=== PATIENT | male | born 1950 | race Caucasian/White ===

== ENCOUNTER 2016-07-17 09:07 | Emergency (ER) | payer BC ==
[~2016-07-17] VITALS: Ht 174 cm; Wt 98.0 kg
[2016-07-17 09:09] VITALS: TEMP 36.7
[2016-07-17 09:10] VITALS: O2SAT 95
[2016-07-17] MEDS ORDERED: SODIUM CHLORIDE 0.9% 1000ML 1,000 ML IV SCH (09:10)
--- NOTE | 2016-07-17 09:15 | EMERGENCY ROOM VISIT NOTE ---
History Report prepared by Gonzaloibedvin: Lin Varela Under the Supervision of: Dr. Frank Lau M.D. First contact with patient: 09:08 Stated Complaint: STOKE ALERT History of Present Illness The patient is a 65 year old male who presents to the Emergency Room with complaints of persistent possible stroke symptoms. He was brought to the ED via EMS. EMS reports he was found on a carpeted floor by his family this morning around 0815. His last known well was at 2230 last night. He vomited once prior to arrival. His reports he is normally a healthy fito and he takes no daily medications. The patient is aphasic on exam so additional information is unobtainable secondary to his current condition. No fever or known trauma or recent illness. Source of History: family, spouse/significant other (), EMS History Limited By: aphasia Onset: 0815 Position: other (global) Timing: other (persistent) Associated Symptoms: + vomiting Review of Systems See HPI for pertinent positives & negatives. A total of 10 systems reviewed and were otherwise negative. Past Medical & Surgical Medical Problems: (1) No significant past medical history Old medical records were reviewed. Nurse's notes were reviewed and I agree with. No history of cardiac disease or A. fib known prior No anticoagulation No history of diabetes or CVA Family History Mother did of a stroke Social History Smokeless Tobacco Use: No Alcohol Use: occasionally Drug Use: none Marital Status: Housing Status: lives with family Occupation Status: retired Current/Historical Medications Scheduled Ggaxmrxqrro-Wvckxvnhcgh-Scz C- (Glucosamine Chondroitin), 1 TAB PO DAILY Miscellaneous Medications Naproxen (Aleve), 220 MG PO Pseudoephedrine (Sudafed), 30 MG PO Allergies Coded Allergies: No Known Allergies (Verified , 07/17/16) Physical Exam Vital Signs Date Time Temp Pulse Resp B/P Pulse Ox O2 Delivery O2 Flow Rate FiO2 07/17/16 10:48 74 20 158/89 94 07/17/16 10:02 74 16 155/99 94 Room Air 07/17/16 09:38 78 16 163/115 94 Room Air 07/17/16 09:26 80 07/17/16 09:10 95 Room Air 07/17/16 09:09 36.7 70 20 143/108 Room Air Physical Exam General: Well developed, well nourished, middle aged male, in no acute distress , breathing comfortably on room air. Aphasic on exam but appears to follow some commands. HEENT: Normal cephalic atraumatic. Pupils are equal round and reactive to light. Extraocular movements are intact. Oropharynx is pink with moist mucous membranes. No swelling of the mouth lips or tongue. Neck: Supple with a midline trachea. No meningeal signs or stiffness, no JVD or bruits. No Stridor. Chest: Clear to auscultation bilaterally. No wheezes or rhonchi. No increased work of breathing. Heart: Non-tachycardic irregular rate and rhythm. Consistent with A. fib Abdomen: Soft nontender, nondistended without rebound guarding or rigidity. Extremities: No cyanosis clubbing or edema. No calf tenderness or assymetry Spine/Back. Non tender to palpation. No CVA tenderness Skin: Good turgor without rashes. Neurologic exam: Normal motor sensation of left arm and leg, dense hemiparesis on the right, gaze preference to the left with some facial droop. Medical Decision & Procedures ER Provider Diagnostic Interpretation: This CT scan was reviewed and interpreted by the radiologist and reviewed by myself. HEAD CT NONCONTRAST Impression: Developing left middle cerebral arterial territory infarct. No evidence for acute intracranial hemorrhage. Electronically signed by: Tito Cherry M.D. 07/17/2016 9:21 AM Laboratory Results 07/17/16 09:27 Red Blood Count 5.37, Mean Corpuscular Volume 92.7, Mean Corpuscular Hemoglobin 34.6, Mean Corpuscular Hemoglobin Concent 37.3, Mean Platelet Volume 10.2, Neutrophils (%) (Auto) 86.1, Lymphocytes (%) (Auto) 7.6, Monocytes (%) (Auto) 6.1, Eosinophils (%) (Auto) 0.0, Basophils (%) (Auto) 0.1, Neutrophils # (Auto) 7.02, Lymphocytes # (Auto) 0.62, Monocytes # (Auto) 0.50, Eosinophils # (Auto) 0.00, Basophils # (Auto) 0.01 07/17/16 09:27 Test 07/17/16 09:19 07/17/16 09:27 07/17/16 09:28 07/17/16 10:06 Bedside Prothrombin Time INR 1.2 (0.9-1.1) White Blood Count 8.16 K/uL (4.8-10.8) Red Blood Count 5.37 M/uL (4.7-6.1) Hemoglobin 18.6 g/dL (14.0-18.0) Hematocrit 49.8 % (42-52) Mean Corpuscular Volume 92.7 fL (80-100) Mean Corpuscular Hemoglobin 34.6 pg (25-34) Mean Corpuscular Hemoglobin Concent 37.3 g/dl (32-36) Platelet Count 169 K/uL (130-400) Mean Platelet Volume 10.2 fL (7.4-10.4) Neutrophils (%) (Auto) 86.1 % Lymphocytes (%) (Auto) 7.6 % Monocytes (%) (Auto) 6.1 % Eosinophils (%) (Auto) 0.0 % Basophils (%) (Auto) 0.1 % Neutrophils # (Auto) 7.02 K/uL (1.4-6.5) Lymphocytes # (Auto) 0.62 K/uL (1.2-3.4) Monocytes # (Auto) 0.50 K/uL (0.11-0.59) Eosinophils # (Auto) 0.00 K/uL (0-0.5) Basophils # (Auto) 0.01 K/uL (0-0.2) RDW Standard Deviation 41.2 fL (36.4-46.3) RDW Coefficient of Variation 12.4 % (11.5-14.5) Immature Granulocyte % (Auto) 0.1 % Immature Granulocyte # (Auto) 0.01 K/uL (0.00-0.02) Prothrombin Time 11.5 SECONDS (9.0-12.0) Prothromb Time International Ratio 1.1 (0.9-1.1) Activated Partial Thromboplast Time 25.0 SECONDS (21.0-31.0) Partial Thromboplastin Ratio 1.0 Anion Gap 10.0 mmol/L (3-11) Est Creatinine Clear Calc Drug Dose 83.2 ml/min Estimated GFR () 90.5 Estimated GFR (Non- 78.1 BUN/Creatinine Ratio 14.6 (10-20) Calcium Level 8.7 mg/dl (8.5-10.1) Total Creatine Kinase 353 U/L (39-308) Creatine Kinase MB 8.7 ng/ml (0.5-3.6) Creatine Kinase MB Ratio 2.5 (0-3.0) Troponin I < 0.015 ng/ml (0-0.045) Bedside Glucose 171 mg/dl (70-99) Urine Opiates Screen NEG (NEG) Urine Methadone, Qualitative NEG (NEG) Urine Barbiturates NEG (NEG) Urine Phencyclidine (PCP) Level NEG (NEG) Ur Amphetamine/Methamphetamine NEG (NEG) MDMA (Ecstasy) Screen NEG (NEG) Urine Benzodiazepines Screen NEG (NEG) Urine Cocaine Metabolite NEG (NEG) Urine Marijuana (THC) NEG (NEG) Laboratory studies as stated above per my review. Medications Administered Medications (Trade) Dose Ordered Sig/Blaine Route Start Time Stop Time Status Last Admin Dose Admin Sodium Chloride (Nss 1000ml) 1,000 ml @ 50 mls/hr Q20H IV 07/17/16 09:10 07/17/16 11:16 DC 07/17/16 09:56 50 MLS/HR Magnesium Sulfate (Magnesium Sulfate) 2 gm STK-MED ONCE .ROUTE 07/17/16 09:38 07/17/16 09:39 DC 07/17/16 09:55 2 GM Aspirin (Aspirin Chew) 324 mg NOW STAT GT 07/17/16 09:42 07/17/16 09:45 DC 07/17/16 09:57 324 MG Simvastatin (Zocor Tab) 40 mg STK-MED ONCE .ROUTE 07/17/16 09:46 07/17/16 09:48 DC 07/17/16 09:57 40 MG Labetalol HCl (Normodyne IV) 5 mg STK-MED ONCE .ROUTE 07/17/16 09:52 07/17/16 09:54 DC 07/17/16 09:59 5 MG ECG Indication: weakness (stroke like symptoms) Rate (beats per minute): 76 Rhythm: atrial fibrillation Findings: nonspecific-ST abn Comparison ECG Date: Compared to EKG from May 31, 2005, atrial fibrillation has replaced sinus bradycardia ED Course 0908: Past medical records reviewed. The patient was evaluated in room B1, and a complete history and physical examination were performed. 0910: NSS 1000 ml @ 50 mls/hr IV. 0935: I discussed the patients case with Dr. Gould, [facility]. They recommend fluids and have accepted the patient as a transfer to their facility via air transport. 0938: Magnesium Sulfate 2 gm IV. 0942: Simvastatin 40 mg NG, Aspirin 324 mg GT. 0946: Simvastatin 40 mg IV. 52: Labetalol 5 mg IV. 55: I reevaluated the patient. His blood pressure is elevated and [facility] recommends we administer Labetalol. I will put in orders. Medical Decision Differential Diagnoses: CVA, intracranial hemorrhage, arrhythmia, electrolyte or metabolic abnormalities, infection, trauma This patient comes in as described above. He was placed in room B1. I did talk to the paramedics prior to arrival and called a stroke alert. I was concerned that he has a large stroke on exam and is an otherwise healthy very functional fito and wanted to maximize his care. When he arrived I saw him and and we took him straight over to the CAT scan. CAT scan does show some findings consistent with a left MCA stroke. He already has ischemic changes. I did have IVs established and blood work obtained. He has no significant electrolyte or metabolic abnormality was found to have A. fib which is rate controlled and apparently new. This may have certainly contributed to his stroke. He is not on any blood thinners and this diagnosis was unknown to the patient and . I did have the stroke neurologist evaluate the patient. He does not feel that he is a TPA candidate because his last well known time was at 11:30 last night which is 9 or 10 hours prior to arrival. Additionally, he also has changes on his CAT scan and at this point would have more risk than benefit. We are going to transfer him to [facility] for further stroke care. He does not feel he will likely benefit from an intervention at this point has a large area however he will need other treatment unavailable here with possible surgery for decompressive craniotomy if he has swelling. As per the stroke neurologist, we did give him 500 mL IV normal saline bolus and then hourly rate of IV normal saline. He also be given 2 g of IV mag. Aspirin 324 mg and started him on Zocor 40 mg by mouth. He also received 1 dose of IV labetalol as his blood pressure was getting over 200 and this came down his high 190s. [facility] arrived and promptly transported the patient to [facility] for further inpatient treatment and evaluation. Consults Time Called: [phone] Consulting Physician: Dr. Gould, [facility] Returned Call: [phone] I discussed the patients case with Dr. Gould, [facility]. They recommend fluids and have accepted the patient as a transfer to their facility via air transport. Impression Primary Impression: CVA (cerebral vascular accident) Critical Care I have personally spent greater than 45 minutes of critical care time in the direct management of this patient. This includes bedside care, interpretation of diagnostic studies, and testing, discussion with consultants, patient, and family members, and other required patient management activities. This 45 minutes is in excess of all separately billable procedures. Scribe Attestation The scribe's documentation has been prepared under my direction and personally reviewed by me in its entirety. I confirm that the note above accurately reflects all work, treatment, procedures, and medical decision making performed by me. Departure Information Dispostion Transfer Acute Care Facility (The patient has been accepted as a transfer to [facility] for further evaluation and management) Referrals Juana Grimm M.D. (PCP)
--- NOTE | 2016-07-17 09:22 | DIAGNOSTIC IMAGING REPORT ---
HEAD CT NONCONTRAST CT DOSE: 537.48 mGy.cm HISTORY: Stroke eval; for CVA TECHNIQUE: Multiaxial CT images of the head were performed without the use of intravenous contrast. Comparison: None. Findings: The paranasal sinuses and mastoid air cells are clear. Probable effacement of left cerebral sulci as compared to the right. A developing left cerebral infarct possibly middle cerebral distribution is considered. The system is midline. There is no acute intracranial hemorrhage. Impression: Developing left middle cerebral arterial territory infarct. No evidence for acute intracranial hemorrhage. Electronically signed by: Tito Cherry M.D. 07/17/2016 9:21 AM Dictated Date/Time: 07/17/2016 9:20 AM
[2016-07-17 09:34] VITALS: Ht 174 cm; Wt 98.0 kg
[2016-07-17] MEDS ORDERED: MAGNESIUM SULFATE 1GM / D5W 1 GM BAG ONE (09:38)
[2016-07-17 09:40] LABS: BASO % 0.1 %; BASO ABS # 0.01 K/uL (0-0.2); COMPLETE YES; HEMATOCRIT 49.8 % (42-52); IG% 0.1 %; LYMPH % 7.6 %; LYMPH ABS # 0.62 K/uL (1.2-3.4); MEAN CELL VOLUME 92.7 fL (80-100); MEAN CORPUSCULAR HEMOGLOBIN 34.6 pg (25-34); MEAN CORPUSCULAR HGB CONC 37.3 g/dl (32-36); MEAN PLATELET VOLUME 10.2 fL (7.4-10.4); MONO % 6.1 %; NEUT % 86.1 %; PLATELET COUNT 169 K/uL (130-400); RED BLOOD COUNT 5.37 M/uL (4.7-6.1); WHITE BLOOD COUNT 8.16 K/uL (4.8-10.8)
[2016-07-17] MEDS ORDERED: SIMVASTATIN 40 MG TAB NG STA (09:42)
[2016-07-17] MEDS ORDERED: ASPIRIN 81 MG CHEW GT STA (09:42)
[2016-07-17] MEDS ORDERED: SIMVASTATIN 10 MG TAB ONE (09:46)
[2016-07-17 09:51] LABS: INR 1.1 (0.9-1.1); PROTHROMBIN TIME (PATIENT) 11.5 SECONDS (9.0-12.0)
[2016-07-17] MEDS ORDERED: LABETALOL HCL IV 5 MG/ML 20ML ONE (09:52)
[2016-07-17] MEDS ORDERED: GLUCTAB7 PO (10:00)
[2016-07-17] MEDS ORDERED: PSEU30TA20 PO (10:00)
[2016-07-17] MEDS ORDERED: NAPR1TAB9 PO (10:00)
[2016-07-17 10:05] LABS: BLOOD UREA NITROGEN 15 mg/dl (7-18); BUN/CREATININE RATIO 14.6 (10-20); CALCIUM 8.7 mg/dl (8.5-10.1); CARBON DIOXIDE 29 mmol/L (21-32); CHLORIDE 102 mmol/L (98-107); GLUCOSE 150 mg/dl (70-99); SODIUM 141 mmol/L (136-145)
[2016-07-17 10:10] LABS: CKMB/CK RATIO 2.5 (0-3.0)
[2016-07-17 10:48] VITALS: BP 158/89; PULSE 74; O2SAT 94
[2016-07-17 12:59] LABS: BENZODIAZEPINE, URINE NEG (NEG); COCAINE,URINE NEG (NEG); PHENCYCLIDINE, URINE NEG (NEG)
== END 2016-07-17 10:53 | disposition short-term general hospital (02) ==
LOC: EDBD 09:07 → C.EDB 09:08
DX: I63.9 Cerebral infarction, unspecified (principal); R11.10 Vomiting, unspecified; Z82.3 Family history of stroke

== ENCOUNTER → 2016-08-25 | Outpatient (CLI) | payer BC ==
[~2016-08-25] MED LIST: GLUCTAB7 PO; NAPR1TAB9 PO; PSEU30TA20 PO
--- NOTE | 2016-08-25 14:33 | DIAGNOSTIC IMAGING REPORT ---
HEAD CT NONCONTRAST CT DOSE: 638.56 mGycm HISTORY: Left MCA territory infarct. Follow-up. TECHNIQUE: Multiaxial CT images of the head were performed without the use of intravenous contrast. Automated exposure control was utilized for this study. Comparison: Head CT 07/17/2016. Findings: The paranasal sinuses and mastoid air cells are clear. Old nasal bone fractures, unchanged. Large area of developing encephalomalacia within the majority of the left temporal lobe, posterior lateral left frontal lobe, and anterior left parietal lobe. This is consistent with expected involution of a left MCA territory infarct. No evidence for hemorrhagic transformation. There is no mass or midline shift. The ventricles are normal in size. Impression: Expected evolution of a large left MCA territory infarct. No evidence for hemorrhagic transformation. Electronically signed by: Rubén Mitchell M.D. 08/25/2016 2:31 PM Dictated Date/Time: 08/25/2016 2:26 PM
--- NOTE | 2016-08-26 10:19 | CODING QUERY NO DIAGNOSIS ---
TREATMENT RENDERED WITHOUT A DIAGNOSIS To promote full compliance with coding requirements relating to patient care, physician participation is requested in all cases of cook helper vegetable uncertainty. Please assist us with providing a diagnosis/symptom for the test(s) below: A diagnosis/symptom was not documented on your Order. A valid diagnosis/symptom is required to bill all insurances. Please remember that we are unable to code a diagnosis of rule out, probable, possible, questionable, or suspected. Tests that require a diagnosis: DOS 08/25 * Head CT DIAGNOSIS: Provider Signature: Date: Thank you Shell [facility] Health Information Management Once completed, please kindly fax back to [phone] For questions please call [phone]
== END | disposition home or self-care (01) ==
LOC: C.CTS 14:12
PROVIDERS: ATTEND Internal Medicine Critical Care Medicine
DX: D64.9 Anemia, unspecified (principal); F17.210 Nicotine dependence, cigarettes, uncomplicated

== ENCOUNTER 2021-05-29 10:38 | Inpatient (IN) ==
[2021-05-29 11:39] LABS: Basophils # (auto) 0.02 K/uL (0-0.2); Basophils % (auto) 0.3 %; Eosinophils # (auto) 0.03 K/uL (0-0.5); Eosinophils % (auto) 0.5 %; Hematocrit (blood only) 45.6 % (42-52); Hemoglobin 15.2 g/dL (14.0-18.0); Immature Granulocytes # (auto) 0.01 K/uL (0.00-0.02); Immature Granulocytes % (auto) 0.2 %; Lymphocytes # (auto) 0.85 K/uL (1.2-3.4); Lymphocytes % (auto) 13.8 %; Mean Corpuscular Hemoglobin 31.9 pg (25-34); Mean Corpuscular Hgb Conc 33.3 g/dL (32-36); Mean Corpuscular Volume 95.8 fL (80-100); Mean Platelet Volume 10.9 fL (7.4-10.4); Monocytes # (auto) 0.55 K/uL (0.11-0.59); Monocytes % (auto) 8.9 %; Neutrophils # (auto) 4.72 K/uL (1.4-6.5); Neutrophils % (auto) 76.3 %; Platelet Count 181 K/uL (130-400); RDW Coefficient of Variation 14.9 % (11.5-14.5); RDW Standard Deviation 52.2 fL (36.4-46.3); Red Blood Count 4.76 M/uL (4.7-6.1); White Blood Count 6.18 K/uL (4.8-10.8)
--- NOTE | 2021-05-29 11:54 | History & Physical Report ---
Date of Service May 29, 2021 Assessment & Plan (1) Dilated cardiomyopathy: Plan: - Admit to tele - Consult cardiology - Dr. Pablo - was sent over from cards office by Dr. Bradley - Echo reviewed showing 25-29% L atrium severely enlarged, R atrium severely enlarged, moderately dilated R ventricular vacity, Moderate aortic sclerosis, Mild AI, severe MR, severe TR, elevated pulm artery pressure 65-70 mmHG - EKG reviewed as above showing afib rate controlled - Lasix 40 mg BID IV for now, was recently placed on lasix 20 mg po daily. - Daily weights- typically weights 230, was up 7 lbs within the past week. - strict I/Os - PT/OT consulted, encourage ambulation and elevation of legs (2) Atrial fibrillation, chronic: Plan: -Chronically anticoagulated with Xarelto -Rate controlled with metoprolol, consider initiation of Entresto prior to discharge per Dr. Bradley, otherwise is not on an NICOLETTE/ARB (3) Hyperlipidemia: Plan: - Cont statin therapy (4) Pleural effusion, bilateral: Plan: - CXR reviewed - Diuresis as above (5) History of CVA (cerebrovascular accident): Plan: - Occurred in 2017, follows with speech therapy as an outpatient routinely - PT/OT - No dysphagia, allow diet DVT ppx: - teds, scds CODE: Full Code Dispo: From home, likely to remain in the hospital x 2 days History of Present Illness Chief Complaint: Shortness of breath Primary Care Provider: Samir Arroyo MD This is a 70 yo M with PMHx of Atrial fibrillation on xarelto, Hx of Ischemic left MCA stroke in 2017, residual aphasia, prostate cancer, who presents to the hospital from cardiology office. He was seen by Dr. Bradley earlier today and sent him over due to severe dilated cardiomyopathy with an EF found to be 25% on recent echocardiogram. He had pulmonary hypertension most likely due to volume overload. He was recently seen in the ER for epigastric pain where he was started on protonix, then developed worsening lower extremity edema. He was told this was possibly an allergic reaction to this medication was switched to famotidine. No longer complains of any epigastric discomfort. he is doing well on famotidine. He was noted to be significantly volume overloaded today in the cardiology clinic and was sent here for further diuresis. PCP started on Lasix 20 mg PO daily approximately 1 week ago due to increased lower extremity edema, however has helped minimally. He typically weights around 230 lbs, and has continued to gain weight despite no changes in diet/fluid intake or medication. Currently is up 7 lbs. He has significant edema pitting and some weeping over both lower legs. Recently he has been sleeping with a minimum of 2 pillows every night, and is gasping for air when he lays down. He feels short of breath currently and here is found to be hypoxic with O2 sats 87% on room air. He has never required oxygen prior to this before. Allergies Allergy/AdvReac Type Severity Reaction Status Date / Time oseltamivir [From Tamiflu] AdvReac Intermediate Rash Unverified 05/19/21 11:31 Home Medications Medication Instructions Recorded Confirmed Type atorvastatin 40 mg tablet 40 mg PO DAILY 08/01/19 05/19/21 History gabapentin 300 mg capsule 300 mg PO BID 08/01/19 05/19/21 History metoprolol succinate 25 mg 25 mg PO DAILY 08/01/19 05/19/21 History tablet,extended release 24 hr multivitamin 1 tab PO QAM 08/01/19 05/19/21 History vit A 1,000 unit-C 200 mg-E 60 1 tab PO QAM 08/01/19 05/19/21 History unit-lutein 2 mg and minerals tablet (Ocuvite with Lutein) famotidine 20 mg tablet (Pepcid) 20 mg PO BID 42 Days #84 tab 05/19/21 Rx furosemide 20 mg tablet 20 mg PO DAILY 05/29/21 05/29/21 History magnesium 250 mg PO DAILY 05/29/21 05/29/21 History potassium chloride 20 mEq 20 meq PO 05/29/21 History tablet,extended release(part/cryst) rivaroxaban 20 mg tablet (Xarelto) 20 mg PO DAILY 05/29/21 05/29/21 History Past Med/Surg History Medical History (Updated 05/29/21 @ 12:48 by Matt Love DO) Atrial fibrillation Stroke Family History (Updated 08/01/19 @ 14:28 by Ilya Maldonado) Other No significant family history Social History (Updated 08/01/19 @ 14:49 by Ilya Maldonado) Smoking Status: Never smoker Hx Alcohol Use: Yes Preferred Language: [place] Islander Current Living Situation: Family Feels Safe at Home: Yes Review of Systems Review of Systems: Constitutional: No fever, sweats or chills Eyes: No diplopia, no worsening or blurred vision ENT: normal hearing, no trouble swallowing Respiratory: No cough, sputum, + dyspnea at rest and on exertion Cardiovascular: No chest pain, tightness or palpitations Abdomen: No pain, nausea, vomiting, diarrhea or constipation, + feels bloated in abdomen Musculoskeletal: No joint pain, calf pain, + BLE swelling Neurologic: No weakness, numbness/tingling, + chronic aphasia s/p stroke in 2017, no speech issues, no swallowing dysfunction, no balance problems Psychiatric: No anxiety or depression Skin: No rash or itch Physical Exam Physical Exam: General: awake, alert, no apparent distress, + aphasia Head: Normocephalic, atraumatic ENT: PERRL, EOMI, no pharyngeal exudate, mucous membranes moist Chest: Diminished at bases and faint crackles on exam bilaterally, on room air with sats 88%, improved on 2 L O2 to 95% Cardiac: irregularly irregular, rate controlled, no murmur, no JVD, normal peripheral pulses, good capillary refill Abdominal: NABS x 4 quadrants, soft, + distended, nontender to palpation, no rebound or guarding Extremities: 3+ pitting peripheral edema BLE, no erythema, calfs nontender to palpation Psych: Normal mood and affect Neuro: AAO x 3, strength intact bilaterally and rated 5/5, no motor deficits, speech is clear, no peripheral sensory deficits Results & Data Results & Data ([facility]) Vital Signs (Past 12 Hours) Vital Signs Temp Pulse Pulse Resp BP BP Pulse Ox 05/29/21 11:31 70 18 141/103 H 05/29/21 10:43 36.5 C 106 H 24 129/92 95 Laboratory Results 05/29/21 05/29/21 11:27 11:27 WBC 6.18 RBC 4.76 Hgb 15.2 Hct 45.6 MCV 95.8 MCH 31.9 MCHC 33.3 RDW Std Deviation 52.2 H RDW Coeff of Matthias 14.9 H Plt Count 181 MPV 10.9 H Immature Gran % (Auto) 0.2 Neut % (Auto) 76.3 Lymph % (Auto) 13.8 [place] % (Auto) 8.9 Eos % (Auto) 0.5 Baso % (Auto) 0.3 Neut # (Auto) 4.72 Lymph # (Auto) 0.85 L [place] # (Auto) 0.55 Eos # (Auto) 0.03 Baso # (Auto) 0.02 Immature Gran # (Auto) 0.01 Sodium 140 Potassium 4.3 Chloride 108 H Carbon Dioxide 24 Anion Gap 7.0 BUN 18 Creatinine 1.17 Est Cr Clr Drug Dosing 66.3 Est GFR ( Amer) 72.3 Est GFR (Non-Af Amer) 62.4 BUN/Creatinine Ratio 15.2 Glucose 139 H Calcium 8.9 Total Bilirubin 2.7 H AST 33 ALT 49 Alkaline Phosphatase 89 Troponin I 0.024 NT-Pro-B Natriuret Pep 5832 H Total Protein 6.0 L Albumin 3.2 L Globulin 2.8 Albumin/Globulin Ratio 1.2 Lipase 222 Diagnostic Findings Chest X-Ray 05/29/21 10:52 XR chest 1V portable CLINICAL HISTORY: Atypical chest pain TECHNIQUE: Single frontal radiograph of the chest was obtained. Comparison: Comparison is made to chest one view 05/19/2021 FINDINGS: No lines and tubes are seen. Cardiomegaly is noted. Bilateral lower lung predominant airspace opacities are seen. No evidence of pleural effusion or pneumothorax. IMPRESSION: Bilateral lower lung predominant airspace opacities which may represent atelectasis, pneumonia, and/or aspiration. ACT 112: Negative or not required by law. Electronically signed by: Albin Ibarra M.D. 05/29/2021 11:57 AM ECG Additional Comments: 29-MAY-2021 11:08:02 [facility]-EDSTAT ROUTINE RETRIEVAL Atrial fibrillation with premature ventricular or aberrantly conducted complexes Nonspecific T wave abnormality Prolonged QT Abnormal ECG When compared with ECG of 19-MAY-2021 09:48, No significant change was found 25mm/s 10mm/mV 150Hz 9.0.9 12SL 241 LUCINDA: 15 Unconfirmed Vent. rate 97 BPM NJ interval * ms QRS duration 94 ms QT/QTc 372/472 ms Code Status & VTE Plan Code Status Full code-discussed with patient at bedside VTE Prophylaxis Plan VTE Prophylaxis will be ordered: Yes Supervising Physician Co-Signing Physician Notes I saw this patient with the physician college sports assistant, I participated in the history, physical, review of systems, and physical exam. I reviewed the medications with the patient and the physician college sports assistant and helped reconcile the medications. I helped take a detailed family and social history as well. I formulated the assessment and plan personally with the physician college sports assistant and went over it with the patient. Physical Exam Gen-AAO x 3, NAD, Afebrile, Obese Head-NCAT, EOMI, PERRLA, Anicteric Sclera, No Posterior Pharyngeal Erythema Neck-Supple, No JVD, No Thyromegaly, No Masses, No LAD, No Bruits Lungs-Clear to Auscultation Bilaterally, No Rales, No Rhonchi, No Wheezing, No Crepitus Chest-No S4, +S1, +S2, No S3, No Murmurs, No Rubs, No Gallops, No Ectopy Abdomen-Soft, Bowel Sounds Present, Non Tender, Non Distended, No Hepatomegaly, No Splenomegaly, No Palpable Masses, No Rebound, No Rigidity, No Guarding Musculoskeletal-Full Range of Motion Bilaterally, No CVAT Extremities-No Cyanosis, No Clubbing, LLE c edema, tender firm Calf to groin posteriorly Nuero-Cranial Nerves II-XII grossly intact, Motor WNL, DTRs WNL, Strength WNL, Non Focal Psych-Normal Mood
[2021-05-29 11:56] LABS: Albumin Level 3.2 gm/dl (3.4-5.0); BUN Creatinine Ratio 15.2 (10-20); Calcium 8.9 mg/dl (8.5-10.1); Creatinine Clr Calc Pharmacy 66.3 ml/min; Est GFR (African American) 72.3 ml/min; Est GFR (Non-African American) 62.4 ml/min; Potassium 4.3 mmol/L (3.5-5.1)
--- NOTE | 2021-05-29 11:58 | XRay Report ---
XR chest 1V portable CLINICAL HISTORY: Atypical chest pain TECHNIQUE: Single frontal radiograph of the chest was obtained. Comparison: Comparison is made to chest one view 05/19/2021 FINDINGS: No lines and tubes are seen. Cardiomegaly is noted. Bilateral lower lung predominant airspace opaciti es are seen. No evidence of pleural effusion or pneumothorax. IMPRESSION: Bilateral lower lung predominant airspace opacities which may represent atelectasis, pneumonia, and/o r aspiration. ACT 112: Negative or not required by law. Electronically signed by: Albin Ibarra M.D. 05/29/2021 11:57 AM
[2021-05-29 12:01] LABS: Albumin Globulin Ratio 1.2 (0.9-2); Bilirubin,Total 2.7 mg/dl (0.2-1); Globulin 2.8 gm/dl (2.5-4.0); Troponin I 0.024 ng/ml (0-0.045)
--- NOTE | 2021-05-29 12:35 | Emergency Department Note ---
Impression & Plan CHF (congestive heart failure), Elevated bilirubin, Atrial fibrillation, chronic, Breath shortness, Hyperchloremia ED Provider Note NAME: MACI LUCAS AGE: 70 SEX: M : 1950 ARRIVES VIA: Walk-In INFORMANT: Patient ED PROVIDER(S): Matt Love DO CHIEF COMPLAINT: Shortness of breath HPI: Patient is a 70-year-old male who presents the ER for shortness of breath which has been getting worse for the past 3 weeks. He notes he is been having increased swelling of his legs. He was seen evaluated here and discharged following dose of Lasix. He followed up with cardiology and the symptoms have been worsening. He is much more short of breath with lying flat and/or any kind of exertion. He denies any chest pain or belly pain. No dysuria urgency or frequency. No other exacerbating or remitting factors. ROS: See above HPI for pertinent positives & negatives. A total of 10 systems reviewed and were otherwise negative. PAST MEDICAL HISTORY:See Below PAST SURGICAL HISTORY:See Below FAMILY HISTORY:See Below SOCIAL HISTORY:See Below HOME MEDICATIONS:See Below ALLERGIES:See Below VITALS:See Below PHYSICAL EXAMINATION: GENERAL: Sitting up in bed, alert, well appearing, well nourished, no distress, non-toxic EYE EXAM: normal conjunctiva. PERRL and EOM's grossly intact. OROPHARYNX: no exudate, no erythema, lips, buccal mucosa, and tongue normal and mucous membranes are moist NECK: supple, no nuchal rigidity, no adenopathy, non-tender LUNGS: Diminished bilateral bases. Normal chest wall mechanics HEART: no murmurs, S1 normal and S2 normal ABDOMEN: abdomen soft, non-tender, normo-active bowel sounds, no masses, no rebound or guarding. UPPER EXTREMITIES: upper extremities are grossly normal. LOWER EXTREMITIES: Pitting edema in the bilateral lower extremities tracking up to the thighs NEURO EXAM: Normal sensorium, cranial nerves II-XII grossly intact, normal speech, no gross weakness of arms, no gross weakness of legs. MEDICAL DECISION MAKING: Patient is a 70-year-old male who presents the ER for shortness of breath referred in by cardiology for CHF for admission. IV was established blood work was obtained. Labs show no significant leukocytosis or anemia. BMP with a slightly elevated chloride. LFTs were unremarkable. T bili slightly up at 2.7. This consistent with previous. BNP elevated at 6000. Lipase was normal. Chest x-ray with bilateral lower lobe opacities likely consistent with CHF. Patient was updated bedside. Given Lasix. Discussed the hospitalist admitted for further work-up. Triage Nursing notes reviewed. Limited review of prior medical records performed Vital Signs: reviewed and remarkable for no significant abnormalities Differential diagnosis: Differential diagnoses includes but is not limited to pneumonia, bronchitis, COPD/Asthma exacerbation, pneumothorax, pulmonary embolism, congestive heart failure, acute coronary syndrome ER treatment provided: See below Diagnostics interpreted by me: ECG: A. fib rate of 97 Normal axis PVCs present QTC 472 Cardiac Monitoring: An order was placed for continuous cardiac monitoring. The monitor shows a rate of 95 with afib rhythm. Laboratory studies: As stated above and show below. Imaging studies: Portable AP upright 1 view of the chest shows vascular congestion lower lobes Consultation(s): Discussed with Dr. Banuelos for further evaluation Procedures: none Critical Care: None Past Med/Surg History Medical History (Updated 05/29/21 @ 12:48 by Matt Love DO) Atrial fibrillation Stroke Family History (Updated 08/01/19 @ 14:28 by Ilya Maldonado) Other No significant family history Social History (Updated 08/01/19 @ 14:49 by Ilya Maldonado) Smoking Status: Never smoker Hx Alcohol Use: Yes Preferred Language: [place]ican Current Living Situation: Family Feels Safe at Home: Yes Allergies Allergies Allergy/AdvReac Type Severity Reaction Status Date / Time oseltamivir [From Tamiflu] AdvReac Intermediate Rash Unverified 05/19/21 11:31 Home Meds Home Medications Medication Instructions Recorded Confirmed atorvastatin 40 mg tablet 40 mg PO DAILY 08/01/19 05/19/21 gabapentin 300 mg capsule 300 mg PO BID 08/01/19 05/19/21 metoprolol succinate 25 mg 25 mg PO DAILY 08/01/19 05/19/21 tablet,extended release 24 hr multivitamin 1 tab PO QAM 08/01/19 05/19/21 vit A 1,000 unit-C 200 mg-E 60 1 tab PO QAM 08/01/19 05/19/21 unit-lutein 2 mg and minerals tablet (Ocuvite with Lutein) furosemide 20 mg tablet 20 mg PO DAILY 05/29/21 05/29/21 magnesium 250 mg PO DAILY 05/29/21 05/29/21 potassium chloride 20 mEq 20 meq PO 05/29/21 tablet,extended release(part/cryst) rivaroxaban 20 mg tablet (Xarelto) 20 mg PO DAILY 05/29/21 05/29/21 Previous Rx's Medication Instructions Recorded famotidine 20 mg tablet (Pepcid) 20 mg PO BID 42 Days #84 tab 05/19/21 Results & Data (ED) Vital Signs Vital Signs - 24 hr 05/29/21 10:43 05/29/21 11:31 05/29/21 12:25 Temperature 36.5 C Temperature Source Temporal Artery Scan Pulse Rate 106 H Pulse Rate [Apical] 70 Pulse Rhythm Regular Pulse Strength Normal Respiratory Rate 24 18 Respiratory Effort / Characteristics Non-Labored Spontaneous Accessory Muscle Use Respiratory Depth Normal Respiratory Pattern Regular Blood Pressure 129/92 Blood Pressure [Left Radial Artery] 141/103 H Blood Pressure Mean 104 Blood Pressure Mean [Left Radial Artery] 115 Blood Pressure Position Sitting Pulse Oximetry 95 Oxygen Delivery Method Room Air Nasal Cannula Nasal Cannula Oxygen Flow Rate 2 2 Sepsis Recent Fever Within 48 Hours No Sepsis New/Unexplained Change in Mental Status No Sepsis Action Taken by Nursing No Action Required Laboratory Data Result diagrams: 05/29/21 11:27 05/29/21 11:27 Lab Results 05/29/21 05/29/21 05/29/21 Range/Units 11:25 11:27 11:27 WBC 6.18 (4.8-10.8) K/uL RBC 4.76 (4.7-6.1) M/uL Hgb 15.2 (14.0-18.0) g/dL Hct 45.6 (42-52) % MCV 95.8 (80-100) fL MCH 31.9 (25-34) pg MCHC 33.3 (32-36) g/dL RDW Std Deviation 52.2 H (36.4-46.3) fL RDW Coeff of Matthias 14.9 H (11.5-14.5) % Plt Count 181 (130-400) K/uL MPV 10.9 H (7.4-10.4) fL Immature Gran % (Auto) 0.2 % Neut % (Auto) 76.3 % Lymph % (Auto) 13.8 % [place] % (Auto) 8.9 % Eos % (Auto) 0.5 % Baso % (Auto) 0.3 % Neut # (Auto) 4.72 (1.4-6.5) K/uL Lymph # (Auto) 0.85 L (1.2-3.4) K/uL [place] # (Auto) 0.55 (0.11-0.59) K/uL Eos # (Auto) 0.03 (0-0.5) K/uL Baso # (Auto) 0.02 (0-0.2) K/uL Immature Gran # (Auto) 0.01 (0.00-0.02) K/uL Sodium 140 (136-145) mmol/L Potassium 4.3 (3.5-5.1) mmol/L Chloride 108 H (98-107) mmol/L Carbon Dioxide 24 (21-32) mmol/L Anion Gap 7.0 (3-11) BUN 18 (7-18) mg/dl Creatinine 1.17 (0.6-1.4) mg/dl Est Cr Clr Drug Dosing 66.3 ml/min Est GFR ( Amer) 72.3 ml/min Est GFR (Non-Af Amer) 62.4 ml/min BUN/Creatinine Ratio 15.2 (10-20) Glucose 139 H (70-99) mg/dl Calcium 8.9 (8.5-10.1) mg/dl Total Bilirubin 2.7 H (0.2-1) mg/dl AST 33 (15-37) U/L ALT 49 (12-78) Alkaline Phosphatase 89 (45-117) U/L Troponin I 0.024 (0-0.045) ng/ml NT-Pro-B Natriuret Pep 5832 H (0-900) pg/ml Total Protein 6.0 L (6.4-8.2) gm/dl Albumin 3.2 L (3.4-5.0) gm/dl Globulin 2.8 (2.5-4.0) gm/dl Albumin/Globulin Ratio 1.2 (0.9-2) Lipase 222 (73-393) U/L SARS-CoV-2, RNA, NAAT NEGATIVE (NEGATIVE) Imaging Data Radiologist's Impression: Chest X-Ray 05/29/21 10:52 XR chest 1V portable CLINICAL HISTORY: Atypical chest pain TECHNIQUE: Single frontal radiograph of the chest was obtained. Comparison: Comparison is made to chest one view 05/19/2021 FINDINGS: No lines and tubes are seen. Cardiomegaly is noted. Bilateral lower lung predominant airspace opacities are seen. No evidence of pleural effusion or pneumothorax. IMPRESSION: Bilateral lower lung predominant airspace opacities which may represent atelectasis, pneumonia, and/or aspiration. ACT 112: Negative or not required by law. Electronically signed by: Albin Ibarra M.D. 05/29/2021 11:57 AM Discharge Plan Visit Data Chief Complaint: Swelling/Edema to Extremity Stated Complaint: FLUID RETENTION, SHORT OF BREATH, CARDIOYOPATHY. H ED Provider: Matt Love Discharge Problem: CHF (congestive heart failure), Elevated bilirubin, Atrial fibrillation, chronic, Breath shortness, Hyperchloremia Forms Stand Alone Forms: My [facility] [employer] Prescriptions Prescriptions: No Action atorvastatin 40 mg tablet 40 mg PO DAILY RF: 0 gabapentin 300 mg capsule 300 mg PO BID RF: 0 metoprolol succinate 25 mg tablet extended release 24 hr 25 mg PO DAILY RF: 0 multivitamin Tablet 1 tab PO QAM RF: 0 Ocuvite with Lutein 1,000 unit-200 mg-60 unit-2 mg Tablet 1 tab PO QAM RF: 0 famotidine [Pepcid] 20 mg tablet 20 mg PO BID 42 Days Qty: 84 RF: 0 potassium chloride 20 mEq tablet,ER particles/crystals 20 meq PO RF: 0 furosemide 20 mg tablet 20 mg PO DAILY RF: 0 Xarelto 20 mg tablet 20 mg PO DAILY RF: 0 magnesium 250 mg 250 mg PO DAILY RF: 0 Referrals Referrals: Samir Arroyo MD [Primary Care Provider] - Discharge Problem: CHF (congestive heart failure) Qualifiers: Heart failure type: unspecified Heart failure chronicity: unspecified Qualified Code(s): I50.9 - Heart failure, unspecified
[2021-05-29] MEDS ORDERED: FUROSEMIDE 40 MG/4 ML VIAL IV STA (12:43)
--- NOTE | 2021-05-29 13:25 | Cardiology Consultation ---
Date of Consultation May 29, 2021 Assessment & Plan (1) Acute heart failure with reduced ejection fraction and diastolic dysfunction: (2) Severe mitral regurgitation: (3) Tricuspid regurgitation: (4) Dilated cardiomyopathy: (5) Pleural effusion, bilateral: (6) Acute respiratory failure with hypoxia: (7) Atrial fibrillation, chronic: 70-year-old patient admitted with acute decompensated heart failure with reduced ejection fraction. Echocardiogram demonstrating severe mitral and tricuspid regurgitation with indirect evidence of severe pulmonary hypertension. Elevated pulmonary pressures at least in part related to significant volume overload on exam. Recommend IV Lasix, 40 mg every 12 hours. First dose now. Monitor daily weight, fluid balance, GFR, and electrolytes. Add low-dose topical nitrates for afterload reduction. Initiate evidence-based heart failure therapy with low-dose Entresto this evening. Fair heart rate control noted on telemetry. Continue metoprolol succinate 25 mg daily. Continue rivaroxaban for anticoagulation. Further ischemic evaluation is warranted after patient is optimized from a heart failure perspective. Thank you for allow me to participate in the care of your patient. Cardiology will continue to follow patient during hospitalization. History of Present Illness Reason for Consultation: CHF Requesting Physician: Dr. Banuelos Attending Physician: Dr. Banuelos History of Present Illness 70-year-old patient referred from the cardiology clinic due to acute decompensated heart failure with reduced ejection fraction. 2D transthoracic echocardiogram performed yesterday with results listed below. Describes approximately 4 weeks of shortness of breath, weight gain, and edema. Approximately 2 weeks ago he was evaluated regarding possible acid reflux. Proton pump inhibitor added. Notes orthopnea and paroxysmal nocturnal dyspnea. Dyspneic at rest as well as minimal activity/exertion. Denies chest discomfort or heaviness. No prior echocardiogram on record for comparison however current study demonstrates severely reduced LV systolic function with severe mitral and tricuspid regurgitation, severe pulmonary hypertension. Patient seen and examined in the emergency department. He is tachypneic seated in a semirecumbent position. Expressive aphasia noted. aids with history. Denies palpitations, lightheadedness, dizziness, syncope, or near syncope. Chronic A. 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 Chronically anticoagulated with Xarelto. Denies history of coronary artery disease, stenting, or prior cardiac surgery. Allergies Allergy/AdvReac Type Severity Reaction Status Date / Time oseltamivir [From Tamiflu] AdvReac Intermediate Rash Unverified 05/19/21 11:31 Home Medications Medication Instructions Recorded Confirmed Type atorvastatin 40 mg tablet 40 mg PO DAILY 08/01/19 05/19/21 History gabapentin 300 mg capsule 300 mg PO BID 08/01/19 05/19/21 History metoprolol succinate 25 mg 25 mg PO DAILY 08/01/19 05/19/21 History tablet,extended release 24 hr multivitamin 1 tab PO QAM 08/01/19 05/19/21 History vit A 1,000 unit-C 200 mg-E 60 1 tab PO QAM 08/01/19 05/19/21 History unit-lutein 2 mg and minerals tablet (Ocuvite with Lutein) famotidine 20 mg tablet (Pepcid) 20 mg PO BID 42 Days #84 tab 05/19/21 Rx furosemide 20 mg tablet 20 mg PO DAILY 05/29/21 05/29/21 History magnesium 250 mg PO DAILY 05/29/21 05/29/21 History potassium chloride 20 mEq 20 meq PO 05/29/21 History tablet,extended release(part/cryst) rivaroxaban 20 mg tablet (Xarelto) 20 mg PO DAILY 05/29/21 05/29/21 History Patient History Medical History Atrial fibrillation Stroke Family History Other No significant family history Social History Smoking Status: Never smoker Hx Alcohol Use: Yes Preferred Language: Irish Current Living Situation: Family Feels Safe at Home: Yes Review of Systems Review of Systems: All systems reviewed & are unremarkable except as noted in Subjective Physical Exam Constitutional: well developed, well nourished and + ill appearing; no acute distress Respiratory: + labored breathing; no respiratory distress, no retractions and does not use accessory muscles Auscultation: + diminished lung sounds (Bases bilateral) and + rales (Bilateral bases); no crackles, no rhonchi and no wheezes Cardiovascular: Rate/Rhythm: + irregularly irregular Heart Sounds: normal S1 and normal S2; no murmur Vessels: + JVD; no carotid bruit Extremities: + edema (2+ bilateral pitting pretibial edema) Gastrointestinal (Abdomen): Inspection/Auscultation: abdomen normal to inspection, + abdomen distended (Mild distention) and normal bowel sounds Percussion/Palpation: abdomen soft; abdomen nontender, no guarding and abdomen not rigid Neurologic: CN's II-XI intact bilaterally and moves all extremities; no focal motor deficits Motor/Sensory: no tremor Results & Data ([facility]) Vital Signs (Past 12 Hours) Vital Signs Temp Pulse Pulse Resp BP BP Pulse Ox 05/29/21 11:31 70 18 141/103 H 05/29/21 10:43 36.5 C 106 H 24 129/92 95 Diagnostic Findings 2D echocardiogram report summary 05/28/2021: Study was performed with the patient in atrial fibrillation. The left ventricular cavity is moderately dilated (LVED volume 90-100 ml/m^2). There is severe diffuse left ventricular hypokinesis with superimposed more severe hypokinesis to akinesis of the anterior/lateral wall. The qualitative LV ejection fraction is 25-29% (severely reduced). The left atrium is severely enlarged (>48 ml/m^2,). The right atrium is severely enlarged. The right ventricular cavity is moderately dilated. The right ventricular systolic function is reduced as assessed by tricuspid annular plane systolic excursion (TAPSE< 1.7 cm). Moderate aortic valve sclerosis is present. Mild aortic valve regurgitation is present. Severe mitral regurgitation is present. Severe tricuspid regurgitation is present. The estimated pulmonary artery systolic pressure is 65-70mm Hg.
[2021-05-29] MEDS ORDERED: NITROGLYCERIN 2% OINTMENT 30GM TUBE ONE (13:40)
[2021-05-29] MEDS: NITROGLYCERIN 2% OINTMENT 30GM TUBE EXT SCH ×2 (13:58→21:16)
[2021-05-29] MEDS ORDERED: ACETAMINOPHEN 325 MG TAB PO PRN (15:59)
[2021-05-29] MEDS ORDERED: ONDANSETRON INJ 2 MG/ML 2 ML VIAL IV PRN (15:59)
[2021-05-29] MEDS: ATORVASTATIN 40 MG TAB PO SCH (17:19)
[2021-05-29] MEDS ORDERED: FUROSEMIDE 40 MG/4 ML VIAL IV SCH ×2 (21:00)
[2021-05-29] MEDS ORDERED: FAMOTIDINE 20 MG TAB PO SCH (21:00)
[2021-05-29] MEDS: FAMOTIDINE 20 MG TAB PO SCH ×2 (21:16→22:06)
[2021-05-29] MEDS: VALSARTAN/SACUBITRIL 26/24MG TAB PO SCH (22:06)
[2021-05-29] MEDS: GABAPENTIN 300 MG CAP PO SCH (22:06)
[2021-05-29] MEDS: METOPROLOL SUCC 25MG EXT REL TAB PO SCH (22:06)
--- NOTE | 2021-05-29 22:50 | Electrocardiogram Report ---
Test Reason : Blood Pressure : / mmHG Vent. Rate : 097 BPM Atrial Rate : 416 BPM P-R Int : 000 ms QRS Dur : 094 ms QT Int : 372 ms P-R-T Axes : 000 080 118 degrees QTc Int : 472 ms Atrial fibrillation with premature ventricular or aberrantly conducted complexes Nonspecific T wave abnormality Abnormal ECG When compared with ECG of 19-MAY-2021 09:48, No significant change was found Confirmed by Marcos Suarez ([id number]) on 05/29/2021 10:50:26 PM Referred By: Confirmed By:Marcos Suarez
[2021-05-30] MEDS: NITROGLYCERIN 2% OINTMENT 30GM TUBE EXT SCH ×4 (01:37→21:03)
[2021-05-30 03:58] LABS: Hematocrit (blood only) 43.8 % (42-52); Hemoglobin 14.8 g/dL (14.0-18.0); Mean Corpuscular Hemoglobin 32.3 pg (25-34); Mean Corpuscular Hgb Conc 33.8 g/dL (32-36); Mean Corpuscular Volume 95.6 fL (80-100); Mean Platelet Volume 10.5 fL (7.4-10.4); Platelet Count 157 K/uL (130-400); RDW Coefficient of Variation 14.8 % (11.5-14.5); RDW Standard Deviation 51.8 fL (36.4-46.3); Red Blood Count 4.58 M/uL (4.7-6.1); White Blood Count 5.08 K/uL (4.8-10.8)
[2021-05-30 04:17] LABS: Albumin Level 2.8 gm/dl (3.4-5.0); BUN Creatinine Ratio 14.2 (10-20); Calcium 8.2 mg/dl (8.5-10.1); Est GFR (African American) 91.8 ml/min; Est GFR (Non-African American) 79.2 ml/min; Potassium 3.7 mmol/L (3.5-5.1)
[2021-05-30 04:22] LABS: Albumin Globulin Ratio 1.2 (0.9-2); Bilirubin,Total 2.6 mg/dl (0.2-1); Globulin 2.4 gm/dl (2.5-4.0); Total Protein 5.2 gm/dl (6.4-8.2); Troponin I 0.019 ng/ml (0-0.045)
[2021-05-30 07:31] LABS: Estimated Average Glucose 137 mg/dl; Hemoglobin A1C 6.4 % (4.5-5.6)
[2021-05-30] MEDS: POTASSIUM CHLORIDE CRTAB 20 MEQ TABCR PO SCH (07:57)
[2021-05-30] MEDS: VALSARTAN/SACUBITRIL 26/24MG TAB PO SCH ×2 (07:57→21:06)
[2021-05-30] MEDS: MAGNESIUM OXIDE 400 MG TAB PO SCH (07:57)
[2021-05-30] MEDS: GABAPENTIN 300 MG CAP PO SCH ×2 (07:57→21:06)
[2021-05-30] MEDS: RIVAROXABAN 20 MG TAB PO SCH (07:57)
--- NOTE | 2021-05-30 12:25 | Cardiology Progress Note ---
Date of Service May 30, 2021 Assessment & Plan (1) Acute heart failure with reduced ejection fraction and diastolic dy sfunction: (2) Severe mitral regurgitation: (3) Tricuspid regurgitation: (4) Dilated cardiomyopathy: (5) Pleural effusion, bilateral: (6) Acute respiratory failure with hypoxia: (7) Atrial fibrillation, chronic: Plan: 70-year-old patient admitted with acute decompensated heart failure with reduced ejection fraction. Echocardiogram demonstrating severe mitral and tricuspid regurgitation with indirect evidence of severe pulmonary hypertension. Elevated pulmonary pressures at least in part related to significant volume overload on exam. Monitor daily weight, fluid balance, GFR, and electrolytes. Evidence- based heart failure therapy with low-dose Entresto started Fair heart rate control noted on telemetry. Continue metoprolol succinate 25 mg daily. Continue rivaroxaban for anticoagulation. Brisk diuresis after 2 doses of IV furosemide with still mild persistent volume overload. We will give an additional dose today Continue therapies as above Cardiology will continue to follow patient during hospitalization. Admission and Anticipated Discharge Date Admission Date: May 29, 2021 Subjective Patient was seen and examined, chart, medications, telemetry reviewed. Patient feels improved this morning less abdominal distention and lower extremity edema. Brisk diuresis over the past 24 hours of greater than 3 L. No chest pains tachypalpitations dizziness or lightheadedness. Review of Systems Review of Systems: All systems reviewed & are unremarkable except as noted in Subjective Physical Exam Constitutional: well developed, well nourished and + ill appearing; no acute distress Eyes: PERRL, conjunctivae normal, anicteric sclerae Neck: trachea midline, no thyromegaly Respiratory: no respiratory distress, no retractions and does not use ac cessory muscles Auscultation: + diminished lung sounds (Bases bilateral) and + rales (Bilateral bases); no crackles, no rhonchi and no wheezes Cardiovascular: Rate/Rhythm: + irregularly irregular Heart Sounds: normal S1 and normal S2; no murmur Vessels: + JVD; no carotid bruit Extremities: + edema (2+ bilateral pitting pretibial edema) Gastrointestinal (Abdomen): Inspection/Auscultation: abdomen normal to inspection, + abdomen distended (Mild distention) and normal bowel sounds Percussion/Palpation: abdomen soft; abdomen nontender, no guarding and abdomen not rigid Neurologic: CN's II-XI intact bilaterally and moves all extremities (Mild right-sided weakness, chronic) Speech / Cognition: + expressive aphasia (Mild) Motor/Sensory: no tremor Results & Data ([facility]) Vital Signs (Past 12 Hours) Vital Signs Temp Pulse Resp BP Pulse Ox 05/30/21 11:51 36.4 C L 77 18 103/67 93 05/30/21 07:46 36.6 C 82 19 112/59 L 90 05/30/21 05:18 36.6 C 82 16 122/70 05/30/21 00:28 36.4 C L 104 H 16 115/71 94 Laboratory Results Laboratory Results - last 24 hr 05/29/21 05/29/21 05/30/21 11:25 19:15 03:46 WBC 5.08 RBC 4.58 L Hgb 14.8 Hct 43.8 MCV 95.6 MCH 32.3 MCHC 33.8 RDW Std Deviation 51.8 H RDW Coeff of Matthias 14.8 H Plt Count 157 MPV 10.5 H Sodium Potassium Chloride Carbon Dioxide Anion Gap BUN Creatinine Est Cr Clr Drug Dosing Est GFR ( Amer) Est GFR (Non-Af Amer) BUN/Creatinine Ratio Glucose Estimat Average Glucose Hemoglobin A1c Calcium Total Bilirubin AST ALT Alkaline Phosphatase Troponin I < 0.015 Total Protein Albumin Globulin Albumin/Globulin Ratio Hepatitis C Ab Screen SARS-CoV-2, RNA, NAAT NEGATIVE 05/30/21 05/30/21 05/30/21 03:46 03:46 03:46 WBC RBC Hgb Hct MCV MCH MCHC RDW Std Deviation RDW Coeff of Matthias Plt Count MPV Sodium 139 Potassium 3.7 Chloride 105 Carbon Dioxide 30 Anion Gap 4.0 BUN 14 Creatinine 0.96 Est Cr Clr Drug Dosing 80.0 Est GFR ( Amer) 91.8 Est GFR (Non-Af Amer) 79.2 BUN/Creatinine Ratio 14.2 Glucose 105 H Estimat Average Glucose 137 Hemoglobin A1c 6.4 H Calcium 8.2 L Total Bilirubin 2.6 H AST 28 ALT 45 Alkaline Phosphatase 81 Troponin I 0.019 Total Protein 5.2 L Albumin 2.8 L Globulin 2.4 L Albumin/Globulin Ratio 1.2 Hepatitis C Ab Screen Neg SARS-CoV-2, RNA, NAAT Medications Administered Current Medications Acetaminophen (Acetaminophen 325 Mg Tab) 650 mg PO Q4H PRN PRN Reason: Moderate Pain Stop: 01/16/22 15:58 Atorvastatin Calcium (Atorvastatin 40 Mg Tab) 40 mg PO QDD [facility] Stop: 06/28/21 16:29 Last Admin: 05/29/21 17:19 Dose: 40 mg Documented by: Famotidine (Famotidine 20 Mg Tab) 20 mg PO BID NINA Stop: 06/28/21 20:59 Last Admin: 05/29/21 22:06 Dose: 20 mg Documented by: Gabapentin (Gabapentin 300 Mg Cap) 300 mg PO BID NINA Stop: 06/28/21 20:59 Last Admin: 05/30/21 07:57 Dose: 300 mg Documented by: Magnesium Oxide (Magnesium Oxide 400 Mg Tab) 400 mg PO DAILY NINA Stop: 06/29/21 08:59 Last Admin: 05/30/21 07:57 Dose: 400 mg Documented by: Metoprolol Succinate (Metoprolol Succ 25mg Ext Rel Tab) 25 mg PO QPM NINA Stop: 06/28/21 20:59 Last Admin: 05/29/21 22:06 Dose: 25 mg Documented by: Nitroglycerin (Nitroglycerin 2% Ointment 30gm Tube) 0.5 inch EXT Q6H [facility] Stop: 06/28/21 13:14 Last Admin: 05/30/21 07:56 Dose: 0.5 inch Documented by: Ondansetron HCl (Ondansetron Inj 2 Mg/Ml 2 Ml Vial) 4 mg IV Q4H PRN PRN Reason: Nausea And Vomiting Stop: 06/28/21 15:58 Potassium Chloride (Potassium Chloride Crtab 20 Meq Tabcr) 20 meq PO DAILY NINA Stop: 06/29/21 08:59 Last Admin: 05/30/21 07:57 Dose: 20 meq Documented by: Rivaroxaban (Rivaroxaban 20 Mg Tab) 20 mg PO DAILY [facility] Stop: 06/29/21 08:59 Last Admin: 05/30/21 07:57 Dose: 20 mg Documented by: Sacubitril/Valsartan (Valsartan/Sacubitril 26/24mg Tab) 1 tab PO BID [facility] Stop: 06/28/21 20:59 Last Admin: 05/30/21 07:57 Dose: 1 tab Documented by:
[2021-05-30] MEDS ORDERED: FUROSEMIDE INJ 20 MG/2 ML VIAL IV ONE (12:34)
--- NOTE | 2021-05-30 16:39 | Hospitalist Progress Note ---
Date of Service May 30, 2021 Assessment & Plan (1) Acute respiratory failure with hypoxia: (2) Acute heart failure with reduced ejection fraction and diastolic dysfunction: Plan: 70 yo M with PMHx of Atrial fibrillation on xarelto, Ischemic left MCA stroke in 2017 w/ residual aphasia, prostate cancer presented 05/29 to the hospital from cardiology office. He was seen by Dr. Bradley earlier on the day of arrival and sent him over due to severe dilated cardiomyopathy with an EF found to be 25% on recent echocardiogram and found to be significantly volume overloaded. He had pulmonary hypertension most likely due to volume overload. 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 In the ER, he was short of breath and hypoxic with SaO2 87% on room air. No home oxygen. He is being managed for the following: (1) Dilated cardiomyopathy (1) acute hypoxic respiratory failure -- 2/2 acute HF. (1) acute HFrEF - Patient sent by cardiology office due to volume overloaded status secondary to severe dilated cardiomyopathy and acute HFrEF. - Patient had BLE swelling with 7 pounds of weight gain despite outpatient Lasix started by his PCP. - Admitted to tele - Recent outpatient Echo --> 25-29% L atrium severely enlarged, R atrium severely enlarged, moderately dilated R ventricular vacity, Moderate aortic sclerosis, Mild AI, severe MR, severe TR, elevated pulm artery pressure 65-70 mmHG - Admitting EKG reviewed --> afib rate controlled - Cardiology consulted: Continue metoprolol succinate/Zaroxolyn. Patient started on Entresto. - Lasix per cardiology - Daily weights- typically weights 230 - strict I/Os - PT/OT consulted, encourage ambulation and elevation of legs - Monitor BMP daily (2) Atrial fibrillation, chronic: -Chronically anticoagulated with Xarelto -Rate controlled with metoprolol (3) Hyperlipidemia: - Cont statin therapy (4) History of CVA (cerebrovascular accident): - Occurred in 2017, follows with speech therapy as an outpatient routinely - PT/OT - No dysphagia, allow diet DVT ppx: - teds, scds CODE: Full Code Dispo: From home, likely to remain in the hospital ~ 2 days Admission and Anticipated Discharge Date Admission Date: May 29, 2021 Subjective Patient was lying in bed, on 1 L nasal cannula oxygen, NAD, no new acute events overnight, patient reports eating and moving bowels okay. Patient reports improving shortness of breath and lower extremity edema. Patient denies any fever/chills/chest pain/palpitations/dizziness/lightheadedness/other review of symptoms. Physical Exam Physical Exam: GENERAL: Alert and oriented x3. NAD, on 1L NC. HEENT: No pallor, no icterus. Pupils equal, round and reactive to light. Oral mucosa moist. NECK: No JVD, no neck masses. HEART: S1 and S2 heard. irregular rate and rhythm. No murmur, no gallop. RESPIRATORY SYSTEM: Normal AP diameter. No accessory muscle use. No wheezing, mid to lower lob b/l crackles. ABDOMEN: Soft, bowel sounds present, nontender, no distention. CENTRAL NERVOUS SYSTEM: No facial droop. Speech is clear. Obeys simple commands. Moves extremities. EXTREMITIES: 1-2+ BLE edema, no erythema seen. Results & Data Results & Data ([facility]) Vital Signs (Past 12 Hours) Vital Signs Temp Pulse Resp BP Pulse Ox 05/30/21 15:59 36.4 C L 57 L 20 120/77 95 05/30/21 11:51 36.4 C L 77 18 103/67 93 05/30/21 07:46 36.6 C 82 19 112/59 L 90 05/30/21 05:18 36.6 C 82 16 122/70
[2021-05-30] MEDS: ATORVASTATIN 40 MG TAB PO SCH (17:00)
[2021-05-30] MEDS: METOPROLOL SUCC 25MG EXT REL TAB PO SCH (21:06)
[2021-05-30] MEDS: FAMOTIDINE 20 MG TAB PO SCH (21:06)
[2021-05-31] MEDS: NITROGLYCERIN 2% OINTMENT 30GM TUBE EXT SCH ×3 (02:17→12:58)
[2021-05-31 07:29] LABS: Albumin Level 2.7 gm/dl (3.4-5.0); BUN Creatinine Ratio 11.8 (10-20); Calcium 8.7 mg/dl (8.5-10.1); Creatinine Clr Calc Pharmacy 81.4 ml/min; Est GFR (African American) 96.6 ml/min; Est GFR (Non-African American) 83.4 ml/min; Magnesium 2.2 mg/dl (1.8-2.4); Potassium 3.7 mmol/L (3.5-5.1)
[2021-05-31 07:32] LABS: Bilirubin,Total 2.8 mg/dl (0.2-1); Globulin 2.6 gm/dl (2.5-4.0); Phosphorus 3.6 mg/dl (2.5-4.9); Total Protein 5.3 gm/dl (6.4-8.2)
[2021-05-31] MEDS: VALSARTAN/SACUBITRIL 26/24MG TAB PO SCH ×2 (08:45→20:56)
[2021-05-31] MEDS: MAGNESIUM OXIDE 400 MG TAB PO SCH (08:45)
[2021-05-31] MEDS: FAMOTIDINE 20 MG TAB PO SCH ×2 (08:45→20:56)
[2021-05-31] MEDS: GABAPENTIN 300 MG CAP PO SCH ×2 (08:45→20:56)
[2021-05-31] MEDS: RIVAROXABAN 20 MG TAB PO SCH (08:46)
[2021-05-31] MEDS: POTASSIUM CHLORIDE CRTAB 20 MEQ TABCR PO SCH (08:47)
--- NOTE | 2021-05-31 13:28 | Cardiology Progress Note ---
Date of Service May 31, 2021 Assessment & Plan (1) Acute heart failure with reduced ejection fraction and diastolic dy sfunction: (2) Severe mitral regurgitation: (3) Tricuspid regurgitation: (4) Dilated cardiomyopathy: (5) Pleural effusion, bilateral: (6) Acute respiratory failure with hypoxia: (7) Atrial fibrillation, chronic: Plan: 70-year-old patient admitted with acute decompensated heart failure with reduced ejection fraction. Echocardiogram demonstrating severe mitral and tricuspid regurgitation with indirect evidence of severe pulmonary hypertension. Elevated pulmonary pressures at least in part related to significant volume overload on exam. Patient has responded to therapies promptly with brisk diuresis. Evidence-based heart failure therapy with low-dose Entresto started We will change diuretics to oral once again with furosemide 20 mg daily adding spironolactone 12.5 mg daily Patient previously on metoprolol succinate 25 mg daily and rivaroxaban for anticoagulation. BMP in a.m. Cardiology will continue to follow patient during hospitalization. Admission and Anticipated Discharge Date Admission Date: May 29, 2021 Subjective Patient seen and examined, chart reviewed, telemetry reviewed. Patient feels improved this morning. Dyspnea and abdominal distention and lower extremity edema nearly resolved. Weight down 5 kg or greater since admission. No dizziness or lightheadedness. No chest pain or discomfort Telemetry with chronic atrial fibrillation only Oxygen saturations good on room air Review of Systems Review of Systems: All systems reviewed & are unremarkable except as noted in Subjective Physical Exam Constitutional: well developed and well nourished; no acute distress Eyes: PERRL, conjunctivae normal, anicteric sclerae Neck: trachea midline, no thyromegaly Respiratory: no respiratory distress, no retractions and does not use accessory muscles Auscultation: + diminished lung sounds (Bases bilateral); no crackles, no rales, no rhonchi and no wheezes Cardiovascular: Rate/Rhythm: + irregularly irregular Heart Sounds: normal S1 and normal S2; no murmur Vessels: + JVD; no carotid bruit Extremities: no edema Gastrointestinal (Abdomen): Inspection/Auscultation: abdomen normal to inspection, + abdomen distended (Mild distention) and normal bowel sounds Percussion/Palpation: abdomen soft; abdomen nontender, no guarding and abdomen not rigid Neurologic: CN's II-XI intact bilaterally and moves all extremities (Mild right-sided weakness, chronic) Speech / Cognition: + expressive aphasia (Mild) Motor/Sensory: no tremor Results & Data ([facility]) Vital Signs (Past 12 Hours) Vital Signs Temp Pulse Resp BP Pulse Ox 05/31/21 12:01 37.0 C 69 19 109/73 94 05/31/21 08:22 36.7 C 84 18 134/70 94 05/31/21 04:26 36.3 C L 91 H 16 112/70 90 Laboratory Results Laboratory Results - last 24 hr 05/31/21 06:27 Sodium 141 Potassium 3.7 Chloride 107 Carbon Dioxide 27 Anion Gap 7.0 BUN 11 Creatinine 0.92 Est Cr Clr Drug Dosing 81.4 Est GFR ( Amer) 96.6 Est GFR (Non-Af Amer) 83.4 BUN/Creatinine Ratio 11.8 Glucose 96 Calcium 8.7 Phosphorus 3.6 Magnesium 2.2 Total Bilirubin 2.8 H AST 23 ALT 37 Alkaline Phosphatase 85 Total Protein 5.3 L Albumin 2.7 L Globulin 2.6 Albumin/Globulin Ratio 1.0
[2021-05-31] MEDS: SPIRONOLACTONE 12.5 MG TAB PO SCH (14:14)
[2021-05-31] MEDS: FUROSEMIDE 20 MG TAB PO SCH (14:14)
[2021-05-31] MEDS: ATORVASTATIN 40 MG TAB PO SCH (16:09)
--- NOTE | 2021-05-31 18:43 | Hospitalist Progress Note ---
Date of Service May 31, 2021 Assessment & Plan (1) Acute respiratory failure with hypoxia: (2) Acute heart failure with reduced ejection fraction and diastolic dysfunction: Plan: 70 yo M with PMHx of Atrial fibrillation on xarelto, Ischemic left MCA stroke in 2017 w/ residual aphasia, prostate cancer presented 05/29 to the hospital from cardiology office. He was seen by Dr. Bradley earlier on the day of arrival and sent him over due to severe dilated cardiomyopathy with an EF found to be 25% on recent echocardiogram and found to be significantly volume overloaded. He had pulmonary hypertension most likely due to volume overload. 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 In the ER, he was short of breath and hypoxic with SaO2 87% on room air. No home oxygen. He is being managed for the following: (1) Dilated cardiomyopathy (1) acute hypoxic respiratory failure -- 2/2 acute HF. (1) acute HFrEF - Patient sent by cardiology office due to volume overloaded status secondary to severe dilated cardiomyopathy and acute HFrEF. - Patient had BLE swelling with 7 pounds of weight gain despite outpatient Lasix started by his PCP. - Admitted to tele - Recent outpatient Echo --> 25-29% L atrium severely enlarged, R atrium severely enlarged, moderately dilated R ventricular vacity, Moderate aortic sclerosis, Mild AI, severe MR, severe TR, elevated pulm artery pressure 65-70 mmHG - Admitting EKG reviewed --> afib rate controlled - Cardiology consulted: Continue metoprolol succinate. Lasix 20 daily. Patient started on Entresto and spironolactone 12.5 daily. - Lasix per cardiology - Daily weights- typically weights 230, decreasing weights. - strict I/Os - PT/OT consulted, encourage ambulation and elevation of legs - Monitor BMP daily (2) Atrial fibrillation, chronic: -Chronically anticoagulated with Xarelto -Rate controlled with metoprolol (3) Hyperlipidemia: - Cont statin therapy (4) History of CVA (cerebrovascular accident): - Occurred in 2017, follows with speech therapy as an outpatient routinely - PT/OT - No dysphagia, allow diet DVT ppx: - teds, scds CODE: Full Code Dispo: From home, likely to remain in the hospital ~ 1-2 days Admission and Anticipated Discharge Date Admission Date: May 29, 2021 Subjective Patient was standing in the room, on room air, NAD, no new acute events overnight. Patient reports improving leg swelling and improving shortness of b reath. Patient denies any chest pain/palpitation/fever/chills/other review of symptoms. Physical Exam Physical Exam: GENERAL: Alert and oriented x3. NAD, on RA HEENT: No pallor, no icterus. Pupils equal, round and reactive to light. Oral mucosa moist. NECK: No JVD, no neck masses. HEART: S1 and S2 heard. irregular rate and rhythm. No murmur, no gallop. RESPIRATORY SYSTEM: Normal AP diameter. No accessory muscle use. No wheezing, b/b crackles. ABDOMEN: Soft, bowel sounds present, nontender, no distention. CENTRAL NERVOUS SYSTEM: No facial droop. Speech is clear. Obeys simple commands. Moves extremities. EXTREMITIES: 1-2+ BLE edema, no erythema seen. Results & Data Results & Data ([facility]) Vital Signs (Past 12 Hours) Vital Signs Temp Pulse Resp BP Pulse Ox 05/31/21 15:14 36.4 C L 80 19 123/83 93 05/31/21 12:01 37.0 C 69 19 109/73 94 05/31/21 08:22 36.7 C 84 18 134/70 94
[2021-05-31] MEDS: METOPROLOL SUCC 25MG EXT REL TAB PO SCH (20:56)
[2021-06-01] MEDS: MAGNESIUM OXIDE 400 MG TAB PO SCH (07:56)
[2021-06-01] MEDS: FAMOTIDINE 20 MG TAB PO SCH (07:56)
[2021-06-01] MEDS: VALSARTAN/SACUBITRIL 26/24MG TAB PO SCH (07:56)
[2021-06-01] MEDS: SPIRONOLACTONE 12.5 MG TAB PO SCH (07:56)
[2021-06-01] MEDS: RIVAROXABAN 20 MG TAB PO SCH (07:56)
[2021-06-01] MEDS: GABAPENTIN 300 MG CAP PO SCH (07:56)
[2021-06-01] MEDS: FUROSEMIDE 20 MG TAB PO SCH (07:57)
[2021-06-01 09:14] LABS: Albumin Level 2.8 gm/dl (3.4-5.0); BUN Creatinine Ratio 9.4 (10-20); Bilirubin,Total 2.5 mg/dl (0.2-1); Calcium 8.4 mg/dl (8.5-10.1); Creatinine Clr Calc Pharmacy 76.8 ml/min; Est GFR (African American) 90.7 ml/min; Est GFR (Non-African American) 78.2 ml/min; Globulin 2.8 gm/dl (2.5-4.0); Total Protein 5.6 gm/dl (6.4-8.2)
--- NOTE | 2021-06-01 11:11 | Cardiology Progress Note ---
Date of Service June 01, 2021 Assessment & Plan (1) Acute heart failure with reduced ejection fraction and diastolic dy sfunction: (2) Severe mitral regurgitation: (3) Tricuspid regurgitation: (4) Dilated cardiomyopathy: (5) Pleural effusion, bilateral: (6) Acute respiratory failure with hypoxia: (7) Atrial fibrillation, chronic: Plan: 70-year-old patient admitted with acute decompensated heart failure with reduced ejection fraction. Echocardiogram demonstrating severe mitral and tricuspid regurgitation with indirect evidence of severe pulmonary hypertension. Elevated pulmonary pressures at least in part related to significant volume overload on exam. Patient has responded to guideline directed medical therapies for congestive heart failure. Stable for discharge today on current medical regimen CHF instructions Follow-up with cardiology 2 to 3 weeks time Admission and Anticipated Discharge Date Admission Date: May 29, 2021 Subjective Patient was seen and examined, chart, medications, telemetry reviewed. Feels well this morning no arrhythmias on telemetry no chest pain shortness of breath lower extremity edema and abdominal distention improved. Tolerating medications well. Physical Exam Constitutional: well developed and well nourished; no acute distress Eyes: PERRL, conjunctivae normal, anicteric sclerae Neck: trachea midline, no thyromegaly Respiratory: no respiratory distress, no retractions and does not use accessory muscles Auscultation: + diminished lung sounds (Bases bilateral); no crackles, no rales, no rhonchi and no wheezes Cardiovascular: Rate/Rhythm: + irregularly irregular Heart Sounds: normal S1 and normal S2; no murmur Vessels: + JVD; no carotid bruit Extremities: no edema Gastrointestinal (Abdomen): Inspection/Auscultation: abdomen normal to inspection, + abdomen distended (Mild distention) and normal bowel sounds Percussion/Palpation: abdomen soft; abdomen nontender, no guarding and abdomen not rigid Neurologic: CN's II-XI intact bilaterally and moves all extremities (Mild right-sided weakness, chronic) Speech / Cognition: + expressive aphasia (Mild) Motor/Sensory: no tremor Results & Data ([facility]) Vital Signs (Past 12 Hours) Vital Signs Temp Pulse Resp BP Pulse Ox 06/01/21 08:04 36.4 C L 83 18 122/76 93 06/01/21 03:20 36.7 C 75 17 141/89 H 95 05/31/21 23:17 36.6 C 93 H 20 135/89 93 Laboratory Results Laboratory Results - last 24 hr 06/01/21 08:04 Sodium 140 Potassium 4.0 Chloride 107 Carbon Dioxide 26 Anion Gap 7.0 BUN 9 Creatinine 0.97 Est Cr Clr Drug Dosing 76.8 Est GFR ( Amer) 90.7 Est GFR (Non-Af Amer) 78.2 BUN/Creatinine Ratio 9.4 L Glucose 134 H Calcium 8.4 L Total Bilirubin 2.5 H AST 25 ALT 36 Alkaline Phosphatase 91 Total Protein 5.6 L Albumin 2.8 L Globulin 2.8 Albumin/Globulin Ratio 1.0 Specimen Hemolysis
--- NOTE | 2021-06-01 12:20 | Discharge Summary ---
Date of Service June 01, 2021 Admission HPI Per Admitting Provider This is a 70 yo M with PMHx of Atrial fibrillation on xarelto, Hx of Ischemic left MCA stroke in 2017, residual aphasia, prostate cancer, who presents to the hospital from cardiology office. He was seen by Dr. Bradley earlier today and sent him over due to severe dilated cardiomyopathy with an EF found to be 25% on recent echocardiogram. He had pulmonary hypertension most likely due to volume overload. He was recently seen in the ER for epigastric pain where he was started on protonix, then developed worsening lower extremity edema. He was told this was possibly an allergic reaction to this medication was switched to famotidine. No longer complains of any epigastric discomfort. he is doing well on famotidine. He was noted to be significantly volume overloaded today in the cardiology clinic and was sent here for further diuresis. PCP started on Lasix 20 mg PO daily approximately 1 week ago due to increased lower extremity edema, however has helped minimally. He typically weights around 230 lbs, and has continued to gain weight despite no changes in diet/fluid intake or medication. Currently is up 7 lbs. He has significant edema pitting and some weeping over both lower legs. Recently he has been sleeping with a minimum of 2 pillows every night, and is gasping for air when he lays down. He feels short of breath currently and here is found to be hypoxic with O2 sats 87% on room air. He has never required oxygen prior to this before. Admission Exam Per Admitting Provider Gen-AAO x 3, NAD, Afebrile, Aphasic, Conversational dyspnea Head-NCAT, EOMI, PERRLA, Anicteric Sclera, No Posterior Pharyngeal Erythema Neck-Supple, No JVD, No Thyromegaly, No Masses, No LAD, No Bruits Lungs-Diminished Bilaterally, No Rales, No Rhonchi, No Wheezing, No Crepitus Chest-No S4, +S1, +S2, No S3, No Murmurs, No Rubs, No Gallops, No Ectopy Abdomen-Soft, Bowel Sounds Present, Non Tender, Non Distended, No Hepatomegaly, No Splenomegaly, No Palpable Masses, No Rebound, No Rigidity, No Guarding Musculoskeletal-Full Range of Motion Bilaterally, No CVAT Extremities-No Cyanosis, No Clubbing, + Pitting Edema 2+ Nuero-Cranial Nerves II-XII grossly intact, Motor WNL, DTRs WNL, Strength WNL, Non Focal Psych-Normal Mood Principal Diagnosis Acute heart failure with reduced ejection fraction and diastolic dysfunction. Discharge Exam GENERAL: Alert and oriented x3. NAD, on RA HEENT: No pallor, no icterus. Pupils equal, round and reactive to light. Oral mucosa moist. NECK: No JVD, no neck masses. HEART: S1 and S2 heard. irregular rate and rhythm. No murmur, no gallop. RESPIRATORY SYSTEM: Normal AP diameter. No accessory muscle use. No wheezing, b/b crackles - improved. ABDOMEN: Soft, bowel sounds present, nontender, no distention. CENTRAL NERVOUS SYSTEM: No facial droop. Speech is clear. Obeys simple commands. Moves extremities. EXTREMITIES: 1+ BLE edema, no erythema seen. Discharge Data Allergies Allergy/AdvReac Type Severity Reaction Status Date / Time oseltamivir [From Tamiflu] AdvReac Intermediate Rash Unverified 05/29/21 13:31 Consultations 05/29/21 10:55 ED Decision to Admit Stat 05/29/21 15:59 Consult Cardiology Routine Hospital Course (1) Acute respiratory failure with hypoxia: (2) Acute heart failure with reduced ejection fraction and diastolic dysfunction: 70 yo M with PMHx of Atrial fibrillation on xarelto, Ischemic left MCA stroke in 2017 w/ residual aphasia, prostate cancer presented 05/29 to the hospital from cardiology office. He was seen by Dr. Bradley earlier on the day of arrival and sent him over due to severe dilated cardiomyopathy with an EF found to be 25% on recent echocardiogram and found to be significantly volume overloaded. He had pulmonary hypertension most likely due to volume overload. 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 In the ER, he was short of breath and hypoxic with SaO2 87% on room air. No home oxygen. He was managed for the following: (1) Dilated cardiomyopathy (1) acute hypoxic respiratory failure -- 2/2 acute HF. (1) acute HFrEF - Patient sent by cardiology office due to volume overloaded status secondary to severe dilated cardiomyopathy and acute HFrEF. - Patient had BLE swelling with 7 pounds of weight gain despite outpatient Lasix started by his PCP. - Admitted and monitored in tele - Recent outpatient Echo --> 25-29% L atrium severely enlarged, R atrium severely enlarged, moderately dilated R ventricular vacity, Moderate aortic sclerosis, Mild AI, severe MR, severe TR, elevated pulm artery pressure 65-70 mmHG - Admitting EKG reviewed --> afib rate controlled - Cardiology consulted: Continue home metoprolol and Lasix. Patient started on Entresto and spironolactone 12.5 daily. - Get your blood work BMP done in a week time upon discharge. Follow-up with your PCP and cardiology. Maintain heart healthy diet and fluid restriction to 1500 mL/day. (2) Atrial fibrillation, chronic: -Chronically anticoagulated with Xarelto -Rate controlled with metoprolol (3) Hyperlipidemia: - Cont statin therapy (4) History of CVA (cerebrovascular accident): - Occurred in 2017, follows with speech therapy as an outpatient routinely - PT/OT - No dysphagia, allow diet DVT ppx: - teds, scds CODE: Full Code Patient is being discharged home with following instructions at the point of discharge: Follow-up with your primary care physician within a week time. Follow-up with your cardiology in 2 to 3 weeks time. Cardiology has evaluated and prescribed new medications relating to your current heart failure status, take medications as prescribed. Get blood work BMP done in a week time of discharge. Maintain heart healthy diet and fluid restriction of 1500 mL/day. CHF instruction diet. Total Time Total Time Spent Total Time Spent (In Minutes): 40 Discharge Plan Discharge Items Patient Disposition: Home - Self-Care Reason For Visit: DILATED CARDIOMYOPATHY Discharge Diagnosis: Acute heart failure with reduced ejection fraction Atrial fibrillation chronic Activity: Resume your previous activity Non-emergency contact: Primary Care Provider Call non-emergency contact if: you have any medication questions Follow-up/Referrals: Samir Arroyo MD [Primary Care Provider] - (Date & Time 06/04/2021 10:40 AM Provider Samir Arroyo MD Department Family [facility] ) Diet: Heart Healthy and Low Sodium (2gm) Fluids: 1500ml (6 cups) Addtl Attending Provider Instructions: Follow-up with your primary care physician within a week time. Follow-up with your cardiology in 2 to 3 weeks time. Cardiology has evaluated and prescribed new medications relating to your current heart failure status, take medications as prescribed. Get blood work BMP done in a week time of discharge. Maintain heart healthy diet and fluid restriction of 1500 mL/day. Call 911 and go to the Emergency Room if: * You have tightness or pain in your chest that does not go away with rest or Nitroglycerin * You are very short of breath even with rest Call your doctor if any of the following symptoms or problems start or get worse: * Shortness of breath or difficulty breathing * Wake up at night short of breath * Chest pain * Cough * Swelling of your hands, fee, or legs * More fatigued or tired with your normal activity * Palpitations - sudden fast heart beats WEIGHT * Weigh yourself every morning after using the bathroom. * Use the same scale. * Wear the same amount of clothing. * Write your weight down on your chart. * Call your doctor if you gain more than 2-3 pounds in 1-2 days. MEDICATIONS * Use this discharge instruction sheet for instructions. * Take your medications at the time your doctor ordered. * Do not skip a dose of your medicines. * If you miss a dose of medicine, take as soon as possible, but DO NOT DOUBLE A DOSE. * Read your medicine information when you get home. * Know all of the side effects of your medicine. * Call your doctor's office if you have any side effects. * Be sure all of your doctors know what medicine and herbs you take (including cold, flu, and herbal medicine). * Pain Medicine: If you do not get relief from your pain, please call your doctor for help. Take the following with you to your follow-up doctor appointments: * Weight Chart * Medication List * List of questions Do not drink excessive alcohol, beer or wine. Pending Studies at Discharge: No Stand-Alone Forms: My [employer], Smoking Cessation Medications and DC Order Prescriptions: New Entresto 24-26 mg Tablet 1 tab PO BID Qty: 60 RF: 0 spironolactone 25 mg Tablet 12.5 mg PO DAILY Qty: 15 RF: 0 Continued atorvastatin 40 mg tablet 40 mg PO QDD RF: 0 gabapentin 300 mg capsule 300 mg PO BID RF: 0 multivitamin Tablet 1 tab PO QAM RF: 0 Ocuvite with Lutein 1,000 unit-200 mg-60 unit-2 mg Tablet 1 tab PO QAM RF: 0 famotidine [Pepcid] 20 mg tablet 20 mg PO BID 42 Days Qty: 84 RF: 0 potassium chloride 20 mEq tablet,ER particles/crystals 20 meq PO DAILY RF: 0 magnesium 250 mg Tablet 250 mg PO QAM RF: 0 Xarelto 20 mg tablet 20 mg PO QDD RF: 0 lutein 6 mg Tablet 6 mg PO QAM RF: 0 Changed metoprolol succinate 25 mg tablet extended release 24 hr 25 mg PO QPM Qty: 0 RF: 0 furosemide 20 mg tablet 20 mg PO QAM Qty: 0 RF: 0 Discharge Orders: Discharge Order (Routine); Ordered 06/01/21 Ordered By: July Ivory/Other Patient Handouts: Prediabetes, 5 Steps for Eating Healthier Admission Data Admit Date/Time: 05/29/21 11:52 Attending Provider: July Schneider Admit Provider: Juanito Banuelos Primary Care Provider: Samir Arroyo Other Providers: Juanito Banuelos ; Godwin Keenan
== END 2021-06-01 14:57 | disposition home or self-care (01) | DRG 291 ==
LOC: ED 10:38 → SUATTDRO 11:52 → EDINP 11:52 → 2S 22:18

== ENCOUNTER 2023-05-12 10:48 | Inpatient (IN) ==
[2023-05-12] MEDS ORDERED: SODIUM CHLORIDE 0.9% 1,000 ML IV ONE ×2 (11:10→12:33)
--- NOTE | 2023-05-12 11:21 | Emergency Department Note ---
Impression & Plan Acute cholecystitis, Acute hypotension, Sepsis, CHERRY (acute kidney injury) ED Provider Note NAME: MACI LUCAS AGE: 72 SEX: M : 1950 ARRIVES VIA: Walk-In INFORMANT: Patient, the patient's friend ED PROVIDER(S): Darinel Shin DO CHIEF COMPLAINT: Weakness HPI: The patient is a 72-year-old male who presented to the emergency department through triage for an evaluation of generalized weakness. Apparently the patient was noted to have difficulty ambulating. He was felt to be off balance. He went to see his family doctor today and was sent to the emergency department immediately because his blood pressure was very low. No testing was ordered. The patient currently takes his own medications. His significant other is in the hospital because of a recent injury. The patient states he has been taking his medications as prescribed. His friend brought him to the emergency department because he states he feels that he has been off and not the same as usual. There is been no vomiting. The patient himself denies having any chest pain or difficulty breathing. He denies having any lower extremity swelling greater than usual. ROS: See above HPI for pertinent positives & negatives. A total of 10 systems reviewed and were otherwise negative. PAST MEDICAL HISTORY: See Below PAST SURGICAL HISTORY: See Below FAMILY HISTORY: See Below SOCIAL HISTORY: See Below HOME MEDICATIONS: See Below ALLERGIES: See Below VITALS: See Below PHYSICAL EXAMINATION: GENERAL: Patient is awake alert in no acute distress patient is resting comfortably and showing no signs of anxiety EYES: The conjunctivae are clear. The pupils are round and reactive. EARS, NOSE, MOUTH AND THROAT: The nose is without any evidence of any deformity. NECK: The neck is nontender and supple. RESPIRATORY: Normal respiratory effort is noted there is no evidence of wheezing rhonchi or rales CARDIOVASCULAR: Irregular heartbeat was noted to auscultation. There is no definite murmur GASTROINTESTINAL: The abdomen is soft. Abdomen is nontender. MUSCULOSKELETAL/EXTREMITIES: There is no evidence of gross deformity full range of motion is noted in the hips and shoulders. SKIN: There is no obvious evidence of any rash. Pedal edema was noted bilaterally. Skin was warm and dry NEUROLOGIC: Patient is awake alert and oriented to person place and situation. Strength was diminished in the right lower extremity. Speech was clear but there was some dysarthria appreciated. MEDICAL DECISION MAKING: The patient is a 72-year-old male who presented to the emergency department for near syncope. The patient initially presented from the primary care physician's office. He been having symptoms for what was described as quite some time. He denied having any abdominal pain and physical exam was not consistent with an acute surgical abdomen. The patient's low blood pressure was persistent despite multiple IV fluid boluses. He was treated with Rocephin empirically. I discussed the patient's laboratory and radiographic studies with him and his family member. Ultimately the patient had an elevation in his creatinine compared to baseline. He was also found to have signs of sepsis on laboratory studies as well as persistent hypotension. For this reason further radiographic studies in the way of CT of the chest abdomen pelvis were obtained. This appears to be consistent with cholecystitis. I discussed the patient's condition with the on-call [facility] hospitalist group as well as the on-call general surgeon. He was given a broader spectrum antibiotic by the admitting team. He was reevaluated by surgery. Triage Nursing notes reviewed. Prior medical records reviewed Vital Signs: reviewed and remarkable for hypotension. Differential diagnosis: Infection, dehydration, metabolic abnormality, hypo/hyperglycemia, electrolyte disturbance, anemia, hypoxia, cardiac sources, intracerebral event, toxicologic, neurologic, as well as other pathologies. ER treatment provided: See below Diagnostics interpreted by me: ECG: EKG was obtained in the emergency department. My interpretation is atrial fibrillation at 83 bpm. There is no PVCs. There is no acute ST segment abnormalities noted. This was compared to a tracing from May 29, 2021. No changes were noted Cardiac Monitoring: An order was placed for continuous cardiac monitoring. The monitor shows a rate of 96 bpm with sinus rhythm. Laboratory studies: As stated above and show below. Imaging studies: See below. Radiographic imaging was reviewed by myself Consultation(s): I discussed this case with Sherry who is on-call for the [facility] hospitalist group. I discussed this case with Dr. Robertson who is on for general surgery. ED COURSE: Procedures: none Critical Care: I have personally spent greater than 55 minutes of critical care time in the direct management of this patient. This includes bedside care, interpretation of diagnostic studies, and testing, discussion with consultants, patient, and family members, and other required patient management activities. This 55 minutes is in excess of all separately billable procedures. Past Med/Surg History Medical History (Updated 05/12/23 @ 16:18 by Darinel Shin DO) Acute cholecystitis Hypotension HFrEF (heart failure with reduced ejection fraction) Acute respiratory failure with hypoxia Tricuspid regurgitation Severe mitral regurgitation Acute heart failure with reduced ejection fraction and diastolic dysfunction CHF (congestive heart failure) History of CVA (cerebrovascular accident) Dilated cardiomyopathy Hyperlipidemia Atrial fibrillation, chronic Stroke Atrial fibrillation Family History Other No significant family history Social History Smoking Status: Never smoker Second Hand Exposure: No; Do You Dip or Chew Tobacco: No; Hx Alcohol Use: No Hx Substance Use: No Preferred Language: [place]an Communication Ability: Effective Communication Ability Comment: expressive aphasia Independent Driver Required: No Beliefs That Will Affect Care: None marital status: Current Living Situation: Spouse How many Children do You have: 3 Feels Safe at Home: Yes Assistive Devices: None Allergies Allergies Allergy/AdvReac Type Severity Reaction Status Date / Time oseltamivir [From Tamiflu] AdvReac Intermediate Rash Unverified 07/23/21 08:58 Home Meds Home Medications Medication Instructions Recorded Confirmed atorvastatin 40 mg tablet 80 mg PO QDD 08/01/19 05/12/23 gabapentin 300 mg capsule 300 mg PO BID 08/01/19 05/12/23 multivitamin 1 tab PO QAM 08/01/19 05/12/23 vit A 300 mcg-C 200 mg-E 27 1 tab PO QAM 08/01/19 05/12/23 mg-lutein 2 mg and minerals tablet (Ocuvite with Lutein) lutein 6 mg tablet 6 mg PO QAM 05/29/21 05/12/23 magnesium 250 mg tablet 250 mg PO QAM 05/29/21 05/12/23 rivaroxaban 20 mg tablet (Xarelto) 20 mg PO QDD 05/29/21 05/12/23 sacubitril 97 mg-valsartan 103 mg 1 tab PO BID 05/12/23 05/12/23 tablet (Entresto) Previous Rx's Medication Instructions Recorded furosemide 20 mg tablet 20 mg PO QAM #0 tabs 06/01/21 metoprolol succinate 25 mg 25 mg PO QPM #0 tabs 06/01/21 tablet,extended release 24 hr spironolactone 25 mg tablet 12.5 mg (1/2 x 25 mg) PO DAILY #15 06/01/21 tabs Results & Data (ED) Vital Signs Vital Signs - 24 hr 05/12/23 11:02 05/12/23 11:14 05/12/23 11:15 Temperature 36.6 C Temperature Source Skin Pulse Rate 100 H 91 H 89 Pulse Rate [Apical] Pulse Rate from SpO2 Sensor Respiratory Rate 18 27 H Blood Pressure 61/37 L Blood Pressure [Left Arm] Blood Pressure Mean 45 Blood Pressure Mean [Left Arm] Blood Pressure Position [Left Arm] Pulse Oximetry 92 Oxygen Delivery Method Sepsis Recent Fever Within 48 Hours No Sepsis New/Unexplained Change in Mental Status No Sepsis Action Taken by Nursing No Action Required 05/12/23 11:20 05/12/23 11:23 05/12/23 11:23 Temperature Temperature Source Pulse Rate 81 81 Pulse Rate [Apical] Pulse Rate from SpO2 Sensor Respiratory Rate 20 25 H Blood Pressure 81/54 L Blood Pressure [Left Arm] Blood Pressure Mean 63 Blood Pressure Mean [Left Arm] Blood Pressure Position [Left Arm] Pulse Oximetry 90 94 Oxygen Delivery Method Sepsis Recent Fever Within 48 Hours Sepsis New/Unexplained Change in Mental Status Sepsis Action Taken by Nursing 05/12/23 11:25 05/12/23 11:29 05/12/23 11:30 Temperature Temperature Source Pulse Rate Pulse Rate [Apical] Pulse Rate from SpO2 Sensor Respiratory Rate Blood Pressure 78/42 L Blood Pressure [Left Arm] Blood Pressure Mean 57 Blood Pressure Mean [Left Arm] Blood Pressure Position [Left Arm] Pulse Oximetry Oxygen Delivery Method Room Air Room Air Sepsis Recent Fever Within 48 Hours Sepsis New/Unexplained Change in Mental Status Sepsis Action Taken by Nursing 05/12/23 11:30 05/12/23 11:51 05/12/23 11:54 Temperature Temperature Source Pulse Rate 90 88 83 Pulse Rate [Apical] Pulse Rate from SpO2 Sensor 81 Respiratory Rate 22 14 24 Blood Pressure Blood Pressure [Left Arm] Blood Pressure Mean Blood Pressure Mean [Left Arm] Blood Pressure Position [Left Arm] Pulse Oximetry 92 92 89 L Oxygen Delivery Method Sepsis Recent Fever Within 48 Hours Sepsis New/Unexplained Change in Mental Status Sepsis Action Taken by Nursing 05/12/23 11:54 05/12/23 12:00 05/12/23 12:00 Temperature Temperature Source Pulse Rate 90 Pulse Rate [Apical] Pulse Rate from SpO2 Sensor 90 Respiratory Rate 20 Blood Pressure 85/53 L 76/57 L Blood Pressure [Left Arm] Blood Pressure Mean 64 63 Blood Pressure Mean [Left Arm] Blood Pressure Position [Left Arm] Pulse Oximetry 92 Oxygen Delivery Method Sepsis Recent Fever Within 48 Hours Sepsis New/Unexplained Change in Mental Status Sepsis Action Taken by Nursing 05/12/23 12:10 05/12/23 12:14 05/12/23 12:18 Temperature Temperature Source Pulse Rate 90 88 Pulse Rate [Apical] Pulse Rate from SpO2 Sensor 89 Respiratory Rate 22 26 H Blood Pressure 75/53 L Blood Pressure [Left Arm] Blood Pressure Mean 58 Blood Pressure Mean [Left Arm] Blood Pressure Position [Left Arm] Pulse Oximetry 92 Oxygen Delivery Method Sepsis Recent Fever Within 48 Hours Sepsis New/Unexplained Change in Mental Status Sepsis Action Taken by Nursing 05/12/23 12:18 05/12/23 12:20 05/12/23 12:20 Temperature Temperature Source Pulse Rate 84 82 Pulse Rate [Apical] Pulse Rate from SpO2 Sensor 85 86 Respiratory Rate 20 Blood Pressure 80/48 L Blood Pressure [Left Arm] Blood Pressure Mean 50 Blood Pressure Mean [Left Arm] Blood Pressure Position [Left Arm] Pulse Oximetry 91 91 Oxygen Delivery Method Sepsis Recent Fever Within 48 Hours Sepsis New/Unexplained Change in Mental Status Sepsis Action Taken by Nursing 05/12/23 12:30 05/12/23 12:30 05/12/23 12:40 Temperature Temperature Source Pulse Rate 81 Pulse Rate [Apical] Pulse Rate from SpO2 Sensor Respiratory Rate Blood Pressure 69/47 L 71/47 L Blood Pressure [Left Arm] Blood Pressure Mean 55 53 Blood Pressure Mean [Left Arm] Blood Pressure Position [Left Arm] Pulse Oximetry 92 Oxygen Delivery Method Sepsis Recent Fever Within 48 Hours Sepsis New/Unexplained Change in Mental Status Sepsis Action Taken by Nursing 05/12/23 12:40 05/12/23 12:50 05/12/23 12:50 Temperature Temperature Source Pulse Rate 80 92 H Pulse Rate [Apical] Pulse Rate from SpO2 Sensor 83 89 Respiratory Rate 16 24 Blood Pressure 80/47 L Blood Pressure [Left Arm] Blood Pressure Mean 56 Blood Pressure Mean [Left Arm] Blood Pressure Position [Left Arm] Pulse Oximetry 91 93 Oxygen Delivery Method Sepsis Recent Fever Within 48 Hours Sepsis New/Unexplained Change in Mental Status Sepsis Action Taken by Nursing 05/12/23 13:00 05/12/23 13:00 05/12/23 13:20 Temperature Temperature Source Pulse Rate 90 90 Pulse Rate [Apical] Pulse Rate from SpO2 Sensor 97 H Respiratory Rate 19 19 Blood Pressure 88/64 L Blood Pressure [Left Arm] Blood Pressure Mean 73 Blood Pressure Mean [Left Arm] Blood Pressure Position [Left Arm] Pulse Oximetry 91 Oxygen Delivery Method Sepsis Recent Fever Within 48 Hours Sepsis New/Unexplained Change in Mental Status Sepsis Action Taken by Nursing 05/12/23 13:24 05/12/23 13:24 05/12/23 13:30 Temperature Temperature Source Pulse Rate 82 79 Pulse Rate [Apical] Pulse Rate from SpO2 Sensor 97 H 86 Respiratory Rate 28 H 16 Blood Pressure 89/53 L Blood Pressure [Left Arm] Blood Pressure Mean 69 Blood Pressure Mean [Left Arm] Blood Pressure Position [Left Arm] Pulse Oximetry 92 94 94 Oxygen Delivery Method Sepsis Recent Fever Within 48 Hours Sepsis New/Unexplained Change in Mental Status Sepsis Action Taken by Nursing 05/12/23 13:30 05/12/23 13:40 05/12/23 13:41 Temperature Temperature Source Pulse Rate 88 Pulse Rate [Apical] Pulse Rate from SpO2 Sensor 118 H Respiratory Rate 20 Blood Pressure 78/54 L 72/53 L Blood Pressure [Left Arm] Blood Pressure Mean 58 55 Blood Pressure Mean [Left Arm] Blood Pressure Position [Left Arm] Pulse Oximetry 94 95 Oxygen Delivery Method Sepsis Recent Fever Within 48 Hours Sepsis New/Unexplained Change in Mental Status Sepsis Action Taken by Nursing 05/12/23 13:41 05/12/23 13:50 05/12/23 13:51 Temperature Temperature Source Pulse Rate 97 H 86 Pulse Rate [Apical] Pulse Rate from SpO2 Sensor 191 H Respiratory Rate 24 21 Blood Pressure 85/54 L Blood Pressure [Left Arm] Blood Pressure Mean 61 Blood Pressure Mean [Left Arm] Blood Pressure Position [Left Arm] Pulse Oximetry 94 Oxygen Delivery Method Sepsis Recent Fever Within 48 Hours Sepsis New/Unexplained Change in Mental Status Sepsis Action Taken by Nursing 05/12/23 13:51 05/12/23 14:00 05/12/23 14:01 Temperature Temperature Source Pulse Rate 89 79 Pulse Rate [Apical] Pulse Rate from SpO2 Sensor 159 H Respiratory Rate 22 20 Blood Pressure Blood Pressure [Left Arm] Blood Pressure Mean Blood Pressure Mean [Left Arm] Blood Pressure Position [Left Arm] Pulse Oximetry 93 93 92 Oxygen Delivery Method Room Air Sepsis Recent Fever Within 48 Hours Sepsis New/Unexplained Change in Mental Status Sepsis Action Taken by Nursing 05/12/23 14:01 05/12/23 14:01 05/12/23 14:10 Temperature Temperature Source Pulse Rate 96 H 86 Pulse Rate [Apical] Pulse Rate from SpO2 Sensor 88 Respiratory Rate 21 Blood Pressure 82/52 L Blood Pressure [Left Arm] Blood Pressure Mean 65 Blood Pressure Mean [Left Arm] Blood Pressure Position [Left Arm] Pulse Oximetry 91 88 L Oxygen Delivery Method Sepsis Recent Fever Within 48 Hours Sepsis New/Unexplained Change in Mental Status Sepsis Action Taken by Nursing 05/12/23 14:15 05/12/23 14:15 05/12/23 14:20 Temperature Temperature Source Pulse Rate 89 87 Pulse Rate [Apical] Pulse Rate from SpO2 Sensor Respiratory Rate 17 23 Blood Pressure 88/49 L Blood Pressure [Left Arm] Blood Pressure Mean 55 Blood Pressure Mean [Left Arm] Blood Pressure Position [Left Arm] Pulse Oximetry 90 88 L Oxygen Delivery Method Sepsis Recent Fever Within 48 Hours Sepsis New/Unexplained Change in Mental Status Sepsis Action Taken by Nursing 05/12/23 14:20 05/12/23 14:30 05/12/23 14:31 Temperature Temperature Source Pulse Rate 88 89 Pulse Rate [Apical] Pulse Rate from SpO2 Sensor Respiratory Rate 23 22 Blood Pressure 92/56 L Blood Pressure [Left Arm] Blood Pressure Mean 69 Blood Pressure Mean [Left Arm] Blood Pressure Position [Left Arm] Pulse Oximetry Oxygen Delivery Method Sepsis Recent Fever Within 48 Hours Sepsis New/Unexplained Change in Mental Status Sepsis Action Taken by Nursing 05/12/23 14:31 05/12/23 14:40 05/12/23 14:50 Temperature Temperature Source Pulse Rate 96 H 94 H Pulse Rate [Apical] Pulse Rate from SpO2 Sensor Respiratory Rate 19 22 Blood Pressure 92/61 L Blood Pressure [Left Arm] Blood Pressure Mean 69 Blood Pressure Mean [Left Arm] Blood Pressure Position [Left Arm] Pulse Oximetry 93 Oxygen Delivery Method Sepsis Recent Fever Within 48 Hours Sepsis New/Unexplained Change in Mental Status Sepsis Action Taken by Nursing 05/12/23 14:57 05/12/23 14:57 05/12/23 15:00 Temperature Temperature Source Pulse Rate 97 H 95 H Pulse Rate [Apical] Pulse Rate from SpO2 Sensor Respiratory Rate 24 Blood Pressure 87/61 L Blood Pressure [Left Arm] Blood Pressure Mean 76 Blood Pressure Mean [Left Arm] Blood Pressure Position [Left Arm] Pulse Oximetry 99 Oxygen Delivery Method Sepsis Recent Fever Within 48 Hours Sepsis New/Unexplained Change in Mental Status Sepsis Action Taken by Nursing 05/12/23 16:00 Temperature 36.6 C Temperature Source Oral Pulse Rate Pulse Rate [Apical] 96 H Pulse Rate from SpO2 Sensor Respiratory Rate 20 Blood Pressure Blood Pressure [Left Arm] 93/60 L Blood Pressure Mean Blood Pressure Mean [Left Arm] 71 Blood Pressure Position [Left Arm] Lying Pulse Oximetry Oxygen Delivery Method Sepsis Recent Fever Within 48 Hours Sepsis New/Unexplained Change in Mental Status Sepsis Action Taken by Detention Medications Current Medication List: was personally reviewed by me Laboratory Data Attestation: I reviewed the patient's lab results. 05/12/23 11:21 05/12/23 11:21 Lab Results 05/12/23 05/12/23 05/12/23 Range/Units 11:21 11: 13:03 WBC 11.42 H (4.8-10.8) K/ul RBC 4.63 L (4.70-6.10) M/uL Hgb 15.4 (14.0-18.0) g/dl Hct 45.0 (42.0-52.0) % MCV 97.2 (80.0-100.0) fL MCH 33.3 (25.0-34.0) pg MCHC 34.2 (32.0-36.0) g/dL RDW Std Deviation 45.9 (36.4-46.3) fL RDW Coeff of Matthias 12.8 (11.5-14.5) % Plt Count 164 (130-400) K/uL MPV 10.4 (9.4-12.4) fL Immature Gran % (Auto) 0.5 % Neut % (Auto) 86.5 % Lymph % (Auto) 5.9 % Rogers % (Auto) 6.7 % Eos % (Auto) 0.1 % Baso % (Auto) 0.3 % Neut # (Auto) 9.88 H (1.40-6.50) K/uL Lymph # (Auto) 0.67 L (1.20-3.40) K/uL Rogers # (Auto) 0.77 H (0.11-0.59) K/uL Eos # (Auto) 0.01 (0.00-0.50) K/uL Baso # (Auto) 0.03 (0.00-0.20) K/uL Immature Gran # (Auto) 0.06 (0.01-0.20) K/uL PT 13.9 H (9.0-12.0) Seconds INR 1.3 H (0.9-1.1) APTT 29.3 (21.0-31.0) Seconds PTT Ratio 1.0 Sodium 131 L (136-145) mmol/L Potassium 3.9 (3.5-5.1) mmol/L Chloride 96 L (98-107) mmol/L Carbon Dioxide 24 (21-32) mmol/L Anion Gap 11 (3-11) BUN 48 H (6-23) mg/dl Creatinine 2.52 H (0.6-1.4) mg/dl Est Cr Clr Drug Dosing 30.1 ml/min Est GFR ( Amer) 28.2 ml/min Est GFR (Non-Af Amer) 24.3 ml/min BUN/Creatinine Ratio 19.0 (10-20) Glucose 157 H (70-99(Fasting)) mg/dl Lactate 2.3 H* (0.4-2.0) mmol/L Calcium 8.8 (8.6-10.3) mg/dl Phosphorus (2.5-4.9) mg/dl Magnesium 2.5 H (1.7-2.4) mg/dl Total Bilirubin 3.3 H (0.2-1.0) mg/dl Direct Bilirubin 0.9 H (0-0.2) mg/dl AST 52 H (13-39) U/L ALT 28 (7-52) U/L Alkaline Phosphatase 90 (34-104) U/L Troponin I High Sens 29.5 H (0-20) pg/ml C-Reactive Protein 22.77 H (0-0.5) mg/dl Total Protein 6.5 (6.0-8.3) gm/dl Albumin 3.5 (3.4-5.0) gm/dl Procalcitonin 84.94 H (0-0.5) ng/ml Random Cortisol 35.33 mcg/dl Urine Color Dark Yellow Urine Appearance Cloudy A (Clear) Urine pH 5.0 (4.5-7.5) Ur Specific Lucas 1.021 (1.000-1.030) Urine Protein 1+ H (Negative) Urine Glucose (UA) 3+ H (Negative) Urine Ketones Trace H (Negative) Urine Blood 1+ H (Negative) Urine Nitrite Negative (Negative) Urine Bilirubin 1+ H (Negative) Urine Urobilinogen Negative (Negative) Ur Leukocyte Esterase Negative (Negative) Urine WBC (Auto) 1-5 (0-5) /hpf Urine RBC (Auto) 5-10 H (0-4) /hpf U Hyaline Cast (Auto) >30 H (0-5) /lpf U Epithel Cells (Auto) >30 H (0-5) /lpf Urine Bacteria (Auto) Negative (Negative) SARS-CoV-2 (PCR) NEGATIVE (Negative) Influenza Type A (PCR) Negative (Neg) Influenza Type B (PCR) Negative (Neg) RSV (RT-PCR) Negative (Neg) 05/12/23 Range/Units 14:20 WBC (4.8-10.8) K/ul RBC (4.70-6.10) M/uL Hgb (14.0-18.0) g/dl Hct (42.0-52.0) % MCV (80.0-100.0) fL MCH (25.0-34.0) pg MCHC (32.0-36.0) g/dL RDW Std Deviation (36.4-46.3) fL RDW Coeff of Matthias (11.5-14.5) % Plt Count (130-400) K/uL MPV (9.4-12.4) fL Immature Gran % (Auto) % Neut % (Auto) % Lymph % (Auto) % Rogers % (Auto) % Eos % (Auto) % Baso % (Auto) % Neut # (Auto) (1.40-6.50) K/uL Lymph # (Auto) (1.20-3.40) K/uL Rogers # (Auto) (0.11-0.59) K/uL Eos # (Auto) (0.00-0.50) K/uL Baso # (Auto) (0.00-0.20) K/uL Immature Gran # (Auto) (0.01-0.20) K/uL PT (9.0-12.0) Seconds INR (0.9-1.1) APTT (21.0-31.0) Seconds PTT Ratio Sodium (136-145) mmol/L Potassium (3.5-5.1) mmol/L Chloride (98-107) mmol/L Carbon Dioxide (21-32) mmol/L Anion Gap (3-11) BUN (6-23) mg/dl Creatinine (0.6-1.4) mg/dl Est Cr Clr Drug Dosing ml/min Est GFR ( Amer) ml/min Est GFR (Non-Af Amer) ml/min BUN/Creatinine Ratio (10-20) Glucose (70-99(Fasting)) mg/dl Lactate 1.5 (0.4-2.0) mmol/L Calcium (8.6-10.3) mg/dl Phosphorus 2.6 (2.5-4.9) mg/dl Magnesium (1.7-2.4) mg/dl Total Bilirubin (0.2-1.0) mg/dl Direct Bilirubin (0-0.2) mg/dl AST (13-39) U/L ALT (7-52) U/L Alkaline Phosphatase (34-104) U/L Troponin I High Sens 20.3 H (0-20) pg/ml C-Reactive Protein (0-0.5) mg/dl Total Protein (6.0-8.3) gm/dl Albumin (3.4-5.0) gm/dl Procalcitonin (0-0.5) ng/ml Random Cortisol mcg/dl Urine Color Urine Appearance (Clear) Urine pH (4.5-7.5) Ur Specific Lucas (1.000-1.030) Urine Protein (Negative) Urine Glucose (UA) (Negative) Urine Ketones (Negative) Urine Blood (Negative) Urine Nitrite (Negative) Urine Bilirubin (Negative) Urine Urobilinogen (Negative) Ur Leukocyte Esterase (Negative) Urine WBC (Auto) (0-5) /hpf Urine RBC (Auto) (0-4) /hpf U Hyaline Cast (Auto) (0-5) /lpf U Epithel Cells (Auto) (0-5) /lpf Urine Bacteria (Auto) (Negative) SARS-CoV-2 (PCR) (Negative) Influenza Type A (PCR) (Neg) Influenza Type B (PCR) (Neg) RSV (RT-PCR) (Neg) Administered Medications Discontinued Medications Sodium Chloride (Nss) 1,000 mls @ 999 mls/hr IV .Q1H1M ONE Stop: 05/12/23 12:10 Last Infusion: 05/12/23 12:25 Dose: Infused Documented By: Admin: 05/12/23 11:24 Dose: 999 mls/hr Documented By: ML Sodium Chloride (Nss) 1,000 mls @ 999 mls/hr IV .Q1H1M ONE Stop: 05/12/23 13:33 Last Infusion: 05/12/23 13:41 Dose: Infused Documented By: Admin: 05/12/23 12:40 Dose: 999 mls/hr Documented By: ML Ceftriaxone Sodium (Rocephin) 2,000 mg in 50 mls @ 100 mls/hr IV NOW STA Stop: 05/12/23 13:02 Last Infusion: 05/12/23 13:41 Dose: Infused Documented By: Admin: 05/12/23 12:41 Dose: 100 mls/hr Documented By: ML Piperacillin Sod/Tazobactam (Sod 4.5 gm/ Dextrose) 100 mls @ 200 mls/hr IV NOW ONE; Protocol Stop: 05/12/23 14:59 Last Admin: 05/12/23 14:58 Dose: 200 mls/hr Documented By: CAMMIE Imaging Data Attestation: I personally reviewed and interpreted this imaging study as follows: My Impression: 1 view chest x-ray was obtained in the emergency department. My interpretation is no free air, final report below. CT of the abdomen and pelvis was obtained in the emergency department. My interpretation is gallstones with stranding about the gallbladder, final report below. CT of the brain was obtained in the emergency department. My interpretation is no intracranial hemorrhage or mass effect, final report below Radiologist's Impression: Chest X-Ray 05/12/23 11:10 SINGLE VIEW CHEST CLINICAL HISTORY: Sepsis. FINDINGS: An AP, portable, upright chest radiograph is compared to study dated 05/29/2021. Correlation is made to chest CT dated 05/19/2021. The heart is enlarged. There is pulmonary vascular congestion. Small pleural effusions are suspected. Dependent atelectasis is noted. No pneumothorax is seen. The skeletal structures are osteopenic. The bony thorax is grossly intact. IMPRESSION: Cardiomegaly with evidence of congestive failure. ACT 112: Negative or not required by law. Electronically signed by: Charly Myers M.D. 05/12/2023 12:[address] 05/12/23 11:10 CT SCAN OF THE BRAIN WITHOUT IV CONTRAST CLINICAL HISTORY: Loss of balance. COMPARISON STUDY: CT of the brain dated 05/19/2021. TECHNIQUE: Unenhanced axial CT scan of the brain is performed from the vertex to the skull base. A dose lowering technique was utilized adhering to the principles of ALARA. CT DOSE: 602.38 mGy.cm FINDINGS: Brain parenchyma: Left MCA territory encephalomalacia is similar to previous and consistent with a remote infarct. There is age-related involutional change noting mild subcortical and periventricular microangiopathic disease. There is no hemorrhage, mass effect, or evidence of acute territorial ischemia by CT criteria. Keene-white matter differentiation is preserved. No extra-axial fluid collection is seen. Ventricles, sulci, cisterns: Prominent secondary to involutional change. Intracranial vasculature: There is atherosclerotic calcification of the cavernous carotid arteries. Calvarium: Unremarkable. Sinuses and mastoids: The visualized paranasal sinuses are clear. The mastoid air cells are well pneumatized. Orbits: The bony orbits are grossly intact. IMPRESSION: Remote left MCA territory infarct with no hemorrhage, mass effect, or evidence of acute territorial ischemia by CT criteria. ACT 112: Negative or not required by law. Electronically signed by: Charly Myers M.D. 05/12/2023 11:59 AM Abdomen/Pelvis CT 05/12/23 12:57 CT SCAN OF THE ABDOMEN AND PELVIS WITHOUT IV CONTRAST CLINICAL HISTORY: Sepsis. COMPARISON STUDY: Abdominal CT dated 05/19/2021 TECHNIQUE: CT scan of the abdomen and pelvis is performed from the lung bases to the proximal femora. Images are reviewed in the axial, sagittal, and coronal planes. IV contrast was not administered for this examination. Note that the examination was performed and significantly suboptimal fashion without oral and IV contrast. The Examination is also degraded by motion artifact, as well as by streak artifact from the arms which could not be elevated above the abdomen. A dose lowering technique was utilized adhering to the principles of ALARA. FINDINGS: Lung bases: The heart is enlarged and without pericardial effusion. The coronary arteries are densely calcified. A 9 mm pulmonary nodule at the left lung base is seen on image #95. This is unchanged from 202 and of low suspicion. The lung bases are otherwise clear noting bibasilar scarring/atelectasis. Gynecomastia is noted. Liver: The unenhanced liver is normal in size, contour, and attenuation. There is no intrahepatic biliary ductal dilatation. Gallbladder: There are numerous small calcified gallstones. The gallbladder is distended and thick walled, with pericholecystic infiltration and fluid. Findings are consistent with acute cholecystitis. Spleen: Normal in size and attenuation. Pancreas: Unremarkable. Adrenal glands: Unremarkable. Kidneys: The unenhanced kidneys demonstrate cortical atrophy and are without hydronephrosis. No renal calculi are identified and there is no ureteral stone. There is no evidence of contour deforming renal mass lesion. Abdominal vasculature: There is moderate atherosclerotic calcification and ectasia of the abdominal aorta. There is aneurysmal dilatation of the left common iliac artery which measures up to 3.1 cm. There are bilateral internal iliac artery aneurysms, measuring up to 3.4 cm on the left and 3.0 cm on the right. Bowel: There is moderate to advanced colonic diverticulosis without CT evidence of acute diverticulitis. No bowel obstruction is seen. There is a small duodenal diverticulum. The appendix is not visualized. Peritoneum: There is no intraperitoneal free air or abdominal ascites. Lymphadenopathy: None. Pelvic viscera: The prostate gland is diminutive and heterogeneous noting brachytherapy implants in place. The bladder is decompressed around a Abdi catheter. There is a small fat-containing left inguinal hernia. Skeletal structures: The skeletal structures are osteopenic. There are mild chronic compression deformities of T9, T11, and T12. Moderate lumbosacral spondylosis is observed. No lytic or blastic lesions are seen. IMPRESSION: 1. Cholelithiasis with acute cholecystitis. Surgical consultation is advised. 2. Cardiomegaly. 3. Colonic diverticulosis without CT evidence of acute diverticulitis. 4. 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 5. Brachytherapy implants are noted in the prostate. 6. Additional findings as above. ACT 112: Negative or not required by law. Electronically signed by: Charly Myers M.D. 05/12/2023 1:[address] 05/12/23 12:57 CT chest diagnostic wo con CLINICAL HISTORY: sepsis TECHNIQUE: Multidetector row helical CT of the chest was performed. Coronal and sagittal reformations were obtained. Automated dose lowering techniques and/or adjustment according to patient size were utilized for this exam. CT DOSE: 2166.7 mGy.cm Comparison: Comparison is made to CT chest 05/19/2021 FINDINGS: Lungs and pleura: 9 mm nodule in the left lung base (series 4 image 197) is again seen. Heart and pericardium: Heart size is normal. No pericardial effusion. Vessels: The pulmonary trunk is enlarged measuring 32 mm. Mediastinum and danica: Subcentimeter lymph nodes are seen. Chest wall and lower neck: Gynecomastia is noted bilaterally. Abdomen: For findings below the diaphragm, please refer to CT of the abdomen dated the same. Bones: Minimal degenerative changes are seen. IMPRESSION: No evidence of pneumonia. Stable pulmonary nodule as above for which no further follow-up is required by Fleischner criteria. ACT 112: Negative or not required by law. Electronically signed by: Albin Ibarra M.D. 05/12/2023 1:50 PM Renal Ultrasound 05/12/23 14:17 US renal/blad retro comp CLINICAL HISTORY: CHERRY TECHNIQUE: Multiple sonographic real-time images of the kidneys and bladder were obtained. COMPARISON: Comparison is made to CT abdomen pelvis 05/12/2023 FINDINGS: The right kidney measures 13.0 cm in length, and the left kidney measures 12.8 cm in length. The right kidney is normal in size, contour, cortical thickness, and echogenicity. No hydronephrosis is identified. Mid pole cyst measures 1.3 cm. The left kidney is normal in size, contour, cortical thickness and echogenicity. No hydronephrosis is identified. No renal lesion is identified. A Abdi catheter is seen in the collapsed bladder. No large intraluminal mass is seen. IMPRESSION: Unremarkable renal ultrasound. ACT 112: Negative or not required by law. Electronically signed by: Albin Ibarra M.D. 05/12/2023 3:53 PM Discharge Plan Visit Data Chief Complaint: Hypotension Stated Complaint: VISON CHANGES, NUMBNESS, ED Provider: Darinel Shin Discharge Problem: Acute cholecystitis, Acute hypotension, Sepsis, CHERRY (acute kidney injury) Patient Disposition: Being Evaluated by Hospitalist Forms Stand Alone Forms: My [facility] Prescriptions Prescriptions: No Action atorvastatin 40 mg tablet 80 mg PO QDD gabapentin 300 mg capsule 300 mg PO BID multivitamin Tablet 1 tab PO QAM Ocuvite with Lutein 1,000 unit-200 mg-60 unit-2 mg Tablet 1 tab PO QAM magnesium 250 mg Tablet 250 mg PO QAM Xarelto 20 mg tablet 20 mg PO QDD lutein 6 mg Tablet 6 mg PO QAM spironolactone 25 mg Tablet 12.5 mg PO DAILY Qty: 15 0RF furosemide 20 mg tablet 20 mg PO QAM Qty: 0 0RF metoprolol succinate 25 mg tablet extended release 24 hr 25 mg PO QPM Qty: 0 0RF Entresto 97-103 mg tablet 1 tab PO BID Referrals Referrals: Samir Arroyo MD [Primary Care Provider] - Discharge Problem: Sepsis Qualifiers: Sepsis type: sepsis due to unspecified organism Sepsis acute organ dysfunction status: unspecified Qualified Code(s): A41.9 - Sepsis, unspecified organism
[2023-05-12 12:00] LABS: Basophils # (auto) 0.03 K/uL (0.00-0.20); Basophils % (auto) 0.3 %; Eosinophils # (auto) 0.01 K/uL (0.00-0.50); Eosinophils % (auto) 0.1 %; Hemoglobin 15.4 g/dl (14.0-18.0); Immature Granulocytes # (auto) 0.06 K/uL (0.01-0.20); Immature Granulocytes % (auto) 0.5 %; Lymphocytes # (auto) 0.67 K/uL (1.20-3.40); Lymphocytes % (auto) 5.9 %; Mean Corpuscular Hemoglobin 33.3 pg (25.0-34.0); Mean Corpuscular Hgb Conc 34.2 g/dL (32.0-36.0); Mean Corpuscular Volume 97.2 fL (80.0-100.0); Mean Platelet Volume 10.4 fL (9.4-12.4); Monocytes # (auto) 0.77 K/uL (0.11-0.59); Monocytes % (auto) 6.7 %; Neutrophils # (auto) 9.88 K/uL (1.40-6.50); Neutrophils % (auto) 86.5 %; Platelet Count 164 K/uL (130-400); RDW Coefficient of Variation 12.8 % (11.5-14.5); RDW Standard Deviation 45.9 fL (36.4-46.3); Red Blood Count 4.63 M/uL (4.70-6.10); White Blood Count 11.42 K/ul (4.8-10.8)
--- NOTE | 2023-05-12 12:00 | CT Scan Report ---
CT SCAN OF THE BRAIN WITHOUT IV CONTRAST CLINICAL HISTORY: Loss of balance. COMPARISON STUDY: CT of the brain dated 05/19/2021. TECHNIQUE: Unenhanced axial CT scan of the brain is performed from the vertex to the skull base. A do se lowering technique was utilized adhering to the principles of ALARA. CT DOSE: 602.38 mGy.cm FINDINGS: Brain parenchyma: Left MCA territory encephalomalacia is similar to previous and consistent with a re mote infarct. There is age-related involutional change noting mild subcortical and periventricular mi croangiopathic disease. There is no hemorrhage, mass effect, or evidence of acute territorial ischemi a by CT criteria. Keene-white matter differentiation is preserved. No extra-axial fluid collection is seen. Ventricles, sulci, cisterns: Prominent secondary to involutional change. Intracranial vasculature: There is atherosclerotic calcification of the cavernous carotid arteries. Calvarium: Unremarkable. Sinuses and mastoids: The visualized paranasal sinuses are clear. The mastoid air cells are well pneu matized. Orbits: The bony orbits are grossly intact. IMPRESSION: Remote left MCA territory infarct with no hemorrhage, mass effect, or evidence of acute t erritorial ischemia by CT criteria. ACT 112: Negative or not required by law. Electronically signed by: Charly Myers M.D. 05/12/2023 11:59 AM
[2023-05-12 12:16] LABS: Albumin Level 3.5 gm/dl (3.4-5.0); Bilirubin Direct 0.9 mg/dl (0-0.2); Bilirubin,Total 3.3 mg/dl (0.2-1.0); C Reactive Protein 22.77 mg/dl (0-0.5); Calcium 8.8 mg/dl (8.6-10.3); Creatinine Clr Calc Pharmacy 30.1 ml/min; Est GFR (African American) 28.2 ml/min; Est GFR (Non-African American) 24.3 ml/min; Magnesium 2.5 mg/dl (1.7-2.4); Potassium 3.9 mmol/L (3.5-5.1); Total Protein 6.5 gm/dl (6.0-8.3)
[2023-05-12 12:21] LABS: Troponin I High Sensitivity 29.5 pg/ml (0-20)
[2023-05-12 12:30] LABS: INR 1.3 (0.9-1.1); Partial Thromboplastin Time 29.3 Seconds (21.0-31.0); Prothrombin Time 13.9 Seconds (9.0-12.0)
[2023-05-12] MEDS ORDERED: cefTRIAXone SODIUM 2,000 MG/50 ML BAG IV STA (12:33)
--- NOTE | 2023-05-12 12:41 | XRay Report ---
SINGLE VIEW CHEST CLINICAL HISTORY: Sepsis. FINDINGS: An AP, portable, upright chest radiograph is compared to study dated 05/29/2021. Correlatio n is made to chest CT dated 05/19/2021. The heart is enlarged. There is pulmonary vascular congestion. Small pleural effusions are suspected. Dependent atelectasis is noted. No pneumothorax is seen. The skeletal structures are osteopenic. The bony thorax is grossly intact. IMPRESSION: Cardiomegaly with evidence of congestive failure. ACT 112: Negative or not required by law. Electronically signed by: Charly Myers M.D. 05/12/2023 12:40 PM
[2023-05-12 12:48] LABS: Influenza A virus by PCR Negative (Neg); Influenza B virus by PCR Negative (Neg); RSV by PCR Negative (Neg); SARS CoV2 RNA(COVID-19) Ceph NEGATIVE (Negative)
[2023-05-12 13:31] LABS: Appearance Urine Cloudy (Clear); Bacteria Urine Automated Negative (Negative); Blood Urine 1+ (Negative); Color Urine Dark Yellow; Epithelial Cell Urine Auto >30 /lpf (0-5); Glucose Urine UA 3+ (Negative); Ketones Urine Trace (Negative); Leukocyte Esterase Urine Negative (Negative); Nitrite Urine Negative (Negative); Protein Urine 1+ (Negative); Specific Gravity Urine 1.021 (1.000-1.030); Urobilinogen Urine Negative (Negative)
[2023-05-12 13:35] LABS: Bilirubin Urine 1+ (Negative)
[2023-05-12 13:43] LABS: Cast Urine Automated >30 /lpf (0-5)
[2023-05-12] MEDS ORDERED: ACETAMINOPHEN 325 MG TAB PO PRN (13:45)
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
--- NOTE | 2023-05-12 13:52 | CT Scan Report ---
CT chest diagnostic wo con CLINICAL HISTORY: sepsis TECHNIQUE: Multidetector row helical CT of the chest was performed. Coronal and sagittal reformations were obtained. Automated dose lowering techniques and/or adjustment according to patient size were u tilized for this exam. CT DOSE: 2166.7 mGy.cm Comparison: Comparison is made to CT chest 05/19/2021 FINDINGS: Lungs and pleura: 9 mm nodule in the left lung base (series 4 image 197) is again seen. Heart and pericardium: Heart size is normal. No pericardial effusion. Vessels: The pulmonary trunk is enlarged measuring 32 mm. Mediastinum and danica: Subcentimeter lymph nodes are seen. Chest wall and lower neck: Gynecomastia is noted bilaterally. Abdomen: For findings below the diaphragm, please refer to CT of the abdomen dated the same. Bones: Minimal degenerative changes are seen. IMPRESSION: No evidence of pneumonia. Stable pulmonary nodule as above for which no further follow-up is required by Fleischner criteria. ACT 112: Negative or not required by law. Electronically signed by: Albin Ibarra M.D. 05/12/2023 1:50 PM
--- NOTE | 2023-05-12 13:53 | CT Scan Report ---
CT SCAN OF THE ABDOMEN AND PELVIS WITHOUT IV CONTRAST CLINICAL HISTORY: Sepsis. COMPARISON STUDY: Abdominal CT dated 05/19/2021 TECHNIQUE: CT scan of the abdomen and pelvis is performed from the lung bases to the proximal femora. Images are reviewed in the axial, sagittal, and coronal planes. IV contrast was not administered for this examination. Note that the examination was performed and significantly suboptimal fashion witho ut oral and IV contrast. The Examination is also degraded by motion artifact, as well as by streak ar tifact from the arms which could not be elevated above the abdomen. A dose lowering technique was uti lized adhering to the principles of ALARA. FINDINGS: Lung bases: The heart is enlarged and without pericardial effusion. The coronary arteries are densely calcified. A 9 mm pulmonary nodule at the left lung base is seen on image #95. This is unchanged fro 2020 and of low suspicion. The lung bases are otherwise clear noting bibasilar scarring/atelectasis . Gynecomastia is noted. Liver: The unenhanced liver is normal in size, contour, and attenuation. There is no intrahepatic marcia iary ductal dilatation. Gallbladder: There are numerous small calcified gallstones. The gallbladder is distended and thick wa lled, with pericholecystic infiltration and fluid. Findings are consistent with acute cholecystitis. Spleen: Normal in size and attenuation. Pancreas: Unremarkable. Adrenal glands: Unremarkable. Kidneys: The unenhanced kidneys demonstrate cortical atrophy and are without hydronephrosis. No renal calculi are identified and there is no ureteral stone. There is no evidence of contour deforming hillary al mass lesion. Abdominal vasculature: There is moderate atherosclerotic calcification and ectasia of the abdominal a suzi. There is aneurysmal dilatation of the left common iliac artery which measures up to 3.1 cm. The re are bilateral internal iliac artery aneurysms, measuring up to 3.4 cm on the left and 3.0 cm on th e right. Bowel: There is moderate to advanced colonic diverticulosis without CT evidence of acute diverticulit is. No bowel obstruction is seen. There is a small duodenal diverticulum. The appendix is not visual ized. Peritoneum: There is no intraperitoneal free air or abdominal ascites. Lymphadenopathy: None. Pelvic viscera: The prostate gland is diminutive and heterogeneous noting brachytherapy implants in p lace. The bladder is decompressed around a Abdi catheter. There is a small fat-containing left ingui nal hernia. Skeletal structures: The skeletal structures are osteopenic. There are mild chronic compression defor mities of T9, T11, and T12. Moderate lumbosacral spondylosis is observed. No lytic or blastic lesions are seen. IMPRESSION: 1. Cholelithiasis with acute cholecystitis. Surgical consultation is advised. 2. Cardiomegaly. 3. Colonic diverticulosis without CT evidence of acute diverticulitis. 4. 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 5. Brachytherapy implants are noted in the prostate. 6. Additional findings as above. ACT 112: Negative or not required by law. Electronically signed by: Charly Myers M.D. 05/12/2023 1:52 PM
[2023-05-12] MEDS ORDERED: PIPER/TAZO 4.5g in D5W MINI-B 100 ML IV ONE (14:30)
[2023-05-12 15:01] LABS: Phosphorus 2.6 mg/dl (2.5-4.9)
[2023-05-12 15:07] LABS: Troponin I High Sensitivity 20.3 pg/ml (0-20)
--- OUTSIDE RECORDS SUMMARY | 2023-05-12 15:26 | External Medical Summary | Summary of Care ---
Author Name Unknown Organization [facility] Address [address] [address] Phone [phone] Care Team Providers Care Felt Finishing Supervisor Name Role Phone Samir Arroyo MD Primary Care Provider + Reason for Visit * Reason Onset Date Comments Medication Refill 05/06/2023 Encounter Details Date Type Department Care Team (Late st Contact Info) Description 05/06/2023 Refill Cardiology, [facility] [address] [place] [address] Tito Burris [place] [address] [place], [place] [phone] HFrEF (heart failure with reduced ejection fraction) ([facility]); DCM (dilated cardiomyopathy) ([facility]); Permanent atrial fibrillation (HCC); HTN, goal below 140/90; Dyslipidemia, goal LDL below 100; Severe pulmonary hypertension ([facility]); Severe mitral regurgitation; Severe tricuspid regurgitation; HERNÁNDEZ (dyspnea on exertion); Chest pressure Allergies Active Allergy Reactions Criticality Noted Date Comments Oseltamivir Itching,Rash 10/05/2019 documented as of this encounter (statuses as of 05/09/2023) Medications Medication Sig Dispensed Refills Start Date End Date Status Multiple Vitamins-Minerals (EYE VITAMINS) TABS Take by mouth. 0 Active Magnesium 250 MG Tablet Take 1 Tablet by mouth in the morning. 0 Active Lutein 6 MG TABS Take by mouth. 0 Active Multiple Vitamin (MULTI VITAMIN MENS) Tablet Take 1 Tab by mouth daily. 0 Active Aspirin EC 81 MG Oral Tablet Delayed ReleaseIndications:H FrEF (heart failure with reduced ejection fraction) (HCC),Ischemic cardiomyopathy Take by mouth 1 Tablet in the morning. 90 Tablet 0 07/16/2021 Active Nitroglycerin 0.4 MG Sublingual Tablet Sublingual (Nitrostat)Indicatio ns:HFrEF (heart failure with reduced ejection fraction) (HCC),Ischemic cardiomyopathy Place 1 Tablet (0.4 mg) under the tongue every 5 minutes as needed for Pain, Chest. up to 3 doses in 15 minutes 25 Tablet 11 05/26/2022 Active Gabapentin 300 MG Oral Capsule (Neurontin)Indicatio ns:Neuropathy Take 1 Capsule by mouth in the morning and 1 Capsule before bedtime. 180 Capsule 3 06/23/2022 Active Metoprolol Succinate ER 25 MG Oral Tablet Extended Release 24 Hour (toPROL XL)Indications:Persi stent atrial fibrillation (HCC) TAKE 1/2 TABLET EVERY MORNING DECREASE DOSE 12/09/2021 45 Tablet 3 12/09/2022 Active Atorvastatin Calcium 80 MG Oral Tablet (Lipitor)Indications :Dyslipidemia TAKE 1 TABLET EVERY MORNING 90 Tablet 2 03/15/2023 Active Benzonatate 100 MG Oral CapsuleIndications:V iral URI with cough Take 1 Capsule by mouth 3 times a day as needed for Cough. 50 Capsule 1 03/23/2023 Active Empagliflozin 10 MG Oral Tablet (Jardiance) Take 1 Tablet by mouth in the morning. 90 Tablet 1 04/06/2023 Active Rivaroxaban 20 MG Oral Tablet (Xarelto)Indications :Persistent atrial fibrillation (HCC) take 1 tablet by mouth once daily WITH DINNER 90 Tablet 1 04/06/2023 Active Sacubitril-Valsartan 97-103 MG Oral Tablet (Entresto) Take 1 Tablet by mouth in the morning and 1 Tablet before bedtime. 180 Tablet 1 04/06/2023 Active Furosemide 20 MG Oral Tablet (Lasix)Indications:H FrEF (heart failure with reduced ejection fraction) (HCC),DCM (dilated cardiomyopathy) (HCC),Permanent atrial fibrillation (HCC),HTN, goal below 140/90,Dyslipidemia, goal LDL below 100,Severe pulmonary hypertension (HCC),Severe mitral regurgitation,Severe tricuspid regurgitation,HERNÁNDEZ (dyspnea on exertion),Chest pressure Take 1 Tablet by mouth in the morning. 90 Tablet 3 05/09/2023 Active Furosemide 20 MG Oral Tablet (Lasix)Indications:H FrEF (heart failure with reduced ejection fraction) (HCC),DCM (dilated cardiomyopathy) (HCC),Permanent atrial fibrillation (HCC),HTN, goal below 140/90,Dyslipidemia, goal LDL below 100,Severe pulmonary hypertension (HCC),Severe mitral regurgitation,Severe tricuspid regurgitation,HERNÁNDEZ (dyspnea on exertion),Chest pressure Take 1 Tablet by mouth in the morning. 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 PSA yearly, in remission. STAIR for AAA/iliac artery aneurysm. 05/01 Carotid <50%, aorta/iliac ectasia, josee 2-3y 08/29 colon ok josee 5y. 01/28 flex sig 1 3mm polyp unable to retrieve josee Colonoscopy 6-12mo 11/28 hgb 17, normal ferritin/iron. Josee yearly 2012 colon WNL 2007 colon WNL + radiation proctitis H/O ischemic left MCA stroke 08/27/2016 Overview: 07/30 acute CVA hosp [facility] Aphasia, 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 Overview: 07/30 Acute CVA w/afib, lifeflight to [facility]. Left MCA infarct. 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 aneurysm 08/25/2016 Atrial fibrillation 08/25/2016 Overview: Start 06/13/17 pradaxa not covered, switched to Xarelto History of prostate cancer 03/14/2002 documented as of this encounter (statuses as of 05/09/2023) Resolved Problems Problem Noted Date Diagnosed Date Resolved Date Carotid stenosis, right 05/02/201904/14 Carotid occlusion, left 05/02/201904/14 Elevated hemoglobin 10/28/2017 06/08/20 21 S/P IVC filter 08/25/2016 01/04/2017 ICAO (internal carotid artery occlusion) 08/25/2016 05/03/2019 History of CVA (cerebrovascular accident) 08/25/2016 06/08/2021 Neoplasm of uncertain behavior of skin 01/08/2013 02/27/2019 Disorder of male genital organs 08/29/2009 05/27/2017 Calculus of kidney 04/20/2007 9 ADVANCE DIRECTIVE INFORMATION 11/16/2006 06/08/2021 Overview: Pt has living will. Advised to bring copy. Thoracic and lumbosacral neuritis 11/15/2002 02/27/2019 Displacement of lumbar inter vertebral disc without myelopathy 04/11/2002 02/27/2019 LUMBAGO 02/27/2019 documented as of this encounter (statuses as of 05/09/2023) Immunizations Name Administration Dates Next Due COVID-19 mRNA, LNP-s, No Pre serve, 2-Dose Series (Moderna) 03/02/2021,08/07/2020,07/10/2020 COVID-19, mRNA, LNP-s, PF, B ooster, 100mcg/0.5mg (Moderna) 09/21/2021 Covid-19, Mrna, Lnp-s, Pf, B ivalent, 30 Mcg, IM, 12 yrs and above (Pfizer) 03/03/2022 PPD 06/18/2013,06/03/2010 Pneumococcal Conjugate Vacc, 13 Valent (Prevnar) 05/27/2017 Pneumococcal Polysaccharide PPV23 (Pneumovax) 01/22/2018,06/03/2010 SARS-COV-2 (COVID-19) Vaccin e Unspecified 12/06/2022,03/03/2022 SEASONAL INFLUENZA, PF, 6 M & Above, IM , (FLULAVAL or FLUZONE) 03/11/2020,01/22/2018,04/09/2017 Seasonal Influenza, Quadriva lent Hd (Fluzone Hd) 02/16/2023,02/24/2022,02/23/2021 Seasonal Influenza, Split, I IV3, With Preserve, Inj 03/13/2016,04/05/2015,03/11/2014,03/30,06/23/2011,06/03/2010,02/21/2009 ,04/15/2008,04/17/2007,04/19/2006 Seasonal Influenza, Trivalen t, Adjuvanted, 65+ yrs 02/27/2019 TDAP (age 11 and older)(Adacel) 03/07/2019,02/21 Varicella Zoster Vaccine (Adult) 03/13/2012 Zoster Vaccine Recombinant (Shingrix) 09/29/2018 ,07/12/2018,03/31/2018 documented as of this encounter Social History Tobacco Use Types Packs/Day Years Used Date Smoking Tobacco: Never Smokeless Tobacco: Never Alcohol Use Standard Drinks/Week Comments Yes 0 (1 standard drink = 0.6 oz pur e alcohol) occasional PHQ-2 Answer Date Recorded PHQ Adult Total Score 0 11/30/2022 Hunger Vital Sign Answer Date Recorded Within the past 12 months, y ou worried that your food would run out before you got the money to buy more. Never true 03/23/20 23 Within the past 12 months, t he food you bought just didn't last and you didn't have money to get more. Never true 03/23/2023 Sex and Gender Information Value Date Recorded Sex Assigned at Male 08/16/2019 3:51 PM EST Gender Identity Male 08/16/2019 3:51 PM EST Sexual Orientation Straight 08/16/2019 3: 51 PM EST Job Start Date Occupation Industry Not on file Not on file Not on file documented as of this encounter Miscellaneous Notes * Telephone Encounter - Matteo Bradley DO - 05/09/2023 8:54 AM ESTSigned Prescriptions: Disp Refills Furosemide 20 MG Oral Tablet (Lasix) 90 Tab*3 Sig: Take 1 Tablet by mouth in the morning. Authorizing Provider: MATTEO BRADLEY * Telephone Encounter - Jud Quinones COT - 05/06/2023 2:33 PM ESTPending Prescriptions: Disp Refills Furosemide 20 MG Oral Tablet (Lasix) 90 Tab*3 Sig: Take 1 Tablet by mouth in the morning. * Telephone Encounter - Yue Easton CPhT - 05/06/2023 1:46 PM EST Did you pend patient's preferred pharmacy and medication before forwarding?yes [id number] Pending Prescriptions: Disp Refills Furosemide 20 MG Oral Tablet (Lasix) 30 Tab*11 Sig: Take 1 Tablet by mouth in the morning. Last Visit: 10/11/2022 (in office), 08/14/2021 (telemedicine) Next Visit: Visit date not found If no future appointments scheduled, and last appointment is greater than a year ago, please schedule patient for a follow-up appointment Last date the medication was ordered: 06/02/22 Is this request for a controlled substance?No Urine Drug Screen:No results found. However, due to the size of the patient record, not all encounters were searched. Please check Results Review for a complete set of results. Patient Phone Numbers Labs: Lab Results Component Value Date/Time CREAT 1.2 11/25/2022 09:02 AM CREAT 1.11 05/19/2021 12:00 AM CREAT 1.1 10/31/2019 09:19 AM POTASSIUM 4.4 11/25/2022 09:02 AM POTASSIUM 4.1 05/19/2021 12:00 AM POTASSIUM 4.6 10/31/2019 09:19 AM TSH 1.680 05/19/2021 12:00 AM LDLCALC 52 11/25/2022 09:02 AM LDLCALC 78 09/24/2017 08:35 AM LDLDIRECT NOT APPLICABLE 09/24/2017 08:35 AM ALT 24 06/22/2021 03:45 PM ALT 13 01/29/2020 12:06 PM HGBA1C 6.0 (H) 11/25/2022 09:02 AM HGBA1C 6.0 (H) 10/31/2019 09:19 AM documented in this encounter Plan of Treatment Upcoming Encounters Date Type Department Care Team (Late st Contact Info) Description 06/16/2023 10:15 AM EST Office Visit Ophthalmology, [facility] [address] [place] [address] David Garrett DO [address] [place] [address] 07/05/2023 3:20 PM EST Office Visit Family Practice [facility] [address] [place] [address] Samir Arroyo MD [address] [place] [address] 07/20/2023 10:20 AM EST Office Visit Podiatry [facility] [address] [place] [address] Barbara Scales DPM [address] [place] [address] [place] [address] Scheduled Procedures Name Priority Associated Diagnoses Date/Ti me COLONOSCOPY FLEXIBLE PROXIMAL DIAGNOSTIC Recall History of colon polyps Health Maintenance Due Date Last Done Comments Hepatitis B (1 of 3 - Risk 3-dose series) 2009 COVID-19 Vaccine ( season) 2023 12/06/2022, 03/03/2022, 03/03/2022, Additional history exists COLONOSCOPY-EVERY 5 YRS AGES 18-100 08/23/2023 08/22/2018, 08/22/2018, 01/13/2018, Additional history exists HbA1c 11/26/2023 11/25/2022, 07/0 12/2021, 07/20/2021, Additional history exists Depression Screening 12/01/2023 11/30/2022 DTaP,Tdap,and Td Vaccines (3 - Td or Tdap) 03/07/2029 03/07/2019, 02/21/2009 Pneumococcal Vaccine: 65+ Years Completed 01/22/2018, 05/27/2017, 06/03/2010 Zoster Vaccines Completed 09/29/2018, 06/15, 03/31/2018, Additional history exists Influenza Vaccine (FLU shot) Completed 11/2022, 02/24/2022, 02/23/2021, Additional history exists GARDASIL-HPV IMMUNIZATION SERIES Aged Out No longer eligible based on patient's age to complete this topic MENINGOCOCCAL (MENACTRA/MENVEO) Aged Out No longer eligible based on patient's age to complete this topic documented as of this encounter Medical Devices Not on filedocumented as of this encounter Visit Diagnoses Diagnosis HFrEF (heart failure with reduced ejection fraction) (HCC) DCM (dilated cardiomyopathy) (HCC) Other primary cardiomyopathies Permanent atrial fibrillation (HCC) Atrial fibrillation HTN, goal below 140/90 Unspecified essential hypertension Dyslipidemia, goal LDL below 100 Other and unspecified hyperlipidemia Severe pulmonary hypertension (HCC) Severe mitral regurgitation Mitral valve disorders Severe tricuspid regurgitation Diseases of tricuspid valve HERNÁNDEZ (dyspnea on exertion) Other dyspnea and respiratory abnormality Chest pressure Other chest pain documented in this encounter Advance Directives Healthcare Agents on File Name Relationship Healthcare Agent Relationshi p Communication Kj Sullivan Adult Child Health Care Repr esentative (appointed verbally by patient or by statute hierarchy) Layla [place] Adult Child Health Care Repr esentative (appointed verbally by patient or by statute hierarchy) Care Teams Felt Finishing Supervisor Relationship Specialty Start Date End Date Samir Arroyo MD [address] [place] [address] PCP - General Family Medicine 08/25/16 documented as of this encounter
--- OUTSIDE RECORDS SUMMARY | 2023-05-12 15:26 | External Medical Summary | Summary of Care ---
Author Name Unknown Organization [facility] Address [address] [place] [address] Phone [phone] Care Team Providers Care Audit Specialist Name Role Phone Samir Barksdale MD Primary Care Provider + Reason for Visit * Reason Onset Date Comments Medication Refill 05/06/2023 Encounter Details Date Type Department Care Team (Late st Contact Info) Description 05/06/[address] [facility] [address] [facility] [place] [address] Samir Barksdale MD [address] [facility] [place] [place] [address] Persistent atrial fibrillation (HCC); Acute systolic heart failure (HCC); HFrEF (heart failure with reduced ejection fraction) (HCC); DCM (dilated cardiomyopathy) (HCC) Allergies Active Allergy Reactions Criticality Noted Date Comments Oseltamivir Itching,Rash 10/05/2019 documented as of this encounter (statuses as of 05/07/2023) Medications Medication Sig Dispensed Refills Start Date [...] FrEF (heart failure with reduced ejection fraction) ([facility]),Ischemic cardiomyopathy Take by mouth 1 Tablet in the morning. 90 Tablet 0 07/16/2021 Active Nitroglycerin 0.4 MG Sublingual Tablet Sublingual (Nitrostat)Indicatio ns:HFrEF (heart failure with reduced ejection fraction) ([facility]),Ischemic cardiomyopathy Place 1 Tablet (0.4 mg) under the tongue every 5 minutes as needed for Pain, Chest. up to 3 doses in 15 minutes 25 Tablet 11 05/26/2022 Active Furosemide 20 MG Oral Tablet (Lasix)Indications:H FrEF (heart failure with reduced ejection fraction) ([facility]),DCM (dilated cardiomyopathy) ([facility]),Permanent atrial fibrillation ([facility]),HTN, goal below 140/90,Dyslipidemia, goal LDL below 100,Severe pulmonary hypertension ([facility]),Severe mitral regurgitation,Severe tricuspid regurgitation,HERNÁNDEZ (dyspnea on exertion),Chest pressure Take 1 Tablet by mouth in the morning. 30 Tablet 11 06/02/2022 Active Gabapentin 300 MG Oral Capsule (Neurontin)Indicatio [...] before bedtime. 180 Tablet 1 04/06/2023 Active Spironolactone 25 MG Oral Tablet (Aldactone)Indicatio ns:Persistent atrial fibrillation (HCC),Acute systolic heart failure (HCC),HFrEF (heart failure with reduced ejection fraction) (HCC),DCM (dilated cardiomyopathy) (HCC) Take 1 Tablet by mouth in the morning. 90 Tablet 3 05/07/2023 Active Spironolactone 25 MG Oral Tablet (Aldactone)Indicatio ns:Persistent atrial fibrillation (HCC),Acute systolic heart failure (HCC),HFrEF (heart failure with reduced ejection fraction) (HCC),DCM (dilated cardiomyopathy) (HCC) Take 1 Tablet by mouth in the morning. 90 Tablet 3 07/14/2022 3 Discontinue d(Refill) documented as of this encounter (statuses as of 05/07/2023) Active Problems Problem Noted Date Diagnosed Date [...] stroke 08/27/2016 Overview: 07/30 acute CVA hosp [facility] Aphasia, 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 Overview: 07/30 Acute CVA w/afib, lifeflight to [facility]. Left MCA infarct. [phone] Tona Yin--Neuro [facility] Femoral artery aneurysm, bilateral 08/25/2016 Popliteal artery aneurysm 08/25/2016 Atrial fibrillation 08/25/2016 Overview: Start 06/13/17 pradaxa not covered, switched to Xarelto History of prostate cancer 03/14/2002 documented as of this encounter (statuses as of 05/07/2023) Resolved Problems Problem Noted Date Diagnosed Date [...] as of this encounter (statuses as of 05/07/2023) Immunizations Name Administration Dates Next Due COVID-19 [...] encounter Miscellaneous Notes * Telephone Encounter - Kathryn Mustafa, [facility] - 05/07/2023 10:52 AM ESTSigned Prescriptions: Disp Refills Spironolactone 25 MG Oral Tablet (Aldacton*90 Tab*3 Sig: Take 1 Tablet by mouth in the morning. Authorizing Provider: SAMIR BARKSDALE Ordering User: KATHRYN MUSTAFA * Telephone Encounter - Chrissy [facility] - 05/06/2023 1:43 PM EST Did you pend patient's preferred pharmacy and medication before forwarding?yes [id number] Pending Prescriptions: Disp Refills Spironolactone 25 MG Oral Tablet (Aldacto*90 Tab*3 Sig: Take 1 Tablet by mouth in the morning. Last Visit: 03/23/2023 (in office), Visit date not found (telemedicine) Next Visit: 07/05/2023 If no future appointments scheduled, and last appointment is greater than a year ago, please schedule patient for a follow-up appointment Last date the medication was ordered: [id number] Is this request for a controlled substance?No [...] 06/16/2023 10:15 AM EST Office Visit Ophthalmology, [facility] [address] [facility] [place] [address] David Garrett DO [address] [place] [address] 07/05/2023 3:20 PM EST Office Visit Family Practice [facility] [address] [facility] [place] [address] Samir Barksdale MD [address] [facility] [place] [address] 07/20/2023 10:20 AM EST Office Visit Podiatry [facility] [address] [facility] [place] [address] Barbara Scales, DPYajaira [address] [facility] [place] [address] Scheduled Procedures Name Priority Associated Diagnoses Date/Ti me COLONOSCOPY FLEXIBLE PROXIMAL DIAGNOSTIC Recall History of colon polyps Health Maintenance Due Date Last Done Comments Hepatitis B (1 of 3 - Risk 3-dose series) 2009 COVID-19 Vaccine ( season) 2023 12/06/2022, 03/03/2022, 03/03/2022, Additional history exists COLONOSCOPY-EVERY 5 YRS AGES 18-100 08/23/2023 08/22/2018, 08/22/2018, 01/13/2018, Additional history exists HbA1c 11/26/2023 11/25/2022, 0712/2021, 07/20/2021, Additional history exists Depression Screening 12/01/2023 [...] as of this encounter Visit Diagnoses Diagnosis Persistent atrial fibrillation (HCC) Atrial fibrillation Acute systolic heart failure (HCC) Acute systolic heart failure HFrEF (heart failure with reduced ejection fraction) (HCC) DCM (dilated cardiomyopathy) (HCC) Other primary cardiomyopathies documented in this encounter Advance Directives Healthcare Agents on File Name Relationship Healthcare Agent Relationshi p Communication Kj Sullivan Adult Child Health Care Repr esentative (appointed verbally by patient or by statute hierarchy) Layla [place] Adult Child Health Care Repr esentative (appointed verbally by patient or by statute hierarchy) Care Teams Audit Specialist Relationship Specialty Start Date End Date Samir Barksdale MD [address] [place] [address] PCP - General Family Medicine 08/25/16 documented as of this encounter
--- OUTSIDE RECORDS SUMMARY | 2023-05-12 15:26 | External Medical Summary | Summary of Care ---
Author Name Unknown Organization [facility] Address [address] [place] [address] Phone [phone] Care Team Providers Care Basketball Coach Name Role Phone Samir Arroyo MD Primary Care Provider + Reason for Visit * Reason Comments Follow Up Nail care * Evaluate & Treat - Unlimited Visits (Within 30 days (routine)) - Authorized Specialty Diagnoses / Procedures Referred By Xochitl silva Referred To Contact Podiatry Diagnoses Injury of nail bed of toe Samir Arroyo MD [address] [place] [address] Referral ID Status Reason Start Date Expiration Date Visits Requested Visits Authorized [id number] Authorized Specialty Services Required 02/10/2023 [id number] Encounter Details Date Type Department Care Team (Late st Contact Info) Description 04/20/2023 10:20 AM EST Office Visit [facility]iat[facility] [place] [address] Barbara Scales DPM [address] [facility] [place] [phone] Onychomycosis*; Pain in toes of both feet; Gait difficulty; Neuropathy Allergies Active Allergy Reactions Criticality Noted Date Comments Oseltamivir Itching,Rash 10/05/2019 documented as of this encounter (statuses as of 04/20/2023) Medications Medication Sig Dispensed Refills Start Date End Date Status Multiple Vitamins-Minerals (EYE VITAMINS) TABS Take by mouth. 0 A ctive Magnesium 250 MG Tablet Take 1 Tablet by mouth in the morning. 0 Active Lutein 6 MG TABS Take by mouth. 0 Acti ve Multiple Vitamin (MULTI VITAMIN MENS) Tablet Take 1 Tab by mouth daily. 0 Active Aspirin EC 81 MG Oral Tablet Delayed ReleaseIndications:HF rEF (heart failure with reduced ejection fraction) ([facility]),Ischemic cardiomyopathy Take by mouth 1 Tablet in the morning. 90 Tablet 0 07/16/2021 Active Nitroglycerin 0.4 MG Sublingual Tablet Sublingual (Nitrostat)Indication s:HFrEF (heart failure with reduced ejection fraction) ([facility]),Ischemic cardiomyopathy Place 1 Tablet (0.4 mg) under the tongue every 5 minutes as needed for Pain, Chest. up to 3 doses in 15 minutes 25 Tablet 11 05/26/2022 Active Furosemide 20 MG Oral Tablet (Lasix)Indications:HF rEF (heart failure with reduced ejection fraction) ([facility]),DCM (dilated cardiomyopathy) ([facility]),Permanent atrial fibrillation ([facility]),HTN, goal below 140/90,Dyslipidemia, goal LDL below 100,Severe pulmonary hypertension (HCC),Severe mitral regurgitation,Severe tricuspid regurgitation,HERNÁNDEZ (dyspnea on exertion),Chest pressure Take 1 Tablet by mouth in the morning. 30 Tablet 11 06/02/2022 Active Gabapentin 300 MG Oral Capsule (Neurontin)Indication s:Neuropathy Take 1 Capsule by mouth in the morning and 1 Capsule before bedtime. 180 Capsule 3 06/23/2022 Active Spironolactone 25 MG Oral Tablet (Aldactone)Indication s:Persistent atrial fibrillation (HCC),Acute systolic heart failure (HCC),HFrEF (heart failure with reduced ejection fraction) (HCC),DCM (dilated cardiomyopathy) (HCC) Take 1 Tablet by mouth in the morning. 90 Tablet 3 07/14/2022 Active Metoprolol Succinate ER 25 MG Oral Tablet Extended Release 24 Hour (toPROL XL)Indications:Persis tent atrial fibrillation (HCC) TAKE 1/2 TABLET EVERY MORNING DECREASE DOSE 12/09/2021 45 Tablet 3 12/09/2022 Active Atorvastatin Calcium 80 MG Oral Tablet (Lipitor)Indications: Dyslipidemia TAKE 1 TABLET EVERY MORNING 90 Tablet 2 03/15/2023 Active Benzonatate 100 MG Oral CapsuleIndications:Vi ral URI with cough Take 1 Capsule by mouth 3 times a day as needed for Cough. 50 Capsule 1 03/23/2023 Active Empagliflozin 10 MG Oral Tablet (Jardiance) Take 1 Tablet by mouth in the morning. 90 Tablet 1 04/06/2023 Active Rivaroxaban 20 MG Oral Tablet (Xarelto)Indications: Persistent atrial fibrillation (HCC) take 1 tablet by mouth once daily WITH DINNER 90 Tablet 1 04/06/2023 Active Sacubitril-Valsartan 97-103 MG Oral Tablet (Entresto) Take 1 Tablet by mouth in the morning and 1 Tablet before bedtime. 180 Tablet 1 04/06/2023 Active documented as of this encounter (statuses as of 04/20/2023) Active Problems Problem Noted Date Diagnosed Date [...] stroke 08/27/2016 Overview: 07/[address] [facility] Aphasia, 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 Overview: 07/30 Acute CVA w/afib, lifeflight to [facility]. Left MCA infarct. [phone] Tona Yin--Neuro 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 Never true 12/01/19 23 Within the past 12 months, t he food you bought just didn't last and you didn't have money to get more. Never true 11/30/2022 Sex and Gender Information Value Date Recorded Sex Assigned at Male 08/16/2019 3:51 PM EST Gender Identity Male 08/16/2019 3:51 PM EST Sexual Orientation Straight 08/16/2019 3: 51 PM EST Job Start Date Occupation Industry Not on file Not on file Not on file documented as of this encounter Progress Notes * Barbara Scales DPM - 04/20/2023 10:15 AM EST Podiatry Established Note [facility] Name: Crow Sullivan : 1950 Date: 04/20/2023 REASON FOR VISIT: foot care SUBJECTIVE: This patient is a 72 year old male who presents today accompanied by a caregiver. He presents with complaints of elongated, thickened, discolored toenails. The patient states that the nails are difficult to reach and to trim. He reports pain with pressure to the nails including when wearing shoegear. Last appointment with Dr. Arroyo was on 11/30/2022. He does have neuropathy. Past Medical History: Diagnosis Date Acute systolic heart failure ([facility]) 06/04/2021 Aphasia, 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 Atrial fibrillation ([facility]) 08/25/2016 Backache Carotid occlusion, left 05/02/2019 Carotid stenosis, right 05/02/2019 Cerebrovascular event, ill-defined, within last 8 weeks 08/25/2016 Dyslipidemia 05/21/2020 Elevated hemoglobin ([facility]) 10/28/2017 Femoral artery aneurysm, bilateral ([facility]) 08/25/2016 H/O ischemic left MCA stroke 08/27/201607/30 [address] CVA hosp [facility] ICAO (internal carotid artery occlusion) 08/25/2016 Iliac artery aneurysm ([facility]) 12/20/2022 Malignant neoplasm of prostate ([facility]) Popliteal artery aneurysm ([facility]) 08/25/2016 ALLERGIES: Review of patient's allergies indicates: Allergen Reactions Tamiflu [Oseltamivir] Itching and Rash REVIEW OF SYSTEMS: CONSTITUTIONAL: No fevers, sweats, or chills FOCUSED PODIATRIC EXAM: Vitals: There were no vitals filed for this visit. Vascular: Pedal pulses palpable including dorsalis pedis and posterior tibial artery at 2/4 bilaterally. Capillary refill time is within normal limits to all toes. +Non pitting edema bilateral leg not including foot. No warmth. Pedal hair growth absent. Mild discoloration of the lower leg skin. Neurologic: Sensation (light touch) intact to the bilateral lower extremities. No hypersensitivity. No weakness. No tremor. Dermatological: Skin temperature, texture, and turgor are within normal limits. No open lesions. Toenails 1-5 left and 2-5 right are thickened, elongated, and discolored. The right first toenail is absent. Class Findings for Routine Foot Care Class A Findings: None Class B Findings: Advanced trophic changes (at least three of the following): hair growth (decreaseor absence), nail changes (thickening) and pigmentary changes (discoloration) Class C Findings: Edema and Paresthesia (abnormal spontaneous sensations in feet) Modifier: Q9 - 1 Class B Finding and 2 Class C Findings DIAGNOSTIC STUDIES: No new ASSESSMENT: 1. Onychomycosis TA T1 T2 T3 T4 T5 T6 T7 T8 T9 2. Pain in toes of both feet 3. Gait difficulty 4. Neuropathy PLAN: Procedure: After mild cleansing and drying of feet, toenails 1-5 bilaterally were manually and mechanically debrided without incident. A nail splitter was used to remove all incurvating edges. A nail puller wasused to trim nail to appropriate length. An electrical bur was used in a side to side motion to reduce nail thickness, hypertrophic growth, and to smooth all edges. Patient tolerated well. They noted improvement following procedure. Follow up: 3 months documented in this encounter Nursing Notes * Trcay Galarza LPN - 04/20/2023 10:07 AM EST Pt presents for routine nail care, states foot pain is 'about the same'. documented in this encounter Plan of Treatment Upcoming Encounters Date Type Department Care Team (Late st Contact Info) Description 06/16/2023 10:15 AM EST Office Visit Ophthalmology, [facility] [address] [place] [address] David Garrett DO [address] [place] [address] 07/05/2023 3:20 PM EST Office Visit Family Practice [facility] [address] [address] Samir Arroyo MD [address] [place] [address] 07/20/2023 10:20 AM EST Office Visit Podiatry [facility] [address] [place] [address] Barbara Scales, DPM [address] [facility] [place] [address] Scheduled Procedures Name Priority Associated Diagnoses Date/Ti me COLONOSCOPY FLEXIBLE PROXIMAL DIAGNOSTIC Recall History of colon polyps Scheduled Referrals Name Type Priority Associated Diagnoses Orde r Schedule PODIATRY REFERRAL OP Referral Within 30 days (routine) Injury of nail bed of toe Ordered: 02/10/2023 Health Maintenance Due Date Last Done Comments [...] as of this encounter Visit Diagnoses Diagnosis Onychomycosis- Primary Dermatophytosis of nail Pain in toes of both feet Gait difficulty Abnormality of gait Neuropathy Mononeuritis of unspecified site documented in this encounter Advance Directives Healthcare Agents on File Name Relationship Healthcare Agent Relationshi p Communication Kj Sullivan Adult Child Health Care Repr esentative (appointed verbally by patient or by statute hierarchy) Layla Escobarer Adult Child Health Care Repr esentative (appointed verbally by patient or by statute hierarchy) Care Teams Basketball Coach Relationship Specialty Start Date End Date Samir Arroyo MD [address] [place] [address] PCP - General Family Medicine 08/25/16 documented as of this encounter
--- OUTSIDE RECORDS SUMMARY | 2023-05-12 15:26 | External Medical Summary | Summary of Care ---
Author Name Unknown Organization [facility] Address [address] [place] [place] [address] Phone [phone] Care Team Providers Care Shallot Cleaner Name Role Phone Samir Arroyo MD Primary Care Provider + Encounter Details Date Type Department Care Team (Late st Contact Info) Description 03/23/2023 Population Health External Data Unspecified Department Allergies Active Allergy Reactions Criticality Noted Date Comments Oseltamivir Itching,Rash 10/05/2019 documented as of this encounter (statuses as of 04/25/2023) Medications Medication Sig Dispensed Refills Start Date [...] rEF (heart failure with reduced ejection fraction) (HCC),Ischemic cardiomyopathy Take by mouth 1 Tablet in the morning. 90 Tablet 0 07/16/2021 Active Nitroglycerin 0.4 MG Sublingual Tablet Sublingual (Nitrostat)Indication s:HFrEF (heart failure with reduced ejection fraction) (HCC),Ischemic cardiomyopathy Place 1 Tablet (0.4 mg) under the tongue every 5 minutes as needed for Pain, Chest. up to 3 doses in 15 minutes 25 Tablet 11 05/26/2022 Active Furosemide 20 MG Oral Tablet (Lasix)Indications:HF rEF (heart failure with reduced ejection fraction) (HCC),DCM [...] for Cough. 50 Capsule 1 03/23/2023 Active documented as of this encounter (statuses as of 04/25/2023) Active Problems Problem Noted Date Diagnosed Date [...] stroke 08/27/2016 Overview: 07/30 acute CVA hosp [facility] Aphasia, 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 Overview: 07/30 Acute CVA w/afib, lifeflight to [facility]. Left MCA infarct. [phone] Tona Yin--Neuro [facility] Femoral artery aneurysm, bilateral 08/25/2016 Popliteal artery aneurysm 08/25/2016 Atrial fibrillation 08/25/2016 Overview: Start 06/13/17 pradaxa not covered, switched to Xarelto History of prostate cancer 03/14/2002 documented as of this encounter (statuses as of 04/25/2023) Resolved Problems Problem Noted Date Diagnosed Date [...] as of this encounter (statuses as of 04/25/2023) Immunizations Name Administration Dates Next Due COVID-19 [...] on file documented as of this encounter Plan of Treatment Upcoming Encounters Date Type Department Care Team (Late st Contact Info) Description 06/16/2023 10:15 AM EST Office Visit Ophthalmology, [facility] [address] [place] [address] David Garrett DO [address] [place] [address] 07/05/2023 3:20 PM EST Office Visit Family Practice [facility] [address] [facility] [place] [address] Samir Arroyo MD [address] [facility] [place] [address] 07/20/2023 10:20 AM EST Office Visit Podiatry [facility] [address] [facility] [place] [address] Barbara Scales, ALBERTO [address] [facility] [place] [address] Scheduled Procedures Name Priority Associated Diagnoses Date/Ti [...] Not on filedocumented as of this encounter Advance Directives Healthcare Agents on File Name Relationship Healthcare Agent Relationshi p Communication Kj Sullivan Adult Child Health Care Repr esentative (appointed verbally by patient or by statute hierarchy) Layla Sullivan Adult Child Health Care Repr esentative (appointed verbally by patient or by statute hierarchy) Care Teams Shallot Cleaner Relationship Specialty Start Date End Date Samir Arroyo MD [address] [place] [address] PCP - General Family Medicine 08/25/16 documented as of this encounter
--- OUTSIDE RECORDS SUMMARY | 2023-05-12 15:27 | External Medical Summary | Summary of Care ---
Author Name Unknown Organization [facility] Address [address] [place] [facility] [place] [address] Phone [phone] Care Team Providers Care Hazardous Material Specialist Name Role Phone Samir Arroyo MD Primary Care Provider + Reason for Visit * Reason Onset Date Comments Home Health 03/25/2023 Encounter Details Date Type Department Care Team Description 03/25/2023 Telephone Family Practice [facility] [address] [facility] [place] [address] Samir Arroyo MD [address] [facility] [place] [address] Home Health Allergies Active Allergy Reactions Severity Noted Date Comments Oseltamivir Itching,Rash 10/05/2019 documented as of this encounter (statuses as of 03/25/2023) Medications Medication Sig Dispensed Refills Start Date [...] the morning. 90 Tablet 3 07/14/2022 Active Empagliflozin 10 MG Oral Tablet (Jardiance) Take 1 Tablet by mouth in the morning. 90 Tablet 3 08/19/2022 Active Sacubitril-Valsartan 97-103 MG Oral Tablet (Entresto) Take 1 Tablet by mouth in the morning and 1 Tablet before bedtime. 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 Left MCA infarct. [phone] Tona Yin--Neuro [facility] Femoral artery aneurysm, bilateral 08/25 Popliteal artery aneurysm 08/25/2016 Atrial fibrillation 08/25/2016 Overview: Start 06/13/17 pradaxa not covered, switched to Xarelto History of prostate cancer 03/14/2002 documented as of this encounter (statuses as of 03/25/2023) Resolved Problems Problem Noted Date Resolved Date Carotid stenosis, right 05/02/2019 05/03/20 19 Carotid occlusion, left 05/02/2019 05/03/20 19 Elevated hemoglobin 10/28/2017 06/08/2021 S/P IVC filter 08/25/2016 01/04/2017 ICAO (internal carotid artery occlusion) 017 05/03/2019 History of CVA (cerebrovascular accident) 201606/08/2021 Neoplasm of uncertain behavior of skin 3 02/27/2019 Disorder of male genital organs 08/29/2009 05/27/2017 Calculus of kidney 04/20/2007 02/27/2019 ADVANCE DIRECTIVE INFORMATION 11/16/2006 Overview: Pt has living will. Advised to bring copy. Thoracic and lumbosacral neuritis 11/15/2002 02/27/2019 Displacement of lumbar inter vertebral disc without myelopathy 04/11/2002 02/27/2019 LUMBAGO 02/27/2019 documented as of this encounter (statuses as of 03/25/2023) Immunizations Name Administration Dates Next Due COVID-19 mRNA, LNP-s, No Pre serve, 2-Dose Series ([employer]a) 03/02/2021,08/07/2020,07/10/2020 COVID-19, mRNA, LNP-s, PF, B ooster, 100mcg/0.5mg (Moderna) 09/21/2021 Covid-19, Mrna, Lnp-s, Pf, B ivalent, 30 Mcg, IM, 12 yrs and above ([employer]) 03/03/2022 PPD 06/18/2013,06/03/2010 Pneumococcal Conjugate Vacc, 13 [...] = 0.6 oz pur e alcohol) occasional Food Insecurity Answer Date Recorded Within the past 12 months, y ou worried that your food would run out before you got money to buy more. Never true 11/30/2022 Within the past 12 months, t he food you bought just didn't last and you didn't have money to get more. Never true 11/30/2022 Sex Assigned at Date Recorded Male 08/16/2019 3:[address] Job Start Date Occupation Industry Not on file Not on file Not on file documented as of this encounter Miscellaneous Notes * Telephone Encounter - Naa Valdes RN - 03/25/2023 11:25 AM EDT See encounter from Kesha FELIX. Family is looking into private care. * Telephone Encounter - MARIANNA Trammell - 03/25/2023 11:02 AM EDT Please follow up with patient/family below message. Private personal care? * Telephone Encounter - Yana Diop LPN - 03/25/2023 10:09 AM EDT Tracy calling from [facility]. She stated that they received a referral from Guilherme Daniel for medication management. Tracy stated that when she went to do the admission today the family want more of a housekeeping aid that would be able to sit with him since his is in the hospital. He currently does outpatient speech therapy and takes a boxing class and he does not want to stop going to these. He is not homebound and does not meet requirements for [facility] to admit him. documented in this encounter Plan of Treatment Upcoming Encounters Date Type Specialty Care Team Description 04/20/2023 Office Visit Podiatry Barbara Scales DPM [address] [place] [address] 05/24/2023 Office Visit Cardiology Yrn Bradley, DO [address] [place] [address] 06/16/2023 Office Visit Ophthalmology David Garrett, DO [address] [place] [address] 07/05/2023 Office Visit Family Medicine Samir Arroyo MD [address] [place] [address] Scheduled Procedures Name Priority Associated Diagnoses Date/Ti me COLONOSCOPY FLEXIBLE PROXIMAL DIAGNOSTIC Recall History of colon polyps Health Maintenance Due Date Last Done Comments COVID-19 Vaccine (2022- season) 2023 12/06/2022, 03/03/2022, 03/03/2022, Additional history [...] on patient's age to complete this topic Hepatitis B Aged Out No longer eligi ble based on patient's age to complete this [...] patient or by statute hierarchy) Care Teams Hazardous Material Specialist Relationship Specialty Start Date End Date Samir Arroyo MD [address] [place] [address] PCP - General Family Medicine 08/25/16 documented as of this encounter
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
--- OUTSIDE RECORDS SUMMARY | 2023-05-12 15:27 | External Medical Summary | Summary of Care ---
Author Name Unknown Organization [facility] [address] [address] Phone [phone] Care Team Providers Care Mechanical Maintenance Supervisor Name Role Phone Samir Arroyo MD Primary Care Provider + Encounter Details Date Type Department Care Team (Late st Contact Info) Description 04/05/2023 Refill Cardiology, [facility] [address] [place] [address] Matteo Bradley, [address] [place] [address] Persistent atrial fibrillation (HCC) Allergies Active Allergy Reactions Criticality Noted Date Comments Oseltamivir Itching,Rash 10/05/2019 documented as of this encounter (statuses as of 04/06/2023) Medications Medication Sig Dispensed Refills Start Date [...] 06/23/2022 Active Spironolactone 25 MG Oral Tablet (Aldactone)Indicatio [...] before bedtime. 180 Tablet 1 04/06/2023 Active Empagliflozin 10 MG Oral Tablet (Jardiance) Take 1 Tablet by mouth in the morning. 90 Tablet 3 08/19/2022 3 Discontinue d(Refill) Sacubitril-Valsartan 97-103 MG Oral Tablet (Entresto) Take 1 Tablet by mouth in the morning and 1 Tablet before bedtime. 180 Tablet 3 08/19/2022 3 Discontinue d(Refill) Rivaroxaban 20 MG Oral Tablet (Xarelto)Indications :Persistent atrial fibrillation (HCC) take 1 tablet by mouth once daily WITH DINNER 90 Tablet 3 09/21/2022 3 Discontinue d(Refill) documented as of this encounter (statuses as of 04/06/2023) Active Problems Problem Noted Date Diagnosed Date [...] stroke 08/27/2016 Overview: 07/30 acute CVA hosp [facility] Aphasia, 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 Overview: 2/17 Acute CVA w/afib, lifeflight to [facility]. Left MCA infarct. [phone] Tona Yin--Neuro [facility] Femoral artery aneurysm, bilateral 08/25/2016 Popliteal artery aneurysm 08/25/2016 Atrial fibrillation 08/25/2016 Overview: Start 06/13/17 pradaxa not covered, switched to Xarelto History of prostate cancer 03/14/2002 documented as of this encounter (statuses as of 04/06/2023) Resolved Problems Problem Noted Date Diagnosed Date [...] as of this encounter (statuses as of 04/06/2023) Immunizations Name Administration Dates Next Due COVID-19 mRNA, LNP-s, No Pre serve, 2-Dose Series (Moderna) 03/02/2021,08/07/2020,07/10/2020 COVID-19, mRNA, LNP-s, PF, B ooster, 100mcg/0.5mg (Moderna) 09/21/2021 Covid-19, Mrna, Lnp-s, Pf, B ivalent, 30 Mcg, IM, 12 yrs and above ([employer]) 03/03/2022 PPD 06/18/2013,06/03/2010 Pneumococcal Conjugate Vacc, 13 [...] encounter Miscellaneous Notes * Telephone Encounter - JACINTO Alonso - 04/06/2023 12:04 PM EDTSigned Prescriptions: Disp Refills Empagliflozin 10 MG Oral Tablet (Jardiance)90 Tab*1 Sig: Take 1 Tablet by mouth in the morning.Authorizing Provider: MATTEO BRADLEY Rivaroxaban 20 MG Oral Tablet (Xarelto) 90 Tab*1 Sig: take 1 tablet by mouth once daily WITH DINNERAuthorizing Provider: IRINEO MILLER User: PATRICIA MINER Sacubitril-Valsartan 97-103 MG Oral Tablet*180 Ta*1 Sig: Take 1 Tablet by mouth in the morning and 1 Tablet before bedtime.Authorizing Provider: MATTEO BRADLEY * Telephone Encounter - Patricia Miner [facility] - 04/06/2023 5:43 AM EDTPending Prescriptions: Disp Refills Empagliflozin 10 MG Oral Tablet (Jardiance)90 Tab*1 Sig: Take 1 Tablet by mouth in the morning. Sacubitril-Valsartan 97-103 MG Oral Tablet*180 Ta*1 Sig: Take 1 Tablet by mouth in the morning and 1 Tablet before bedtime. Signed Prescriptions: Disp Refills Rivaroxaban 20 MG Oral Tablet (Xarelto) 90 Ta b*1 Sig: take 1 tablet by mouth once daily WITH DINNER Authorizing Provider: IRINEO MILLER User: PATRICIA MINER * Telephone Encounter - Chrissy Peters CPhT - 04/05/2023 9:36 AM EDT Please reroute Rx to [id number] [address] [facility]. Pending Prescriptions: Disp Refills Empagliflozin 10 MG Oral Tablet (Jardianc*90 Tab*0 Sig: Take 1 Tablet by mouth in the morning. Rivaroxaban 20 MG Oral Tablet (Xarelto) 90 Tab*0 Sig: take 1 tablet by mouth once daily WITH DINNER Sacubitril-Valsartan 97-103 MG Oral Table*180 Ta*0 Sig: Take 1 Tablet by mouth in the morning and 1 Tablet before bedtime. Last Visit: 03/23/2023 (in office), Visit date not found (telemedicine) 07/05/2023 If no future appointments scheduled, and last appointment is greater than a year ago, please schedule patient for a follow-up appointment Last date the medication was ordered: [id number] Patient Phone Numbers Labs: Lab Results Component [...] 04/20/2023 10:20 AM EST Office Visit Podiatry [facility] [address] [facility] [place] [address] Barbara Scales, DPM [address] [facility] [place] [address] 05/24/2023 3:30 PM EST Office Visit Cardiology, [facility] [address] [facility] [place] [address] Matteo Bradley, DO [address] [place] [address] 06/16/2023 10:15 AM EST Office Visit Ophthalmology, [facility] [address] [facility] [place] [address] David Garrett, DO [address] [place] [address] 07/05/2023 3:20 PM EST Office Visit Family Practice [facility] [address] [facility] [place] [address] Samir Arroyo MD [address] [facility] [place] [address] Scheduled Procedures Name Priority Associated Diagnoses Date/Ti [...] Diagnosis Persistent atrial fibrillation (HCC) Atrial fibrillation documented in this encounter Advance Directives Healthcare Agents on File Name Relationship Healthcare Agent Relationshi p Communication Kj Sullivan Adult Child Health Care Repr esentative (appointed verbally by patient or by statute hierarchy) Layla Sullivan Adult Child Health Care Repr esentative (appointed verbally by patient or by statute hierarchy) Care Teams Mechanical Maintenance Supervisor Relationship Specialty Start Date End Date Samir Arroyo MD [address] [place] [address] PCP - General Family Medicine 08/25/16 documented as of this encounter
--- OUTSIDE RECORDS SUMMARY | 2023-05-12 15:27 | External Medical Summary | Summary of Care ---
Author Name Unknown Organization [facility] Address [address] [facility] [address] Phone [phone] Care Team Providers Care Clerk Of Court Name Role Phone Samir Arroyo MD Primary Care Provider + Encounter Details Date Type Department Care Team (Late st Contact Info) Description 04/05/2023 Refill Cardiology, [facility] [address] [place] [address] Yrn Bradley, [address] [place] [address] Persistent atrial fibrillation (HCC) Allergies Active Allergy [...] stroke 08/27/2016 Overview: 07/30 acute CVA hosp [facility] Aphasia, 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 Overview: 2/17 Acute CVA w/afib, lifeflight to [facility]. Left MCA infarct. [phone] Tona Yin--Neuro [facility] Femoral artery aneurysm, [...] 30 Mcg, IM, 12 yrs and above ([employer]) 03/03/2022 PPD 06/18/2013,06/03/2010 Pneumococcal Conjugate Vacc, 13 [...] encounter Miscellaneous Notes * Telephone Encounter - Patricia Miner [facility] - 04/06/2023 5:43 AM EDTPending Prescriptions: Disp [...] daily WITH DINNER Authorizing Provider: IRINEO MILLER Ordering User: PATRICIA MINER * Telephone Encounter - Chrissy Peters [facility] - 04/05/2023 9:36 AM EDT Please reroute Rx to E [id number] Pending Prescriptions: Disp Refills Empagliflozin 10 MG [...] appointment Last date the medication was ordered: [id number] Patient Phone Numbers Labs: Lab Results Component [...] 04/20/2023 10:20 AM EST Office Visit Podiatry [facility] [address] [facility] [place] [address] Barbara Scales, [address] [place] [address] 05/24/2023 3:30 PM EST Office Visit Cardiology, [facility] [address] [facility] [place] [address] Yrn Bradley, DO [address] [place] [address] 06/16/2023 10:15 AM EST Office Visit Ophthalmology, [facility] [address] [facility] [place] [address] David Garrett, DO [address] [place] [address] 07/05/2023 3:20 PM EST Office Visit Family Practice [facility] [address] [place] [address] Samir Arroyo MD [address] [place] [address] Scheduled Procedures Name Priority Associated Diagnoses Date/Ti [...] by patient or by statute hierarchy) Layla Snook Adult Child Health Care Repr esentative (appointed verbally by patient or by statute hierarchy) Care Teams Clerk Of Court Relationship Specialty Start Date End Date Samir Arroyo MD [address] [place] [address] PCP - General Family Medicine 08/25/16 documented as of this encounter
--- OUTSIDE RECORDS SUMMARY | 2023-05-12 15:27 | External Medical Summary | Summary of Care ---
Author Name Unknown Organization [facility] Address [address] [place] [address] Phone [phone] Care Team Providers Care Senior Corporate Accountant Name Role Phone Samir Arroyo MD Primary Care Provider + Reason for Visit * Reason Comments case management Encounter Details Date Type Department Care Team Description 03/30/2023 [employer] Penc[employer] DipperMarketing Copywriter [facility] [address] [place] [address] Naa Valdes, RN [address] [place] [address] Medical home patient encounter* Allergies Active Allergy Reactions Severity Noted Date Comments Oseltamivir Itching,Rash 10/05/2019 documented as of this encounter (statuses as of 03/30/2023) Medications Medication Sig Dispensed Refills Start Date [...] as of this encounter (statuses as of 03/30/2023) Active Problems Problem Noted Date Iliac artery [...] stroke 08/27/2016 Overview: 07/30 acute CV[place] hosp [facility] Aphasia, 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 Overview: 07/30 Acute CVA w/afib, lifeflight to [facility]. Left MCA infarct. [phone] Tona Yin--Neuro [facility] Femoral artery aneurysm, bilateral 08/25 Popliteal artery aneurysm 08/25/2016 Atrial fibrillation 08/25/2016 Overview: Start 06/13/17 pradaxa not covered, switched to Xarelto History of prostate cancer 03/14/2002 documented as of this encounter (statuses as of 03/30/2023) Resolved Problems Problem Noted Date Resolved Date [...] as of this encounter (statuses as of 03/30/2023) Immunizations Name Administration Dates Next Due COVID-19 [...] as of this encounter Progress Notes * Naa Valdes RN - 03/30/2023 4:20 PM EDT CM Progress note S: spoke with patient and his daughter Layla. She reports they have spoken with home instead and are awaiting getting a schedule set up for caregiver services/hours. She reports the patient is doing well at this time and has no other needs for the time being. O: phone call follow up A: spoke with daughter with patient present. P: reinforce care plan and reaching out if any concerns or additional needs arise. documented in this encounter Plan of Treatment Upcoming Encounters Date Type Specialty Care Team Description 04/20/2023 Office Visit Podiatry Barbara Scales DPM [address] [place] [address] 05/24/2023 Office Visit Cardiology Yrn Bradley, DO [address] [place] [address] 06/16/2023 Office Visit Ophthalmology David Garrett Tess, DO [address] [place] [address] 07/05/2023 Office Visit Family Medicine Samir Arroyo MD [address] [place] [address] Scheduled Procedures Name Priority Associated Diagnoses Date/Ti me COLONOSCOPY FLEXIBLE PROXIMAL DIAGNOSTIC Recall History of colon polyps Health Maintenance Due Date Last Done Comments COVID-19 Vaccine ( season) 2023 12/06/2022, 03/03/2022, 03/03/2022, Additional history exists COLONOSCOPY-EVERY 5 YRS AGES 18-100 08/23/2023 08/22/2018, 08/22/2018, 01/13/2018, Additional history exists HbA1c 11/26/2023 11/25/2022, 07/12/2021, 07/20/2021, Additional history exists Depression Screening 12/01/2023 [...] as of this encounter Visit Diagnoses Diagnosis Medical home patient encounter- Primary Other specified examination documented in this encounter Advance Directives Healthcare Agents on File Name Relationship Healthcare Agent Relationshi p Communication Kj Sullivan Adult Child Health Care Repr esentative (appointed verbally by patient or by statute hierarchy) Layla Sullivan Adult Child Health Care Repr esentative (appointed verbally by patient or by statute hierarchy) Care Teams Senior Corporate Accountant Relationship Specialty Start Date End Date Samir Arroyo MD [address] [place] [address] PCP - General Family Medicine 08/25/16 documented as of this encounter
--- OUTSIDE RECORDS SUMMARY | 2023-05-12 15:27 | External Medical Summary | Summary of Care ---
Author Name Unknown Organization [facility] Address [address] [place] [address] Phone [phone] Care Team Providers Care Digester Operator Helper Name Role Phone Samir Arroyo MD Primary Care Provider + Encounter Details Date Type Department Care Team Description 03/25/2023 Telephone Care Coordination [address] [place] [address] Kesha Tolentino Allergies Active Allergy Reactions Severity Noted Date Comments Oseltamivir Itching,Rash 10/05/2019 documented as of this encounter (statuses as of 03/25/2023) Medications Medication Sig Dispensed Refills Start Date End Date Status Multiple Vitamins-Minerals (EYE VITAMINS) TABS Take by mouth. 0 A ctive Magnesium 250 MG Tablet Take 1 Tablet by mouth in the morning. 0 Active Lutein 6 MG TABS Take by mouth. 0 Act chinedu Multiple Vitamin (MULTI VITAMIN MENS) Tablet Take 1 Tab by mouth daily. 0 Active Aspirin EC 81 MG Oral Tablet Delayed ReleaseIndications:HF rEF (heart failure with reduced ejection fraction) ([employer]),Ischemic cardiomyopathy Take by mouth 1 Tablet in [...] aneurysm 12/20/2022 AAA (abdominal aortic aneurysm) 02/10/20 22 Overview: 3.0 cm AAA noted on aortic [...] stroke 08/27/2016 Overview: 07/30 acute CVA hosp [facility] Aphasia, 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 Overview: 07/30 Acute CVA w/afib, lifeflight to [facility]. Left MCA infarct. [phone] Tona Yin--Neuro [facility] Femoral artery aneurysm, bilateral 08/25 Popliteal artery [...] 30 Mcg, IM, 12 yrs and above ([employer]) 03/03/2022 PPD 06/18/2013,06/03/2010 Pneumococcal Conjugate Vacc, 13 [...] encounter Miscellaneous Notes * Telephone Encounter - Kesha Tolentino - 03/25/2023 10:44 AM EDT ELVIRA placed TC to patient to obtain physical address so ELVIRA could come out to do home visit. Spoke with daughter Layla- address is [address] [place] [address] Dr. Rosa faustin. ELVIRA put address in yellow sticky note as well. Kesha Tolentino- ELVIRA documented in this encounter Plan of Treatment Upcoming Encounters Date Type Specialty Care Team Description 03/25/2023 Home Visit Family Medicine Kesha Tolentino, [facility] Fruit Grading Supervisor [address] [facility] [address] 04/20/2023 Office Visit Podiatry [facility]es [facility]PM [address] [facility] [address] 05/24/2023 Office Visit Cardiology Yrn Bradley, DO [address] [place] [address] 06/16/2023 Office Visit Ophthalmology David Garrett DO [address] [place] [address] 07/05/2023 Office Visit Family Medicine Samir Arroyo MD [address] [place] [address] Scheduled Procedures Name Priority Associated Diagnoses Date/Ti [...] by patient or by statute hierarchy) Layla [place] Adult Child Health Care Repr esentative (appointed verbally by patient or by statute hierarchy) Care Teams Digester Operator Helper Relationship Specialty Start Date End Date Samir Arroyo MD [address] [place] [address] PCP - General Family Medicine 08/25/16 documented as of this encounter
--- OUTSIDE RECORDS SUMMARY | 2023-05-12 15:27 | External Medical Summary | Summary of Care ---
Author Name Unknown Organization [facility] Address [address] [place] [address] Phone [phone] Care Team Providers Care Stove Cleaner Name Role Phone Samir Arroyo MD Primary Care Provider + Reason for Visit * Reason Onset Date Comments STAIR AAA 01/13/2023 Encounter Details Date Type Department Care Team Description 01/13/2023 Telephone STAIR [facility] [address] [place], [place] [id number] Program, Stair [address] [place] [address] STAIR [facility] Allergies Active Allergy Reactions Severity Noted Date Comments Oseltamivir Itching,Rash 10/05/2019 documented as of this encounter (statuses as of 03/24/2023) Medications Medication Sig Dispensed Refills Start Date [...] Aspirin EC 81 MG Oral Tablet Delayed ReleaseIndications: HFrEF (heart failure with reduced ejection fraction) (HCC),Ischemic cardiomyopathy Take by mouth 1 Tablet in the morning. 90 Tablet 0 07/16/2021 Active Nitroglycerin 0.4 MG Sublingual Tablet Sublingual (Nitrostat)Indicati ons:HFrEF (heart failure with reduced ejection fraction) (HCC),Ischemic cardiomyopathy Place 1 Tablet (0.4 mg) under the tongue every 5 minutes as needed for Pain, Chest. up to 3 doses in 15 minutes 25 Tablet 11 05/26/2022 Active Furosemide 20 MG Oral Tablet (Lasix)Indications: HFrEF (heart failure with reduced ejection fraction) (HCC),DCM (dilated cardiomyopathy) (HCC),Permanent atrial fibrillation (HCC),HTN, goal below 140/90,Dyslipidemia , goal LDL below 100,Severe pulmonary hypertension (HCC),Severe mitral regurgitation,Sever e tricuspid regurgitation,HERNNÁDEZ (dyspnea on exertion),Chest pressure Take 1 Tablet by mouth in the morning. 30 Tablet 11 06/02/2022 Active Gabapentin 300 MG Oral Capsule (Neurontin)Indicati ons:Neuropathy Take 1 Capsule by mouth in the morning and 1 Capsule before bedtime. 180 Capsule 3 06/23/2022 Active Spironolactone 25 MG Oral Tablet (Aldactone)Indicati ons:Persistent atrial fibrillation (HCC),Acute systolic heart failure (HCC),HFrEF (heart failure with reduced ejection fraction) (HCC),DCM (dilated cardiomyopathy) (HCC) Take 1 Tablet by mouth in the morning. 90 Tablet 3 07/14/2022 Active Empagliflozin 10 MG Oral Tablet (Jardiance) Take 1 Tablet by mouth in the morning. 90 Tablet 3 08/19/2022 Active Sacubitril-Valsarta n 97-103 MG Oral Tablet (Entresto) Take 1 Tablet by mouth in the morning and 1 Tablet before bedtime. 180 Tablet 3 08/19/2022 Active Rivaroxaban 20 MG Oral Tablet (Xarelto)Indication s:Persistent atrial fibrillation (HCC) take 1 tablet by mouth once daily WITH DINNER 90 Tablet 3 09/21/2022 Active Metoprolol Succinate ER 25 MG Oral Tablet Extended Release 24 Hour (toPROL XL)Indications:Pers istent atrial fibrillation (HCC) TAKE 1/2 TABLET EVERY MORNING DECREASE DOSE 12/09/2021 45 Tablet 3 12/09/2022 Active Atorvastatin Calcium 80 MG Oral Tablet (Lipitor)Indication s:Dyslipidemia Take 1 Tablet by mouth in the morning. 90 Tablet 2 06/29/2022 03/15/20 23 Discontinued documented as of this encounter (statuses as of 03/24/2023) Active Problems Problem Noted Date Iliac artery [...] stroke 08/27/2016 Overview: 07/30 acute CVA hosp [facility] [place] Aphasia, 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 Overview: 07/30 Acute CVA w/afib, lifeflight to [facility]. Left MCA infarct. [phone] Tona Yin--Neuro [facility] Femoral artery aneurysm, bilateral 08/25 Popliteal artery aneurysm 08/25/2016 Atrial fibrillation 08/25/2016 Overview: Start 06/13/17 pradaxa not covered, switched to Xarelto History of prostate cancer 03/14/2002 documented as of this encounter (statuses as of 03/24/2023) Resolved Problems Problem Noted Date Resolved Date [...] as of this encounter (statuses as of 03/24/2023) Immunizations Name Administration Dates Next Due COVID-19 mRNA, LNP-s, No Pre serve, 2-Dose Series ([employer]) 03/02/2021,08/07/2020,07/10/2020 COVID-19, mRNA, LNP-s, PF, B ooster, 100mcg/0.5mg ([employer]) 09/21/2021 Covid-19, Mrna, Lnp-s, Pf, B ivalent, 30 Mcg, IM, 12 yrs and above ([employer]) 03/03/2022 PPD 06/18/2013,06/03/2010 Pneumococcal Conjugate Vacc, 13 [...] encounter Miscellaneous Notes * Telephone Encounter - Kanika Conti LPN - 03/24/2023 3:30 PM EDT Patient managed in STAIR Program for Abdominal Aortic Aneurysm - banner added * Telephone Encounter - Kanika Conti LPN - 01/13/2023 8:53 AM EDT AAA - Clinical Summary Name: Crow Sullivan Age: [age] year old AAA Review: Follow-up Patient Identified by: Problem List Report Imaging Interpretation: Duplex Type of Result: AAA 3.0 to 3.9 cm AAA Care Plan Recommendation: Aortic Duplex - details below Details: in 1 year Next steps: No action needed at this time. Patient was seen by vascular yesterday. Next clinic visit with testing prior is due in one year. Will continue to track. Kanika Conti LPN Coordinator STAIR (System to Track Abnormalities of Importance Reliably) [facility] AORTIC DUPLEX EVAL-COMPLETE 12/30/2022 Narrative VASCULAR LAB RESULTS DATE OF EXAM: 12/30/22 PRESENTING CONDITIONS: AAA and bilateral iliac aneurysms This is an interpretation of an exam performed at [facility]. PHYSICIAN REPORT: Abdominal Aorta Duplex Examination. Immediately before proceeding with the vascular lab procedure reported below, the identity of the patient, the correct exam and the correct procedural site were verified. Keene scale, color flow and spectral doppler were performed for this examination. Spectral Doppler demonstrates evidence of normal waveforms of the abdominal aorta. Peak systolic velocity measurements of the aorta are 72.4 centimeters per second. The maximum diameter of the proximal abdominal aorta measures 2.5 centimeters by 2.5 centimeters. The maximum diameter of the mid abdominal aorta measures 2.7 centimeters by 2.7 centimeters. The maximum diameter of the distal abdominal aorta measures 3.0 centimeters by 3.1 centimeters. The maximum diameter of the proximal right common iliac artery measures 2.1 centimeters by 2.1 centimeters. The maximum diameter of the proximal left common iliac artery measures 2.9 centimeters by 2.9 centimeters. Impression : There is evidence of a 3.1 cm abdominal aortic aneurysm. Color Doppler imaging demonstrates flow consistent with a patent lumen at and distal to the aortic aneurysm. There is evidence of a 2.1 cm right common iliac artery aneurysm. There is evidence of a 2.9 cm left common iliac artery aneurysm. documented in this encounter Plan of Treatment Upcoming Encounters Date Type Specialty Care Team Description 03/25/2023 Home Visit Family Medicine Kesha Tolentino, Community [facility] Hydrotreater Operator [address] [place] [address] 04/20/2023 Office Visit Podiatry Barbara Scales DPM [address] [place] [address] 05/24/2023 Office Visit Cardiology Yrn Bradley, DO [address] [place] [address] 06/16/2023 Office Visit Ophthalmology David Garrett, DO [address] [place] [address] 07/05/2023 Office Visit Family Medicine Samir Arroyo MD [address] [place] [address] Scheduled Procedures Name Priority Associated Diagnoses Date/Ti me COLONOSCOPY FLEXIBLE PROXIMAL DIAGNOSTIC Recall History of colon polyps Health Maintenance Due Date Last Done Comments COVID-19 Vaccine ( season) 2023 12/06/2022, 03/03/2022, 03/03/2022, Additional history exists COLONOSCOPY-EVERY 5 YRS AGES 18-100 08/23/2023 08/22/2018, 08/22/2018, 01/13/2018, Additional history exists HbA1c 11/26/2023 11/25/2022, 07/0 12/2021, 07/20/2021, Additional history exists Depression Screening 12/01/2023 11/30/2022 AAA Monitoring 12/31/2023 12/30/2022, 12/11, 12/10/2020, Additional history exists DTaP,Tdap,and Td Vaccines (3 - Td or [...] patient or by statute hierarchy) Care Teams Stove Cleaner Relationship Specialty Start Date End Date Samir Arroyo MD [address] [place] [address] PCP - General Family Medicine 08/25/16 documented as of this encounter
--- OUTSIDE RECORDS SUMMARY | 2023-05-12 15:27 | External Medical Summary | Summary of Care ---
Author Name Unknown Organization [facility] Address [address] [place] [place] [place] [address] Phone [phone] Care Team Providers Care Sealing And Canceling Machine Operator Name Role Phone Samir Arroyo MD Primary Care Provider + Reason for Visit * Reason Comments eRx-Medication Refill Encounter Details Date Type Department Care Team (Late st Contact Info) Description 04/10/2023 Refill Family Practice [facility] [address] [facility] [place] [address] Carol Navarro CRNP [address] [facility] [place] [address] Persistent atrial fibrillation (HCC); Acute systolic heart failure (HCC); HFrEF (heart failure with reduced ejection fraction) (HCC); DCM (dilated cardiomyopathy) (HCC) Allergies Active Allergy Reactions Criticality Noted Date Comments Oseltamivir Itching,Rash 10/05/2019 documented as of this encounter (statuses as of 04/11/2023) Medications Medication Sig Dispensed Refills Start Date [...] as of this encounter (statuses as of 04/11/2023) Active Problems Problem Noted Date Diagnosed Date [...] stroke 08/27/2016 Overview: 07/30 acute CV[place] [facility], 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 Overview: 07/30 Acute CVA w/afib, lifeflight to [facility] Left MCA infarct. 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 08/25/2016 Atrial fibrillation 08/25/2016 Overview: Start 06/13/17 pradaxa not covered, switched to Xarelto History of prostate cancer 03/14/2002 documented as of this encounter (statuses as of 04/11/2023) Resolved Problems Problem Noted Date Diagnosed Date [...] as of this encounter (statuses as of 04/11/2023) Immunizations Name Administration Dates Next Due COVID-19 [...] encounter Miscellaneous Notes * Telephone Encounter - Barbara Garcia [facility] - 04/11/2023 1:37 PM EDTRefused Prescriptions: Disp Refills Spironolactone 25 MG Oral Tablet (Aldacton*90 Tab*3 Sig: TAKE 1TABLET EVERY MORNINGRefused By: BARBARA GARCIA for Refusal: Too soon documented in this encounter Plan of Treatment Upcoming Encounters Date Type Department Care Team (Late st Contact Info) Description 04/20/2023 10:20 AM EST Office Visit Podiatry [facility] [address] [place] [address] Barbara Scales, DPYajaira [address] [place] [address] 06/16/2023 10:15 AM EST Office Visit Ophthalmology, [facility] [address] [place] [address] David Garrett DO [address] [place] [address] 07/05/2023 3:20 PM EST Office Visit Family Practice [facility] [address] [place] [address] Samir Arroyo MD [address] [place] [address] Scheduled Procedures Name Priority Associated Diagnoses Date/Ti [...] patient or by statute hierarchy) Care Teams Sealing And Canceling Machine Operator Relationship Specialty Start Date End Date Samir Arroyo MD [address] [place] [address] PCP - General Family Medicine 08/25/16 documented as of this encounter
--- OUTSIDE RECORDS SUMMARY | 2023-05-12 15:27 | External Medical Summary | Summary of Care ---
Author Name Unknown Organization [facility] Address [address] [place] [address] Phone [phone] Care Team Providers Care Legal Operations Manager Name Role Phone Samir Arroyo MD Primary Care Provider + Encounter Details Date Type Department Care Team Description 03/25/2023 Telephone Care Coordination [address] [place] [address] Kesha Tolentino Allergies Active Allergy [...] rEF (heart failure with reduced ejection fraction) ([facility]),Ischemic cardiomyopathy Take by mouth 1 Tablet [...] 08/27/2016 Overview: 07/30 [place] [facility] [place], 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 Overview: 07/30 Acute CVA w/afib, [place]ef[place] [facility]. Left MCA infarct. [phone] Tona Yin--Neuro [facility] Femoral artery aneurysm, bilateral 08/25 Popliteal artery [...] 30 Mcg, IM, 12 yrs and above (Evri) 03/03/2022 PPD 06/18/2013,06/03/2010 Pneumococcal Conjugate Vacc, 13 [...] Telephone Encounter - Kesha Tolentino - 03/25/2023 10:46 AM EDT ELVIRA received a TC from daughter Layla stating that there was no need for ELVIRA to come out to do a home visit today due to [facility] home health just being at the home and patient does not qualify for anyservices in the home. Daughter stated that they are going to look into private care options. ELVIRA suggested contacting the area on aging and dowling alert for safety concerns. Daughter stated that she currently completes his med minder for two weeks at a time and they are also going to set up a ring camera in the home as they can keep a watch on him when they are not able to be there with him. ELVIRA told daughter if they felt they needed ELVIRA to come out in the future or needed anything to be sure tocall us. Kesha Tolentino- ELVIRA documented in this encounter Plan of Treatment Upcoming Encounters Date Type Specialty Care Team Description 03/25/2023 Home Visit Family Medicine Kesha Tolentino, [facility] Centrifugal Screen Tender [address] [place] [address] 04/20/2023 Office Visit Podiatry Barbara Scales DPM [address] [facility] [place] [address] 05/24/2023 Office Visit Cardiology Yrn Bradley, DO [address] [place] [address] 06/16/2023 Office Visit Ophthalmology David Garrett, DO [address] [place] [address] 07/05/2023 Office Visit Family Medicine Samir Arroyo MD [address] [place] [address] Scheduled Procedures Name Priority Associated Diagnoses Date/Ti [...] Relationship Healthcare Agent Relationshi p Communication Kj Laurie Adult Child Health Care Repr esentative (appointed verbally by patient or by statute hierarchy) Layla Sullivan Adult Child Health Care Repr esentative (appointed verbally by patient or by statute hierarchy) Care Teams Legal Operations Manager Relationship Specialty Start Date End Date Samir Arroyo MD [address] [place] [address] PCP - General Family Medicine 08/25/16 documented as of this encounter
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
--- OUTSIDE RECORDS SUMMARY | 2023-05-12 15:28 | External Medical Summary | Summary of Care ---
Author Name Unknown Organization [facility] Address [address] [place] [place] [address] Phone [phone] Care Team Providers Care Room Clerk Name Role Phone Samir Barksdale MD Primary Care Provider + Reason for Visit * Reason Comments eRx-Medication Refill Encounter Details Date Type Department Care Team Description 03/14/2023 Refill Family Practice [facility] [address] [facility] [place] [address] [facility] [place] [address] Dyslipidemia Allergies Active Allergy Reactions Severity Noted Date Comments Oseltamivir Itching,Rash 10/05/2019 documented as of this encounter (statuses as of 03/15/2023) Medications Medication Sig Dispensed Refills Start Date [...] pulmonary hypertension (HCC),Severe mitral regurgitation,Sever e tricuspid regurgitation,HERNÁNDEZ (dyspnea on exertion),Chest pressure Take [...] Calcium 80 MG Oral Tablet (Lipitor)Indication s:Dyslipidemia TAKE 1 TABLET EVERY MORNING 90 Tablet 2 03/15/2023 Active Atorvastatin Calcium 80 MG Oral Tablet (Lipitor)Indication s:Dyslipidemia Take 1 Tablet by mouth in the morning. 90 Tablet 2 06/29/2022 03/15/20 23 Discontinued documented as of this encounter (statuses as of 03/15/2023) Active Problems Problem Noted Date Iliac artery [...] aorta/iliac ectasia, josee 2-3y 08/29 colon ok ojsee 5y. 01/28 flex sig 1 3mm polyp unable to retrieve josee Colonoscopy 6-12mo 11/28 hgb 17, normal ferritin/iron. Josee yearly 2012 colon WNL 2008 colon WNL + radiation proctitis H/O ischemic left MCA stroke 08/27/2016 Overview: 07/30 [place] [facility] [place], 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 Overview: 07/30 Acute CVA w/afib, [place]ef[place] [facility]. Left MCA infarct. [phone] Tona Yin--Neuro [facility] Femoral artery aneurysm, bilateral 08/25 Popliteal artery aneurysm 08/25/2016 Atrial fibrillation 08/25/2016 Overview: Start 06/13/17 pradaxa not covered, switched to Xarelto History of prostate cancer 03/14/2002 documented as of this encounter (statuses as of 03/15/2023) Resolved Problems Problem Noted Date Resolved Date [...] as of this encounter (statuses as of 03/15/2023) Immunizations Name Administration Dates Next Due COVID-19 mRNA, LNP-s, No Pre serve, 2-Dose Series (Moderna) 03/02/2021,08/07/2020,07/10/2020 COVID-19, mRNA, LNP-s, PF, B ooster, 100mcg/0.5mg (Moderna) 09/21/2021 Covid-19, Mrna, Lnp-s, Pf, B ivalent, 30 Mcg, IM, 12 yrs and above (Distractify) 03/03/2022 PPD 06/18/2013,06/03/2010 Pneumococcal Conjugate Vacc, 13 [...] encounter Miscellaneous Notes * Telephone Encounter - Samir Ramos RPh - 03/15/2023 5:21 PM EDT Signed Prescriptions: Disp Refills Atorvastatin Calcium 80 MG Oral Tablet (Li*90 Tab*2 Sig: TAKE 1 TABLET EVERY MORNINGAuthorizing Provider: SAMIR BARKSDALE User: SAMIR RAMOS- documented in this encounter Plan of Treatment Upcoming Encounters Date Type Specialty Care Team Description 03/17/2023 Immunization Jaskaran, Covid19 Vaccine [facility] [address] [place] [address] 04/20/2023 Office Visit Podiatry Barbara Scales DPM [address] [place] [address] 05/24/2023 Office Visit Cardiology Yrn Bradley, DO [address] [place] [address] 06/16/2023 Office Visit Ophthalmology David Garrett, DO [address] [place] [address] 07/05/2023 Office Visit Family Medicine Samir Barksdale MD [address] [place] [address] Scheduled Procedures Name Priority Associated Diagnoses Date/Ti [...] as of this encounter Visit Diagnoses Diagnosis Dyslipidemia Other and unspecified hyperlipidemia documented in this encounter Care Teams Room Clerk Relationship Specialty Start Date End Date Samir Barksdale MD [address] [place] [address] PCP - General Family Medicine 08/25/16 documented as of this encounter
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
--- OUTSIDE RECORDS SUMMARY | 2023-05-12 15:28 | External Medical Summary | Summary of Care ---
Author Name Unknown Organization [facility] Address [address] [facility] [address] Phone [phone] Care Team Providers Care Netbackup Engineer Name Role Phone Samir Arroyo MD Primary Care Provider + Reason for Visit * Reason Comments Cough Ongoing for about 7 days - non-productive - states he did home test on 03/15/2023 and it was negative; patient accompanied by son Kj; denies chills/fever, denies shortness of breath Encounter Details Date Type Department Care Team Description 03/23/2023 Office Visit Family Practice [facility] [address] [facility] [place] [address] [facility]me [facility] [place] [phone] Viral URI with cough*; Persistent atrial fibrillation (HCC); Aphasia, post-stroke Allergies Active Allergy Reactions Severity Noted Date [...] stroke 08/27/2016 Overview: 07/30 acute [place] [facility] [place], 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 Overview: 07/30 Acute CVA w/afib, lifeflight to [facility]. Left MCA infarct. [phone] Tona Yin--Neuro [facility] Femoral artery aneurysm, bilateral 08/25 Popliteal artery [...] Date Smoking Tobacco: Never Smokeless Tobacco: Never Tobacco Cessation:Counseling Given: Not Answered Alcohol Use Standard Drinks/Week Comments Yes 0 [...] on file documented as of this encounter Last Filed Vital Signs Vital Sign Reading Time Taken Comments Blood Pressure 140/45 03/23/2023 8:36 AM EDT dyn amap Pulse 87 03/23/2023 8:36 AM EDT dynam ap Temperature 36.4 C (97.5 F) 03/23/2023 8:36 AM ED T Respiratory Rate 20 03/23/2023 8:36 AM EDT Oxygen Saturation 94% 03/23/2023 8:36 AM EDT room air Inhaled Oxygen Concentration - - Weight 97.7 kg (215 lb 4.8 oz) 03/23/2023 8:36 A M EDT Height - - Body Mass Index 32.74 11/30/2022 3:13 PM EDT documented in this encounter Progress Notes * MARIANNA Trammell - 03/23/2023 8:54 AM EDT Images from the original note were not included. URI Family Medicine Visit History of Present Illness CC: Chief Complaint Patient presents with Cough Ongoing for about 7 days - non-productive - states he did home test on 03/15/2023 and it was negative; patient accompanied by son Kj; denies chills/fever, denies shortness of breath Crow Sullivan is a very pleasant 72 year old male with above complaints x 7 days. Symptoms are little better over the periods. Hx of stroke, post-stroke aphasia. was his main caregiver but she is currently in the hospital due to accident. His children live 2-3 hours away. Previous lung disease: None Has tried OTC nyquil and mucinex one time. -fever, t max - -chills -sweats -decreased appetite -tolerating fluids -NIÑO -congestion -loss of taste or smell -runny nose -PND -ear pain -sore throat -cough -productive of mucous -sob -wheezing -nausea -diarrhea -constipation -vomiting -body aches -Rash -Sleep disruption 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 Atrial fibrillation (HCC) 08/25/2016 Backache Carotid occlusion, left 05/02/2019 Carotid stenosis, right 05/02/2019 Cerebrovascular event, ill-defined, within last 8 weeks 08/25/2016 Dyslipidemia 05/21/2020 Elevated hemoglobin (HCC) 10/28/2017 Femoral artery aneurysm, 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/2016 H/O ischemic left MCA stroke 08/27/201607/30 acute CV[place] [facility] ICAO (internal carotid artery occlusion) 08/25/2016 Iliac artery aneurysm (HCC) 12/20/2022 Malignant neoplasm of prostate (HCC) 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 Tobacco Use Smoking status: Never Smokeless tobacco: Never Vaping Use Vaping Use: Never used Substance and Sexual Activity Alcohol use: Yes Alcohol/week: 0.0 standard drinks Comment: occasional Drug use: No Sexual activity: Yes Partners: Female Other Topics Concern Not on file Social History Narrative Not on file Social Determinants of Health Financial Resource Strain: Not on file Food Insecurity: No Food Insecurity Worried About Running Out of Food in the Last Year: Never true Ran Out of Food in the Last Year: Never true Transportation Needs: Not on file Physical Activity: Not on file Stress: Not on file Social Connections: Not on file Intimate Partner Violence: Not on file Housing Stability: Not on file PMH: 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 Atrial fibrillation (HCC) 08/25/2016 Backache Carotid occlusion, left 05/02/2019 Carotid stenosis, right 05/02/2019 Cerebrovascular event, ill-defined, within last 8 weeks 08/25/2016 Dyslipidemia 05/21/2020 Elevated hemoglobin (HCC) 10/28/2017 Femoral artery aneurysm, 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/2016 H/O ischemic left MCA stroke 08/27/201607/30 acute CV[place] [facility] [place]O (internal carotid artery occlusion) 08/25/2016 Iliac artery aneurysm (HCC) 12/20/2022 Malignant neoplasm of prostate (HCC) 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 Past Surgical History: Procedure Laterality Date CARDIAC CATH-CARDIOLOGY ONLY 07/23/2021 [facility] COLONOSCOPY 03/2004 Diverticulosis- repeat in 10 years COLONOSCOPY, DIAGNOSTIC (RECTUM) 08/02/2007 Radiation proctitis; repeat in 5 years COLONOSCOPY, DIAGNOSTIC (RECTUM) 02/01/2013 COLONOSCOPY FLEXIBLE PROXIMAL DIAGNOSTIC performed by Yrn Greenberg MD at ENDOSCOPY [facility] COLONOSCOPY, DIAGNOSTIC (RECTUM) 08/22/2018 hyperplastic polyps, diverticulosis, fair prep, repeat 5 yrs/COLONOSCOPY FLEXIBLE PROXIMAL DIAGNOSTIC performed by Columba Davey MD at ENDOSCOPY [facility] CYSTOSCOPY 2001 negative CYSTOSCOPY 12/11/2012 EMG, 2 EXTREMITIES 07/26/2001 Upper extremities- normal HALLUX RIGIDUS CORRECTED WITH CHIELECTOMY Right 06/09/2017 CORRECTION HALLUX RIGIDUS, CHIELECTOMY WITHOUT IMPLANT performed by Barbara Scales DPM at OR [facility] INFORMATION 07/2002 [facility] seed treatment for prostate cancer IR FILTER REMOVAL VENA CAVA 12/28/2016 at [facility]. normal IVC cavagram post removal. IR PLACEMENT IVC FILTER 07/23/2016 [facility] GILBERT FLEX SIGMOID DIAGNOSITIC 01/13/2018 fair prep, colon polyp, repeat 6-12 mo/SIGMOIDOSCOPY FLEXIBLE DIAGNOSTIC performed by Columba Davey MD at ENDOSCOPY [facility] MISCELLANEOUS ORDER right elbow--bursa sac removed MISCELLANEOUS ORDER ([facility] ONLY) 2000 brachytherapy for prostate Cancer. NONE 09/14/[address] Paredes OTHER (INFORMATION) ACT 112 SIGNED 02/03/23 DR. GARRETT REMOVAL OF APPENDIX REPAIR OF HYDROCELE Right-- US TRANSRECTAL AND BIOPSY 2001 Outpatient Medications Marked as Taking for the 03/23/23 encounter (Office Visit) with MARIANNA Trammell Medication Sig Atorvastatin Calcium 80 MG Oral Tablet (Lipitor) TAKE 1 TABLET EVERY MORNING Metoprolol Succinate ER 25 MG Oral Tablet Extended Release 24 Hour (toPROL XL) TAKE 1/2 TABLET EVERY MORNING DECREASE DOSE 12/09/2021 Rivaroxaban 20 MG Oral Tablet (Xarelto) take 1 tablet by mouth once daily WITH DINNER Empagliflozin 10 MG Oral Tablet (Jardiance) Take 1 Tablet by mouth in the morning. Sacubitril-Valsartan 97-103 MG Oral Tablet (Entresto) Take 1 Tablet by mouth in the morning and 1 Tablet before bedtime. Spironolactone 25 MG Oral Tablet (Aldactone) Take 1 Tablet by mouth in the morning. Gabapentin 300 MG Oral Capsule (Neurontin) Take 1 Capsule by mouth in the morning and 1 Capsule before bedtime. Furosemide 20 MG Oral Tablet (Lasix) Take 1 Tablet by mouth in the morning. Nitroglycerin 0.4 MG Sublingual Tablet Sublingual (Nitrostat) Place 1 Tablet (0.4 mg) under the tongue every 5 minutes as needed for Pain, Chest. up to 3 doses in 15 minutes Aspirin EC 81 MG Oral Tablet Delayed Release Take by mouth 1 Tablet in the morning. Multiple Vitamin (MULTI VITAMIN MENS) Tablet Take 1 Tab by mouth daily. Lutein 6 MG TABS Take by mouth. Magnesium 250 MG Tablet Take 1 Tablet by mouth in the morning. Multiple Vitamins-Minerals (EYE VITAMINS) TABS Take by mouth. Review of patient's allergies indicates: Allergen Reactions Tamiflu [Oseltamivir] Itching and Rash Most Recent Immunizations Administered Date(s) Administered COVID-19 mRNA, LNP-s, No Preserve, 2-Dose Series (Moderna) 03/02/2021 COVID-19, mRNA, LNP-s, PF, Booster, 100mcg/0.5mg (Moderna) 09/21/2021 Covid-19, Mrna, Lnp-s, Pf, Bivalent, 30 Mcg, IM, 12 yrs and above (Pfizer) 03/03/2022 PPD 06/18/2013 Pneumococcal Conjugate Vacc, 13 Valent (Prevnar) 05/27/2017 Pneumococcal Polysaccharide PPV23 (Pneumovax) 01/22/2018 SARS-COV-2 (COVID-19) Vaccine Unspecified 12/06/2022 SEASONAL INFLUENZA, PF, 6 M & Above, IM , (FLULAVAL or FLUZONE) 03/11/2020 Seasonal Influenza, Quadrivalent Hd (Fluzone Hd) 02/16/2023 Seasonal Influenza, Split, IIV3, With Preserve, Inj 03/13/2016 Seasonal Influenza, Trivalent, Adjuvanted, 65+ yrs 02/27/2019 TDAP (age 11 and older)(Adacel) 03/07/2019 Varicella Zoster Vaccine (Adult) 03/13/2012 Zoster Vaccine Recombinant (Shingrix) 09/29/2018 Review of Systems: Physical Exam BP 140/45 (BP Site: Left Arm, BP Position: Sitting, BP Cuff Size: Regular) Comment: dynamap | Pulse87 Comment: dynamap | Temp 36.4 C (97.5 F) (Tympanic) | Resp 20 | Wt 97.7 kg (215 lb 4.8 oz) | SpO2 94% Comment: room air | BMI 32.74 kg/m | BSA 2.17 m Physical Exam Constitutional: Appearance: Normal appearance. HENT: Head: Normocephalic. Right Ear: There is impacted cerumen. Left Ear: Tympanic membrane and ear canal normal. Nose: Rhinorrhea present. Rhinorrhea is clear. Right Sinus: No maxillary sinus tenderness or frontal sinus tenderness. Left Sinus: No maxillary sinus tenderness or frontal sinus tenderness. Mouth/Throat: Pharynx: No posterior oropharyngeal erythema. Cardiovascular: Rate and Rhythm: Normal rate. Pulmonary: Effort: Pulmonary effort is normal. Breath sounds: Normal breath sounds. Musculoskeletal: Cervical back: Neck supple. Skin: General: Skin is warm. Neurological: Mental Status: He is alert and oriented to person, place, and time. Psychiatric: Mood and Affect: Mood normal. Assessment and Plan 1. Viral URI with cough Afebrile, improving Continue to use mucinex as needed - Benzonatate 100 MG Oral Capsule; Take 1 Capsule by mouth 3 times a day as needed for Cough. Dispense: 50 Capsule; Refill: 1 2. Persistent atrial fibrillation (HCC) On xarelto 3. Aphasia, post-stroke Son asking case management for medication management/home health due to lack of caregiver Wrap-Up Recommend supportive care including: Humidifier Rest Push fluids Reviewed pathophysiology of viral URI Quarantine until covid results are back Recommend handwashing and covering cough Reviewed signs and symptoms in which to seek medical care I have advised the patient to call our office incase of any worsening or new symptoms. A total of 25 minutes were spent with the patient, more than half in troa-ch-lkaf explanation and discussion of the condition and treatment and answering questions. Guilherme Daniel, MSN, MARIANNA [facility] documented in this encounter Nursing Notes * Bro Pepe RN - 03/23/2023 8:33 AM EDT Chief Complaint Patient presents with Cough Ongoing for about 7 days - non-productive - states he did home test on 03/15/2023 and it was negative; patient accompanied by son Kj; denies chills/fever, denies shortness of breath documented in this encounter Plan of Treatment Upcoming Encounters Date Type Specialty Care Team Description 04/20/2023 Office Visit Podiatry Barbara Scales DPM [address] [place] [phone] 05/24/2023 Office Visit Cardiology Yrn Bradley, [address] [place] [phone] 06/16/2023 Office Visit Ophthalmology David Garrett DO [address] [place] [phone] 07/05/2023 Office Visit Family Medicine Samir Arroyo MD [address] [place] [phone] Scheduled Procedures Name Priority Associated Diagnoses Date/Ti me COLONOSCOPY FLEXIBLE PROXIMAL DIAGNOSTIC Recall History of colon polyps Health Maintenance Due Date Last Done Comments COVID-19 Vaccine ( season) 2023 12/06/2022, 03/03/2022, 03/03/2022, Additional history exists COLONOSCOPY-EVERY 5 YRS AGES 18-100 08/23/2023 08/22/2018, 08/22/2018, 01/13/2018, Additional history exists HbA1c 11/26/2023 11/25/2022, 070 12/2021, 07/20/2021, Additional history exists Depression Screening [...] as of this encounter Visit Diagnoses Diagnosis Viral URI with cough- Primary Acute upper respiratory infections of unspecified site Persistent atrial fibrillation (HCC) Atrial fibrillation Aphasia, post-stroke Unspecified cerebral artery occlusion with cerebral infarction documented in this encounter Advance Directives Healthcare Agents on File Name Relationship Healthcare Agent Relationshi p Communication Kj Laurie Adult Child Health Care Repr esentative (appointed verbally by patient or by statute hierarchy) Layla Sullivan Adult Child Health Care Repr esentative (appointed verbally by patient or by statute hierarchy) Care Teams Netbackup Engineer Relationship Specialty Start Date End Date Samir Arroyo MD [address] [place] [phone] PCP - General Family Medicine 08/25/16 documented as of this encounter"
--- OUTSIDE RECORDS SUMMARY | 2023-05-12 15:29 | External Medical Summary | Summary of Care ---
Author Name Unknown Organization [facility] Address [address] [place] [facility] [place] [address] Phone [phone] Care Team Providers Care Supervisor Grips Name Role Phone Samir Arroyo MD Primary Care Provider + Encounter Details Date Type Department Care Team Description 01/25/2023 Patient Reported Data Patient Survey Ortho [facility] Allergies Active Allergy Reactions Severity Noted Date Comments Oseltamivir Itching,Rash 10/05/2019 documented as of this encounter (statuses as of 01/25/2023) Medications Medication Sig Dispensed Refills Start Date [...] s:HFrEF (heart failure with reduced ejection fraction) ([facility]),Ischemic cardiomyopathy Place 1 Tablet (0.4 mg) under the tongue every 5 minutes as needed for Pain, Chest. up to 3 doses in 15 minutes 25 Tablet 11 05/26/2022 Active Furosemide 20 MG Oral Tablet (Lasix)Indications:HF rEF (heart failure with reduced ejection fraction) ([facility]),DCM (dilated cardiomyopathy) (HCC),Permanent atrial fibrillation (HCC),HTN, goal below 140/90,Dyslipidemia, goal LDL below 100,Severe pulmonary hypertension (HCC),Severe mitral regurgitation,Severe tricuspid regurgitation,HERNÁNDEZ (dyspnea on exertion),Chest pressure Take 1 Tablet by mouth in the morning. 30 Tablet 11 06/02/2022 Active Gabapentin 300 MG Oral Capsule (Neurontin)Indication s:Neuropathy Take 1 Capsule by mouth in the morning and 1 Capsule before bedtime. 180 Capsule 3 06/23/2022 Active Atorvastatin Calcium 80 MG Oral Tablet (Lipitor)Indications: Dyslipidemia Take 1 Tablet by mouth in the morning. 90 Tablet 2 06/29/2022 Active Spironolactone 25 MG Oral Tablet (Aldactone)Indication [...] DOSE 12/09/2021 45 Tablet 3 12/09/2022 Active documented as of this encounter (statuses as of 01/25/2023) Active Problems Problem Noted Date Iliac artery [...] stroke 08/27/2016 Overview: 07/30 acute CV[place] [facility] [place] Aphasia, 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 Overview: 07/30 Acute CVA w/afib, lifeflight to [facility] [place]. Left MCA infarct. 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 Atrial fibrillation 08/25/2016 Overview: Start 06/13/17 pradaxa not covered, switched to Xarelto History of prostate cancer 03/14/2002 documented as of this encounter (statuses as of 01/25/2023) Resolved Problems Problem Noted Date Resolved Date [...] as of this encounter (statuses as of 01/25/2023) Immunizations Name Administration Dates Next Due COVID-19 mRNA, LNP-s, No Pre serve, 2-Dose Series (Moderna) 03/02/2021,08/07/2020,07/10/2020 Covid-19 Mrna, Lnp-s, No Pre serve, Booster (Moderna) 09/21/2021 Covid-19, Mrna, Lnp-s, Pf, B ivalent, 30 Mcg, IM, 12 yrs and above (Pfizer) 03/03/2022 PPD 06/18/2013,06/03/2010 Pneumococcal Conjugate Vacc, 13 Valent (Prevnar) 05/27/2017 Pneumococcal Polysaccharide PPV23 (Pneumovax) 01/22/2018,06/03/2010 Seasonal Influenza, Quadriva lent Hd (Fluzone Hd) 02/24/2022,02/23/2021 Seasonal Influenza, Quadriva lent, No Preserve, 6 Mons & Above, IM 03/11/2020,01/22/2018,04/09/2017 Seasonal Influenza, Split, I IV3, With Preserve, [...] Encounters Date Type Specialty Care Team Description 01/27/2023 Office Visit Podiatry Barbara Scales DPM [address] [place] [phone] 04/20/2023 Office Visit Podiatry Barbara Scales DPM [address] [place] [phone] 05/24/2023 Office Visit Cardiology Yrn Bradley DO [address] [place] [phone] 07/05/2023 Office Visit Family Medicine Samir Arroyo MD [address] [place] [phone] Scheduled Procedures Name Priority Associated Diagnoses Date/Ti me COLONOSCOPY FLEXIBLE PROXIMAL DIAGNOSTIC Recall History of colon polyps Health Maintenance Due Date Last Done Comments Influenza Vaccine (FLU shot) (#1) 2023 02/24/2022, 02/23/2021, 03/11/2020, Additional history exists COLONOSCOPY-EVERY 5 YRS AGES 18-100 08/23/2023 08/22/2018, 08/22/2018, 01/13/2018, Additional history exists HbA1c 11/26/2023 11/25/2022, 07/0 12/2021, 07/20/2021, Additional history exists Depression Screening, Annual for Pts 12 and Over 12/01/2023 11/30/2022 AAA Monitoring 12/31/2023 12/30/2022, 12/11, 12/10/2020, Additional history exists DTaP,Tdap,and Td Vaccines (3 - Td or Tdap) 03/07/2029 03/07/2019, 02/21/2009 Pneumococcal Vaccine: 65+ Years Completed 01/22/2018, 05/27/2017, 06/03/2010 Zoster Vaccines Completed 09/29/2018, 06/15, 03/31/2018, Additional history exists COVID-19 Vaccine Completed 03/03/2022, 04/2022, 03/02/2021, Additional history exists GARDASIL-HPV IMMUNIZATION SERIES Aged [...] Not on filedocumented as of this encounter Care Teams Supervisor Grips Relationship Specialty Start Date End Date Samir Arroyo MD [address] [place] [phone] PCP - General Family Medicine 08/25/16 documented as of this encounter
--- OUTSIDE RECORDS SUMMARY | 2023-05-12 15:29 | External Medical Summary | Summary of Care ---
Author Name Unknown Organization [facility] Address [address] [place] [place] [address] Phone [phone] Care Team Providers Care Sales And Marketing Analyst Name Role Phone Samir Arroyo MD Primary Care Provider + Reason for Visit * Reason Onset Date Comments Medication Administration 02/16/2023 Flu an d/or Pneumo Inj Encounter Details Date Type Department Care Team Description 02/16/2023 Immunization Ancillary [facility] [address] [place] [address] [facility] [address] [place] [address] Need for prophylactic vaccination and inoculation against influenza* Allergies Active Allergy Reactions Severity Noted Date Comments Oseltamivir Itching,Rash 10/05/2019 documented as of this encounter (statuses as of 02/16/2023) Medications Medication Sig Dispensed Refills Start Date [...] as of this encounter (statuses as of 02/16/2023) Active Problems Problem Noted Date Iliac artery [...] stroke 08/27/2016 Overview: 07/30 acute CV[place] [facility] [place]ph[place], 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 Overview: 07/30 Acute CVA w/afib, lifeflight [place] [facility] [place]. Left MCA infarct. 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 08/25/2016 Atrial fibrillation 08/25/2016 Overview: Start 06/13/17 pradaxa not covered, switched to Xarelto History of prostate cancer 03/14/2002 documented as of this encounter (statuses as of 02/16/2023) Resolved Problems Problem Noted Date Resolved Date [...] as of this encounter (statuses as of 02/16/2023) Immunizations Name Administration Dates Next Due COVID-19 mRNA, LNP-s, No Pre serve, 2-Dose Series (Moderna) 03/02/2021,08/07/2020,07/10/2020 Covid-19 Mrna, Lnp-s, No Pre serve, Booster (Moderna) 09/21/2021 Covid-19, Mrna, Lnp-s, Pf, B ivalent, 30 Mcg, IM, 12 yrs and above (Pfizer) 03/03/2022 PPD 06/18/2013,06/03/2010 Pneumococcal Conjugate Vacc, 13 Valent (Prevnar) 05/27/2017 Pneumococcal Polysaccharide PPV23 (Pneumovax) 01/22/2018,06/03/2010 SARS-COV-2 (COVID-19) Vaccin e Unspecified 12/06/2022,03/03/2022 Seasonal Influenza, PF, 6 mo ns & Above, IM , (Flulaval) 03/11/2020,01/22/2018,04/09/2017 Seasonal Influenza, Quadriva lent Hd (Fluzone [...] on file documented as of this encounter Patient Instructions * Patient Instructions* Bro Pepe RN - 02/16/2023 11:12 AM EDT ~~PATIENT INSTRUCTIONS FOR FLU SHOT~~ Possible side effects of influenza vaccine, (flu shot), are usually mild and include: 1. Soreness or redness at injection site 2. Low grade fever 3. Body aches You may use Tylenol/Acetaminophen as needed for these symptoms. LET YOUR DOCTOR KNOW IMMEDIATELY IF YOU HAVE DIFFICULTY BREATHING OR SWALLOWING, EXPERIENCE ITCHINGOF FEET OR HANDS, HAVE SWELLING OF EYES, FACE OR INSIDE OF NOSE. documented in this encounter Progress Notes * Bro Pepe RN - 02/16/2023 11:12 AM EDT PRE - ADMINISTRATION DOCUMENTATION Are you experiencing any cold symptoms or fever? No Have you had Guillain-Fairview Syndrome (an illness that causes paralysis) within the last 6 weeks? No Have you had the flu shot in the past? YES Have you ever had a reaction to the flu shot? No Bro Pepe RN, 02/16/2023 11:12 AM Immunization Administration Documentation Time Out Procedure Performed: Yes Patient Identified (Ask Name/Date of ): Yes Does the patient have a fever greater than 101 degrees today? No Patient allergic to latex? No VFC Stock: No Immunization(s) verified: Yes, Immunization Name: Flu, VIS Sheet(s) given: Yes Verified Side and Site: Yes Verified Shot(s) with Parent(s)/Patient: Yes documented in this encounter Plan of Treatment Upcoming Encounters Date Type Specialty Care Team Description 04/20/2023 [facility] [address] [facility] [phone] 05/24/2023 Office Visit Cardiology Yrn Bradley, [address] [place] [address] 06/16/2023 Office Visit Ophthalmology David Garrett, [address] [place] [address] 07/05/2023 Office Visit Family Medicine Samir Arroyo MD [address] [place] [address] Scheduled Procedures Name Priority Associated Diagnoses Date/Ti me COLONOSCOPY FLEXIBLE PROXIMAL DIAGNOSTIC Recall History of colon polyps Health Maintenance Due Date Last Done Comments COLONOSCOPY-EVERY 5 YRS AGES 18-100 08/23/2023 08/22/2018, [...] 03/31/2018, Additional history exists COVID-19 Vaccine Completed 12/06/2022, , 03/03/2022, Additional history exists Influenza Vaccine (FLU shot) [...] as of this encounter Visit Diagnoses Diagnosis Need for prophylactic vaccination and inoculation against influenza- Primary documented in this encounter Care Teams Sales And Marketing Analyst Relationship Specialty Start Date End Date Samir Arroyo MD [address] [place] [address] PCP - General Family Medicine 08/25/16 documented as of this encounter
--- OUTSIDE RECORDS SUMMARY | 2023-05-12 15:29 | External Medical Summary | Summary of Care ---
Author Name Unknown Organization [facility] Address [address] [facility] [place] [address] Phone [phone] Care Team Providers Care Barometers Calibrator Name Role Phone Samir Arroyo MD Primary [...] failure with reduced ejection fraction) ([facility]),Ischemic cardiomyopathy Take by mouth 1 Tablet in the morning. 90 Tablet 0 07/16/2021 Active Nitroglycerin 0.4 MG Sublingual Tablet Sublingual (Nitrostat)Indication s:HFrEF (heart failure with reduced ejection fraction) ([facility]),Ischemic cardiomyopathy Place 1 Tablet (0.4 mg) under the tongue every 5 minutes as needed for Pain, Chest. up to 3 doses in 15 minutes 25 Tablet 11 05/26/2022 Active Furosemide 20 MG Oral Tablet (Lasix)Indications:HF rEF (heart failure with reduced ejection fraction) ([facility]),DCM (dilated cardiomyopathy) (HCC),Permanent atrial fibrillation (HCC),HTN, goal [...] [facility] [place]. Left MCA infarct. [phone] Tona Yin--Neuro [facility] [...] Office Visit Podiatry Barbara Scales DPM [address] [place] [address] 04/20/2023 Office Visit Podiatry Barbara Scales DPM [address] [address] 05/24/2023 Office Visit Cardiology Yrn Bradley DO [address] [place] [phone] 07/05/2023 Office Visit Family Medicine Samir Arroyo MD [address] [place] [address] Scheduled Procedures Name Priority Associated Diagnoses Date/Ti [...] filedocumented as of this encounter Care Teams Barometers Calibrator Relationship Specialty Start Date End Date Samir Arroyo MD [address] [place] [address] PCP - General Family Medicine 08/25/16 documented as of this encounter
--- OUTSIDE RECORDS SUMMARY | 2023-05-12 15:29 | External Medical Summary | Summary of Care ---
Author Name Unknown Organization [facility] Address [address] [place] [address] Phone [phone] Care Team Providers Care Order Dispatcher Chief Name Role Phone Samir Arroyo MD Primary Care Provider + Reason for Visit * Reason Onset Date Comments STAIR AAA 01/13/2023 Encounter Details Date Type Department Care Team Description 01/13/2023 Telephone STAIR AAA [address] [place] [address] Program, Stair [address] [place] [address] STAIR AAA Allergies Active Allergy Reactions Severity Noted Date Comments Oseltamivir Itching,Rash 10/05/2019 documented as of this encounter (statuses as of 01/13/2023) Medications Medication Sig Dispensed Refills Start Date [...] failure with reduced ejection fraction) ([facility]),Ischemic cardiomyopathy Take by mouth 1 Tablet [...] as of this encounter (statuses as of 01/13/2023) Active Problems Problem Noted Date Iliac artery [...] Overview: [place] [facility] [place], 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 Overview: 07/30 Acute CV[place] w/afib, [place] [facility] MCA infarct. [phone] Tona Yin--[place] [facility]oral artery aneurysm, bilateral 08/25 Popliteal artery aneurysm 08/25/2016 Atrial fibrillation 08/25/2016 Overview: Start 06/13/17 pradaxa not covered, switched to Xarelto History of prostate cancer 03/14/2002 documented as of this encounter (statuses as of 01/13/2023) Resolved Problems Problem Noted Date Resolved Date [...] as of this encounter (statuses as of 01/13/2023) Immunizations Name Administration Dates Next Due COVID-19 [...] (System to Track Abnormalities of Importance Reliably) [facility] AORTIC DUPLEX EVAL-COMPLETE 12/30/2022 Narrative VASCULAR LAB RESULTS DATE OF EXAM: 12/30/22 PRESENTING CONDITIONS: AAA and bilateral iliac aneurysms This is an interpretation of an exam performed at [facility]. PHYSICIAN REPORT: Abdominal Aorta Duplex Examination. Immediately [...] Office Visit Podiatry Barbara Scales DPM [address] [facility] [place] [address] 05/24/2023 Office Visit Cardiology Yrn Bradley DO [address] [place] [phone] 07/05/2023 Office Visit Family Medicine Samir Arroyo MD [address] [place] [address] Scheduled Procedures Name Priority Associated Diagnoses Date/Ti [...] filedocumented as of this encounter Care Teams Order Dispatcher Chief Relationship Specialty Start Date End Date Samir Arroyo MD [address] [place] [address] PCP - General Family Medicine 08/25/16 documented as of this encounter
--- OUTSIDE RECORDS SUMMARY | 2023-05-12 15:29 | External Medical Summary | Summary of Care ---
Author Name Unknown Organization [facility] Address [address] [place] [address] Phone [phone] Care Team Providers Care House Detective Name Role Phone Samir Arroyo MD Primary Care Provider + Reason for Visit * Reason Onset Date Comments STAIR AAA 12/20/2022 Encounter Details Date Type Department Care Team Description 12/20/2022 Telephone STAIR AAA [address] [place] [address] Program, Stair [address] [place] [address] STAIR AAA Allergies Active Allergy Reactions Severity Noted Date Comments Oseltamivir Itching,Rash 10/05/2019 documented as of this encounter (statuses as of 12/20/2022) Medications Medication Sig Dispensed Refills Start Date [...] rEF (heart failure with reduced ejection fraction) ([facility]),Ischemic cardiomyopathy Take by mouth 1 Tablet in [...] as of this encounter (statuses as of 12/20/2022) Active Problems Problem Noted Date AAA (abdominal aortic aneurysm) 02/10/20 Overview: 3.0 cm AAA noted on aortic duplex 12/22/21 Prediabetes 12/21/2021 Overview: Per Prediabetes protocol 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 PSA yearly, in remission 05/01 Carotid <50%, aorta/iliac ectasia, josee 2-3y [...] [facility] Left MCA infarct. [phone] Tona Yin--Neuro [facility] Femoral artery aneurysm, bilateral 08/25 Popliteal artery aneurysm 08/25/2016 Atrial fibrillation 08/25/2016 Overview: Start 06/13/17 pradaxa not covered, switched to Xarelto History of prostate cancer 03/14/2002 documented as of this encounter (statuses as of 12/20/2022) Resolved Problems Problem Noted Date Resolved Date [...] as of this encounter (statuses as of 12/20/2022) Immunizations Name Administration Dates Next Due COVID-19 [...] Telephone Encounter - Kanika Conti LPN - 12/20/2022 8:14 AM EDT AAA - Clinical Summary Name: Crow Sullivan Age: [age] year old AAA Review: Initial Patient Identified by: Problem List Report Imaging Interpretation: Duplex Type of Result: AAA 3.0 to 3.9 cm AAA Care Plan Recommendation: Aortic Duplex - details below Details: in 1 year Next steps: Patient is already established with vascular surgery. Next clinic visit with testing prior is already scheduled for 01/12/[address] Pandya at [facility]. Kanika Conti LPN Coordinator STAIR (System to Track Abnormalities of Importance Reliably) [facility] AORTIC DUPLEX EVAL-COMPLETE 12/22/2021 Narrative VASCULAR LAB RESULTS DATE OF EXAM: 12/22/21 PRESENTING CONDITIONS: AAA, iliac aneurysms This is an interpretation of an exam performed at [facility]. Immediately before proceeding with the vascular lab procedure reported below, the identity of the patient, the correct exam and the correct procedural site were verified. Keene scale, color flow and spectral doppler were performed for this examination. PHYSICIAN REPORT: Abdominal Aorta Duplex Examination. Spectral Doppler demonstrates evidence of normal waveforms of the abdominal aorta. Peak systolic velocity measurements of the aorta are 71.0 centimeters per second. The maximum diameter of the proximal abdominal aorta measures 2.4 centimeters by 2.4 centimeters. The maximum diameter of the mid abdominal aorta measures 2.6 centimeters by 2.6 centimeters. The maximum diameter of the distal abdominal aorta measures 3.0 centimeters by 3.0 centimeters. The maximum diameter of the proximal right common iliac artery measures 2.0 centimeters by 2.0 centimeters. The maximum diameter of the proximal left common iliac artery measures 2.9 centimeters by 2.9 centimeters. Impression : There is evidence of a 3.0 cm x 3.0 cm abdominal aortic aneurysm. Color Doppler imaging demonstrates flow consistent with a patent lumen at and distal to the aortic aneurysm. Right common iliac artery ectasia. There is evidence of a 2.9 cm x 2.9 cm aneurysm of the left common iliac artery. documented in this encounter Plan of Treatment Upcoming Encounters Date Type Specialty Care Team Description 12/30/2022 Imaging Radiology 12/30/2022 Imaging Radiology 12/30/2022 Imaging Radiology 01/12/2023 Office Visit Podiatry Barbara Scales, DPYajaira [address] [place] [address] 01/12/2023 Office Visit Vascular Surgery Ben Pandya MD [address] [place] [address] 05/24/2023 Office Visit Cardiology Yrn Bradley DO [address] [place] [phone] 07/05/2023 Office Visit Family Medicine Samir Arroyo MD [address] [place] [address] Scheduled Procedures Name Priority Associated Diagnoses Date/Ti me COLONOSCOPY FLEXIBLE PROXIMAL DIAGNOSTIC Recall History of colon polyps Health Maintenance Due Date Last Done Comments AAA MONITORING; CT OR US YEARLY 12/22/2022 12/22/2021, 12/10/2020, 04/20/2019, Additional history exists AAA ULTRASOUND YEARLY 12/22/2022 12/22/2021 , 12/10/2020, 04/20/2019, Additional history exists Influenza Vaccine (FLU shot) (#1) 2023 02/24/2022, 02/23/2021, 03/11/2020, Additional history exists COLONOSCOPY-EVERY 5 YRS AGES 18-100 08/23/2023 08/22/2018, 08/22/2018, 01/13/2018, Additional history exists HbA1c 11/26/2023 11/25/2022, 07/0 12/2021, 07/20/2021, Additional history exists Depression Screening, Annual for Pts 12 and Over 12/01/2023 11/30/2022 DTaP,Tdap,and Td Vaccines (3 - [...] filedocumented as of this encounter Care Teams House Detective Relationship Specialty Start Date End Date Samir Arroyo MD [address] [place] [address] PCP - General Family Medicine 08/25/16 documented as of this encounter
--- OUTSIDE RECORDS SUMMARY | 2023-05-12 15:29 | External Medical Summary | Summary of Care ---
Author Name Unknown Organization [facility] Address [address] [place] [facility] [place] [address] Phone [phone] Care Team Providers Care Shorthand Reporter Name Role Phone Samir Arroyo MD Primary Care Provider + Reason for Visit * Reason Comments Return Visit 6 month return Encounter Details Date Type Department Care Team Description 11/30/2022 Office Visit Family Practice [facility] [address] [place] [address] Samir Arroyo MD [address] [place] [address] Dyslipidemia*; Abdominal aortic aneurysm (AAA) without rupture, unspecified part (HCC); Persistent atrial fibrillation (HCC); Aphasia, post-stroke Allergies Active Allergy Reactions Severity Noted Date Comments Oseltamivir Itching,Rash 10/05/2019 documented as of this encounter (statuses as of 11/30/2022) Medications Medication Sig Dispensed Refills Start Date [...] Aspirin EC 81 MG Oral Tablet Delayed ReleaseIndications:HFr EF (heart failure with reduced ejection fraction) (HCC),Ischemic cardiomyopathy Take by mouth 1 Tablet in the morning. 90 Tablet 0 07/16/2021 Active Metoprolol Succinate ER 25 MG Oral Tablet Extended Release 24 Hour (toPROL XL)Indications:Persist ent atrial fibrillation (HCC) Take by mouth 0.5 Tablets in the morning. 45 Tablet 3 12/09/2021 Active Nitroglycerin 0.4 MG Sublingual Tablet Sublingual (Nitrostat)Indications :HFrEF (heart failure with reduced ejection fraction) (HCC),Ischemic cardiomyopathy Place 1 Tablet (0.4 mg) under the tongue every 5 minutes as needed for Pain, Chest. up to 3 doses in 15 minutes 25 Tablet 11 05/26/2022 Active Furosemide 20 MG Oral Tablet (Lasix)Indications:HFr EF (heart failure with reduced ejection fraction) (HCC),DCM (dilated cardiomyopathy) (HCC),Permanent atrial fibrillation (HCC),HTN, goal below 140/90,Dyslipidemia, goal LDL below 100,Severe pulmonary hypertension (HCC),Severe mitral regurgitation,Severe tricuspid regurgitation,HERNÁNDEZ (dyspnea on exertion),Chest pressure Take 1 Tablet by mouth in the morning. 30 Tablet 11 06/02/2022 Active Gabapentin 300 MG Oral Capsule (Neurontin)Indications :Neuropathy Take 1 Capsule by mouth in the morning and 1 Capsule before bedtime. 180 Capsule 3 06/23/2022 Active Atorvastatin Calcium 80 MG Oral Tablet (Lipitor)Indications:D yslipidemia Take 1 Tablet by mouth in the morning. 90 Tablet 2 06/29/2022 Active Spironolactone 25 MG Oral Tablet (Aldactone)Indications :Persistent atrial fibrillation (HCC),Acute systolic heart failure (HCC),HFrEF [...] 08/19/2022 Active Rivaroxaban 20 MG Oral Tablet (Xarelto)Indications:P ersistent atrial fibrillation (HCC) take 1 tablet by mouth once daily WITH DINNER 90 Tablet 3 09/21/2022 Active documented as of this encounter (statuses as of 11/30/2022) Active Problems Problem Noted Date AAA (abdominal [...] 08/27/2016 Overview: 07/30 acute [place] [facility] [place] [place], 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 Overview: 07/30 Acute CVA w/afib, lifeflight to [facility]. Left MCA infarct. [phone] Tona Yin--Neuro [facility] Femoral artery aneurysm, bilateral 08/25 Popliteal artery aneurysm 08/25/2016 Atrial fibrillation 08/25/2016 Overview: Start 06/13/17 pradaxa not covered, switched to Xarelto History of prostate cancer 03/14/2002 documented as of this encounter (statuses as of 11/30/2022) Resolved Problems Problem Noted Date Resolved Date [...] as of this encounter (statuses as of 11/30/2022) Immunizations Name Administration Dates Next Due COVID-19 [...] Sign Reading Time Taken Comments Blood Pressure 108/72 11/30/2022 3:13 PM EDT Pulse 80 11/30/2022 3:13 PM EDT Temperature 36.1 C (96.9 F) 11/30/2022 3:13 PM ED T Respiratory Rate 16 11/30/2022 3:13 PM EDT Oxygen Saturation 96% 11/30/2022 3:13 PM EDT Inhaled Oxygen Concentration - - Weight 97.1 kg (214 lb) 11/30/2022 3:13 PM EDT Height 172.7 cm (5' 8") 11/30/2022 3:13 PM EDT Body Mass Index 32.54 11/30/2022 3:13 PM EDT documented in this encounter Progress Notes * Samir Arroyo MD - 11/30/2022 3:44 PM EDT SUBJECTIVE: Crow Sullivan is a 72 year old male here for Return Visit (6 month return) . Here for f/u with . Doing well [facility] taking a break over the summer. Chronic aphasia. Going to the gym 2x/ wk to train/box. No fever, chills, chest pain, shortness of breath, headache, nausea, vomit, diarrhea, constipation or vision changes Physical: BP 108/72 | Pulse 80 | Temp 36.1 C (96.9 F) (Tympanic) | Resp 16 | Ht 1.727 m (5' 8") | Wt 97.1kg (214 lb) | SpO2 96% | BMI 32.54 kg/m | BSA 2.16 m General-No apparent Distress Head, Eyes, Ears, Nose, Throat--Normocephalic, atraumatic Neck-Supple Lymph-no lymphadenopathy Lungs-Clear to Auscultation bilaterally Cardiovascular--irRegular rate & Rhythm, +s1, s2, no murmur Abdomen-soft, nontender, nondistended + bowel sounds Extremities--no edema Neuro-alert & oriented x3 +speech aphasia (E78.5) Dyslipidemia (primary encounter diagnosis) Plan: labs at goal cont mgmt (I71.40) Abdominal aortic aneurysm (AAA) without rupture, unspecified part (HCC) Plan: has f/u imaging to monitor this summer (I48.19) Persistent atrial fibrillation (HCC) Plan: cont mgmt cards (I69.320) Aphasia, post-stroke Plan: chronic cont speech therapy-has had some improvement over time (This note was completed using the dictation program Fluency Direct. As such, there may be misspellings, word substitutions, or other variations that should not change the essence of the clinical content of this encounter note.If there is need for further clarification, please direct questions to the provider listed above.) Samir Arroyo MD documented in this encounter Nursing Notes * Yissel Villalta LPN - 11/30/2022 3:13 PM EDT The patient has been properly identified by confirmation of name and date of . Chief Complaint Patient presents with Return Visit 6 month return documented in this encounter Plan of Treatment Upcoming Encounters Date Type Specialty Care Team Description 12/30/2022 Imaging Radiology 12/30/2022 Imaging Radiology 12/30/2022 Imaging Radiology 01/12/2023 Office Visit Podiatry Barbara Scales, [facility] [facility] [place] [address] 01/12/2023 Office Visit Vascular Surgery Ben Pandya MD [address] [facility] [place] [address] 05/24/2023 Office Visit Cardiology Yrn Bradley DO [address] [place] [address] 07/05/2023 Office Visit Family Medicine Samir Arroyo MD [address] [place] [address] Scheduled Procedures Name Priority Associated Diagnoses Date/Ti me COLONOSCOPY FLEXIBLE PROXIMAL DIAGNOSTIC Recall History of colon polyps Health Maintenance Due Date Last Done Comments AAA MONITORING; CT OR US YEARLY 12/22/2022 12/22/2021, 12/10/2020, 04/20/2019, Additional history exists AAA ULTRASOUND YEARLY 12/22/2022 12/22/2021 , 12/10/2020, 04/20/2019, Additional history exists COLONOSCOPY-EVERY 5 YRS AGES 18-100 08/23/2023 08/22/2018, 08/22/2018, 01/13/2018, Additional history exists HbA1c 11/26/2023 11/25/2022, 12/2021, 07/20/2021, Additional history exists Depression Screening, Annual for Pts 12 and Over 12/01/2023 11/30/2022 DTaP,Tdap,and Td Vaccines (3 - Td or Tdap) 03/07/2029 03/07/2019, 02/21/2009 Pneumococcal Vaccine: 65+ Years Completed 01/22/2018, 05/27/2017, 06/03/2010 Zoster Vaccines Completed 09/29/2018, 06/15, 03/31/2018, Additional history exists Influenza Vaccine (FLU shot) Completed , 02/23/2021, 03/11/2020, Additional history exists COVID-19 Vaccine Completed 03/03/2022, [...] as of this encounter Visit Diagnoses Diagnosis Dyslipidemia- Primary Other and unspecified hyperlipidemia Abdominal aortic aneurysm (AAA) without rupture, unspecified part (HCC) Persistent atrial fibrillation (HCC) Atrial fibrillation Aphasia, post-stroke Unspecified cerebral artery occlusion with cerebral infarction documented in this encounter Care Teams Shorthand Reporter Relationship Specialty Start Date End Date Samir Arroyo MD [address] [place] [address] PCP - General Family Medicine 08/25/16 documented as of this encounter
--- OUTSIDE RECORDS SUMMARY | 2023-05-12 15:29 | External Medical Summary | Summary of Care ---
Author Name Unknown Organization [facility] Address [address] [place] [address] Phone [phone] Care Team Providers Care Rides Attendant Name Role Phone Samir Arroyo MD Primary Care Provider + Reason for Visit * Reason Comments Follow Up First toenail Encounter Details Date Type Department Care Team Description 01/27/2023 Office Visit Podiatry [facility] [address] [facility] [place] [address] Barbara Scales, ALBERTO [address] [place] [address] Avulsion of toenail, initial encounter*; Hx of [employer] use of blood thinners Allergies Active Allergy Reactions Severity Noted Date Comments Oseltamivir Itching,Rash 10/05/2019 documented as of this encounter (statuses as of 01/27/2023) Medications Medication Sig Dispensed Refills Start Date [...] as of this encounter (statuses as of 01/27/2023) Active Problems Problem Noted Date Iliac artery [...] stroke 08/27/2016 Overview: 07[place]30 [place] [facility] [place], 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 Overview: 07/30 Acute CV[place] w/afib, [place] [facility] [place] MCA infarct. 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 Atrial fibrillation 08/25/2016 Overview: Start 06/13/17 pradaxa not covered, switched to Xarelto History of prostate cancer 03/14/2002 documented as of this encounter (statuses as of 01/27/2023) Resolved Problems Problem Noted Date Resolved Date [...] as of this encounter (statuses as of 01/27/2023) Immunizations Name Administration Dates Next Due COVID-19 [...] Progress Notes * Barbara Scales DPM - 01/27/2023 12:04 PM EDT Podiatry Established Note [facility] Name: Crow Sullivan : 1950 Date: 01/27/2023 REASON FOR VISIT: nail came off, had bleeding SUBJECTIVE: This patient is a 72 year old male who presents today accompanied by his . He reports that about one week ago, he felt the right great toenail was loose. His reports coming home one day and the nail was off. He had significant bleeding. She had sent me a myG and I recommended bolster dressing and a follow up. Since, the bleeding has stopped. He does not seem to have any pain past his baseline right foot pain. They have been using an antibiotic ointment and dry bandage daily. 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 Neurologic: Sensation (light touch) intact to the right foot. Musculoskeletal: No significant pain with palpation of the right first toe. Dermatological: The right first toenail is completely avulsed. Central area of nail bed appears as new epithelial skin. No active bleeding, open wounds, or erythema. DIAGNOSTIC STUDIES: None ASSESSMENT: 1. Avulsion of toenail, initial encounter 2. Hx of [employer] use of blood thinners PLAN: I applied silvadene and a dry bandage. I recommended he change this once daily using a OTC triple antibiotic and bandaid or similar. He is to leave open to air if not bleeding. I suspect this will beok by Tuesday. They are to contact me with any questions or concerns. Barbara Scales DPM documented in this encounter Nursing Notes * Tracy Galarza LPN - 01/27/2023 11:22 AM EDT Pt presents with his for follow up, lost R great toenail 1 week ago, is 'a little bit painful'; also has some pain from the stroke. Was bleeding a lot, seems better now. Does have hx of losing toenails after running marathons; pt's asking if this is a vascular concern. documented in this encounter Plan of Treatment Upcoming Encounters Date Type Specialty Care Team Description 02/03/2023 Office Visit Ophthalmology David Garrett, DO [address] [place] [phone] 04/20/2023 Office Visit Podiatry [facility] [address] [facility] [address] 05/24/2023 Office Visit Cardiology Yrn Bradley DO [address] [place] [address] 07/05/2023 Office Visit Family Medicine Samir Arroyo MD [address] [place] [id number] Scheduled Procedures Name Priority Associated Diagnoses Date/Ti [...] as of this encounter Visit Diagnoses Diagnosis Avulsion of toenail, initial encounter- Primary Hx of assisted use of blood thinners Long-term (current) use of anticoagulants documented in this encounter Care Teams Rides Attendant Relationship Specialty Start Date End Date Samir Arroyo MD [address] [place] [address] PCP - General Family Medicine 08/25/16 documented as of this encounter
--- OUTSIDE RECORDS SUMMARY | 2023-05-12 15:29 | External Medical Summary | Summary of Care ---
Author Name Unknown Organization [facility] Address [address] [facility] [place] [address] Phone [phone] Care Team Providers Care Single Pointed Operator Name Role Phone Samir Arroyo MD Primary Care Provider + Reason for Visit * Reason Comments NEW PATIENT Eval for Pigmented Z one;Has Aphasia and Ataxia r/t stroke 6 years ago so may not verbalize what eye issue per spouse, per pt. "Do not notice anything" Encounter Details Date Type Department Care Team Description 02/03/2023 Office Visit Ophthalmology, [facility] [address] [place] [address] David Garrett DO [address] [place] [address] Choroidal nevus, left*; Type 2 diabetes mellitus with hemoglobin A1c goal of less than 7.0% ([facility]) Allergies Active Allergy Reactions Severity Noted Date Comments Oseltamivir Itching,Rash 10/05/2019 documented as of this encounter (statuses as of 02/03/2023) Medications Medication Sig Dispensed Refills Start Date [...] rEF (heart failure with reduced ejection fraction) ([facility]),Ischemic cardiomyopathy Take by mouth 1 [...] as of this encounter (statuses as of 02/03/2023) Active Problems Problem Noted Date Iliac artery [place] [facility] [place]. Left MCA infarct. 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 Atrial fibrillation 08/25/2016 Overview: Start 06/13/17 pradaxa not covered, switched to Xarelto History of prostate cancer 03/14/2002 documented as of this encounter (statuses as of 02/03/2023) Resolved Problems Problem Noted Date Resolved Date [...] as of this encounter (statuses as of 02/03/2023) Immunizations Name Administration Dates Next Due COVID-19 mRNA, LNP-s, No Pre serve, 2-Dose Series (Moderna) 03/02/2021,08/07/2020,07/10/2020 Covid-19 Mrna, Lnp-s, No Pre serve, Booster (Moderna) 09/21/2021 Covid-19, Mrna, Lnp-s, Pf, B ivalent, 30 Mcg, IM, 12 yrs and above (Pfizer) 03/03/2022 PPD 06/18/2013,06/03/2010 Pneumococcal Conjugate Vacc, 13 Valent (Prevnar) 05/27/2017 Pneumococcal Polysaccharide PPV23 (Pneumovax) 01/22/2018,06/03/2010 Seasonal Influenza, PF, 6 mo ns & Above, IM , (Flulaval) 03/11/2020,01/22/2018,04/09/2017 Seasonal Influenza, Quadriva lent Hd (Fluzone Hd) 02/24/2022,02/23/2021 Seasonal Influenza, Split, I IV3, With Preserve, [...] Sign Reading Time Taken Comments Blood Pressure 107/58 02/03/2023 9:25 AM EDT Pulse - - Temperature - - Respiratory Rate - - Oxygen Saturation - - Inhaled Oxygen Concentration - - Weight - - Height - - Body Mass Index - - documented in this encounter Progress Notes * David Garrett DO - 02/03/2023 9:00 AM EDT [facility] [place] Nursing notes reviewed. Eye vitals reviewed. Mood and Affect: normal HPI: Crow Sullivan is a 72 year old male who presents for evaluation of retina CC: 'Dr. Elly Gilman, OD referred for possible retinal lesion' Vision: unchanged Location (of CC): OS Quality/Severity: asymptomatic Duration: unknown Timing: found at routine visit Context: nonspecific Associated Signs/Symptoms: none Modifying Factors: none No other eye complaints. Denies significant pain. Base Eye Exam Visual Acuity (Snellen - Linear) Right Left Dist cc 20/30 -1 20/40 +2 Dist ph cc 20/30 -2 Correction: Glasses Tonometry (Tonopen, 9:08 AM) Right Left Pressure 14 13 Pupils Dark Light Shape React APD Right 3 2.5 Round Brisk None Left 3 3 Round none None Visual Lassiter (Counting fingers) Right Left Full Full Extraocular Movement Right Left Full, Ortho Full, Ortho Neuro/Psych Oriented x3: Yes Mood/Affect: Normal Dilation Both eyes: 0.5% Proparacaine @ 9:08 AM Dilation #2 Both eyes: 1.0% Mydriacyl, 2.5% Phenylephrine @ 9:08 AM Dilation #3 Both eyes: 1.0% Mydriacyl, 2.5% Phenylephrine @ 9:10 AM Dilation Comments Patient cautioned that effects of dilation may last 2-7 hours dependant upon individual reaction. It was discussed that driving while dilated is not recommended. Strabismus Exam Correction: sc Observations: Ortho Distance Near Near +3DS N Bifocals cover/uncover, and alternate cover EXTERNAL: The ocular adnexae are unremarkable. SLE: Lids/Lashes: wnl OU Conjunctiva/Sclera: quiet OU Cornea: clear OU Anterior Chamber: deep and quiet OU Iris: normal OU; no NVI OU Lens: 2+mixed cataracts OU Dilated fundus exam OD: vitreous: clear optic nerve: 0.35, no edema/pallor/NVD macula: wnl vessels: wnl periphery: wnl, no RT/RD Dilated fundus exam OS: vitreous: clear optic nerve: 0.35, no edema/pallor/NVD macula: wnl vessels: wnl periphery: approx. 10x 10 DD mildly elevated mostly amelanotic nevus w/ drusen--no op/srf, no RT/RD OCT Interpretation: OD: no irf/srf, no pvd OS: no irf/srf, no pvd Ultrasound Interpretation: 02/03/2023 OD: n/a OS: 1.99 x 12.31; medium internal reflectivity, hollow Fundus Photo Interpretation: 02/03/2023 OD: n/a OS: mostly amelanontic lesion IT midperiphery w/ overly drusen A/P: 1. Choroidal nevus OS -reported 10 years ago at [facility]--will attempt to get old photos from [facility] -overlying drusen -risk factors: diameter >5mm; hollow on US -monitor 2. DM2 -no retinopathy -recommend HgbA1C <7, BP and lipid control. 3. Cataracts OU -not visually significant F/u 4 months, photos of nevus, OCT over nevus in addition to standard OCT David Garrett DO CC: Elly Gilman, OD CC: PCP: Samir Arroyo MD documented in this encounter Nursing Notes * Cyndy Lopes RN - 02/03/2023 8:52 AM EDT Crow Sullivan is a 72 year old year old male referred by Dr. Gilman to evaluate for possible Pigmented zone OS. Patient's name preference, 'Crow'. Patient currently states Has Aphasia and Ataxia r/t stroke 6 years ago so may not verbalize what eye issue per spouse, per pt. "Do not notice anything" Have you ever had any major surgery of serious injury of or around the eyes- no Are you diabetic? Yes. Do you check your blood sugars daily? YES-"Pre diabetic". Did not measure this morning. Last Hemoglobin A1C: Lab Results Component Value Date/Time HGBA1C 6.0 (H) 11/25/2022 09:02 AM HGBA1C 6.2 (H) 12/17/2021 08:16 AM HGBA1C 6.9 (H) 07/20/2021 10:04 AM HGBA1C 6.0 (H) 10/31/2019 09:19 AM HGBA1C 6.4 (H) 09/12/2017 04:50 AM HGBA1C 5.9 12/03/2015 08:08 AM HGBA1C 5.5 06/05/2010 09:38 AM FAMILY HISTORY: Family History Problem Relation Age of Onset Stroke Mother late 80's- effects of CVA Heart attack Father 79 Parkinsonism Brother 53 73 SOCIAL HISTORY: Social History Tobacco Use Smoking status: Never Smokeless tobacco: Never Vaping Use Vaping Use: Never used Substance Use Topics Alcohol use: Yes Alcohol/week: 0.0 standard drinks Comment: occasional Drug use: No PMH: 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 Atrial fibrillation ([facility]) 08/25/2016 Backache Carotid occlusion, left 05/02/2019 Carotid stenosis, right 05/02/2019 Cerebrovascular event, ill-defined, within last 8 weeks 08/25/2016 Dyslipidemia 05/21/2020 Elevated hemoglobin (HCC) 10/28/2017 Femoral artery aneurysm, 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/2016 H/O ischemic left MCA stroke 08/27/201607/30 acute CVA hosp [facility] [place] ICAO (internal carotid artery occlusion) 08/25/2016 Iliac artery aneurysm (HCC) 12/20/2022 Malignant neoplasm of prostate ([facility]) Popliteal artery aneurysm ([facility]) 08/25/2016 Patient Active Problem List Diagnosis Code History of prostate cancer Z85.46 Aphasia, post-stroke I69.320 Femoral artery aneurysm, bilateral (HCC) I72.4 Popliteal artery aneurysm (HCC) I72.4 Atrial fibrillation ([facility]) I48.91 H/O ischemic left MCA stroke Z86.73 Well adult exam Z00.00 Carotid stenosis, bilateral I65.23 Persistent atrial fibrillation (HCC) I48.19 Dyslipidemia E78.5 Acute systolic heart failure (HCC) I50.21 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 no OCT and Fundus image(s) of both eyes acquired and filed/scanned into chart. documented in this encounter Plan of Treatment Upcoming Encounters Date Type Specialty Care Team Description 04/20/2023 Office Visit Podiatry Barbara Scales DPM [address] [place] [address] 05/24/2023 Office Visit Cardiology Yrn Bradley, [address] [place] [address] 06/15/2023 Office Visit Ophthalmology David Garrett DO [address] [place] [address] 07/05/2023 Office Visit Family Medicine Samir Arroyo MD [address] [place] [address] Scheduled Procedures Name Priority Associated Diagnoses Date/Ti [...] as of this encounter Visit Diagnoses Diagnosis Choroidal nevus, left- Primary Type 2 diabetes mellitus with hemoglobin A1c goal of less than 7.0% (HCC) documented in this encounter Care Teams Single Pointed Operator Relationship Specialty Start Date End Date Samir Arroyo MD [address] [place] [address] PCP - General Family Medicine 08/25/16 documented as of this encounter
--- OUTSIDE RECORDS SUMMARY | 2023-05-12 15:29 | External Medical Summary | Summary of Care ---
Author Name Unknown Organization [facility] Address [address] [place] [address] Phone [phone] Care Team Providers Care Fishing Accessories Maker Name Role Phone Samir Arroyo MD Primary Care Provider + Reason for Visit * Reason Comments Follow Up Encounter Details Date Type Department Care Team Description 01/12/2023 Office Visit Vascular Surgery, [facility] [address] [facility] [place] [address] Ben Pandya MD [address] [place] [address] Abdominal aortic aneurysm (AAA) without rupture, unspecified part (HCC)*; Iliac artery aneurysm (HCC); Dyslipidemia; Femoral artery aneurysm, bilateral (HCC); Aphasia, post-stroke Allergies Active Allergy Reactions Severity Noted Date Comments Oseltamivir Itching,Rash 10/05/2019 documented as of this encounter (statuses as of 01/12/2023) Medications Medication Sig Dispensed Refills Start Date [...] as of this encounter (statuses as of 01/12/2023) Active Problems Problem Noted Date Iliac artery [...] 08/27/2016 Overview: 07/30 acute CVA hosp [facility] Aphasia, 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 Overview: 07/30 Acute CVA w/afib, lifeflight to [facility]. Left MCA infarct. [phone] Tona Yin--Neuro [facility] Femoral artery aneurysm, bilateral 08/25 Popliteal artery aneurysm 08/25/2016 Atrial fibrillation 08/25/2016 Overview: Start 06/13/17 pradaxa not covered, switched to Xarelto History of prostate cancer 03/14/2002 documented as of this encounter (statuses as of 01/12/2023) Resolved Problems Problem Noted Date Resolved Date [...] as of this encounter (statuses as of 01/12/2023) Immunizations Name Administration Dates Next Due COVID-19 [...] Never Smokeless Tobacco: Never Tobacco Cessation:Counseling Given: No Alcohol Use Standard Drinks/Week Comments Yes 0 [...] Sign Reading Time Taken Comments Blood Pressure 110/70 01/12/2023 10:59 AM EDT Pulse - - Temperature - - Respiratory Rate - - Oxygen Saturation - - Inhaled Oxygen Concentration - - Weight - - Height - - Body Mass Index - - documented in this encounter Progress Notes * Yrn Murguia PA-C - 01/12/2023 10:50 AM EDT Date of Service: 01/12/2023 11:02 AM Crow Sullivan is a 72 year old male. Referring Physician: Yrn Bradley DO (Cardiology) Samir Arroyo MD (PCP) Chief Complaint: Return for carotid and aneurysmal disease. Doing well since his last visit Remains asymptomatic from his vascular pathologies Still getting speech therapy for his expressive aphasia Presents with his ABDOMINAL AORTIC ANEURYSM: Patient denies any symptoms related to AAA. Patient denies new abdominal pain, flank pain and back pain. 12/22/2021 Size of infrarenal is 3 cm as detected by ultrasound. R DEANDRA 2 cm and L DEANDRA 2.9 cm. 12/10/2020 BLE art duplex demonstrating ectatic femoral and popliteal arteries. CAROTID DISEASE: Hx of L MCA CVA in approximately 2017, manifested by right sided weakness and expressive aphasia. Stroke thought to be caused by undiagnosed A fib resulting in embolization of LICA per CTA. H/O residual expressive aphasia. Subsequent CTA of 09/12/2027 and 05/07/2019 suggested recanalization of LICA. Patient denies recent TIA, recent stroke and recent amaurosis fugax. Carotid duplex exam at [facility] identified the right internal carotid with less than 50% stenosis and the left internal carotid with less than 50% stenosis. Abnormal waveform morphology/flow patternidentified throughout the bilateral carotid arteries of uncertain etiology. VENOUS DISEASE: During his 2017 admission for stroke, he had a DVT that was treated with an IVC filter; filter was removed at a later date. Current Outpatient Medications Medication Sig Dispense Refill Multiple Vitamins-Minerals (EYE VITAMINS) TABS Take by mouth. Magnesium 250 MG Tablet Take 1 Tablet by mouth in the morning. Lutein 6 MG TABS Take by mouth. Multiple Vitamin (MULTI VITAMIN MENS) Tablet Take 1 Tab by mouth daily. Aspirin EC 81 MG Oral Tablet Delayed Release Take by mouth 1 Tablet in the morning. 90 Tablet Nitroglycerin 0.4 MG Sublingual Tablet Sublingual (Nitrostat) Place 1 Tablet (0.4 mg) under thetongue every 5 minutes as needed for Pain, Chest. up to 3 doses in 15 minutes 25 Tablet 11 Furosemide 20 MG Oral Tablet (Lasix) Take 1 Tablet by mouth in the morning. 30 Tablet 11 Gabapentin 300 MG Oral Capsule (Neurontin) Take 1 Capsule by mouth in the morning and 1 Capsulebefore bedtime. 180 Capsule 3 Atorvastatin Calcium 80 MG Oral Tablet (Lipitor) Take 1 Tablet by mouth in the morning. 90 Tablet 2 Spironolactone 25 MG Oral Tablet (Aldactone) Take 1 Tablet by mouth in the morning. 90 Tablet 3 Empagliflozin 10 MG Oral Tablet (Jardiance) Take 1 Tablet by mouth in the morning. 90 Tablet 3 Sacubitril-Valsartan 97-103 MG Oral Tablet (Entresto) Take 1 Tablet by mouth in the morning and1 Tablet before bedtime. 180 Tablet 3 Rivaroxaban 20 MG Oral Tablet (Xarelto) take 1 tablet by mouth once daily WITH DINNER 90 Tablet3 Metoprolol Succinate ER 25 MG Oral Tablet Extended Release 24 Hour (toPROL XL) TAKE 1/2 TABLET EVERY MORNING DECREASE DOSE 12/09/2021 45 Tablet 3 No current facility-administered medications for this visit. 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 Prediabetes R73.03 AAA (abdominal aortic aneurysm) ([facility]) I71.40 Iliac artery aneurysm ([facility]) I72.3 Past Medical History: Diagnosis Date Acute systolic heart failure ([facility]) 06/04/2021 Aphasia, 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 Atrial fibrillation ([facility]) 08/25/2016 Backache Carotid occlusion, left 05/02/2019 Carotid stenosis, right 05/02/2019 Cerebrovascular event, ill-defined, within last 8 weeks 08/25/2016 Dyslipidemia 05/21/2020 Elevated hemoglobin (HCC) 10/28/2017 Femoral artery aneurysm, 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/2016 H/O ischemic left MCA stroke 08/27/201607/30 acute CVA hosp [facility] ICAO (internal carotid artery occlusion) 08/25/2016 Iliac artery aneurysm ([facility]) 12/20/2022 Malignant neoplasm of prostate ([facility]) Popliteal artery aneurysm ([facility]) 08/25/2016 Past Surgical History: Procedure Laterality Date CARDIAC CATH-CARDIOLOGY ONLY 07/23/2021 [facility] COLONOSCOPY 03/2004 Diverticulosis- repeat in 10 years COLONOSCOPY, DIAGNOSTIC (RECTUM) 08/02/2007 Radiation proctitis; repeat in 5 years COLONOSCOPY, DIAGNOSTIC (RECTUM) 02/01/2013 COLONOSCOPY FLEXIBLE PROXIMAL DIAGNOSTIC performed by Yrn Greenberg MD at ENDOSCOPY [facility] COLONOSCOPY, DIAGNOSTIC (RECTUM) 08/22/2018 hyperplastic polyps, diverticulosis, fair prep, repeat 5 yrs/COLONOSCOPY FLEXIBLE PROXIMAL DIAGNOSTIC performed by Columba Davey MD at ENDOSCOPY [facility] CYSTOSCOPY 2001 negative CYSTOSCOPY 12/11/2012 EMG, 2 EXTREMITIES 07/26/2001 Upper extremities- normal HALLUX RIGIDUS CORRECTED WITH CHIELECTOMY Right 06/09/2017 CORRECTION HALLUX RIGIDUS, CHIELECTOMY WITHOUT IMPLANT performed by Barbara Scales DPM at OR [facility] INFORMATION 07/2002 Nicol[place] seed treatment for prostate cancer IR FILTER REMOVAL VENA CAVA 12/28/2016 at [facility]. normal IVC cavagram post removal. IR PLACEMENT IVC FILTER 07/23/2016 [facility] GILBERT FLEX SIGMOID DIAGNOSITIC 01/13/2018 fair prep, colon polyp, repeat 6-12 mo/SIGMOIDOSCOPY FLEXIBLE DIAGNOSTIC performed by Columba Davey MD at ENDOSCOPY [facility] MISCELLANEOUS ORDER right elbow--bursa sac removed MISCELLANEOUS ORDER ([facility] ONLY) 2000 brachytherapy for prostate Cancer. NONE 09/14/[address] 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 Tobacco Use Smoking status: Never Smokeless tobacco: [...] on file Housing Stability: Not on file Vaping/E-Cigarette Use Vaping/E-Cigarette Use Never User Vaping/E-Cigarette Substances Vaping/E-Cigarette Devices REVIEW OF SYSTEMS: Cardiovascular: Denies chest pain, afib. Respiratory: Denies shortness of breath. Skin: Denies ulcers. Neurological: Denies recent CVA/TIA, reports prior CVA. Hematologic: Reports prior RLE DVT. GENERAL MULTI-SYSTEM PHYSICAL EXAM: GENERAL: Normal grooming habits, appears stated age, no acute distress. RESPIRATORY: respiratory effort normal and breath sounds normal. CARDIOVASCULAR: rhythm irregular, no murmurs, mild edema right lower leg, numerous varicose veins right lower leg, fewer on the left lower leg. GASTROINTESTINAL: no tenderness, protuberant, and abdominal aorta not palpable. SKIN: no ulcers, no rash, no induration, and no dependent rubor. PSYCHIATRIC: orientation to time, place and person normal and recent and remote memory normal. EYES: sclerae normal. NEUROLOGIC: Motor function intact. Expressive aphasia, word finding difficulty, but does pretty good PULSE SCALE: Carotid Right:----Bruit: No Left:----Bruit: No Radial Right: 2 Left: 2 Femoral Right: 3 Left: 3 Popliteal Right: 3 Left: 3 Dorsalis Pedis Right: 2 Left: 2 Posterior Tibial Right: 2 Left: 2 PULSE SCALE: 4=Aneurysmal; 3=Normal; 2=Diminished; 1=Barely Palpable; 0=Absent DIAGNOSTIC STUDIES: 12/30/22 Abd Aortic Duplex: 3.1 cm AAA, 2.1 cm RCIA, 2.9 cm LCIA 12/30/22 LE Art Duplex: RCFA 1.8 cm, R Pop 1.3 cm, LCFA 1.8 cm, L Pop 1.2 cm 12/30/22 Carotid Duplex: ABRIL 56/24, LICA 43/18, ante verts The above diagnostic images were directly visualized and independently interpreted by me on 01/12/2023 with results as above 12/22/2021 Carotid Duplex ABRIL 71/25 and LICA 53/18. Abnormal waveform morphology/flow pattern identified throughout the bilateral carotid arteries of uncertain etiology. 12/22/2021; Location of Study: [facility]; Modality: duplex; AAA measures 3.0cm in greatest transverse dimension. R DEANDRA 2 cm and L DEANDRA 2.9 cm. 12/10/20 aortic duplex: AAA 3 cm, RCI 2.1 cm, LCI 2.3 cm 12/10/20 LE art duplex: RCF 1.8 cm, RSFA 1.1 cm, R pop 1.3 cm, LCF 1.8 cm, LSFA 1.1 cm, L pop 1.2 cm 05/07/19 carotid duplex: ABRIL 62/30, LICA 47/21 (left ICA recanalized?) 04/20/19: aortic duplex: 2.6 cm ectatic aorta, R DEANDRA 2.1 cm, L DEANDRA 2.3 cm. 02/28/19: LUKAS: MC/MC triphasic waveforms. 01/31/17 art duplex R HYDRO EXCAVATION OPERATOR 1.8 cm, R pop 1.2 cm, L HYDRO EXCAVATION OPERATOR 1.8 cm and L pop 1.5 cm 07/19/16 carotid duplex: ABRIL 65/34, LICA 15/4 (functional occlusion) LABS: Creatinine Results: Lab Results Component Value Date/Time CREATININE - [facility] 1.2 11/25/2022 09:02 AM CREATININE - [facility] 1.3 (H) 11/18/2021 08:26 AM CREATININE - [facility] 1.2 09/08/2021 10:36 AM CREATININE - [facility] 1.1 10/31/2019 09:19 AM CREATININE - [facility] 0.9 08/20/2019 11:43 AM CREATININE - [facility] 0.9 08/16/2019 04:39 PM CREATININE, RANDOM URINE - [facility] 253 11/25/2022 09:09 AM CREATININE-OUTSIDE LAB 1.11 05/19/2021 12:00 AM CREATININE-OUTSIDE LAB 0.82 08/17/2019 12:00 AM Lab Results Component Value Date/Time LDL (CALCULATED)-OUTSIDE LAB 75 09/12/2017 04:40 AM LDL CHOLESTEROL (CALCULATED) - [facility] 52 11/25/2022 09:02 AM LDL CHOLESTEROL (CALCULATED) - [facility] 78 09/24/2017 08:35 AM LDL CHOLESTEROL (DIRECT MEASURE) - [facility] NOT APPLICABLE 09/24/2017 08:35 AM Hemoglobin Results: Lab Results Component Value Date/Time HGB - [facility] 17.6 (H) 07/20/2021 10:04 AM HGB - [facility] 16.5 06/22/2021 03:45 PM HGB - [facility] 15.3 05/22/2021 02:44 PM HGB - [facility] 16.9 (H) 10/31/2019 09:19 AM HGB - [facility] 15.6 08/16/2019 04:39 PM HGB - [facility] 17.0 (H) 11/12/2017 11:00 AM Hemoglobin AIC Results: Lab Results Component Value Date/Time HEMOGLOBIN A1C - [facility] 6.0 (H) 11/25/2022 09:02 AM HEMOGLOBIN A1C - [facility] 6.2 (H) 12/17/2021 08:16 AM HEMOGLOBIN A1C - [facility] 6.9 (H) 07/20/2021 10:04 AM HEMOGLOBIN A1C - [facility] 6.0 (H) 10/31/2019 09:19 AM HEMOGLOBIN A1C - [facility] 5.9 12/03/2015 08:08 AM HEMOGLOBIN A1C - [facility] 5.5 06/05/2010 09:38 AM The above clinical lab tests were reviewed by me on 01/12/23 IMPRESSIONS: Asymptomatic bilateral internal carotid artery < 50% stenosis H/O L MCA CVA with expressive aphasia ([facility]) 07/2016 thought to be related to be undiagnosed A fib with embolization of LICA per CTA at time of stoke. Subsequent CTA in 09/2017 demonstrated recannulization. Asymptomatic 3.1 cm AAA. R common iliac aneurysm 2.1 cm. L common iliac aneurysm 2.9 cm. No Fem or Pop aneurysms Varicose veins/edema right lower leg (fewer varicose veins left leg). H/O RLE DVT with IVC filter placement/retrieval. A fib on Xarelto. HFrEF. Cardiomyopathy. 07/23/2021 Card Cath demonstrating patent coronary anatomy with aneurysmal segment of prox LAD. Dyslipidemia. Prediabetes. H/O prostate ca. PLAN: The patient was counseled regarding the pathophysiology and natural history of carotid disease, as well as the symptoms of CVA/TIA/amaurosis fugax. Duplex of 12/22/2021 demonstrating < 50% stenosis in setting of prior embolization of LICA in 2016 with subsequent recannulization noted on 2018 CTA. Asymptomatic by report with no recent unilateral symptoms to suggest CTA/TIA/AF. Continue medical management and routine surveillance. The patient was counseled regarding the pathophysiology and natural history of abdominal aortic andiliac artery aneurysms, as well as the signs of rupture/occlusion and the need to initiate emergency medical attention in that situation. Asymptomatic AAA and right iliac aneurysm sizes remain stable L DEANDRA aneurysm stable @ 2.9 cm. Continue ASA 81 mg for platelet inhibition Continue Lipitor 80 mg for dyslipidemia/hyperlipidemia/pleiotropic benefits On Xarelto for A-fib. Continue compression socks to address any BLE edema. F/U in 1 year at [facility], or sooner prn. Will need just aortic duplex completed at [facility] 1 week prior to clinic visit. Do not need to re-study carotids The patient was seen and examined with Kamron Pandya MD. Yrn Murguia MPAS, PA-C Section of Vascular and Endovascular Surgery [address] [address] I have reviewed the advanced practitioner documentation and agree. I saw and evaluated the patient on date of service referenced in note and have performed the following medically appropriate historyand/or exam: 72 yo male With history of L MCA CVA with expressive aphasia ([facility]) 07/2016 2/2 to Afib related embolization to the L ICA. Asymptomatic 3.1 cm AAA. R common iliac aneurysm 2.1 cm. L common iliac aneurysm 2.9 cm. No Fem or Pop aneurysms Varicose veins/edema right lower leg (fewer varicose veins left leg). H/O RLE DVT with IVC filter placement/retrieval. Continue ASA 81 mg for platelet inhibition Continue Lipitor 80 mg for dyslipidemia/hyperlipidemia/pleiotropic benefits On Xarelto for A-fib. Continue compression socks to address any BLE edema. F/U one year with aorta iliac duplex. Ben Pandya MD Vascular Surgeon Department of Vascular Surgery [facility] documented in this encounter Plan of Treatment Upcoming Encounters Date Type Specialty Care Team Description 04/20/2023 Office Visit Podiatry Barbara Scales DPM [address] [place] [address] 05/24/2023 Office Visit Cardiology Yrn Bradley DO [address] [place] [phone] 07/05/2023 Office Visit Family Medicine Samir Arroyo MD [address] [place] [phone] Scheduled Orders Name Type Priority Associated Diagnoses Orde r Schedule VASC AORTIC DUPLEX EVAL-COMPLETE Medical Imaging Routine Iliac artery aneurysm (HCC) Dyslipidemia Femoral artery aneurysm, bilateral (HCC) Abdominal aortic aneurysm (AAA) without rupture, unspecified part (HCC) Ordered: 01/12/2023 Scheduled Procedures Name Priority Associated Diagnoses Date/Ti [...] as of this encounter Visit Diagnoses Diagnosis Abdominal aortic aneurysm (AAA) without rupture, unspecified part (HCC)- Primary Iliac artery aneurysm (HCC) Aneurysm of iliac artery Dyslipidemia Other and unspecified hyperlipidemia Femoral artery aneurysm, bilateral (HCC) Aneurysm of artery of lower extremity Aphasia, post-stroke Unspecified cerebral artery occlusion with cerebral infarction documented in this encounter Care Teams Fishing Accessories Maker Relationship Specialty Start Date End Date Samir Arroyo MD [address] [place] [id number] PCP - General Family Medicine 08/25/16 documented as of this encounter
--- OUTSIDE RECORDS SUMMARY | 2023-05-12 15:29 | External Medical Summary | Summary of Care ---
Author Name Unknown Organization [facility] Address [address] [place] [address] Phone [phone] Care Team Providers Care Heel Scourer Name Role Phone Samir Arroyo MD Primary Care Provider + Reason for Visit * Reason Comments Follow Up Nail care Encounter Details Date Type Department Care Team Description 01/12/2023 Office Visit Podiatry [facility] [address] [facility] [place] [address] Barbara Scales, DPYajaira [address] [place] [address] Onychomycosis*; Pain in toes of both feet; Gait difficulty; Neuropathy Allergies Active Allergy Reactions Severity Noted Date [...] stroke 08/27/2016 Overview: 07/30 acute CVA hosp [facility] Aphasia, 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 Overview: 07/30 Acute CVA w/afib, lifeflight to [facility]. Left MCA infarct. [phone] Tona Yin--Neuro [facility] Femoral artery aneurysm, bilateral 08/25 Popliteal artery [...] Progress Notes * Barbara Scales DPM - 01/12/2023 10:19 AM EDT Podiatry Established Note [facility] Name: Crow Sullivan : 1950 Date: 01/12/2023 REASON FOR VISIT: foot care SUBJECTIVE:This patient is a 72 year old male who presents today accompanied by his .He presents withcomplaints of elongated, thickened, discolored toenails. The patient states that thenails are difficult to reach and to trim. He reports pain with pressure to the nails including whenwearing shoegear. Last appointment with Dr. Arroyo was on 11/30/2022. Order now includes neuropathy. 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 Atrial fibrillation (HCC) 08/25/2016 Backache Carotid occlusion, left 05/02/2019 Carotid stenosis, right 05/02/2019 Cerebrovascular event, ill-defined, within last 8 weeks 08/25/2016 Dyslipidemia 05/21/2020 Elevated hemoglobin (HCC) 10/28/2017 Femoral artery aneurysm, 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/2016 H/O ischemic left MCA stroke 08/27/201607/30 acute CVA hosp [facility] ICAO (internal carotid artery occlusion) 08/25/2016 Iliac [...] normal limits. No open lesions. Toenails 1-5 bilaterally are thickened, elongated, and discolored. Some skin maceration to interdigital webspaces 3-4 both feet Class Findings for Routine Foot Care Class [...] used to remove all incurvating edges. A croze cutter helper wasused to trim nail to appropriate length. An electrical bur was used in a side to side motion to reduce nail thickness, hypertrophic growth, and to smooth all edges. Patient tolerated well. They noted improvement following procedure. Follow up: 3 months documented in this encounter Nursing Notes * Tracy Galarza LPN - 01/12/2023 10:12 AM EDT Pt presents with his for routine nail care, has pain in R toes, a 4/10. documented in this encounter Plan of Treatment Upcoming Encounters Date Type Specialty Care Team Description 04/20/2023 Office Visit Podiatry Barbara Scales, ALBERTO [address] [place] [place] [address] 05/24/2023 Office Visit Cardiology Yrn Bradley DO [address] [place] [phone] 07/05/2023 Office Visit Family Medicine Samir Arroyo MD [address] [place] [phone] Scheduled Procedures Name Priority Associated Diagnoses Date/Ti [...] of unspecified site documented in this encounter Care Teams Heel Scourer Relationship Specialty Start Date End Date Samir Arroyo MD [address] [place] [phone] PCP - General Family Medicine 08/25/16 documented as of this encounter
--- OUTSIDE RECORDS SUMMARY | 2023-05-12 15:29 | External Medical Summary | Summary of Care ---
Author Name Unknown Organization [facility] Address [address] [place] [address] Phone [phone] Care Team Providers Care Hotel Maintenance Worker Name Role Phone Samir Arroyo MD Primary Care Provider + Reason for Visit * Reason Comments Outpatient Testing Encounter Details Date Type Department Care Team Description 11/25/2022 Laboratory Laboratory, [facility] [address] [place] [address] [facility] [address] [place] [address] Prediabetes; History of prostate cancer; Lipid screening Allergies Active Allergy Reactions Severity Noted Date Comments Oseltamivir Itching,Rash 10/05/2019 documented as of this encounter (statuses as of 11/25/2022) Medications Medication Sig Dispensed Refills Start Date [...] as of this encounter (statuses as of 11/25/2022) Active Problems Problem Noted Date AAA (abdominal aortic aneurysm) 02/10/20 22 Overview: [...] stroke 08/27/2016 Overview: 07[place]30 [place] [facility] [place], 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 Overview: 07/30 Acute CVA w/afib, [place] [facility] Left MCA infarct. [phone] Tona Yin--Neuro [facility] Femoral artery aneurysm, bilateral 08/25 Popliteal artery aneurysm 08/25/2016 Atrial fibrillation 08/25/2016 Overview: Start 06/13/17 pradaxa not covered, switched to Xarelto History of prostate cancer 03/14/2002 documented as of this encounter (statuses as of 11/25/2022) Resolved Problems Problem Noted Date Resolved Date [...] as of this encounter (statuses as of 11/25/2022) Immunizations Name Administration Dates Next Due COVID-19 [...] (Adult) 03/13/2012 Zoster Vaccine Recombinant (Shingrix) 09/29/2018 ,03/31/2018 documented as of this encounter Social History [...] got money to buy more. Never true 05/13/2022 Within the past 12 months, t he food you bought just didn't last and you didn't have money to get more. Never true 05/13/2022 Sex Assigned at Date Recorded Male 08/16/2019 3:[address] Job Start Date Occupation Industry Not on file Not on file Not on file documented as of this encounter Plan of Treatment Upcoming Encounters Date Type Specialty Care Team Description 11/30/2022 Office Visit Family Medicine Samir Arroyo MD [address] [place] [phone] 01/12/2023 [facility] [address] [facility] [address] 05/24/2023 Office Visit Cardiology Yrn rBadley DO [address] [place] [phone] Pending Results Name Type Priority Associated Diagnoses Date /Time HEMOGLOBIN A1C Lab Routine Prediabetes 11/25/2022 9:02 AM EDT BASIC METABOLIC PANEL Lab Routine Prediabetes 11/25/2022 9:02 AM EDT PSA Lab Routine History of prostate cancer 11/25/2022 9:02 AM EDT LIPID PANEL WITH DIRECT LDL IF TG IS HIGH Lab Routine Lipid screening 11/25/2022 9:02 AM EDT ALBUMIN / CREATININE RATIO, URINE Lab Routine Prediabetes 11/25/2022 9:09 AM EDT Scheduled Procedures Name Priority Associated Diagnoses Date/Ti me COLONOSCOPY FLEXIBLE PROXIMAL DIAGNOSTIC Recall History of colon polyps Health Maintenance Due Date Last Done Comments Depression Screening, Annual for Pts 12 and Over 08/15/2020 08/16/2019 HbA1c 12/17/2022 12/17/2021, 02/0 12/2021, 10/31/2019, Additional history exists AAA MONITORING; CT OR US YEARLY 12/22/2022 12/22/2021, 12/10/2020, 04/20/2019, Additional history exists AAA ULTRASOUND YEARLY 12/22/2022 12/22/2021 , 12/10/2020, 04/20/2019, Additional history exists COLONOSCOPY-EVERY 5 YRS AGES 18-100 08/23/2023 08/22/2018, 08/22/2018, 01/13/2018, Additional history exists DTaP,Tdap,and Td Vaccines (3 [...] as of this encounter Visit Diagnoses Diagnosis Prediabetes Other abnormal glucose History of prostate cancer Personal history of malignant neoplasm of prostate Lipid screening Screening for lipoid disorders documented in this encounter Care Teams Hotel Maintenance Worker Relationship Specialty Start Date End Date Samir Arroyo MD [address] [place] [address] PCP - General Family Medicine 08/25/16 documented as of this encounter
--- OUTSIDE RECORDS SUMMARY | 2023-05-12 15:29 | External Medical Summary | Summary of Care ---
Author Name Unknown Organization [facility] Address [address] [place] [facility] [address] Phone [phone] Care Team Providers Care Stitch Welder Name Role Phone Samir Arroyo MD Primary [...] failure with reduced ejection fraction) ([facility]),Ischemic cardiomyopathy Take by mouth 1 Tablet in the morning. 90 Tablet 0 07/16/2021 Active Nitroglycerin 0.4 MG Sublingual Tablet Sublingual (Nitrostat)Indication s:HFrEF (heart failure with reduced ejection fraction) ([facility]),Ischemic cardiomyopathy Place 1 Tablet (0.4 mg) under the tongue every 5 minutes as needed for Pain, Chest. up to 3 doses in 15 minutes 25 Tablet 11 05/26/2022 Active Furosemide 20 MG Oral Tablet (Lasix)Indications:HF rEF (heart failure with reduced ejection fraction) ([facility]),DCM (dilated cardiomyopathy) (HCC),Permanent atrial fibrillation (HCC),HTN, [...] stroke 08/27/2016 Overview: 07/30 acute CVA hosp [facility] A[place], 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 Overview: 07/30 Acute CVA w/afib, lifeflight to [facility]. Left MCA infarct. [phone] Tona Yin--Neuro [facility] Femoral artery aneurysm, bilateral 08/25 [...] Office Visit Podiatry Barbara Scales DPM [address] [place] [address] 04/20/2023 Office Visit Podiatry Barbara Scales DPM [address] [place] [address] 05/24/2023 Office Visit Cardiology Yrn Bradley DO [address] [place] [phone] 07/05/2023 Office Visit Family Medicine Samir Arroyo MD [address] [place] [phone] Scheduled Procedures Name Priority Associated Diagnoses Date/Ti [...] filedocumented as of this encounter Care Teams Stitch Welder Relationship Specialty Start Date End Date Samir Arroyo MD [address] [place] [address] PCP - General Family Medicine 08/25/16 documented as of this encounter
--- OUTSIDE RECORDS SUMMARY | 2023-05-12 15:29 | External Medical Summary ---
Author Name Unknown Address Unknown Organization [id number]:LABORATORY [facility] [place] [place] [address] [place] [address] Laboratory Report Ordering Provider Test Date Status APOLONIA SONG 11/25/2022 09:09:37 Final Normal: <30 mg/g creatinine< br/>High: 30-300 mg/g creatinine
Very High: >300 mg/g creatinine
Nephrotic: >2200 mg/g creatinine Observation Date Value Abnormality Reference (Units ) Status Albumin, Urine 11/25/2022 09:09:37 1.67 (mg/dL) Final Creatinine, Urine 11/25/2022 09:09:37 253 (mg/dL) Final Albumin/Creatinine [Mass Ratio] in Urine 11/25/2022 09:09:37 7 <30 (mg/g Creat) Final Performing Location LABORATORY [facility] - [address] [place] [address]
--- OUTSIDE RECORDS SUMMARY | 2023-05-12 15:30 | External Medical Summary ---
Author Name Unknown Address Unknown Organization [id number][place] [place] [address] [facility] [place] [address] Laboratory Report Ordering Provider Test Date Status APOLONIA SONG 11/25/2022 09:02:12 Final Observation Date Value Abnormality Reference (Units ) Status Triglyceride 11/25/2022 09:02:12 98 <=174 ( mg/dL) Final Triglyceride Reference Range s (mg/dL):
<150 Acceptable
150-174 Borderline high
175-499 High
>=500 Very high Cholesterol 11/25/2022 09:02:12 114 <200 (mg /dL) Final Total Cholesterol Reference Ranges (mg/dL):
<200 Desirable
200-239 Borderline high
>=240 High HDL 11/25/2022 09:02:12 42 >39 (mg/dL ) Final HDL Cholesterol Reference Ra nges (mg/dL):
>=60 High (Desirable)
<50 Low (Undesirable) For Females
<40 Low (Undesirable) For Males NON-HDL CHOLESTEROL 11/25/2022 09:02:12 72 <=159 (mg/dL) Final Non-HDL Cholesterol Referenc e Range (mg/dL):
<100 Target level for high risk ASCVD patient
<130 Optimal for general population
130-159 Near optimal for general population
160-189 Borderline High
190-219 High
>=220 Very High LDL, (calculated) 11/25/2022 09:02:12 52 <= 129 (mg/dL) Final LDL Cholesterol Reference Ra nges (mg/dL):
<70 Target level for high risk ASCVD patient
<100 Optimal for general population
100-129 Near optimal for general population
130-159 Borderline high
160-189 High
>=190 Very high Performing Location [facility] [place] [address] [place] [address]
--- OUTSIDE RECORDS SUMMARY | 2023-05-12 15:30 | External Medical Summary | Summary of Care ---
Author Name Unknown Organization [facility] Address [address] [place] [address] Phone [phone] Care Team Providers Care Style Advisor Name Role Phone Samir Arroyo MD Primary Care Provider + Reason for Visit * Reason Onset Date Comments Appointment 11/24/2022 Encounter Details Date Type Department Care Team Description 11/24/2022 Telephone Vascular Surg 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 PSA yearly, in remission 05/01 Carotid <50%, aorta/iliac ectasia, josee 2-3y 08/29 colon ok josee 5y. 01/28 flex sig 1 3mm polyp unable to retrieve josee Colonoscopy 6-12mo 11/28 hgb 17, normal ferritin/iron. Josee yearly 2012 colon WNL 2007 colon WNL + radiation proctitis H/O ischemic left MCA stroke 08/27/2016 Overview: 07/30 acute CVA hosp [facility] Aphasia, 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 Overview: 07/30 Acute CVA w/afib, lifeflight to [facility]. Left MCA infarct. [phone] Tona Yin--Neuro [facility] Femoral artery aneurysm, bilateral 08/25 Popliteal artery aneurysm 08/25/2016 Atrial fibrillation 08/25/2016 Overview: Start 06/13/17 pradaxa not covered, switched to Xarelto History of prostate cancer 03/14/2002 documented as of this encounter (statuses as of 11/24/2022) Resolved Problems Problem Noted Date Resolved Date [...] as of this encounter (statuses as of 11/24/2022) Immunizations Name Administration Dates Next Due COVID-19 [...] encounter Miscellaneous Notes * Telephone Encounter - FRANKI Muñiz - 11/24/2022 12:03 PM EDT Left message on answering machine for patient to return call to schedule F/U in 1 year at [facility], or sooner prn. Will need aortic duplex, BLE art duplex and carotid duplex completed at [facility] 1 week prior to clinic visit documented in this encounter Plan of Treatment Upcoming Encounters Date Type Specialty Care Team Description 11/30/2022 Office Visit Family Medicine Samir Arroyo MD [address] [place] [address] 01/12/2023 Office Visit Podiatry Barbara Scales DPM [address] [place] [address] [place] [address] 05/24/2023 Office Visit Cardiology Yrn Bradley DO [address] [place] [phone] Scheduled Procedures Name Priority Associated Diagnoses Date/Ti me COLONOSCOPY FLEXIBLE PROXIMAL DIAGNOSTIC Recall History of colon polyps Health Maintenance Due Date Last Done Comments Depression Screening, Annual for Pts 12 and Over 08/15/2020 08/16/2019 HbA1c 12/17/2022 12/17/2021, 12/2021, 10/31/2019, Additional history exists AAA MONITORING; [...] filedocumented as of this encounter Care Teams Style Advisor Relationship Specialty Start Date End Date Samir Arroyo MD [address] [place] [address] PCP - General Family Medicine 08/25/16 documented as of this encounter
--- OUTSIDE RECORDS SUMMARY | 2023-05-12 15:30 | External Medical Summary | Continuity of Care Document ---
Author Name Unknown Organization [facility] [address] [facility] [address] [place], [place] [id number] Care Team Providers Care Carrier Washer Name Role Phone Samir Arroyo Primary Care Physician [phone] [id number]s): 11/18/22 - 11/18/22 [facility] [address] [facility] [place], [place] [id number] Encounter Diagnosis Inflamed seborrheic keratosis(Discharge Diagnosis) - 11/18/22 Seborrheic keratoses(Discharge Diagnosis) - 11/18/22 Skin hemangioma(Discharge Diagnosis) - 11/18/22 Discharge Disposition: Home or Self Care Attending Physician: MD Arce Thomas A Referring Physician: MD Arce Thomas A Allergies, Adverse Reactions, Alerts Substance Reaction Severity Status Tamiflu Rash Moderate Active Assessment and Plan Extracted from: Title:Clinical Document Author:MD Arce T homas A Date:11/18/22 OUTPATIENT NOTE Name: MACI SULLIVAN Patient Number:1 [id number] : 1950 Date of Service: 11/18/2022 Devonte Sullivan presents for evaluation of keratotic papules present on the right infraorbital area. These appear as seborrheic keratoses. Patient would like to have them treated as they are bothersome to the patient. They were treated with cryotherapy as inflamed seborrheic keratosis at patient request and with his consent. Side effects were discussed. Information was given on the nature of the lesions and on cryotherapy. Past medical family social history review of systems medications allergies as noted on the chart. The patient is in stable health post stroke. 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 Examination reveals pleasant well-nourished white male type II skin who is alert and oriented x3 with normal mood and affect. Examination of the head, neck, back, chest, arms, hands, fingers, left leg reveals the findings noted above, scattered hemangiomas and seborrheic keratoses requiring no further treatment and is otherwise unremarkable. Patient will return on an as-needed basis. Medications atorvastatin 80 mg oral tablet Start: 11/18/22 11:09:00 EDT Start Date: 11/18/22 Status: Ordered Co-Q10 100 mg oral capsule Start: 02/03/17 9:50:00, 2 cap, PO, Daily Start Date: 02/03/17 Status: Ordered Entresto 97 mg-103 mg oral tablet Start: 11/18/22 11:09:00 EDT Start Date: 11/18/22 Status: Ordered fluoride 1.1% topical paste Start: 11/18/22 11:09:00 EDT Start Date: 11/18/22 Status: Ordered furosemide 20 mg oral tablet Start: 11/18/22 11:09:00 EDT Start Date: 11/18/22 Status: Ordered gabapentin Start: 12/28/16 10:46:00, 300 mg =, PO, tid Start Date: 12/28/16 Status: Ordered Jardiance 10 mg oral tablet Start: 11/18/22 11:09:00 EDT Start Date: 11/18/22 Status: Ordered magnesium gluconate 250 mg oral tablet Start: 02/03/17 9:51:00, 1 tab, PO, Daily Start Date: 02/03/17 Status: Ordered metoprolol succinate 25 mg oral tablet, extended release Start: 02/03/17 9:50:00, 1 tab, PO, Daily Start Date: 02/03/17 Status: Ordered MVI-12 Start: 12/28/12 13:01:00 Start Date: 12/28/12 Status: Ordered Ocuvite Eye + Multi Start: 11/02/16 9:09:00, 1 tab, Daily Start Date: 11/02/16 Status: Ordered spironolactone 25 mg oral tablet Start: 11/18/22 11:09:00 EDT Start Date: 11/18/22 Status: Ordered unknown medication Start: 11/02/16 9:08:00, lutein 5mg daily Start Date: 11/02/16 Status: Ordered Xarelto 2.5 mg oral tablet Start: 12/11/18 12:07:00 EDT Start Date: 12/11/18 Status: Ordered Mental Status 11/18/22 Barriers to Learning one year None evide nt Mandatory Health Literacy Documentation Yes Health Literacy Communication Barriers N ever Primary Language Kuwaiti Problem List Condition Confirmation Course Effective Dates Status Health St atus Informant AAA (abdominal aortic aneurysm) Confirmed Active Hallux rigidus Confirmed Active Atrial fibrillation Confirmed Active Iliac aneurysm Confirmed Active Popliteal artery aneurysm Confirmed Active Leg edema, right Confirmed Active Foot pain Confirmed Active Left foot pain Confirmed Active Right foot pain Confirmed Active Chronic arterial ischemic stroke Confirmed Active Right knee pain Confirmed Active Left leg pain 1 Confirmed Active Mallet finger Confirmed Active Meniscus tear 2 Confirmed Active Right leg pain Confirmed Active Leg pain, right Confirmed Active Right leg paresthesias Confirmed Active Prostate cancer Confirmed Active Hallux rigidus, right foot Confirmed Active 1and knee pain 2Left knee lateral Diagnosis Diagnosis Type Effective Dates Health Status Clinical Service Informant Inflamed seborrheic keratosis Discharge Diagnosis 11/18/22 Seborrheic keratoses Discharge Diagnosis 11/18/22 Skin hemangioma Discharge Diagnosis 11/18/22 Procedures Procedure Date Related Diagnosis Body Site Status Arthroscopy 2005 Completed Lithotripsy 2005 Completed Brachytherapy 03/2003 Completed 1Left knee Social History Social History Type Response Smoking Status Never smoked cigaret patience Sex Male Outpatient Note * MD Claude, Godwin Rodriguez: PERFORM Event Display: .Outpt Note Authored Date: [id number] OUTPATIENT NOTE Name: MACI SULLIVAN Patient Number:1 [id number] : 1950 Date of Service: 11/18/2022 Devonte Maci Sullivan presents for evaluation of keratotic papules present on the right infraorbital area. These appear as seborrheic keratoses. Patient would like to have them treated as they are bothersome to the patient. They were treated with cryotherapy as inflamed seborrheic keratosis at patient request and with his consent. Side effects were discussed. Information was given on the nature of the lesions and on cryotherapy. Past medical family social history review of systems medications allergies as noted on the chart. The patient is in stable health post stroke. 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 Examination reveals pleasant well-nourished white male type II skin who is alert and oriented x3 with normal mood and affect. Examination of the head, neck, back, chest, arms, hands, fingers, left leg reveals the findings noted above, scattered hemangiomas and seborrheic keratoses requiring no further treatment and is otherwise unremarkable. Patient will return on an as-needed basis. Electronic Signature on File Electronically Reviewed/Signed by: Godwin Arce MD Author Signature Dt/Tm:11/18/2022 11:36 AM Department of Dermatology [facility] Patient Care team information Care Team Personnel Name: MD Dina, Samir Andersen Position: Referring DIRECT Member Role: Primary Care Provider Address: Address: [address] [place] [address] [place] [address] [place] Care Team Related Persons Name: BEBE SULLIVAN Address: home [address] [place], [place] [address] [phone] Name: KENNY SULLIVAN Address: home [address] [place] [phone]
--- OUTSIDE RECORDS SUMMARY | 2023-05-12 15:30 | External Medical Summary ---
Author Name Unknown Address Unknown Organization [id number]:LABORATORY [facility] [place] - [address] [facility] [address] Laboratory Report Ordering Provider Test Date Status APOLONIA SONG 11/25/2022 09:02:12 Final Observation Date Value Abnormality Reference (Units ) Status HbA1C 11/25/2022 09:02:12 6.0 Above high normal 4. 0-5.6 (%) Final The use of HbA1c to monitor glycemic status is based on normal hemoglobin and HbA composition. This test should not be used in patients with abnormal hemoglobin that affects the half life of the red blood cell or the in vivo glycation rates. Glucose, estimated average 11/25/2022 09:02:12 126 Above high normal <126 (mg/dL) Ron godwin Performing Location LABORATORY [facility] - [address] [facility] [address]
--- OUTSIDE RECORDS SUMMARY | 2023-05-12 15:30 | External Medical Summary ---
Author Name Unknown Address Unknown Organization [id number][facility] [address] [place] [address] Laboratory Report Ordering Provider Test Date Status APOLONIA SONG 11/25/2022 09:02:12 Final Observation Date Value Abnormality Reference (Units ) Status BUN 11/25/2022 09:02:12 16 6-20 (mg/dL) Final Creatinine 11/25/2022 09:02:12 1.2 0.6-1.2 (mg/dL) Final Glomerular filtration rate/1.73 sq M.predicted [Volume Rate/Area] in Serum, Plasma or Blood by Creatinine-based formula (CKD-EPI) 11/25/2022 09:02:12 67 >=60 (mL/min) Final eGFR is calculated based on the CKD-EPI 2020 equation SODIUM 11/25/2022 09:02:12 141 135-146 (m mol/L) Final Potassium 11/25/2022 09:02:12 4.4 3.5-5.1 (m mol/L) Final Cl 11/25/2022 09:02:12 105 98-107 (mm ol/L) Final CO2 11/25/2022 09:02:12 26 22-32 (mmo l/L) Final Anion gap 11/25/2022 09:02:12 10 7-15 (mmol /L) Final Glucose 11/25/2022 09:02:12 95 70-120 (mg /dL) Final Calcium 11/25/2022 09:02:12 9.5 8.4-10.2 ( mg/dL) Final Performing Location LABORATORY [facility] [place] [address] - [address] [place] [address]
--- OUTSIDE RECORDS SUMMARY | 2023-05-12 15:30 | External Medical Summary ---
Author Name Unknown Address Unknown Organization K01:LABORATORY [facility] - [address] [place] [address] Laboratory Report Ordering Provider Test Date Status APOLONIA SONG 11/25/2022 09:02:12 Final Observation Date Value Abnormality Reference (Units ) Status PSA 11/25/2022 09:02:12 <0.02 <4.10 (ng/ mL) Final Performing Location LABORATORY [facility] - [address] [place] [address]
--- NOTE | 2023-05-12 15:35 | Critical Care Consultation ---
Date of Consultation May 12, 2023 Assessment & Plan (1) Elevated LFTs: (2) Septic shock: (3) CHERRY (acute kidney injury): (4) Sepsis: (5) Acute cholecystitis: (6) Atrial fibrillation, chronic: (7) History of CVA (cerebrovascular accident): (8) Severe mitral regurgitation: Plan Reason Critically Ill: 72-year-old male present to the hospital complains abdominal pain. 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 Continue with statin Cardiac - -- Septic shock Likely from acute cholecystitis Continue broad-spectrum antibiotics Vasopressor support to keep MAP greater than 65 --Elevated troponin Likely type II RI EKG 05/12/2023, 11:28 AM: A-fib, normal axis, T wave flattening in the lateral leads V1-V3, no ST changes --History of CHF EF 45%, on Entresto at home --A-fib On Xarelto Respiratory - No current issues GI - -- Acute cholecystitis with mild elevation of AST Alk phos within normal limit Surgery on board Can go with antibiotic RENAL/LYTES - -- CHERRY Likely from hypotension, follow-up urine lites Monitor BUN/creatinine Avoid nephrotoxic medications Strict ins and outs - -- History of prostate cancer Continue with Abdi catheter ENDO - ICU hypoglycemia protocol HEME - Monitor H&H ID - -- Acute cholecystitis Continue with gram-negative and anaerobic coverage Follow-up blood culture Procalcitonin 85 --Prophylaxis VTE: Xarelto on hold GI: Pantoprazole Lines: Peripheral Diet: N.p.o. Plan: I will order random cortisol Hold blood pressure medications Vasopressor support to keep MAP greater than 65 Hold Xarelto for possible surgical intervention in the near future Give total 2.5 L of IV fluid bolus. If blood pressure MAP still less than 65 then start Levophed Patient does have history of A-fib. If Levophed makes him go into A-fib RVR then would like to change to phenylephrine Case was discussed with primary team I have personally spent 62 minutes of critical care time in the direct management of this patient. This is a life/limb threatening event. This includes time spent evaluating patient, direct bedside care, chart review, placing orders, interpretation of diagnostic studies, discussion with consultants, patient, and family members, as well as other required patient management activities. This time is exclusive of all separately billable procedures, and teaching time and separate from and in addition to any other critical care service time. History of Present Illness History of Present Illness 72-year-old male present to the hospital complains abdominal pain Past medical history: A-fib on Xarelto, hypertension, CHF on Entresto, dyslipidemia, CVA Patient got 2 L of fluid in the ED he was still hypotensive, sent to ICU for further management Please make note patient is a poor historian. History was obtained from previous chart as well as daughter who was at bedside At the time of examination patient was saturating well on room air. A systolic blood pressure was in the low 100 with MAP in the high 60s. Heart rate in the high 90s He was complaining of cold and was wearing multiple blankets. His temperature was 37.1. He denied any abdominal pain. No nausea or vomiting. 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 He denies any chest pain, no shortness of breath, no headache, no nausea, no vomiting Denies any burning sensation when he urinates No diarrhea Social history: Lifetime non-smoker Allergies Allergy/AdvReac Type Severity Reaction Status Date / Time oseltamivir [From Tamiflu] AdvReac Intermediate Rash Unverified 07/23/21 08:58 Home Medications Medication Instructions Recorded Confirmed Type atorvastatin 40 mg tablet 80 mg PO QDD 08/01/19 05/12/23 History gabapentin 300 mg capsule 300 mg PO BID 08/01/19 05/12/23 History multivitamin 1 tab PO QAM 08/01/19 05/12/23 History vit A 300 mcg-C 200 mg-E 27 1 tab PO QAM 08/01/19 05/12/23 History mg-lutein 2 mg and minerals tablet (Ocuvite with Lutein) lutein 6 mg tablet 6 mg PO QAM 05/29/21 05/12/23 History magnesium 250 mg tablet 250 mg PO QAM 05/29/21 05/12/23 History rivaroxaban 20 mg tablet (Xarelto) 20 mg PO QDD 05/29/21 05/12/23 History furosemide 20 mg tablet 20 mg PO QAM #0 tabs 06/01/21 05/12/23 Rx metoprolol succinate 25 mg 25 mg PO QPM #0 tabs 06/01/21 05/12/23 Rx tablet,extended release 24 hr spironolactone 25 mg tablet 12.5 mg (1/2 x 25 mg) PO DAILY #15 06/01/21 05/12/23 Rx tabs sacubitril 97 mg-valsartan 103 mg 1 tab PO BID 05/12/23 05/12/23 History tablet (Entresto) Patient History Medical History Septic shock Acute cholecystitis Hypotension HFrEF (heart failure with reduced ejection fraction) Acute respiratory failure with hypoxia Tricuspid regurgitation Severe mitral regurgitation Acute heart failure with reduced ejection fraction and diastolic dysfunction CHF (congestive heart failure) History of CVA (cerebrovascular accident) Dilated cardiomyopathy Hyperlipidemia Atrial fibrillation, chronic Stroke Atrial fibrillation Family History Other No significant family history Social History Smoking Status: Never smoker Second Hand Exposure: No; Do You Dip or Chew Tobacco: No; Hx Alcohol Use: No Hx Substance Use: No Preferred Language: French Communication Ability: Effective Communication Ability Comment: expressive aphasia Urologic Nurse Required: No Beliefs That Will Affect Care: None marital status: Current Living Situation: Spouse How many Children do You have: 3 Feels Safe at Home: Yes Assistive Devices: None Review of Systems 2 Review of Systems: All systems reviewed & are unremarkable except as noted in HPI & below Physical Exam 2 Physical Exam: Constitutional: No acute distress HEENT: EOMI, PERRLA Respiratory system: Good air entry bilaterally, no wheeze, no rhonchi, mild crackles bilateral lower lobes CVS: S1-S2 positive, no murmurs or gallops Abdomen: Soft, nontender, nondistended, positive bowel sounds x4 Extremities: +2 pulses bilaterally radialis/ dorsalis pedis, no cyanosis, no edema Neuro: Awake alert oriented x3 Psych: Normal mood and affect G/U: No Abdi Skin: no rashes, warm and dry Lymphatic: no cervical or axillary lymphadenopathy Results & Data Results & Data Vital Signs (Past 12 Hours) Vital Signs Temp Pulse Resp BP Pulse Ox O2 Del Method 05/12/23 15:00 95 H 05/12/23 14:57 87/61 L 05/12/23 14:57 97 H 24 99 05/12/23 14:50 94 H 22 93 05/12/23 14:40 96 H 19 05/12/23 14:31 92/61 L 05/12/23 14:31 89 22 05/12/23 14:30 88 23 05/12/23 14:20 92/56 L 05/12/23 14:20 87 23 88 L 05/12/23 14:15 89 17 90 05/12/23 14:15 88/49 L 05/12/23 14:10 86 21 88 L 05/12/23 14:01 82/52 L 05/12/23 14:01 96 H 91 05/12/23 14:01 92 Room Air 05/12/23 14:00 79 20 93 05/12/23 13:51 89 22 93 05/12/23 13:51 85/54 L 05/12/23 13:50 86 21 94 05/12/23 13:41 97 H 24 05/12/23 13:41 72/53 L 95 05/12/23 13:40 88 20 94 05/12/23 13:30 78/54 L 05/12/23 13:30 79 16 94 05/12/23 13:24 89/53 L 94 05/12/23 13:24 82 28 H 92 05/12/23 13:20 90 19 05/12/23 13:00 90 19 91 05/12/23 13:00 88/64 L 05/12/23 12:50 92 H 24 93 05/12/23 12:50 80/47 L 05/12/23 12:40 80 16 91 05/12/23 12:40 71/47 L 05/12/23 12:30 69/47 L 05/12/23 12:30 81 92 05/12/23 12:20 82 91 05/12/23 12:20 80/48 L 05/12/23 12:18 84 20 91 05/12/23 12:18 75/53 L 05/12/23 12:14 88 26 H 92 05/12/23 12:10 90 22 05/12/23 12:00 90 20 92 05/12/23 12:00 76/57 L 05/12/23 11:54 85/53 L 05/12/23 11:54 83 24 89 L 05/12/23 11:51 88 14 92 05/12/23 11:30 90 22 92 05/12/23 11:30 78/42 L 05/12/23 11:29 Room Air 05/12/23 11:25 Room Air 05/12/23 11:23 81 25 H 94 05/12/23 11:23 81/54 L 05/12/23 11:20 81 20 90 05/12/23 11:15 89 05/12/23 11:14 91 H 27 H 05/12/23 11:02 36.6 C 100 H 18 61/37 L 92 Laboratory Results 05/12/23 11:21 05/12/23 11:21 Coding Level of Care Code 92962 CRITICAL CARE 1ST 30-74M Diagnoses Elevated LFTs R79.89 Septic shock A41.9; R65.21 CHERRY (acute kidney injury) N17.9 Sepsis A41.9 Sepsis acute organ dysfunction status: unspecified Sepsis type: sepsis due to unspecified organism Acute cholecystitis K81.0 Atrial fibrillation, chronic I48.20 History of CVA (cerebrovascular accident) Z86.73 Severe mitral regurgitation I34.0 (4) Sepsis Sepsis acute organ dysfunction status: unspecified Sepsis type: sepsis due to unspecified organism Qualified Code(s): A41.9 - Sepsis, unspecified organism
--- NOTE | 2023-05-12 15:54 | Ultrasound Report ---
US renal/blad retro comp CLINICAL HISTORY: CHERRY TECHNIQUE: Multiple sonographic real-time images of the kidneys and bladder were obtained. COMPARISON: Comparison is made to CT abdomen pelvis 05/12/2023 FINDINGS: The right kidney measures 13.0 cm in length, and the left kidney measures 12.8 cm in length. The right kidney is normal in size, contour, cortical thickness, and echogenicity. No hydronephrosis is identified. Mid pole cyst measures 1.3 cm. The left kidney is normal in size, contour, cortical thickness and echogenicity. No hydronephrosis i s identified. No renal lesion is identified. A Abdi catheter is seen in the collapsed bladder. No large intraluminal mass is seen. IMPRESSION: Unremarkable renal ultrasound. ACT 112: Negative or not required by law. Electronically signed by: Albin Ibarra M.D. 05/12/2023 3:53 PM
[2023-05-12 16:21] LABS: Appearance Urine Cloudy (Clear); Bacteria Urine Automated Negative (Negative); Bilirubin Urine Negative (Negative); Blood Urine 2+ (Negative); Color Urine Dark Yellow; Glucose Urine UA 3+ (Negative); Ketones Urine Trace (Negative); Leukocyte Esterase Urine Negative (Negative); Nitrite Urine Negative (Negative); Protein Urine 1+ (Negative); Specific Gravity Urine 1.022 (1.000-1.030); Urobilinogen Urine Negative (Negative)
[2023-05-12 16:38] LABS: Chloride Random Urine < 15 mmol/L; Creatinine Urine Random 125.8 mg/dl; Sodium Random Urine 31 mmol/L
[2023-05-12] MEDS: SODIUM CHLORIDE 0.9% 1,000 ML IV SCH ×4 (16:38→21:26)
--- NOTE | 2023-05-12 17:03 | Gastrointestinal Consultation ---
Date of Consultation May 12, 2023 Assessment & Plan (1) Acute hypotension: (2) Elevated LFTs: Plan 1. Continue Zosyn. 2. Keep NPO. 3. Per surgery MRCP is ordered - will review results when available. 4. For now will plan for ERCP tomorrow by Dr. Agnes Diaz. We'll need to speak w the family to obtain consent. History of Present Illness Reason for Consultation: Cholangitis Requesting Physician: Dr. Robertson Attending Physician: Juan Busby MD History of Present Illness Ms. Crow Sullivan is a 72 yr old male pt of Dr. Arroyo w a hx of prostate caner, CVA w residual right sided weakness and, Afib, ischemic heart dx carotid stenosis, pre-DM aneurysms of the abdominal aorta, ileac artery, femoral and popliteal arteries. The pt is verbal, talkative but isn't able to provide a meaningful hx. He is awake and alert. He has a general tremor/uncoordinated movements. He appears jaundiced. He denies abd pain but has a lot of urethral discomfort (sanders cath inserted). I reviewed ED and H&P records and gained this hx: He was brought to his PCP by his daughter today w concern regarding confusion and "not being himself." They directed him to the ED. On arrival, he was hypotensive, mildly tachycardic, w elevated LFTs, T Bili 3.3, D bili 0.9, AST 52, ALT 28, Alk Phos 90. Non contrast CTAP w gallstones and gallbladder wall thickening suggestive of acute cholecystitis. GI was consulted by surgery, to consider ERCP. An MRCP is ordered and pending. He is on Xarelto but did not have a dose today. Allergies Allergy/AdvReac Type Severity Reaction Status Date / Time oseltamivir [From Tamiflu] AdvReac Intermediate Rash Unverified 07/23/21 08:58 Home Medications Medication Instructions Recorded Confirmed Type atorvastatin 40 mg tablet 80 mg PO QDD 08/01/19 05/12/23 History gabapentin 300 mg capsule 300 mg PO BID 08/01/19 05/12/23 History multivitamin 1 tab PO QAM 08/01/19 05/12/23 History vit A 300 mcg-C 200 mg-E 27 1 tab PO QAM 08/01/19 05/12/23 History mg-lutein 2 mg and minerals tablet (Ocuvite with Lutein) lutein 6 mg tablet 6 mg PO QAM 05/29/21 05/12/23 History magnesium 250 mg tablet 250 mg PO QAM 05/29/21 05/12/23 History rivaroxaban 20 mg tablet (Xarelto) 20 mg PO QDD 05/29/21 05/12/23 History furosemide 20 mg tablet 20 mg PO QAM #0 tabs 06/01/21 05/12/23 Rx metoprolol succinate 25 mg 25 mg PO QPM #0 tabs 06/01/21 05/12/23 Rx tablet,extended release 24 hr spironolactone 25 mg tablet 12.5 mg (1/2 x 25 mg) PO DAILY #15 06/01/21 05/12/23 Rx tabs sacubitril 97 mg-valsartan 103 mg 1 tab PO BID 05/12/23 05/12/23 History tablet (Entresto) Patient History Medical History (Updated 05/12/23 @ 17:17 by MARIANNA Chavez) Septic shock Acute cholecystitis Hypotension HFrEF (heart failure with reduced ejection fraction) Acute respiratory failure with hypoxia Tricuspid regurgitation Severe mitral regurgitation Acute heart failure with reduced ejection fraction and diastolic dysfunction CHF (congestive heart failure) History of CVA (cerebrovascular accident) Dilated cardiomyopathy Hyperlipidemia Atrial fibrillation, chronic Stroke Atrial fibrillation Family History Other No significant family history Social History Smoking Status: Never smoker Second Hand Exposure: No; Do You Dip or Chew Tobacco: No; Hx Alcohol Use: No Hx Substance Use: No Preferred Language: Greek Communication Ability: Effective Communication Ability Comment: expressive aphasia Compliance Review Specialist Required: No Beliefs That Will Affect Care: None marital status: Current Living Situation: Spouse How many Children do You have: 3 Feels Safe at Home: Yes Assistive Devices: None Review of Systems Constitutional: Not able to obtain ROS from the pt. Physical Exam Constitutional: well developed, well nourished, + ill appearing (chronically) and cooperative Eyes: icterus. PEARLA ENMT: external ear and nose normal, oropharynx normal Neck: trachea midline, no thyromegaly Respiratory: normal respiratory effort, lungs clear to auscultation Cardiovascular: RRR, no murmur, no edema Gastrointestinal (Abdomen): normal bowel sounds, soft, nontender, no hepatospl enomegaly Musculoskeletal: Right sided hand, arm weakness. Skin: Jaundice, otherwise warm, dry no rashes Neurologic: right sided weakness, aphasia, apraxia Psychiatric: euthymic Lymphatic: no cervical or axillary lymphadenopathy Results & Data Vital Signs (Past 12 Hours) Vital Signs Temp Pulse Pulse Resp BP BP Pulse Ox 05/12/23 16:00 36.6 C 96 H 20 93/60 L 05/12/23 15:00 95 H 05/12/23 14:57 87/61 L 05/12/23 14:57 97 H 24 99 05/12/23 14:50 94 H 22 93 05/12/23 14:40 96 H 19 05/12/23 14:31 92/61 L 05/12/23 14:31 89 22 05/12/23 14:30 88 23 05/12/23 14:20 92/56 L 05/12/23 14:20 87 23 88 L 05/12/23 14:15 89 17 90 05/12/23 14:15 88/49 L 05/12/23 14:10 86 21 88 L 05/12/23 14:01 82/52 L 05/12/23 14:01 96 H 91 05/12/23 14:01 92 05/12/23 14:00 79 20 93 05/12/23 13:51 89 22 93 05/12/23 13:51 85/54 L 05/12/23 13:50 86 21 94 05/12/23 13:41 97 H 24 05/12/23 13:41 72/53 L 95 05/12/23 13:40 88 20 94 05/12/23 13:30 78/54 L 05/12/23 13:30 79 16 94 05/12/23 13:24 89/53 L 94 05/12/23 13:24 82 28 H 92 05/12/23 13:20 90 19 05/12/23 13:00 90 19 91 05/12/23 13:00 88/64 L 05/12/23 12:50 92 H 24 93 05/12/23 12:50 80/47 L 05/12/23 12:40 80 16 91 05/12/23 12:40 71/47 L 05/12/23 12:30 69/47 L 05/12/23 12:30 81 92 05/12/23 12:20 82 91 05/12/23 12:20 80/48 L 05/12/23 12:18 84 20 91 05/12/23 12:18 75/53 L 05/12/23 12:14 88 26 H 92 05/12/23 12:10 90 22 05/12/23 12:00 90 20 92 05/12/23 12:00 76/57 L 05/12/23 11:54 85/53 L 05/12/23 11:54 83 24 89 L 05/12/23 11:51 88 14 92 05/12/23 11:30 90 22 92 05/12/23 11:30 78/42 L 05/12/23 11:29 05/12/23 11:25 05/12/23 11:23 81 25 H 94 05/12/23 11:23 81/54 L 05/12/23 11:20 81 20 90 05/12/23 11:15 89 05/12/23 11:14 91 H 27 H 05/12/23 11:02 36.6 C 100 H 18 61/37 L 92 O2 Del Method 05/12/23 16:00 05/12/23 15:00 05/12/23 14:57 05/12/23 14:57 05/12/23 14:50 05/12/23 14:40 05/12/23 14:31 05/12/23 14:31 05/12/23 14:30 05/12/23 14:20 05/12/23 14:20 05/12/23 14:15 05/12/23 14:15 05/12/23 14:10 05/12/23 14:01 05/12/23 14:01 05/12/23 14:01 Room Air 05/12/23 14:00 05/12/23 13:51 05/12/23 13:51 05/12/23 13:50 05/12/23 13:41 05/12/23 13:41 05/12/23 13:40 05/12/23 13:30 05/12/23 13:30 05/12/23 13:24 05/12/23 13:24 05/12/23 13:20 05/12/23 13:00 05/12/23 13:00 05/12/23 12:50 05/12/23 12:50 05/12/23 12:40 05/12/23 12:40 05/12/23 12:30 05/12/23 12:30 05/12/23 12:20 05/12/23 12:20 05/12/23 12:18 05/12/23 12:18 05/12/23 12:14 05/12/23 12:10 05/12/23 12:00 05/12/23 12:00 05/12/23 11:54 05/12/23 11:54 05/12/23 11:51 05/12/23 11:30 05/12/23 11:30 05/12/23 11:29 Room Air 05/12/23 11:25 Room Air 05/12/23 11:23 05/12/23 11:23 05/12/23 11:20 05/12/23 11:15 05/12/23 11:14 05/12/23 11:02 Laboratory Results WBC 11, Hb 15, Hct 45, Plts 164, PT 13, INR 1.3, T BLi 3.3, D Bili 0.9, AST 52, ALT 28, ALk Phos 90. Troponin 29->22. Diagnostic Findings Non contrast CTAP 05/12/23: 1. Cholelithiasis with acute cholecystitis. Surgical consultation is advised. 2. Cardiomegaly. 3. Colonic diverticulosis without CT evidence of acute diverticulitis. 4. 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 5. Brachytherapy implants are noted in the prostate.
[2023-05-12] MEDS ORDERED: ACETAMINOPHEN 1,000 MG/100 ML VIAL IV PRN (17:46)
[2023-05-12] MEDS: SODIUM CHLORIDE 0.9% 500 ML IV SCH ×5 (17:51→20:29)
--- NOTE | 2023-05-12 17:54 | Surgery Consultation ---
Date of Consultation May 12, 2023 Assessment & Plan (1) Elevated LFTs: (2) Acute cholecystitis: He could potentially have cholangitis. MRCP is currently pending. I spoke with gastroenterology and they are planning ERCP tomorrow. He is not a surgical candidate. I also contacted interventional radiology who is going to evaluate him for percutaneous cholecystostomy tube tomorrow as well. Will follow along from the periphery although again he is not a surgical candidate. (3) Septic shock: (4) CHERRY (acute kidney injury): (5) Hypotension: (6) Atrial fibrillation, chronic: (7) Dilated cardiomyopathy: (8) History of CVA (cerebrovascular accident): (9) CHF (congestive heart failure): (10) Tricuspid regurgitation: History of Present Illness Attending Physician: Juan Busby MD History of Present Illness 72-year-old urgency room essentially for change in mental status. He has a history of CVA and has some expressive aphasia. Most of the history is obtained from his daughter who is here with him. Last couple days he simply has been not acting himself. His physical therapist initially pointed this out. He has an extensive medical history which includes CVA, atrial fibrillation, dilated cardiomyopathy, congestive heart failure, acute kidney injury, tricuspid regurg, . He currently denies abdominal pain although his daughter states that since his stroke he cannot feel pain on the right side of his body. Workup here in the emergency room has revealed elevated LFTs as well as acute cholecystitis Allergies Allergy/AdvReac Type Severity Reaction Status Date / Time oseltamivir [From Tamiflu] AdvReac Intermediate Rash Unverified 07/23/21 08:58 Home Medications Medication Instructions Recorded Confirmed Type atorvastatin 40 mg tablet 80 mg PO QDD 08/01/19 05/12/23 History gabapentin 300 mg capsule 300 mg PO BID 08/01/19 05/12/23 History multivitamin 1 tab PO QAM 08/01/19 05/12/23 History vit A 300 mcg-C 200 mg-E 27 1 tab PO QAM 08/01/19 05/12/23 History mg-lutein 2 mg and minerals tablet (Ocuvite with Lutein) lutein 6 mg tablet 6 mg PO QAM 05/29/21 05/12/23 History magnesium 250 mg tablet 250 mg PO QAM 05/29/21 05/12/23 History rivaroxaban 20 mg tablet (Xarelto) 20 mg PO QDD 05/29/21 05/12/23 History furosemide 20 mg tablet 20 mg PO QAM #0 tabs 06/01/21 05/12/23 Rx metoprolol succinate 25 mg 25 mg PO QPM #0 tabs 06/01/21 05/12/23 Rx tablet,extended release 24 hr spironolactone 25 mg tablet 12.5 mg (1/2 x 25 mg) PO DAILY #15 06/01/21 05/12/23 Rx tabs sacubitril 97 mg-valsartan 103 mg 1 tab PO BID 05/12/23 05/12/23 History tablet (Entresto) Patient History Medical History Septic shock Acute cholecystitis Hypotension HFrEF (heart failure with reduced ejection fraction) Acute respiratory failure with hypoxia Tricuspid regurgitation Severe mitral regurgitation Acute heart failure with reduced ejection fraction and diastolic dysfunction CHF (congestive heart failure) History of CVA (cerebrovascular accident) Dilated cardiomyopathy Hyperlipidemia Atrial fibrillation, chronic Stroke Atrial fibrillation Family History Other No significant family history Social History Smoking Status: Never smoker Second Hand Exposure: No; Do You Dip or Chew Tobacco: No; Hx Alcohol Use: No Hx Substance Use: No Preferred Language: Wolof Communication Ability: Effective Communication Ability Comment: expressive aphasia Information Security Analyst Required: No Beliefs That Will Affect Care: None marital status: Current Living Situation: Spouse How many Children do You have: 3 Feels Safe at Home: Yes Assistive Devices: None Review of Systems Review of Systems: All systems reviewed & are unremarkable except as noted in HPI & below Physical Exam Constitutional: WD/WN, vitals as above no acute distress and not ill appearing Eyes: PERRL, conjunctivae normal, anicteric sclerae EOM intact bilaterally ENMT: external ear and nose normal, oropharynx normal Ears: no hearing impairment Neck: trachea midline, no thyromegaly Respiratory: normal respiratory effort; no respiratory distress and does not use accessory muscles Cardiovascular: Rate/Rhythm: regular rate and regular rhythm Gastrointestinal (Abdomen): normal bowel sounds, soft, nontender, no hepatosplenomegaly Skin: no rashes, warm and dry Psychiatric: Orientation: alert, oriented x 3 and cooperative Results & Data Vital Signs (Past 12 Hours) Vital Signs Temp Pulse Pulse Resp BP BP Pulse Ox 05/12/23 16:00 36.6 C 96 H 20 93/60 L 05/12/23 15:00 95 H 05/12/23 14:57 87/61 L 05/12/23 14:57 97 H 24 99 05/12/23 14:50 94 H 22 93 05/12/23 14:40 96 H 19 05/12/23 14:31 92/61 L 05/12/23 14:31 89 22 05/12/23 14:30 88 23 05/12/23 14:20 92/56 L 05/12/23 14:20 87 23 88 L 05/12/23 14:15 89 17 90 05/12/23 14:15 88/49 L 05/12/23 14:10 86 21 88 L 05/12/23 14:01 82/52 L 05/12/23 14:01 96 H 91 05/12/23 14:01 92 05/12/23 14:00 79 20 93 05/12/23 13:51 89 22 93 05/12/23 13:51 85/54 L 05/12/23 13:50 86 21 94 05/12/23 13:41 97 H 24 05/12/23 13:41 72/53 L 95 05/12/23 13:40 88 20 94 05/12/23 13:30 78/54 L 05/12/23 13:30 79 16 94 05/12/23 13:24 89/53 L 94 05/12/23 13:24 82 28 H 92 05/12/23 13:20 90 19 05/12/23 13:00 90 19 91 05/12/23 13:00 88/64 L 05/12/23 12:50 92 H 24 93 05/12/23 12:50 80/47 L 05/12/23 12:40 80 16 91 05/12/23 12:40 71/47 L 05/12/23 12:30 69/47 L 05/12/23 12:30 81 92 05/12/23 12:20 82 91 05/12/23 12:20 80/48 L 05/12/23 12:18 84 20 91 05/12/23 12:18 75/53 L 05/12/23 12:14 88 26 H 92 05/12/23 12:10 90 22 05/12/23 12:00 90 20 92 05/12/23 12:00 76/57 L 05/12/23 11:54 85/53 L 05/12/23 11:54 83 24 89 L 05/12/23 11:51 88 14 92 05/12/23 11:30 90 22 92 05/12/23 11:30 78/42 L 05/12/23 11:29 05/12/23 11:25 05/12/23 11:23 81 25 H 94 05/12/23 11:23 81/54 L 05/12/23 11:20 81 20 90 05/12/23 11:15 89 05/12/23 11:14 91 H 27 H 05/12/23 11:02 36.6 C 100 H 18 61/37 L 92 O2 Del Method 05/12/23 16:00 05/12/23 15:00 05/12/23 14:57 05/12/23 14:57 05/12/23 14:50 05/12/23 14:40 05/12/23 14:31 05/12/23 14:31 05/12/23 14:30 05/12/23 14:20 05/12/23 14:20 05/12/23 14:15 05/12/23 14:15 05/12/23 14:10 05/12/23 14:01 05/12/23 14:01 05/12/23 14:01 Room Air 05/12/23 14:00 05/12/23 13:51 05/12/23 13:51 05/12/23 13:50 05/12/23 13:41 05/12/23 13:41 05/12/23 13:40 05/12/23 13:30 05/12/23 13:30 05/12/23 13:24 05/12/23 13:24 05/12/23 13:20 05/12/23 13:00 05/12/23 13:00 05/12/23 12:50 05/12/23 12:50 05/12/23 12:40 05/12/23 12:40 05/12/23 12:30 05/12/23 12:30 05/12/23 12:20 05/12/23 12:20 05/12/23 12:18 05/12/23 12:18 05/12/23 12:14 05/12/23 12:10 05/12/23 12:00 05/12/23 12:00 05/12/23 11:54 05/12/23 11:54 05/12/23 11:51 05/12/23 11:30 05/12/23 11:30 05/12/23 11:29 Room Air 05/12/23 11:25 Room Air 05/12/23 11:23 05/12/23 11:23 05/12/23 11:20 05/12/23 11:15 05/12/23 11:14 05/12/23 11:02 PG Care Time/CCT Total # of Minutes Spent Total Time Spent with Patient: Total time spent is greater than 50% in coordination of care (as documented) at patient's floor/unit and/or counseling patient: Coding Level of Care Code 90703 INT INP/OBS CARE 3/75MIN Diagnoses Elevated LFTs R79.89 Acute cholecystitis K81.0 Septic shock A41.9; R65.21 CHERRY (acute kidney injury) N17.9 Hypotension I95.9 Atrial fibrillation, chronic I48.20 Dilated cardiomyopathy I42.0 History of CVA (cerebrovascular accident) Z86.73 CHF (congestive heart failure) I50.9 Heart failure chronicity: unspecified Heart failure type: unspecified Tricuspid regurgitation I07.1 (9) CHF (congestive heart failure) Heart failure chronicity: unspecified Heart failure type: unspecified Qualified Code(s): I50.9 - Heart failure, unspecified
[2023-05-12] MEDS ORDERED: SODIUM CHLORIDE 0.9% 500 ML IV ONE (19:31)
[2023-05-12] MEDS: PIPERACILLIN/TAZOBACTAM 4.5 GM in DEXTROSE 5% MINI-B 100 ML IV SCH (20:00)
[2023-05-12] MEDS ORDERED: NOREPINEPHRINE/D5W 4 MG/250 ML IV ONE (20:20)
[2023-05-12] MEDS ORDERED: STAT IV Infusion **Titration per Protocol STA (20:20)
[2023-05-12] MEDS: NOREPINEPHRINE/D5W 4 MG/250 ML PLCT IV SCH (20:23)
--- NOTE | 2023-05-12 20:37 | Magnetic Resonance Report ---
Exam(s): MRI MRCP EXAM: MR Abdomen Without Intravenous Contrast, MRCP Protocol CLINICAL HISTORY: Reason for exam: elevated LFT's. TECHNIQUE: Multiplanar magnetic resonance images of the abdomen without intravenous contrast using MRCP protocol. COMPARISON: No relevant prior studies available. FINDINGS: Bile ducts: Unremarkable. No stones. No ductal dilation. Gallbladder: Cholelithiasis with gallbladder wall thickening and subtle pericholecystic fluid. Liver: Unremarkable. Pancreas: Unremarkable. No ductal dilation. Spleen: Unremarkable. No splenomegaly. Adrenals: Unremarkable. No mass. Kidneys and ureters: Unremarkable. No hydronephrosis. Stomach and bowel: Unremarkable. No obstruction. IMPRESSION: Cholelithiasis with evidence to suggest acute cholecystitis clinical correlation recommended. Electronically signed by: Matt Espinosa MD 05/12/23 20:36 PM
[2023-05-13 01:09] LABS: A calco-baum cmplx NotReported Not Detected (NotDetected); Bact fragilis Not Reported Not Detected (NotDetected); Blood Culture Id Panel See PCR Comment (NotDetected); C auris Not Reported Not Detected (NotDetected); CTX-M Resistant Gene Not Detected (NotDetected); Calbicans Not Reported Not Detected (NotDetected); Candida glabrata Not Reported Not Detected (NotDetected); Candida krusei Not Reported Not Detected (NotDetected); Cneoformans/gatti Not Reported Not Detected (NotDetected); Cparapsilosis Not Reported Not Detected (NotDetected); E cloacae compx Not Reported Not Detected (NotDetected); Efaecalis Not Reported Not Detected (NotDetected); Efaecium Not Reported Not Detected (NotDetected); Enterobacterales Not Reported DETECTED (NotDetected); Escherichia coli Not Reported Not Detected (NotDetected); H influenzae Not Reported Not Detected (NotDetected); IMP Resistant Gene Not Detected (NotDetected); K aerogenes Not Reported Not Detected (NotDetected); KPC Resistant Gene Not Detected (NotDetected); Koxytoca Not Reported Not Detected (NotDetected); Kpneumoniae grp Not Reported DETECTED (NotDetected); Lmonocyt Not Reported Not Detected (NotDetected); N meningitidis Not Reported Not Detected (NotDetected); NDM Resistant Gene Not Detected (NotDetected); OXA 48 Like Resistant Gene Not Detected (NotDetected); P aeruginosa Not Reported Not Detected (NotDetected); Proteus spp Not Reported Not Detected (NotDetected); Salmonella spp Not Reported Not Detected (NotDetected); Smarcescens Not Reported Not Detected (NotDetected); Staph lugdunensis Not Reported Not Detected (NotDetected); Staph spp. Not Reported Not Detected (NotDetected); Staphaureus Not Reported Not Detected (NotDetected); Staphepi Not Reported Not Detected (NotDetected); Stenmaltophilia Not Reported Not Detected (NotDetected); Strep agal(GrpB) Not Reported Not Detected (NotDetected); Strep pneum Not Reported Not Detected (NotDetected); Strep pyog (GrpA) Not Reported Not Detected (NotDetected); Strep spp Not Reported Not Detected (NotDetected); VIM Resistant Gene Not Detected (NotDetected); mcr-1 Colistin Resistant Gene Not Detected (NotDetected)
[2023-05-13 01:13] LABS: Enterobacterales DETECTED (NotDetected); Klebsiella pneumoniae group DETECTED (NotDetected)
[2023-05-13] MEDS: NOREPINEPHRINE/D5W 4 MG/250 ML PLCT IV SCH ×2 (03:49→20:00)
[2023-05-13] MEDS: PIPERACILLIN/TAZOBACTAM 4.5 GM in DEXTROSE 5% MINI-B 100 ML IV SCH ×3 (03:50→20:01)
[2023-05-13] MEDS: SODIUM CHLORIDE 0.9% 1,000 ML IV SCH ×3 (03:52→20:11)
[2023-05-13 04:18] LABS: Hematocrit (blood only) 44.7 % (42.0-52.0); Hemoglobin 15.1 g/dl (14.0-18.0); Mean Corpuscular Hgb Conc 33.8 g/dL (32.0-36.0); Mean Corpuscular Volume 97.8 fL (80.0-100.0); Mean Platelet Volume 10.2 fL (9.4-12.4); Platelet Count 178 K/uL (130-400); RDW Coefficient of Variation 12.8 % (11.5-14.5); RDW Standard Deviation 45.8 fL (36.4-46.3); Red Blood Count 4.57 M/uL (4.70-6.10); White Blood Count 10.51 K/ul (4.8-10.8)
[2023-05-13 04:36] LABS: Albumin Globulin Ratio 1.1 (0.9-2); BUN Creatinine Ratio 26.8 (10-20); Bilirubin,Total 1.8 mg/dl (0.2-1.0); Calcium 8.2 mg/dl (8.6-10.3); Creatinine Clr Calc Pharmacy 48.8 ml/min; Est GFR (African American) 49.9 ml/min; Est GFR (Non-African American) 43.1 ml/min; Globulin 2.7 gm/dl (2.5-4.0); Magnesium 2.6 mg/dl (1.7-2.4); Phosphorus 3.1 mg/dl (2.5-4.9); Prealbumin 4.5 mg/dl (20-40); Total Protein 5.7 gm/dl (6.0-8.3)
--- OUTSIDE RECORDS SUMMARY | 2023-05-13 06:12 | External Medical Summary | Summary of Care ---
Author Name Unknown Organization [facility] Address [address] [place] [address] Phone [phone] Care Team Providers Care Director Of Clinical Trials Name Role Phone Samir Arroyo MD Primary Care Provider + Reason for Visit * Reason Comments Acute Pt being seen per joseline carr who has concern with his confusion, intermittent dizziness, and SOB at night and no reason for any of his symptoms. Has some unsteadiness and slurred speech, has some fogginess to his thinking and aslo dealing with who is in hospital and possibly not eating right. Encounter Details Date Type Department Care Team (Late st Contact Info) Description 05/12/2023 10:00 AM EST Office Visit Family Practice [facility] [address] [place] [address] Shira Yip, [address] [facility] [address] Confusion*; Dizziness; SOB (shortness of breath); Slurred speech; Persistent atrial fibrillation (HCC) Allergies Active Allergy Reactions Criticality Noted Date Comments Oseltamivir Itching,Rash 10/05/2019 documented as of this encounter (statuses as of 05/12/2023) Medications Medication Sig Dispensed Refills Start Date [...] 05/26/2022 Active Gabapentin 300 MG Oral Capsule (Neurontin)Indication [...] 04/06/2023 Active Spironolactone 25 MG Oral Tablet (Aldactone)Indication s:Persistent atrial fibrillation (HCC),Acute systolic heart failure (HCC),HFrEF (heart failure with reduced ejection fraction) (HCC),DCM (dilated cardiomyopathy) (HCC) Take 1 Tablet by mouth in the morning. 90 Tablet 3 05/07/2023 Active Furosemide 20 MG Oral Tablet (Lasix)Indications:HF rEF (heart failure with reduced ejection fraction) (HCC),DCM (dilated cardiomyopathy) (HCC),Permanent atrial fibrillation (HCC),HTN, goal below 140/90,Dyslipidemia, goal LDL below 100,Severe pulmonary hypertension (HCC),Severe mitral regurgitation,Severe tricuspid regurgitation,HERNÁNDEZ (dyspnea on exertion),Chest pressure Take 1 Tablet by mouth in the morning. 90 Tablet 3 05/09/2023 Active documented as of this encounter (statuses as of 05/12/2023) Active Problems Problem Noted Date Diagnosed Date [...] [facility]. Left MCA infarct. 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 aneurysm 08/25/2016 Atrial fibrillation 08/25/2016 Overview: Start 06/13/17 pradaxa not covered, switched to Xarelto History of prostate cancer 03/14/2002 documented as of this encounter (statuses as of 05/12/2023) Resolved Problems Problem Noted Date Diagnosed Date [...] as of this encounter (statuses as of 05/12/2023) Immunizations Name Administration Dates Next Due COVID-19 mRNA, LNP-s, No Pre serve, 2-Dose Series (Moderna) 03/02/2021,08/07/2020,07/10/2020 COVID-19, mRNA, LNP-s, PF, B ooster, 100mcg/0.5mg (Moderna) 09/21/2021 Covid-19, Mrna, Lnp-s, Pf, B ivalent, 30 Mcg, IM, 12 yrs and above ([employer]) 03/03/2022 PPD 06/18/2013,06/03/2010 Pneumococcal Conjugate Vacc, 13 [...] Sign Reading Time Taken Comments Blood Pressure 66/39 05/12/2023 10:13 AM EST Pulse 97 05/12/2023 10:13 AM EST Temperature 36.3 C (97.4 F) 05/12/2023 10:[address] Respiratory Rate 18 05/12/2023 10:13 AM EST Oxygen Saturation 96% 05/12/2023 10:13 AM EST Inhaled Oxygen Concentration - - Weight 95.3 kg (210 lb) 05/12/2023 10:13 AM EST Height - - Body Mass Index 31.93 11/30/2022 3:13 PM EDT documented in this encounter Progress Notes * Shira Yip, DO - 05/12/2023 10:31 AM EST Subjective: Crow Sullivan is a 72 year old male. Chief Complaint Patient presents with Acute Pt being seen per daughter who has concern with his confusion, intermittent dizziness, and SOB at night and no reason for any of his symptoms. Has some unsteadiness and slurred speech, has some fogginess to his thinking and aslo dealing with who is in hospital and possibly not eating right. There are no exam notes on file for this visit. HPI: This is a 72 year old male with PMHx as below presents with acute illness as noted above Attempted to get BP - unable to get reading Pt not following commands With change in mentation and unstable vitals pt advised to go to ER Pt here with family member - agreeing to ER, declined for us to call EMS Pt is able to walk - will be taken to ER immediately Will call report to [facility] Health Maintenance Due Topic Date Due Hepatitis B (1 of 3 - Risk 3-dose series) Never done COVID-19 Vaccine ( season) 2023 Patient Active Problem List Diagnosis Code History [...] (HCC) I71.40 Iliac artery aneurysm (HCC) I72.3 Current Outpatient Medications Medication Sig Dispense Refill [...] 1 Tablet in the morning. 90 Tablet Gabapentin 300 MG Oral Capsule (Neurontin) Take 1 Capsule by mouth in the morning and 1 Capsule before bedtime. 180 Capsule 3 Metoprolol Succinate ER 25 MG Oral Tablet Extended Release 24 Hour (toPROL XL) TAKE 1/2 TABLET EVERY MORNING DECREASE DOSE 12/09/2021 45 Tablet 3 Atorvastatin Calcium 80 MG Oral Tablet (Lipitor) TAKE 1 TABLET EVERY MORNING 90 Tablet 2 Empagliflozin 10 MG Oral Tablet (Jardiance) Take 1 Tablet by mouth in the morning. 90 Tablet 1 Rivaroxaban 20 MG Oral Tablet (Xarelto) take 1 tablet by mouth once daily WITH DINNER 90 Tablet 1 Sacubitril-Valsartan 97-103 MG Oral Tablet (Entresto) Take 1 Tablet by mouth in the morning and 1 Tablet before bedtime. 180 Tablet 1 Spironolactone 25 MG Oral Tablet (Aldactone) Take 1 Tablet by mouth in the morning. 90 Tablet 3 Furosemide 20 MG Oral Tablet (Lasix) Take 1 Tablet by mouth in the morning. 90 Tablet 3 Nitroglycerin 0.4 MG Sublingual Tablet Sublingual (Nitrostat) Place 1 Tablet (0.4 mg) under the tongue every 5 minutes as needed for Pain, Chest. up to 3 doses in 15 minutes 25 Tablet 11 Benzonatate 100 MG Oral Capsule Take 1 Capsule by mouth 3 times a day as needed for Cough. 50 Capsule 1 No current facility-administered medications for this visit. 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 Atrial fibrillation (HCC) 08/25/2016 Backache Carotid occlusion, left 05/02/2019 Carotid stenosis, right 05/02/2019 Cerebrovascular event, ill-defined, within last 8 weeks 08/25/2016 Dyslipidemia 05/21/2020 Elevated hemoglobin (HCC) 10/28/2017 Femoral artery aneurysm, bilateral ([facility]) 08/25/2016 H/O ischemic left MCA stroke 08/27/201607/30 acute CVA hosp [facility] ICAO (internal carotid artery occlusion) 08/25/2016 Iliac artery aneurysm (HCC) 12/20/2022 Malignant neoplasm of prostate (HCC) 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 Past Surgical History: Procedure Laterality Date CARDIAC CATH-CARDIOLOGY ONLY 07/23/2021 [facility] COLONOSCOPY 03/2004 Diverticulosis- repeat in 10 years COLONOSCOPY, DIAGNOSTIC (RECTUM) 08/02/2007 Radiation proctitis; repeat in 5 years COLONOSCOPY, DIAGNOSTIC (RECTUM) 02/01/2013 COLONOSCOPY FLEXIBLE PROXIMAL DIAGNOSTIC performed by Yrn Greenberg MD at ENDOSCOPY [facility] COLONOSCOPY, DIAGNOSTIC (RECTUM) 08/22/2018 hyperplastic polyps, diverticulosis, fair prep, repeat 5 yrs/COLONOSCOPY FLEXIBLE PROXIMAL DIAGNOSTIC performed by Columba Davey MD at ENDOSCOPY [facility] CYSTOSCOPY 2001 negative CYSTOSCOPY 12/11/2012 EMG, 2 EXTREMITIES 07/26/2001 Upper extremities- normal HALLUX RIGIDUS CORRECTED WITH CHIELECTOMY Right 06/09/2017 CORRECTION HALLUX RIGIDUS, CHIELECTOMY WITHOUT IMPLANT performed by Barbara Scales DPM at OR [facility] INFORMATION 07/2002 [place] seed treatment for prostate cancer IR FILTER REMOVAL VENA CAVA 12/28/2016 at [facility]. normal IVC cavagram post removal. IR PLACEMENT IVC FILTER 07/23/2016 [facility] GILBERT FLEX SIGMOID DIAGNOSITIC 01/13/2018 fair prep, colon polyp, repeat 6-12 mo/SIGMOIDOSCOPY FLEXIBLE DIAGNOSTIC performed by Columba Davey MD at ENDOSCOPY [facility] MISCELLANEOUS ORDER right elbow--bursa sac removed MISCELLANEOUS ORDER ([facility]) 2000 brachytherapy for prostate Cancer. NONE 09/14/[address] Paredes OTHER (INFORMATION) ACT 112 SIGNED 02/03/23 DR. GARRETT REMOVAL OF APPENDIX REPAIR OF HYDROCELE Right--infant US TRANSRECTAL AND BIOPSY 2001 Review of patient's allergies indicates: Allergen Reactions Tamiflu [Oseltamivir] Itching and Rash Family History Problem Relation Age of Onset Thyroid Disorder Mother Stroke Mother late 80's- effects of CVA Heart attack Father 79 Parkinsonism Brother 53 73 Family Status Relation Status Mo stroke Fa at age 80 [place] Bro Parkinson's disease Bertrand Alive Son at age 3 days hypoplastic heart Son Alive Son Alive Social History Socioeconomic History Marital status: Spouse name: Not on file Number of children: 3 Years of education: Not on file Highest education level: Not on file Occupational History Occupation: [employer] Comment: [employer] Tobacco Use Smoking status: Never Smokeless tobacco: Never Vaping Use Vaping Use: Never used Substance and Sexual Activity Alcohol use: Yes Alcohol/week: 0.0 standard drinks of alcohol Comment: occasional Drug use: No Sexual activity: Yes Partners: Female Other Topics Concern Not on file Social History Narrative Not on file Social Determinants of Health Financial Resource Strain: Not on file Food Insecurity: No Food Insecurity (03/23/2023) Hunger Vital Sign Worried About Running Out of Food in the Last Year: Never true Ran Out of Food in the Last Year: Never true Transportation Needs: Not on file Physical Activity: Not on file Stress: Not on file Social Connections: Not on file Intimate Partner Violence: Not on file Housing Stability: Not on file Review of Systems: As per HPI all other ROS negative. Wt Readings from Last 3 Encounters: 05/12/23 95.3 kg (210 lb) 03/23/23 97.7 kg (215 lb 4.8 oz) 11/30/22 97.1 kg (214 lb) Results for orders placed or performed in visit on 11/25/22 HEMOGLOBIN A1C Result Value Ref Range Hemoglobin A1C 6.0 (H) 4.0 - 5.6 % Estimated Average Glucose 126 (H) <126 mg/dL BASIC METABOLIC PANEL Result Value Ref Range BUN 16 6 - 20 mg/dL Creatinine 1.2 0.6 - 1.2 mg/dL Estimated Glomerular Filtration Rate 67 >=60 mL/min Sodium 141 135 - 146 mmol/L Potassium 4.4 3.5 - 5.1 mmol/L Chloride 105 98 - 107 mmol/L CO2 26 22 - 32 mmol/L Anion Gap 10 7 - 15 mmol/L Glucose 95 70 - 120 mg/dL Calcium 9.5 8.4 - 10.2 mg/dL PSA Result Value Ref Range PSA <0.02 <4.10 ng/mL LIPID PANEL WITH DIRECT LDL IF TG IS HIGH Result Value Ref Range Triglycerides 98 <=174 mg/dL Cholesterol 114 <200 mg/dL HDL Cholesterol 42 >39 mg/dL Non-HDL Cholesterol 72 <=159 mg/dL LDL Cholesterol 52 <=129 mg/dL ALBUMIN / CREATININE RATIO, URINE Result Value Ref Range Albumin, Random Urine 1.67 mg/dL Creatinine, Random Urine 253 mg/dL Albumin / Creatinine Ratio, Urine 7 <30 mg/g Creat *Note: Due to a large number of results and/or encounters for the requested time period, some results have not been displayed. A complete set of results can be found in Results Review. OBJECTIVE: Physical Exam: BP 66/39 | Pulse 97 | Temp 36.3 C (97.4 F) (Tympanic) | Resp 18 | Wt 95.3 kg (210 lb) | SpO2 96% | BMI 31.93 kg/m | BSA 2.14 m General: alert, healthy, no distress, and not following certain commands Heart: irregularly irregular and bradycardia Neuro Exam: at times not following commands with breath holding and feet flat on floor, but able toget up and walk out of office. Unknown baseline. Confusion (Primary) Dizziness SOB (shortness of breath) Slurred speech Persistent atrial fibrillation (HCC) Pt with acute change in baseline health status with unstable vitals - to ER immediately Shira Yip DO documented in this encounter Plan of Treatment Upcoming Encounters Date Type Department Care Team (Late st Contact Info) Description 06/16/2023 10:15 AM EST Office Visit Ophthalmology, [facility] [address] [place] [address] David Garrett DO [address] [place] [phone] 07/05/2023 3:20 PM EST Office Visit Family Practice [facility] [address] [place] [phone] Samir Arroyo MD [address] [place] [phone] 07/20/2023 10:20 AM EST Office Visit Podiatry [facility] [address] [place] [phone] Barbara Scales DPM [address] [place] [address] [place] [id number] Scheduled Procedures Name Priority Associated Diagnoses Date/Ti me COLONOSCOPY FLEXIBLE PROXIMAL DIAGNOSTIC Recall History of colon polyps Health Maintenance Due Date Last Done Comments Hepatitis B (1 of 3 - Risk 3-dose series) 2009 COVID-19 Vaccine (2022- season) 2023 12/06/2022, 03/03/2022, [...] as of this encounter Visit Diagnoses Diagnosis Confusion- Primary Unspecified psychosis Dizziness Dizziness and giddiness SOB (shortness of breath) Shortness of breath Slurred speech Other speech disturbance Persistent atrial fibrillation (HCC) Atrial fibrillation documented in this encounter Advance Directives Healthcare Agents on File Name Relationship Healthcare Agent Relationshi p Communication Kj Sullivan Adult Child Health Care Repr esentative (appointed verbally by patient or by statute hierarchy) Layla Sullivan Adult Child Health Care Repr esentative (appointed verbally by patient or by statute hierarchy) Care Teams Director Of Clinical Trials Relationship Specialty Start Date End Date Samir Arroyo MD [address] [place] [address] PCP - General Family Medicine 08/25/16 documented as of this encounter"
--- NOTE | 2023-05-13 06:49 | Anesthesiology Consultation ---
Date of Service May 13, 2023 Assessment & Plan (1) Encounter for pre-operative examination: Chart Review Chart Review: Patient NOT seen in Pre Admission Testing Urgent nature of procedure, patient currently on pressors in ICU due to septic shock Consults Requested none History Surgery Operation Date: 05/13/23 09:35 Proposed Procedures p Endoscopic Retrograde Cholangiopancreatogram - Agnes Diaz, Height/Weight Height: 5 ft 9 in Weight: 99.8 kg Allergies Allergy/AdvReac Type Severity Reaction Status Date / Time oseltamivir [From Tamiflu] AdvReac Intermediate Rash Unverified 07/23/21 08:58 Medications Home Medications Medication Instructions Recorded Confirmed Last Taken atorvastatin 40 mg tablet 80 mg PO QDD 08/01/19 05/12/23 05/28/21 gabapentin 300 mg capsule 300 mg PO BID 08/01/19 05/12/23 05/29/21 multivitamin 1 tab PO QAM 08/01/19 05/12/23 05/29/21 vit A 300 mcg-C 200 mg-E 27 1 tab PO QAM 08/01/19 05/12/23 05/29/21 mg-lutein 2 mg and minerals tablet (Ocuvite with Lutein) lutein 6 mg tablet 6 mg PO QAM 05/29/21 05/12/23 05/29/21 magnesium 250 mg tablet 250 mg PO QAM 05/29/21 05/12/23 05/29/21 rivaroxaban 20 mg tablet (Xarelto) 20 mg PO QDD 05/29/21 05/12/23 05/28/21 furosemide 20 mg tablet 20 mg PO QAM #0 tabs 06/01/21 05/12/23 05/28/21 metoprolol succinate 25 mg 25 mg PO QPM #0 tabs 06/01/21 05/12/23 05/28/21 tablet,extended release 24 hr spironolactone 25 mg tablet 12.5 mg (1/2 x 25 mg) PO DAILY #15 06/01/21 05/12/23 Unknown tabs sacubitril 97 mg-valsartan 103 mg 1 tab PO BID 05/12/23 05/12/23 Unknown tablet (Entresto) Active Medications Generic Name Dose Route Start Last Admin Trade Name Freq PRN Reason Stop Dose Admin Piperacillin Sod/Tazobactam 100 mls @ 25 mls/hr 05/12/23 20:00 05/13/23 03:50 Sod 4.5 gm/ Dextrose IV 05/22/23 19:59 25 mls/hr Q8H NINA Administration Protocol Sodium Chloride 500 mls @ 999 mls/hr 05/12/23 16:15 05/12/23 20:29 Nss IV 06/11/23 16:14 Not Given .Q31M NINA Sodium Chloride 1,000 mls @ 75 mls/hr 05/12/23 16:15 05/13/23 03:52 Nss IV 06/11/23 18:00 75 mls/hr .[id number] NINA Administration Acetaminophen 1,000 mg in 100 mls @ 400 mls/hr 05/12/23 17:46 05/12/23 19:53 Ofirmev IV 05/15/23 17:45 Infused Q8H PRN Infusion Fever Norepinephrine Bitartrate 4 mg in 250 mls @ 25.725 mls/hr 05/12/23 20:30 05/13/23 03:49 Levophed/D5w IV 06/11/23 20:29 0.07 mcg/kg/min .[id number] NINA 25.7 mls/hr Administration Protocol 0.07 MCG/KG/MIN Past Medical History Medical History Septic shock Acute cholecystitis Hypotension HFrEF (heart failure with reduced ejection fraction) Acute respiratory failure with hypoxia Tricuspid regurgitation Severe mitral regurgitation Acute heart failure with reduced ejection fraction and diastolic dysfunction CHF (congestive heart failure) History of CVA (cerebrovascular accident) Dilated cardiomyopathy Hyperlipidemia Atrial fibrillation, chronic Stroke Atrial fibrillation Past Family History Family History Other No significant family history Social History Smoking Status: Never smoker Do You Dip or Chew Tobacco: No Hx Alcohol Use: Yes Alcohol type: beer alcohol intake frequency: holidays/special occasions only Hx Substance Use: No substance use type: does not use Physical Exam Vital Signs Last Vital Signs Temp 98.4 F 05/13/23 03:00 Pulse 91 H 05/13/23 05:00 Resp 19 05/13/23 05:00 BP 99/59 L 05/13/23 05:00 Pulse Ox 92 05/13/23 05:00 O2 Del Method Room Air 05/12/23 14:01 Testing Laboratory Results 05/13/23 03:43 05/13/23 03:43 PT 13.9 Seconds (9.0-12.0) H 05/12/23 11:21 INR 1.3 (0.9-1.1) H 05/12/23 11:21 APTT 29.3 Seconds (21.0-31.0) 05/12/23 11:21 Urine Color Dark Yellow 05/12/23 15:53 Urine Appearance Cloudy (Clear) A 05/12/23 15:53 Urine pH 5.0 (4.5-7.5) 05/12/23 15:53 Ur Specific [place] 1.022 (1.000-1.030) 05/12/23 15:53 Urine Protein 1+ (Negative) H 05/12/23 15:53 Urine Glucose (UA) 3+ (Negative) H 05/12/23 15:53 Urine Ketones Trace (Negative) H 05/12/23 15:53 Urine Nitrite Negative (Negative) 05/12/23 15:53 Ur Leukocyte Esterase Negative (Negative) 05/12/23 15:53 Urine WBC (Auto) 1-5 /hpf (0-5) 05/12/23 15:53 Urine RBC (Auto) 5-10 /hpf (0-4) H 05/12/23 15:53 U Hyaline Cast (Auto) 10-30 /lpf (0-5) H 05/12/23 15:53 U Epithel Cells (Auto) 10-20 /lpf (0-5) H 05/12/23 15:53 Urine Bacteria (Auto) Negative (Negative) 05/12/23 15:53 05/12/23 11:21 Aerobic Blood Culture - Preliminary Blood Gram negative bacilli Anaerobic Blood Culture - Preliminary Gram negative bacilli 05/12/23 11:21 Aerobic Blood Culture - Preliminary Blood Gram negative bacilli Anaerobic Blood Culture - Preliminary Gram negative bacilli 05/12/23 23:56 POC Glucose 148 H Electrocardiogram Date: 05/12/23 Findings: + AFIB @ Echocardiogram Date: 05/12/23 EF: 50-55 Other Findings: + atrial enlargement
--- NOTE | 2023-05-13 07:19 | Critical Care Progress Note ---
Date of Service May 13, 2023 Assessment & Plan (1) Elevated LFTs: (2) Septic shock: (3) CHERRY (acute kidney injury): (4) Sepsis: (5) Acute cholecystitis: (6) Atrial fibrillation, chronic: (7) History of CVA (cerebrovascular accident): (8) Severe mitral regurgitation: Plan Reason Critically Ill: 72-year-old male present to the hospital complains abdominal pain. 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 Continue with statin Cardiac - -- Septic shock Likely from acute cholecystitis Continue broad-spectrum antibiotics Vasopressor support to keep MAP greater than 65 Random cortisol 35 --Elevated troponin Likely type II [place] EKG 05/12/2023, 11:28 AM: A-fib, normal axis, T wave flattening in the lateral leads V1-V3, no ST changes --History of CHF EF 45%, on Entresto at home --A-fib On Xarelto Respiratory - No current issues GI - -- Acute cholecystitis with mild elevation of AST Alk phos within normal limit, possibility of cholangitis is low Surgery on board Continue with antibiotic MRCP negative for cholangitis but did confirm cholecystitis with gallstones RENAL/LYTES - -- CHERRY Likely from hypotension, follow-up urine lites Monitor BUN/creatinine Avoid nephrotoxic medications Strict ins and outs - -- History of prostate cancer Continue with Abdi catheter ENDO - ICU hypoglycemia protocol HEME - Monitor H&H ID - -- Acute cholecystitis with gram-negative bacteremia Klebsiella and Enterobacteriaceae Continue with gram-negative and anaerobic coverage Procalcitonin 85 --> trending down --Prophylaxis VTE: Xarelto on hold GI: None Lines: Peripheral Diet: N.p.o. Plan: In/out: +1.9 L, urine output 1775 We will give 250 mL of bolus. Continue with vasopressor support to keep MAP greater than 65 Try to wean off if able Continue with antibiotic Zosyn. Follow-up sensitivities MRCP was negative for stones in the biliary duct. I have personally spent 36 minutes of critical care time in the direct management of this patient. This is a life/limb threatening event. This includes time spent evaluating patient, direct bedside care, chart review, placing orders, interpretation of diagnostic studies, discussion with consultants, patient, and family members, as well as other required patient management activities. This time is exclusive of all separately billable procedures, and teaching time and separate from and in addition to any other critical care service time. Admission and Anticipated Discharge Date Admission Date: May 12, 2023 Subjective Patient seen and examined at bedside. No acute distress, no adverse events overnight Overall he says that he is feeling better compared to when he came to the hospital Was asking actually when he could go home. He was on 0.07 of Levophed. MAP was in the high 70s. I went down to 0.04 and his map was still greater than 65 Denies any chest pain, no shortness of breath Does complain of right upper quadrant abdominal pain but it has been going on for very long time since his stroke so he is not sure if this is new. Denies any headache, no blurry vision Review of Systems 2 Review of Systems: All systems reviewed & are unremarkable except as noted in Subjective Physical Exam 2 Physical Exam: Constitutional: No acute distress HEENT: EOMI, PERRLA Respiratory system: Good air entry bilaterally, no wheeze, no rhonchi, mild crackles bilateral lower lobes CVS: S1-S2 positive, no murmurs or gallops Abdomen: Soft, nontender, nondistended, positive bowel sounds x4, negative Christine's Extremities: +2 pulses bilaterally radialis/ dorsalis pedis, no cyanosis, no edema Neuro: Awake alert oriented to self and place Psych: Normal mood and affect G/U: No Abdi Skin: no rashes, warm and dry Lymphatic: no cervical or axillary lymphadenopathy Results & Data Results & Data Vital Signs (Past 12 Hours) Vital Signs Temp Pulse Resp BP Pulse Ox 05/13/23 07:15 96 H 05/13/23 06:00 84 20 91 05/13/23 06:00 109/74 05/13/23 05:00 99/59 L 05/13/23 05:00 91 H 19 92 05/13/23 04:00 93 H 21 93 05/13/23 04:00 103/68 05/13/23 03:00 101/65 05/13/23 03:00 80 21 92 05/13/23 03:00 36.9 C 12/01/23 02:00 108/61 05/13/23 02:00 88 22 93 05/13/23 01:00 96/55 L 05/13/23 01:00 77 18 93 05/13/23 00:00 93 H 19 92 05/13/23 00:00 92/53 L 05/13/23 00:00 87 05/12/23 23:00 91/67 L 05/12/23 23:00 91 H 21 93 05/12/23 22:50 98 H 23 93 05/12/23 22:46 86 20 93 05/12/23 22:46 89/63 L 05/12/23 22:45 92 H 20 93 05/12/23 22:45 94/59 L 05/12/23 22:40 91 H 20 93 05/12/23 22:31 37.3 C 05/12/23 22:30 89/51 L 05/12/23 22:30 89 18 93 05/12/23 22:20 85 18 92 05/12/23 22:15 91 H 20 92 05/12/23 22:15 106/59 L 05/12/23 22:10 100 H 92 05/12/23 22:00 101/64 05/12/23 22:00 86 21 93 05/12/23 21:00 99/52 L 05/12/23 21:00 97 H 21 92 05/12/23 20:00 84/51 L 05/12/23 20:00 101 H 24 92 05/12/23 19:33 37.2 C 05/12/23 19:30 87 24 90 05/12/23 19:28 75/45 L 05/12/23 19:28 75/45 L 05/12/23 19:28 101 H 19 85 L 05/12/23 19:26 93/43 L 05/12/23 19:26 85 27 H 87 L 05/12/23 19:25 74/45 L 05/12/23 19:25 92 H 19 05/12/23 19:23 110 H 05/12/23 19:23 75/45 L 05/12/23 19:22 102 H 19 Laboratory Results 05/13/23 03:43 05/13/23 03:43 Coding Level of Care Code 26957 CRITICAL CARE 1ST 30-74M Diagnoses Elevated LFTs R79.89 Septic shock A41.9; R65.21 CHERRY (acute kidney injury) N17.9 Sepsis A41.9 Sepsis acute organ dysfunction status: unspecified Sepsis type: sepsis due to unspecified organism Acute cholecystitis K81.0 Atrial fibrillation, chronic I48.20 History of CVA (cerebrovascular accident) Z86.73 Severe mitral regurgitation I34.0 (4) Sepsis Sepsis acute organ dysfunction status: unspecified Sepsis type: sepsis due to unspecified organism Qualified Code(s): A41.9 - Sepsis, unspecified organism
[2023-05-13] MEDS: THIAMINE HCL 100 MG in SYRINGE 9 ML IV SCH (09:18)
[2023-05-13] MEDS: SODIUM CHLORIDE 0.9% 500 ML IV SCH ×3 (09:19→20:13)
--- NOTE | 2023-05-13 12:46 | Gastroenterology Progress Note ---
Date of Service May 13, 2023 Assessment & Plan (1) Acute hypotension: (2) Elevated LFTs: Plan 1. Continue Zosyn. 2. Keep NPO. 3. ERCP by Dr. Agnes Diaz today. Even though MR w/o evidence of choledocholithiasis, the pt's clinic condition including change in mental statu s/weakness,jaundice, stones in the gallbladder, elevated LFTs w improvement on Zosyn is very suggestive of cholangitis. Further recommendations to follow ERCP. I spoke w his daughter Layla by phone at [phone] and explained the ERCP procedure including risks/benefits. She will be here soon to provide consent and will also be available by phone to provide consent if she hasn't yet arrived. Admission and Anticipated Discharge Date Admission Date: May 12, 2023 Supervising Physician Co-Signing Physician Notes This s of the procedure with the patient's daughter as the patient is presently consent. We did discuss the risks to include bleeding perforation pain follow- up studies. Given the question of cholangitis directlyt to ERCP for treatment. Subjective Pt improved compared to yesterday. Sill on norepinephrine drip. On Zosyn, had Ceftriaxone. Awake, alert. Oriented but still also nonsense/unrelated responses to many questions - likely sequela of stroke. Denies pain. On Xarelto at home, none since arrival early yesterday. Yesterday's nurse said he did not take yesterday (though no written record of that) definitely non since arrival. Review of Systems Review of Systems: weakness - which is improved compared to yesterday. Still pt not a reliable historian - unable to obtain ROS. Physical Exam Constitutional: well developed, well nourished, + ill appearing (chronically) and cooperative ENMT: external ear and nose normal, oropharynx normal Neck: trachea midline, no thyromegaly Respiratory: normal respiratory effort, lungs clear to auscultation Cardiovascular: RRR, no murmurs " mild bilat peripheral edema Gastrointestinal (Abdomen): normal bowel sounds, soft, nontender, no hepatosplenomegaly Skin: mild jaundice Neurologic: right sided weakness, occasional small spastic motions of right leg/foot, otherwise no tremor. Psychiatric: Thought Process: + circumstantial thought process and + looseness of associations Lymphatic: no cervical or axillary lymphadenopathy Results & Data Vital Signs (Past 12 Hours) Vital Signs Temp Pulse Resp BP Pulse Ox O2 Del Method 05/13/23 10:45 Room Air 05/13/23 10:30 87 25 H 93 Room Air 05/13/23 10:30 93/58 L 05/13/23 10:16 87 25 H 93 Room Air 05/13/23 10:16 110/60 05/13/23 10:15 96 H 24 93 Room Air 05/13/23 10:00 94 H 21 92 Room Air 05/13/23 10:00 110/62 05/13/23 09:45 88 22 93 Room Air 05/13/23 09:30 93 H 20 94 Room Air 05/13/23 09:30 107/71 05/13/23 09:15 80 19 93 Room Air 05/13/23 09:00 103/59 L 05/13/23 09:00 81 29 H 92 Room Air 05/13/23 08:45 97 H 23 89 L Room Air 05/13/23 08:30 128/63 05/13/23 08:30 102 H 33 H 93 Room Air 05/13/23 08:15 94 H 23 93 Room Air 05/13/23 08:13 136/118 H 05/13/23 08:13 92 H 19 93 Room Air 05/13/23 08:00 97 H 22 93 Room Air 05/13/23 08:00 106/60 05/13/23 07:45 105/61 05/13/23 07:45 99 H 25 H 94 Room Air 05/13/23 07:30 81 20 92 Room Air 05/13/23 07:30 111/71 05/13/23 07:15 87 20 92 Room Air 05/13/23 07:15 115/66 05/13/23 07:15 96 H 05/13/23 07:00 126/68 05/13/23 07:00 88 19 94 Room Air 05/13/23 06:00 84 20 91 05/13/23 06:00 109/74 05/13/23 05:00 99/59 L 05/13/23 05:00 91 H 19 92 05/13/23 04:00 93 H 21 93 05/13/23 04:00 103/68 05/13/23 03:00 101/65 05/13/23 03:00 80 21 92 05/13/23 03:00 36.9 C 05/13/23 02:00 108/61 05/13/23 02:00 88 22 93 05/13/23 01:00 96/55 L 05/13/23 01:00 77 18 93 Laboratory Results T Bili 1.8, AST 44, ALT 26, Alk Phos 97 Diagnostic Findings Non contrast CTAP 05/12/23: 1. Cholelithiasis with acute cholecystitis. Surgical consultation is advised. 2. Cardiomegaly. 3. Colonic diverticulosis without CT evidence of acute diverticulitis. 4. 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 5. Brachytherapy implants are noted in the prostate.
--- NOTE | 2023-05-13 12:54 | Ultrasound Report ---
Ultrasound-guided cholecystostomy tube placement INDICATION: Acute cholecystitis PROCEDURE: Procedure and risks were explained. Informed consent was obtained. A final timeout was com pleted. The right upper quadrant was prepped and draped in sterile fashion. 1% buffered lidocaine was utilized for skin anesthesia. Utilizing ultrasound guidance, an 18-gauge 10 cm Chiba needle was advanced through a small anterior w edge of liver into the distended gallbladder. Ultrasound images were obtained. A 0.035 cm Amplatz wir e was introduced through the entry needle and exchanged for a 10 Vietnamese locking pigtail catheter. Kelechi roximately 20 mL of purulent gallbladder fluid was aspirated and sent to lab for analysis. The cathet er was then sutured to the skin with 2-0 silk and placed to gravity bag drainage. The patient tolerat ed the procedure well. Vital signs will be monitored postprocedure. IMPRESSION: Cholecystostomy tube placement as above. Performed, dictated, and signed by Alfredo Valdes PA-C; to be co-signed by Dr. Albin Ibarra. Electronically signed by: Albin Ibarra M.D. 05/13/2023 9:53 PM
--- NOTE | 2023-05-13 12:57 | Hospitalist Progress Note ---
Date of Service May 13, 2023 Assessment & Plan (1) Atrial fibrillation, chronic: (2) History of CVA (cerebrovascular accident): (3) HFrEF (heart failure with reduced ejection fraction): (4) Hypotension: (5) Acute cholecystitis: (6) Septic shock: Plan SEPTIC SHOCK ACUTE CHOLECYSTITIS, POSSIBLE ACUTE CHOLANGITIS BACTEREMIA Chest CT: negative for pulmonary congestion MRCP:Cholelithiasis with evidence to suggest acute cholecystitis clinical correlation recommended. Blood cultures: Negative Total bilirubin 3.3, now 1.8 AST/ALT 52, 44/28, 26 Still requiring Levophed IV Zosyn GI consulted, possible ERCP contemplated General surgery consulted ACUTE KIDNEY INJURY LIKELY SECONDARY TO SEPSIS, HYPOTENSION Acute uncontrolled Serum creatinine 2.5 to; baseline 1.2-1.3 Improving to 1.5 Renal ultrasound obtained; no hydronephrosis or renal lesions identified HFrEF: Chronic stable Most recent EF 12/2021 EF 42% Takes Entresto Hyponatremia: serum Na+ 131; suspect related to dehydration received 2.5 L in ED; continue maint. fluids at 75ml.hour Improved to 135 History of CVA: Chronic stable Stroke in L MCA 6 years ago Takes Xarelto; hold for now due to possible surgery intervention Atrial fibrillation: Chronic stable Permanent A-fib Take Xarelto; hold for now due to possible surgical intervention Takes metoprolol; hold for hypotension Disposition: PCP Dr. Arroyo CODE STATUS: Full code; confirmed with patient and POA who is patient's daughter Layla VTE prophylaxis: Teds and SCDs for now Admission and Anticipated Discharge Date Admission Date: May 12, 2023 Subjective Follow-up for septic shock, etc. Seen resting in bed, comfortable Awake and alert, oriented x3 States he feels fine overall Denies active abdominal pain on exam No nausea or vomiting, shortness of breath, fevers or chills Denies any other symptoms Review of Systems Review of Systems: all noted and negative except for above Physical Exam 2 Physical Exam: General- oriented x 2, not in distress, speaks in sentences with no effort or accessory muscle use Eyes- anicteric Neck- no JVD Lungs- clear breath sounds bilaterally, no crackles or wheezing Heart- normal rate, regular rhythm; no murmurs Abdomen- normal bowel sounds, nondistended, soft, no tenderness Extremities- no pretibial edema, no calf tenderness Neuro- alert, oriented x 2; no gross focal neurologic deficits Skin- warm & dry Results & Data Results & Data Vital Signs (Past 12 Hours) Vital Signs Temp Pulse Pulse Resp BP BP Pulse Ox 05/13/23 12:37 90 20 112/82 93 05/13/23 12:30 112/82 05/13/23 12:30 83 23 94 05/13/23 12:15 93 H 22 92 05/13/23 12:15 106/81 05/13/23 12:12 120/82 05/13/23 12:12 93 H 22 93 05/13/23 12:03 96 H 20 94 05/13/23 12:03 125/84 05/13/23 12:01 87 27 H 94 05/13/23 11:00 77 25 H 93 05/13/23 11:00 95/74 L 05/13/23 10:46 84 20 93 05/13/23 10:46 103/57 L 05/13/23 10:45 89 27 H 94 05/13/23 10:45 05/13/23 10:30 87 25 H 93 05/13/23 10:30 93/58 L 05/13/23 10:16 87 25 H 93 05/13/23 10:16 110/60 05/13/23 10:15 96 H 24 93 05/13/23 10:00 94 H 21 92 05/13/23 10:00 110/62 05/13/23 09:45 88 22 93 05/13/23 09:30 93 H 20 94 05/13/23 09:30 107/71 05/13/23 09:15 80 19 93 05/13/23 09:00 103/59 L 05/13/23 09:00 81 29 H 92 05/13/23 08:45 97 H 23 89 L 05/13/23 08:30 128/63 05/13/23 08:30 102 H 33 H 93 05/13/23 08:15 94 H 23 93 05/13/23 08:13 136/118 H 05/13/23 08:13 92 H 19 93 05/13/23 08:00 97 H 22 93 05/13/23 08:00 106/60 05/13/23 07:45 105/61 05/13/23 07:45 99 H 25 H 94 05/13/23 07:30 81 20 92 05/13/23 07:30 111/71 05/13/23 07:15 87 20 92 05/13/23 07:15 115/66 05/13/23 07:15 96 H 05/13/23 07:00 126/68 05/13/23 07:00 88 19 94 05/13/23 06:00 84 20 91 05/13/23 06:00 109/74 05/13/23 05:00 99/59 L 05/13/23 05:00 91 H 19 92 05/13/23 04:00 93 H 21 93 05/13/23 04:00 103/68 05/13/23 03:00 101/65 05/13/23 03:00 80 21 92 05/13/23 03:00 36.9 C 05/13/23 02:00 108/61 05/13/23 02:00 88 22 93 05/13/23 01:00 96/55 L 05/13/23 01:00 77 18 93 O2 Del Method 05/13/23 12:37 Room Air 05/13/23 12:30 05/13/23 12:30 Room Air 05/13/23 12:15 Room Air 05/13/23 12:15 05/13/23 12:12 05/13/23 12:12 Room Air 05/13/23 12:03 Room Air 05/13/23 12:03 05/13/23 12:01 Room Air 05/13/23 11:00 Room Air 05/13/23 11:00 05/13/23 10:46 Room Air 05/13/23 10:46 05/13/23 10:45 Room Air 05/13/23 10:45 Room Air 05/13/23 10:30 Room Air 05/13/23 10:30 05/13/23 10:16 Room Air 05/13/23 10:16 05/13/23 10:15 Room Air 05/13/23 10:00 Room Air 05/13/23 10:00 05/13/23 09:45 Room Air 05/13/23 09:30 Room Air 05/13/23 09:30 05/13/23 09:15 Room Air 05/13/23 09:00 05/13/23 09:00 Room Air 05/13/23 08:45 Room Air 05/13/23 08:30 05/13/23 08:30 Room Air 05/13/23 08:15 Room Air 05/13/23 08:13 05/13/23 08:13 Room Air 05/13/23 08:00 Room Air 05/13/23 08:00 05/13/23 07:45 05/13/23 07:45 Room Air 05/13/23 07:30 Room Air 05/13/23 07:30 05/13/23 07:15 Room Air 05/13/23 07:15 05/13/23 07:15 05/13/23 07:00 05/13/23 07:00 Room Air 05/13/23 06:00 05/13/23 06:00 05/13/23 05:00 05/13/23 05:00 05/13/23 04:00 05/13/23 04:00 05/13/23 03:00 05/13/23 03:00 05/13/23 03:00 05/13/23 02:00 05/13/23 02:00 05/13/23 01:00 05/13/23 01:00 all noted and reviewed including below
[2023-05-13] MEDS ORDERED: ePHEDrine sulfate 50 MG/ML AMP IV PRN (13:33)
[2023-05-13] MEDS ORDERED: ATROPINE SULFATE 0.1 MG/ML 10ML SYR IV PRN (13:33)
[2023-05-13] MEDS ORDERED: fentaNYL citrate PF 100 MCG/2 ML VIAL IV PRN (13:33)
[2023-05-13] MEDS ORDERED: ONDANSETRON INJ 2 MG/ML 2 ML VIAL IV PRN (13:33)
--- NOTE | 2023-05-13 13:46 | History & Physical Bridge Note ---
Date of Service May 13, 2023 History & Physical Bridge Note I have examined the patient, reviewed the History & Physical and in the interval since the performance of the History & Physical I have noted the following changes of clinical significance: no changes noted I saw and evaluated the patient, patient presented with signs and symptoms suggestive of cholangitis with elevated liver enzymes in addition to gram- negative leila sepsis. He did undergo cholecystostomy placement and to proceed further treatment with ERCP today. I did discuss risks and benefits of the procedure with the patient's daughter as the patient is presently consent. We did discuss the risks to include bleeding perforation pain follow-up studies. Given the question of cholangitis directlyt to ERCP for treatment.
[2023-05-13] MEDS ORDERED: PROPOFOL IV EMULSION 10 MG/ML 20 ML VIAL IV ONE (13:50)
[2023-05-13] MEDS ORDERED: fentaNYL citrate PF 100 MCG/2 ML VIAL ONE (13:50)
[2023-05-13] MEDS ORDERED: INDOMETHACIN 50 MG SUPP PR ONE ×2 (14:01→14:02)
--- NOTE | 2023-05-13 14:25 | Electrocardiogram Report ---
Test Reason : Blood Pressure : / mmHG Vent. Rate : 083 BPM Atrial Rate : 000 BPM P-R Int : 000 ms QRS Dur : 086 ms QT Int : 358 ms P-R-T Axes : 000 075 048 degrees QTc Int : 420 ms Atrial fibrillation Nonspecific ST abnormality Abnormal ECG When compared with ECG of 29-MAY-2021 11:08, Nonspecific T wave abnormality now evident in Anterior leads Nonspecific T wave abnormality no longer evident in Lateral leads QT has shortened Confirmed by David Diamond ([id number]) on 05/13/2023 2:25:16 PM Referred By: REFERRED SELF Confirmed By:J Carlos Diamond
--- NOTE | 2023-05-13 14:54 | Post Operative Brief Note ---
Immediate Post Op Note v1 Date of Surgery May 13, 2023 Pre & Post Diagnosis Operation Date: 05/13/23 09:35 Pre-Op Diagnosis: gallstones Post-Op Diagnosis: balloon sweep, stent placed I identified the patient and participated in the time-out.: Yes Procedure Operation Date: 05/13/23 09:35 Actual Procedures p Endoscopic Retrograde Cholangiopancreato(Not Applicable) - Agnes Diaz DO Surgeon Agnes Diaz, Quarry Supervisor Open Pit none Estimated Blood Loss 0 Findings Consistent with Post-Op Diagnosis
--- NOTE | 2023-05-13 14:56 | Communication Note ---
Date of Service: May 13, 2023 The patient underwent ERCP this afternoon for suspected cholangitis. The patient was found to have evidence of a small stone in the distal common bile duct in addition to pus within the common bile duct consistent with cholangitis. This was treated with a very sphincterotomy, gallstone extraction and biliary stent insertion. Recommendations avoid anti-coagulation for 72 hours if possible please Use of nonsteroidals for 1 week Antibiotic coverage for total of 14 days Stent revmoval in 6 to 8 weeks If the Patient is deemed not a candidate for cholecystectomy we could plan for placement of a Axios stent to the gallbladder via the duodenum.
[2023-05-13] MEDS ORDERED: DEXAMETHASONE SOD INJ 4 MG/ML VIAL ONE (15:00)
[2023-05-13] MEDS ORDERED: LIDOCAINE 2% 2 ML VIAL/AMP(20MG/ML) INFIL ONE (15:00)
[2023-05-13] MEDS ORDERED: ONDANSETRON INJ 2 MG/ML 2 ML VIAL ONE (15:00)
--- NOTE | 2023-05-13 15:00 | GI REPORT ---
Patient Name: Crow Sullivan Procedure Date: 05/13/2023 1:59 PM Date of : 1950 Admit Type: Inpatient Age: 72 Gender: Male Attending MD: Agnes Diaz DO, Procedure: ERCP Providers: Agnes Diaz DO Referring MD: Munir Sykes Indications: Abdominal pain of suspected biliary origin, Suspected ascending cholangitis Medicines: General Anesthesia Complications: No immediate complications. Estimated blood loss: Minimal. Estimated Blood Loss: Estimated blood loss was minimal. Procedure: Pre-Anesthesia Assessment: - Prior to the procedure, a History and Physical was performed, and patient medications, allergies and sensitivities were reviewed. The patient's tolerance of previous anesthesia was reviewed. - The risks and benefits of the procedure and the sedation options and risks were discussed with the patient. All questions were answered and informed consent was obtained. - Patient identification and proposed procedure were verified prior to the procedure by the physician, the nurse and the monotype mechanic. The procedure was verified in the procedure room. - Pre-procedure physical examination revealed no contraindications to sedation. - ASA Grade Assessment: IV - A patient with severe systemic disease that is a constant threat to life. - After reviewing the risks and benefits, the patient was deemed in satisfactory condition to undergo the procedure. - The anesthesia plan was to use general anesthesia. - Immediately prior to administration of medications, the patient was re-assessed for adequacy to receive sedatives. - The heart rate, respiratory rate, oxygen saturations, blood pressure, adequacy of pulmonary ventilation, and response to care were monitored throughout the procedure. - The physical status of the patient was re-assessed after the procedure. After obtaining informed consent, the scope was passed under direct vision. Throughout the procedure, the patient's blood pressure, pulse, and oxygen saturations were monitored continuously. The Duodenoscope was introduced through the mouth, and advanced to the duodenum and used to inject contrast into the bile duct. The ERCP was accomplished without difficulty. The patient tolerated the procedure well. Findings: A rn field film of the abdomen was obtained. Percutaneous drain(s) were seen consistent with recent placement of the cholecystostomy tube\. The esophagus was successfully intubated under direct vision without detailed examination of the pharynx, larynx, and associated structures, and upper GI tract. The upper GI tract was grossly normal. The major papilla was edematous. The bile duct was deeply cannulated with the short-nosed traction sphincterotome and guidewire, the pancreatic duct was not injected or cannulated today. Contrast was injected. I personally interpreted the bile duct images. Contrast extended to the hepatic ducts. The lower third of the main bile duct contained filling defect(s) thought to be a stone. Biliary sphincterotomy was made with a monofilament Fusion OMNI sphincterotome using ERBE electrocautery. There was no post-sphincterotomy bleeding. To discover objects, the biliary tree was swept with a 12 mm balloon starting at the bifurcation. One stone was removed. No stones remained. Sludge was swept from the duct. Pus was swept from the duct. One 10 Fr by 7 cm biliary stent with a single external flap and a single internal flap was placed 7 cm into the common bile duct. Bile and pus flowed through the stent. The stent was in good position. The endoscope was withdrawn from the patient. Indomethacin 100 mg was given via suppository to decrease the risk of post-ERCP pancreatitis (PEP). Impression: - The major papilla appeared edematous. - A filling defect consistent with a stone was seen on the cholangiogram. - Choledocholithiasis and cholangitis was found. Complete removal was accomplished by biliary sphincterotomy and balloon extraction. - One biliary stent was placed into the common bile duct. - Indomethacin given to decrease risk of post-ERCP pancreatitis. Recommendation: - Avoid aspirin and nonsteroidal anti-inflammatory medicines for 1 week. - Clear liquid diet today. - Use broad spectrum antibiotics for 2 weeks. - Repeat ERCP in 6 weeks to remove stent. - Patient not a candidate for cholecystectomy and Axios stent to the gallbladder could certainly be considered for definitive management of cholelithiasis Agnes Diaz D.O. Agnes Diaz DO 05/13/2023 3:00:12 PM This report has been signed electronically. Note Initiated On: 05/13/2023 1:59 PM Number of Addenda: 0 I attest to the content of the Intraoperative Record and orders documented therein, exceptions below {[id number]}
--- NOTE | 2023-05-13 15:04 | Fluoroscopy Report ---
[place] ERCP biliary ductal CLINICAL HISTORY: ERCP TECHNIQUE: 7 views were obtained with the C-arm in the OR with the above procedure. Total fluoroscopy time was 28.6 seconds. Radiation dose was 4.31 mGy. Comparison: Comparison is made to MRCP 05/12/2023 FINDINGS/IMPRESSION: Intraoperative images were obtained of ERCP. No filling defects are seen in the final image. Please correlate with intraoperative fluoroscopy and operative report. ACT 112: Negative or not required by law. Electronically signed by: Albin Ibarra M.D. 05/13/2023 3:02 PM
--- NOTE | 2023-05-13 15:39 | Anesthesiology Progress Note ---
Date of Service May 13, 2023 Anesthesia Post Procedure Vital Signs Vital Signs: Temp Pulse Pulse Resp BP BP Pulse Ox 05/13/23 13:00 83 22 92 05/13/23 13:00 99/71 L 05/13/23 12:50 90 25 H 92 05/13/23 12:50 100/75 05/13/23 12:49 93 H 25 H 93 05/13/23 12:49 114/68 05/13/23 12:44 122/64 05/13/23 12:44 87 24 94 05/13/23 12:40 93 H 23 93 05/13/23 12:37 90 20 112/82 93 05/13/23 12:30 112/82 05/13/23 12:30 83 23 94 05/13/23 12:15 93 H 22 92 05/13/23 12:15 106/81 05/13/23 12:12 120/82 05/13/23 12:12 93 H 22 93 05/13/23 12:03 96 H 20 94 05/13/23 12:03 125/84 05/13/23 12:01 87 27 H 94 05/13/23 11:00 77 25 H 93 05/13/23 11:00 95/74 L 05/13/23 10:46 84 20 93 05/13/23 10:46 103/57 L 05/13/23 10:45 89 27 H 94 05/13/23 10:45 05/13/23 10:30 87 25 H 93 05/13/23 10:30 93/58 L 05/13/23 10:16 87 25 H 93 05/13/23 10:16 110/60 05/13/23 10:15 96 H 24 93 05/13/23 10:00 94 H 21 92 05/13/23 10:00 110/62 05/13/23 09:45 88 22 93 05/13/23 09:30 93 H 20 94 05/13/23 09:30 107/71 05/13/23 09:15 80 19 93 05/13/23 09:00 103/59 L 05/13/23 09:00 81 29 H 92 05/13/23 08:45 97 H 23 89 L 05/13/23 08:30 128/63 05/13/23 08:30 102 H 33 H 93 05/13/23 08:15 94 H 23 93 05/13/23 08:13 136/118 H 05/13/23 08:13 92 H 19 93 05/13/23 08:00 97 H 22 93 05/13/23 08:00 106/60 05/13/23 07:45 105/61 05/13/23 07:45 99 H 25 H 94 05/13/23 07:30 81 20 92 05/13/23 07:30 111/71 05/13/23 07:15 87 20 92 05/13/23 07:15 115/66 05/13/23 07:15 96 H 05/13/23 07:00 126/68 05/13/23 07:00 88 19 94 05/13/23 06:00 84 20 91 05/13/23 06:00 109/74 05/13/23 05:00 99/59 L 05/13/23 05:00 91 H 19 92 05/13/23 04:00 93 H 21 93 05/13/23 04:00 103/68 05/13/23 03:00 101/65 05/13/23 03:00 80 21 92 05/13/23 03:00 98.4 F 05/13/23 02:00 108/61 05/13/23 02:00 88 22 93 05/13/23 01:00 96/55 L 05/13/23 01:00 77 18 93 05/13/23 00:00 93 H 19 92 05/13/23 00:00 92/53 L 05/13/23 00:00 87 05/12/23 23:00 91/67 L 05/12/23 23:00 91 H 21 93 05/12/23 22:50 98 H 23 93 05/12/23 22:46 86 20 93 05/12/23 22:46 89/63 L 05/12/23 22:45 92 H 20 93 05/12/23 22:45 94/59 L 05/12/23 22:40 91 H 20 93 05/12/23 22:31 99.1 F 05/12/23 22:30 89/51 L 05/12/23 22:30 89 18 93 05/12/23 22:20 85 18 92 05/12/23 22:15 91 H 20 92 05/12/23 22:15 106/59 L 05/12/23 22:10 100 H 92 05/12/23 22:00 101/64 05/12/23 22:00 86 21 93 05/12/23 21:00 99/52 L 05/12/23 21:00 97 H 21 92 05/12/23 20:00 84/51 L 05/12/23 20:00 101 H 24 92 05/12/23 19:33 99.0 F 05/12/23 19:30 87 24 90 05/12/23 19:28 75/45 L 05/12/23 19:28 75/45 L 05/12/23 19:28 101 H 19 85 L 05/12/23 19:26 93/43 L 05/12/23 19:26 85 27 H 87 L 05/12/23 19:25 74/45 L 05/12/23 19:25 92 H 19 05/12/23 19:23 110 H 05/12/23 19:23 75/45 L 05/12/23 19:22 102 H 19 05/12/23 18:01 91 H 23 90 05/12/23 18:01 99/57 L 05/12/23 17:01 92/60 L 05/12/23 17:01 97 H 42 H 90 05/12/23 17:00 98.8 F 05/12/23 16:05 93/60 L 05/12/23 16:01 92 H 23 05/12/23 16:01 87/60 L 05/12/23 16:00 98 F 96 H 20 93/60 L O2 Del Method 05/13/23 13:00 Room Air 05/13/23 13:00 05/13/23 12:50 Room Air 05/13/23 12:50 05/13/23 12:49 Room Air 05/13/23 12:49 05/13/23 12:44 05/13/23 12:44 Room Air 05/13/23 12:40 Room Air 05/13/23 12:37 Room Air 05/13/23 12:30 05/13/23 12:30 Room Air 05/13/23 12:15 Room Air 05/13/23 12:15 05/13/23 12:12 05/13/23 12:12 Room Air 05/13/23 12:03 Room Air 05/13/23 12:03 05/13/23 12:01 Room Air 05/13/23 11:00 Room Air 05/13/23 11:00 05/13/23 10:46 Room Air 05/13/23 10:46 05/13/23 10:45 Room Air 05/13/23 10:45 Room Air 05/13/23 10:30 Room Air 05/13/23 10:30 05/13/23 10:16 Room Air 05/13/23 10:16 05/13/23 10:15 Room Air 05/13/23 10:00 Room Air 05/13/23 10:00 05/13/23 09:45 Room Air 05/13/23 09:30 Room Air 05/13/23 09:30 05/13/23 09:15 Room Air 05/13/23 09:00 05/13/23 09:00 Room Air 05/13/23 08:45 Room Air 05/13/23 08:30 05/13/23 08:30 Room Air 05/13/23 08:15 Room Air 05/13/23 08:13 05/13/23 08:13 Room Air 05/13/23 08:00 Room Air 05/13/23 08:00 05/13/23 07:45 05/13/23 07:45 Room Air 05/13/23 07:30 Room Air 05/13/23 07:30 05/13/23 07:15 Room Air 05/13/23 07:15 05/13/23 07:15 05/13/23 07:00 05/13/23 07:00 Room Air 05/13/23 06:00 05/13/23 06:00 05/13/23 05:00 05/13/23 05:00 05/13/23 04:00 05/13/23 04:00 05/13/23 03:00 05/13/23 03:00 05/13/23 03:00 05/13/23 02:00 05/13/23 02:00 05/13/23 01:00 05/13/23 01:00 05/13/23 00:00 05/13/23 00:00 05/13/23 00:00 05/12/23 23:00 05/12/23 23:00 05/12/23 22:50 05/12/23 22:46 05/12/23 22:46 05/12/23 22:45 05/12/23 22:45 05/12/23 22:40 05/12/23 22:31 05/12/23 22:30 05/12/23 22:30 05/12/23 22:20 05/12/23 22:15 05/12/23 22:15 05/12/23 22:10 05/12/23 22:00 05/12/23 22:00 05/12/23 21:00 05/12/23 21:00 05/12/23 20:00 05/12/23 20:00 05/12/23 19:33 05/12/23 19:30 05/12/23 19:28 05/12/23 19:28 05/12/23 19:28 05/12/23 19:26 05/12/23 19:26 05/12/23 19:25 05/12/23 19:25 05/12/23 19:23 05/12/23 19:23 05/12/23 19:22 05/12/23 18:01 05/12/23 18:01 05/12/23 17:01 05/12/23 17:01 05/12/23 17:00 05/12/23 16:05 05/12/23 16:01 05/12/23 16:01 05/12/23 16:00 Transfer of Care Handoff Completed per policy Notes Mental Status: alert / awake / arousable and participated in evaluation Patient Amnestic to Procedure: Yes Nausea / Vomiting: adequately controlled Pain: adequately controlled Airway Patency, RR, SpO2: stable & adequate BP & HR: stable & adequate Hydration State: stable & adequate Anesthetic Complications: no major complications apparent and Pt Satisfied with anesthetic care
[2023-05-14] MEDS: SODIUM CHLORIDE 0.9% 1,000 ML IV SCH ×2 (01:36→20:00)
[2023-05-14 02:22] LABS: Calcium 7.8 mg/dl (8.6-10.3); Magnesium 2.5 mg/dl (1.7-2.4); Potassium 4.7 mmol/L (3.5-5.1)
[2023-05-14 02:28] LABS: BUN Creatinine Ratio 29.3 (10-20); Creatinine Clr Calc Pharmacy 57.6 ml/min; Est GFR (Non-African American) 52.7 ml/min
[2023-05-14 02:49] LABS: Basophils # (auto) 0.01 K/uL (0.00-0.20); Basophils % (auto) 0.2 %; Hematocrit (blood only) 46.2 % (42.0-52.0); Hemoglobin 15.7 g/dl (14.0-18.0); Immature Granulocytes # (auto) 0.03 K/uL (0.01-0.20); Immature Granulocytes % (auto) 0.5 %; Lymphocytes # (auto) 0.35 K/uL (1.20-3.40); Lymphocytes % (auto) 5.7 %; Mean Corpuscular Hemoglobin 33.3 pg (25.0-34.0); Mean Corpuscular Volume 97.9 fL (80.0-100.0); Monocytes # (auto) 0.29 K/uL (0.11-0.59); Monocytes % (auto) 4.7 %; Neutrophils # (auto) 5.45 K/uL (1.40-6.50); Neutrophils % (auto) 88.9 %; Platelet Count 151 K/uL (130-400); RDW Coefficient of Variation 12.8 % (11.5-14.5); RDW Standard Deviation 46.1 fL (36.4-46.3); Red Blood Count 4.72 M/uL (4.70-6.10); White Blood Count 6.13 K/ul (4.8-10.8)
[2023-05-14] MEDS: PIPERACILLIN/TAZOBACTAM 4.5 GM in DEXTROSE 5% MINI-B 100 ML IV SCH (03:16)
--- NOTE | 2023-05-14 07:51 | Critical Care Progress Note ---
Date of Service May 14, 2023 Assessment & Plan (1) Elevated LFTs: (2) Septic shock: (3) CHERRY (acute kidney injury): (4) Sepsis: (5) Acute cholecystitis: (6) Atrial fibrillation, chronic: (7) History of CVA (cerebrovascular accident): (8) Severe mitral regurgitation: Plan Reason Critically Ill: 72-year-old male present to the hospital complains abdominal pain. 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 Continue with statin Cardiac - -- Septic shock Likely from acute cholecystitis Continue broad-spectrum antibiotics Vasopressor support to keep MAP greater than 65 Random cortisol 35 --Elevated troponin Likely type II NE EKG 05/12/2023, 11:28 AM: A-fib, normal axis, T wave flattening in the lateral leads V1-V3, no ST changes --History of CHF EF 45%, on Entresto at home --A-fib On Xarelto Respiratory - No current issues GI - -- Acute cholecystitis with mild elevation of AST Alk phos within normal limit, possibility of cholangitis is low Surgery on board Continue with antibiotic MRCP negative for cholangitis but did confirm cholecystitis with gallstones S/p ERCP 05/13/2023 which showed choledocholithiasis, stent was placed. --> Removal of stent would be in 6 to 8 weeks Possibility of Axios stent to the gallbladder while at duodenum versus cholecystostomy RENAL/LYTES - -- CHERRY --> improving Likely from hypotension Monitor BUN/creatinine Avoid nephrotoxic medications Strict ins and outs - -- History of prostate cancer Continue with Abdi catheter ENDO - ICU hypoglycemia protocol HEME - Monitor H&H ID - -- Acute cholecystitis with gram-negative bacteremia Klebsiella pansensitive Continue with gram-negative and anaerobic coverage Zosyn changed to Rocephin on 06-04 Procalcitonin 85 --> trending down --Prophylaxis VTE: Xarelto on hold GI: None Lines: Peripheral Diet: Cardiac low fat Plan: In/out: +1675 urine output 1925, +3.6 L since coming to the hospital S/p ERCP 05/13/2023, no anticoagulation for 72 hours Zosyn to Rocephin. Patient's blood pressure did go down when he was put to the chair. Levophed had to be restarted at 0.02 mics. 500 mL bolus was given to the patient I will see how the patient responds in the next 12-24 hours. If he still requiring low-dose of Levophed then I will start him on midodrine Repeat blood cultures today 12 PM which will be 48 hours from the last one Patient's daughter was updated on the phone regarding patient's condition I have personally spent 36 minutes of critical care time in the direct management of this patient. This is a life/limb threatening event. This includes time spent evaluating patient, direct bedside care, chart review, placing orders, interpretation of diagnostic studies, discussion with consultants, patient, and family members, as well as other required patient management activities. This time is exclusive of all separately billable procedures, and teaching time and separate from and in addition to any other critical care service time. Admission and Anticipated Discharge Date Admission Date: May 12, 2023 Subjective Patient seen and examined at bedside. No acute distress, no adverse events overnight Patient is MAP when I entered the room was 69 with SBP in the 90s He was made to sit on the chair and his blood pressure did drop into the systolic 70s. Although he was not complaining of any dizziness Denies any chest pain, no nausea vomiting Asking for food Review of Systems 2 Review of Systems: All systems reviewed & are unremarkable except as noted in Subjective Physical Exam 2 Physical Exam: Constitutional: No acute distress HEENT: EOMI, PERRLA Respiratory system: Good air entry bilaterally, no wheeze, no rhonchi, mild crackles bilateral lower lobes CVS: S1-S2 positive, no murmurs or gallops Abdomen: Soft, nontender, nondistended, positive bowel sounds x4, negative Christine's Extremities: +2 pulses bilaterally radialis/ dorsalis pedis, no cyanosis, no edema Neuro: Awake alert oriented to self and place Psych: Normal mood and affect G/U: No Abdi Skin: no rashes, warm and dry Lymphatic: no cervical or axillary lymphadenopathy Results & Data Results & Data Vital Signs (Past 12 Hours) Vital Signs Temp Pulse Pulse Resp BP BP Pulse Ox 05/14/23 05:00 84 18 91 05/14/23 05:00 88/61 L 05/14/23 04:01 81 21 91 05/14/23 04:01 93/60 L 05/14/23 03:00 100/63 05/14/23 03:00 87 14 90 05/14/23 02:00 74 17 93 05/14/23 02:00 97/65 L 05/14/23 01:30 36.3 C L 05/14/23 01:00 85/59 L 05/14/23 01:00 85 17 92 05/14/23 00:00 79 12 92 05/14/23 00:00 95/67 L 05/14/23 00:00 88 05/13/23 23:00 36.5 C 85 16 94/65 L 91 05/13/23 22:00 80 17 93 05/13/23 22:00 111/69 05/13/23 21:00 96/62 L 05/13/23 20:00 90 14 93 05/13/23 20:00 102/62 05/13/23 20:00 O2 Del Method 05/14/23 05:00 05/14/23 05:00 05/14/23 04:01 05/14/23 04:01 05/14/23 03:00 05/14/23 03:00 05/14/23 02:00 05/14/23 02:00 05/14/23 01:30 05/14/23 01:00 05/14/23 01:00 05/14/23 00:00 05/14/23 00:00 05/14/23 00:00 05/13/23 23:00 Room Air 05/13/23 22:00 05/13/23 22:00 05/13/23 21:00 05/13/23 20:00 05/13/23 20:00 05/13/23 20:00 Room Air Laboratory Results 05/14/23 01:44 05/14/23 01:44 Coding Level of Care Code 24725 CRITICAL CARE 1ST 30-74M Diagnoses Elevated LFTs R79.89 Septic shock A41.9; R65.21 CHERRY (acute kidney injury) N17.9 Sepsis A41.9 Sepsis acute organ dysfunction status: unspecified Sepsis type: sepsis due to unspecified organism Acute cholecystitis K81.0 Atrial fibrillation, chronic I48.20 History of CVA (cerebrovascular accident) Z86.73 Severe mitral regurgitation I34.0 (4) Sepsis Sepsis acute organ dysfunction status: unspecified Sepsis type: sepsis due to unspecified organism Qualified Code(s): A41.9 - Sepsis, unspecified organism
[2023-05-14] MEDS: THIAMINE HCL 100 MG in SYRINGE 9 ML IV SCH (08:48)
[2023-05-14] MEDS ORDERED: SODIUM CHLORIDE 0.9% 450 ML IV ONE (09:40)
[2023-05-14] MEDS: cefTRIAXone SODIUM 2,000 MG in DEXTROSE 5 % MINI-B 50 ML IV SCH (12:05)
[2023-05-14] MEDS: NOREPINEPHRINE/D5W 4 MG/250 ML PLCT IV SCH ×2 (13:12→19:33)
--- NOTE | 2023-05-14 18:54 | Hospitalist Progress Note ---
Date of Service May 14, 2023 delayed entry date of service noted above Assessment & Plan (1) Atrial fibrillation, chronic: (2) History of CVA (cerebrovascular accident): (3) HFrEF (heart failure with reduced ejection fraction): (4) Hypotension: (5) Acute cholecystitis: (6) Septic shock: Plan SEPTIC SHOCK ACUTE CHOLECYSTITIS, POSSIBLE ACUTE CHOLANGITIS BACTEREMIA Chest CT: negative for pulmonary congestion MRCP:Cholelithiasis with evidence to suggest acute cholecystitis clinical correlation recommended. Blood cultures: Negative Total bilirubin 3.3, now 1.8 AST/ALT 52, 44/28, 26 Still requiring Levophed IV Zosyn GI consulted, possible ERCP contemplated General surgery consulted 05/14 s/p ERCP Perc Gill tube placement still on Levophed continue IV abx ACUTE KIDNEY INJURY LIKELY SECONDARY TO SEPSIS, HYPOTENSION Acute uncontrolled Serum creatinine 2.5 to; baseline 1.2-1.3 Improving to 1.5 Renal ultrasound obtained; no hydronephrosis or renal lesions identified HFrEF: Chronic stable Most recent EF 12/2021 EF 42% Takes Entresto Hyponatremia: serum Na+ 131; suspect related to dehydration received 2.5 L in ED; continue maint. fluids at 75ml.hour Improved to 135 History of CVA: Chronic stable Stroke in L MCA 6 years ago Takes Xarelto; hold for now due to possible surgery intervention Atrial fibrillation: Chronic stable Permanent A-fib Take Xarelto; hold for now due to possible surgical intervention Takes metoprolol; hold for hypotension Disposition: PCP Dr. Arroyo CODE STATUS: Full code; confirmed with patient and POA who is patient's daughter Layla VTE prophylaxis: Teds and SCDs for now Admission and Anticipated Discharge Date Admission Date: May 12, 2023 Subjective ff up for septic shock, etc seen resting in bed, comfortable in good spirits states he feels fine overall no chest pain, dyspnea, palpitations, dizziness no abdominal pain, nausea, fever no other symptoms Review of Systems Review of Systems: all noted and negative except for above Physical Exam Physical Exam: General- oriented x 3, not in distress, speaks in sentences with no effort or accessory muscle use Eyes- anicteric Neck- no JVD Lungs- clear breath sounds bilaterally, no rales/wheezes Heart- normal rate, regular rhythm; no murmurs Abdomen- normal bowel sounds, nondistended, soft, nontender Extremities- no pretibial edema, no calf tenderness Neuro- alert, oriented x 3; no gross focal neurologic deficits Skin- warm & dry Results & Data Results & Data Vital Signs (Past 12 Hours) Vital Signs Pulse Resp BP Pulse Ox O2 Del Method 05/14/23 18:00 88/56 L 05/14/23 18:00 90 19 93 05/14/23 17:50 95 H 19 92 05/14/23 17:50 93/70 L 05/14/23 17:45 88 21 93 05/14/23 17:41 83/66 L 05/14/23 17:41 85 20 94 05/14/23 17:30 96 H 20 92 05/14/23 17:27 104 H 21 91 05/14/23 17:27 89/54 L 05/14/23 17:15 96 H 19 91 05/14/23 17:02 88 20 92 05/14/23 17:00 104 H 22 91 05/14/23 16:50 93/62 L 05/14/23 16:50 95 H 18 93 05/14/23 16:45 84 17 92 05/14/23 16:41 99 H 20 92 05/14/23 16:41 84/65 L 05/14/23 16:40 83 19 92 05/14/23 16:30 114/67 05/14/23 16:30 80 24 92 05/14/23 16:21 108/60 05/14/23 16:21 87 15 94 05/14/23 16:20 95 H 29 H 93 05/14/23 16:10 88 19 92 05/14/23 16:00 114/67 05/14/23 16:00 95 H 29 H 94 05/14/23 15:50 95 H 16 92 05/14/23 15:46 81 05/14/23 15:45 90 17 93 05/14/23 15:45 103/75 05/14/23 15:30 100/76 05/14/23 15:30 93 H 23 94 05/14/23 15:16 76 19 93 05/14/23 15:16 109/71 05/14/23 15:15 85 19 94 05/14/23 15:11 97 H 16 93 05/14/23 15:11 80/54 L 05/14/23 15:00 92/49 L 05/14/23 15:00 89 18 92 05/14/23 14:45 84 19 93 05/14/23 14:45 109/70 05/14/23 14:30 87 26 H 93 05/14/23 14:30 105/69 05/14/23 14:17 97 H 19 85 L 05/14/23 14:15 97 H 27 H 89 L 05/14/23 14:12 84 17 83 L 05/14/23 14:12 119/75 05/14/23 14:00 85 20 84 L 05/14/23 13:51 78 18 90 05/14/23 13:51 111/67 05/14/23 13:45 83 18 93 05/14/23 13:35 83 22 94 05/14/23 13:35 103/62 05/14/23 13:31 70 16 93 05/14/23 13:31 96/83 L 05/14/23 13:30 92 H 19 94 05/14/23 13:21 93 H 18 95 05/14/23 13:21 103/69 05/14/23 13:16 102/55 L 05/14/23 13:16 79 22 93 05/14/23 13:15 90 19 95 05/14/23 13:06 83 18 92 05/14/23 13:06 139/71 05/14/23 13:00 100 H 18 95 05/14/23 13:00 123/88 05/14/23 12:56 85 20 94 05/14/23 12:56 130/101 H 05/14/23 12:51 87 22 93 05/14/23 12:51 95/55 L 05/14/23 12:46 100 H 20 94 05/14/23 12:46 106/77 05/14/23 12:45 94 H 18 94 05/14/23 12:39 84 22 93 05/14/23 12:39 115/95 05/14/23 12:30 94 H 17 95 05/14/23 12:25 78 19 94 05/14/23 12:25 101/61 05/14/23 12:20 90 18 93 05/14/23 12:20 93/54 L 05/14/23 12:16 89 20 94 05/14/23 12:16 94/52 L 05/14/23 12:15 87 20 94 05/14/23 12:10 89 14 92 05/14/23 12:10 103/73 05/14/23 12:06 95 H 16 93 05/14/23 12:06 97/60 L 05/14/23 12:00 78 30 H 93 05/14/23 11:55 80 19 93 05/14/23 11:55 80/60 L 05/14/23 11:45 93 H 19 93 05/14/23 11:42 91 H 22 93 05/14/23 11:42 114/99 05/14/23 11:32 101 H 20 90 05/14/23 11:32 146/124 H 05/14/23 11:30 97 H 16 91 05/14/23 11:21 95 H 23 05/14/23 11:21 81/52 L 05/14/23 11:20 89 22 92 Room Air 05/14/23 11:17 111/58 L 05/14/23 11:17 95 H 28 H 94 Room Air 05/14/23 11:11 93 H 21 93 Room Air 05/14/23 11:11 115/86 05/14/23 11:10 84 19 93 Room Air 05/14/23 11:00 92 H 24 92 Room Air 05/14/23 10:55 89 20 95 Room Air 05/14/23 10:55 101/68 05/14/23 10:50 100/64 05/14/23 10:50 95 H 24 92 Room Air 05/14/23 10:45 84 22 93 Room Air 05/14/23 10:45 75/56 L 05/14/23 10:40 95 H 19 93 Room Air 05/14/23 10:30 88 18 94 Room Air 05/14/23 10:26 96/62 L 05/14/23 10:26 81 15 95 Room Air 05/14/23 10:22 81 15 91 Room Air 05/14/23 10:22 86/66 L 05/14/23 10:20 84 18 94 Room Air 05/14/23 10:15 78 16 94 Room Air 05/14/23 10:15 101/69 05/14/23 10:11 89 21 94 Room Air 05/14/23 10:11 75/61 L 05/14/23 10:10 75 17 95 Room Air 05/14/23 10:07 92 H 17 94 Room Air 05/14/23 10:07 80/60 L 05/14/23 10:01 76/46 L 05/14/23 10:01 80 22 94 Room Air 05/14/23 10:00 84 20 96 Room Air 05/14/23 09:56 102/69 05/14/23 09:56 85 23 96 Room Air 05/14/23 09:50 88/57 L 05/14/23 09:50 93 H 24 94 Room Air 05/14/23 09:47 87 18 94 Room Air 05/14/23 09:47 82/65 L 05/14/23 09:46 79 21 93 Room Air 05/14/23 09:46 84/66 L 05/14/23 09:40 91/67 L 05/14/23 09:40 80 24 94 Room Air 05/14/23 09:36 80 17 93 Room Air 05/14/23 09:36 95/61 L 05/14/23 09:31 105/69 05/14/23 09:31 96 H 19 94 Room Air 05/14/23 09:30 88 15 94 Room Air 05/14/23 09:26 89 21 95 Room Air 05/14/23 09:26 87/62 L 05/14/23 09:25 104 H 18 94 Room Air 05/14/23 09:20 99/55 L 05/14/23 09:20 93 H 22 94 Room Air 05/14/23 09:16 98 H 24 92 Room Air 05/14/23 09:16 64/37 L 05/14/23 09:15 102 H 23 91 Room Air 05/14/23 09:12 79/50 L 05/14/23 09:12 88 23 93 Room Air 05/14/23 09:10 97 H 20 93 Room Air 05/14/23 09:05 105 H 22 93 Room Air 05/14/23 09:01 99 H 15 93 Room Air 05/14/23 09:01 83/66 L 05/14/23 09:00 108 H 16 94 Room Air 05/14/23 08:55 117 H 20 93 Room Air 05/14/23 08:51 74/56 L 05/14/23 08:51 101 H 18 92 Room Air 12/02/23 08:50 114 H 19 93 Room Air 05/14/23 08:50 79/54 L 05/14/23 08:45 103 H 16 92 Room Air 05/14/23 08:40 85 26 H 91 Room Air 05/14/23 08:36 88 29 H 91 Room Air 05/14/23 08:30 Room Air 05/14/23 08:30 97 H 23 94 Room Air 05/14/23 08:30 105/56 L 05/14/23 08:25 101 H 19 93 Room Air 05/14/23 08:20 89 26 H 92 Room Air 05/14/23 08:15 86 18 92 Room Air 05/14/23 08:10 80 16 91 Room Air 05/14/23 08:05 78 16 92 Room Air 05/14/23 08:00 74 05/14/23 08:00 90/62 L 05/14/23 08:00 81 24 92 Room Air 05/14/23 07:55 80 19 91 Room Air 05/14/23 07:50 89 17 92 Room Air 05/14/23 07:45 81 18 92 Room Air 05/14/23 07:40 85 17 93 Room Air 05/14/23 07:35 80 14 93 Room Air 05/14/23 07:30 96/64 L 05/14/23 07:30 79 17 91 Room Air 05/14/23 07:25 75 22 93 Room Air 05/14/23 07:20 70 18 93 Room Air 05/14/23 07:15 92 H 19 91 Room Air 05/14/23 07:10 88 16 92 Room Air 05/14/23 07:05 87 16 91 Room Air 05/14/23 07:00 87/59 L 05/14/23 07:00 77 17 92 Room Air all noted and reviewed including below
[2023-05-14] MEDS ORDERED: MIDODRINE HCL 10 MG TAB PO STA (18:57)
[2023-05-15 04:34] LABS: Basophils # (auto) 0.01 K/uL (0.00-0.20); Basophils % (auto) 0.1 %; Eosinophils # (auto) 0.02 K/uL (0.00-0.50); Eosinophils % (auto) 0.2 %; Hematocrit (blood only) 43.4 % (42.0-52.0); Hemoglobin 15.3 g/dl (14.0-18.0); Immature Granulocytes # (auto) 0.07 K/uL (0.01-0.20); Immature Granulocytes % (auto) 0.7 %; Mean Corpuscular Hemoglobin 33.5 pg (25.0-34.0); Mean Corpuscular Hgb Conc 35.3 g/dL (32.0-36.0); Mean Platelet Volume 10.2 fL (9.4-12.4); Monocytes # (auto) 0.78 K/uL (0.11-0.59); Monocytes % (auto) 7.8 %; Neutrophils # (auto) 8.39 K/uL (1.40-6.50); Neutrophils % (auto) 84.2 %; Platelet Count 175 K/uL (130-400); RDW Coefficient of Variation 12.8 % (11.5-14.5); RDW Standard Deviation 44.9 fL (36.4-46.3); Red Blood Count 4.57 M/uL (4.70-6.10); White Blood Count 9.97 K/ul (4.8-10.8)
[2023-05-15 05:13] LABS: BUN Creatinine Ratio 34.8 (10-20); Calcium 7.5 mg/dl (8.6-10.3); Creatinine Clr Calc Pharmacy 87.7 ml/min; Est GFR (African American) 98.3 ml/min; Est GFR (Non-African American) 84.8 ml/min; Magnesium 2.1 mg/dl (1.7-2.4); Phosphorus 2.3 mg/dl (2.5-4.9); Potassium 3.9 mmol/L (3.5-5.1)
[2023-05-15] MEDS ORDERED: POTASSIUM PHOS 3 MMOL/1 ML INFUSION IV STA ×2 (07:04→08:17)
[2023-05-15] MEDS ORDERED: POTASSIUM PHOSPHATE 9 MMOL in SODIUM CHLORIDE 0.9% 250 ML IV ONE (07:15)
[2023-05-15] MEDS: SODIUM CHLORIDE 0.9% 1,000 ML IV SCH (07:24)
--- NOTE | 2023-05-15 07:38 | Critical Care Progress Note ---
Date of Service May 15, 2023 Assessment & Plan (1) Elevated LFTs: (2) Septic shock: (3) CHERRY (acute kidney injury): (4) Sepsis: (5) Acute cholecystitis: (6) Atrial fibrillation, chronic: (7) History of CVA (cerebrovascular accident): (8) Severe mitral regurgitation: Plan Reason Critically Ill: 72-year-old male present to the hospital complains abdominal pain. 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 Continue with statin Cardiac - -- Septic shock Likely from acute cholecystitis Continue broad-spectrum antibiotics Vasopressor support to keep MAP greater than 65 Random cortisol 35 --Elevated troponin Likely type II VA EKG 05/12/2023, 11:28 AM: A-fib, normal axis, T wave flattening in the lateral leads V1-V3, no ST changes --History of CHF EF 45%, on Entresto at home --A-fib On Xarelto Respiratory - No current issues GI - -- Acute cholecystitis with mild elevation of AST Alk phos within normal limit, possibility of cholangitis is low Surgery on board Continue with antibiotic MRCP negative for cholangitis but did confirm cholecystitis with gallstones S/p ERCP 05/13/2023 which showed choledocholithiasis, stent was placed. --> Removal of stent would be in 6 to 8 weeks Possibility of Axios stent to the gallbladder while at duodenum versus cholecystostomy RENAL/LYTES - -- CHERRY --> improving Likely from hypotension Monitor BUN/creatinine Avoid nephrotoxic medications Strict ins and outs - -- History of prostate cancer Continue with Abdi catheter ENDO - ICU hypoglycemia protocol HEME - Monitor H&H ID - -- Acute cholecystitis with gram-negative bacteremia Klebsiella pansensitive Continue with gram-negative and anaerobic coverage, repeat blood cultures from 05/14/23 negative to date Zosyn changed to Rocephin on 06-04 Procalcitonin 85 --> trending down --Prophylaxis VTE: Xarelto on hold GI: None Lines: Peripheral Diet: Cardiac low fat Plan: In/out: + 1880, urine output 915 mL, + 5.4 L since coming to the hospital S/p ERCP 05/13/2023, no anticoagulation for 72 hours Midodrine started 5 mg 3 times daily as patient has a component of orthostasis. Increase it to 10 mg 3 times daily if needed. Phosphorus being replaced Patient did not need any vasopressor support overnight. Case discussed with Dr. Sykes Please note the above document was generated using voice recognition software. It may contain grammatical, syntax or spelling errors.Any formal questions or concerns about the content, text or information contained within the body of this dictation should be directly addressed to the provider for clarification. Admission and Anticipated Discharge Date Admission Date: May 12, 2023 Subjective Patient seen and examined at bedside. No acute distress, no deficits overnight He was saturating 96% on room air Not in any distress His MAP was in the high 80s while he was laying in the bed When he was made to sit in the chair his blood pressure did go down with maps in the high 50s. He was still not symptomatic with that pressure Was asking when he could go home Review of Systems 2 Review of Systems: All systems reviewed & are unremarkable except as noted in Subjective and Unobtainable due to cognitive status Physical Exam 2 Physical Exam: Constitutional: No acute distress HEENT: EOMI, PERRLA Respiratory system: Good air entry bilaterally, no wheeze, no rhonchi, mild crackles bilateral lower lobes CVS: S1-S2 positive, no murmurs or gallops Abdomen: Soft, nontender, nondistended, positive bowel sounds x4, negative Christine's Extremities: +2 pulses bilaterally radialis/ dorsalis pedis, no cyanosis, no edema Neuro: Awake alert oriented to self and place Psych: Normal mood and affect G/U: No Abdi Skin: no rashes, warm and dry Lymphatic: no cervical or axillary lymphadenopathy Results & Data Results & Data Vital Signs (Past 12 Hours) Vital Signs Temp Pulse Resp BP Pulse Ox O2 Del Method 05/15/23 07:32 85 05/15/23 07:28 36.4 C L 05/15/23 07:01 104/66 05/15/23 07:01 78 15 93 05/15/23 07:00 93 H 15 94 05/15/23 06:30 83 19 94 Room Air 05/15/23 06:30 96/71 L 05/15/23 06:00 113/82 05/15/23 06:00 88 17 94 05/15/23 05:30 113/78 05/15/23 05:30 88 16 93 05/15/23 05:04 134/108 H 05/15/23 05:04 79 19 95 05/15/23 04:30 111/85 05/15/23 04:30 83 26 H 94 05/15/23 04:00 85 14 93 05/15/23 04:00 104/74 05/15/23 03:31 116/70 05/15/23 03:31 84 17 94 05/15/23 03:00 127/74 05/15/23 03:00 86 17 94 05/15/23 02:30 84 21 95 05/15/23 02:30 123/76 05/15/23 02:00 90 16 94 05/15/23 02:00 133/71 05/15/23 01:30 110/78 05/15/23 01:30 86 17 93 05/15/23 00:30 117/67 05/15/23 00:30 72 15 94 05/15/23 00:00 83 17 93 05/15/23 00:00 105/70 05/15/23 00:00 83 05/14/23 23:43 36.7 C 05/14/23 23:00 116/67 05/14/23 23:00 84 18 93 05/14/23 22:01 107/64 05/14/23 22:01 83 17 94 05/14/23 21:00 91 H 20 96 05/14/23 21:00 114/66 05/14/23 20:50 81 26 H 95 05/14/23 20:50 123/66 05/14/23 20:28 92/75 L 05/14/23 20:28 83 22 96 05/14/23 20:01 77 20 94 05/14/23 20:00 101/70 05/14/23 19:55 36.6 C Laboratory Results 05/15/23 03:44 05/15/23 03:44 Coding Level of Care Code 70142 SUB INP/OBS CARE 3/50MIN Diagnoses Elevated LFTs R79.89 Septic shock A41.9; R65.21 CHERRY (acute kidney injury) N17.9 Sepsis A41.9 Sepsis acute organ dysfunction status: unspecified Sepsis type: sepsis due to unspecified organism Acute cholecystitis K81.0 Atrial fibrillation, chronic I48.20 History of CVA (cerebrovascular accident) Z86.73 Severe mitral regurgitation I34.0 (4) Sepsis Sepsis acute organ dysfunction status: unspecified Sepsis type: sepsis due to unspecified organism Qualified Code(s): A41.9 - Sepsis, unspecified organism
[2023-05-15] MEDS: THIAMINE HCL 100 MG in SYRINGE 9 ML IV SCH (08:46)
[2023-05-15] MEDS: MIDODRINE HCL 2.5 MG TAB PO SCH ×3 (08:47→15:53)
[2023-05-15] MEDS ORDERED: SODIUM CHLORIDE 0.9% 500 ML IV ONE (09:49)
[2023-05-15] MEDS: cefTRIAXone SODIUM 2,000 MG in DEXTROSE 5 % MINI-B 50 ML IV SCH (11:00)
--- NOTE | 2023-05-15 17:13 | Hospitalist Progress Note ---
Date of Service May 15, 2023 Assessment & Plan (1) Atrial fibrillation, chronic: (2) History of CVA (cerebrovascular accident): (3) HFrEF (heart failure with reduced ejection fraction): (4) Hypotension: (5) Acute cholecystitis: (6) Septic shock: Plan SEPTIC SHOCK ACUTE CHOLECYSTITIS, POSSIBLE ACUTE CHOLANGITIS BACTEREMIA Chest CT: negative for pulmonary congestion MRCP:Cholelithiasis with evidence to suggest acute cholecystitis clinical correlation recommended. Blood cultures: Klebsiella Repeat blood cultures: Negative so far Abdominal fluid culture: Klebsiella Total bilirubin 3.3, now 1.8 AST/ALT 52, 44/28, 26 Still requiring Levophed IV Zosyn GI consulted, possible ERCP contemplated General surgery consulted 05/15 Off Levophed Midodrine started, hold for systolic BP more than 130 Currently on IV ceftriaxone Possible axial stent placement by GI ACUTE KIDNEY INJURY LIKELY SECONDARY TO SEPSIS, HYPOTENSION Acute uncontrolled Serum creatinine 2.5 to; baseline 1.2-1.3 Improving to 1.5 Renal ultrasound obtained; no hydronephrosis or renal lesions identified 05/15 Resolved HFrEF: Chronic stable Most recent EF 12/2021 EF 42% Takes Entresto Hyponatremia: serum Na+ 131; suspect related to dehydration received 2.5 L in ED; continue maint. fluids at 75ml.hour Improved to 135 History of CVA: Chronic stable Stroke in L MCA 6 years ago Takes Xarelto; hold for now due to possible surgery intervention Atrial fibrillation: Chronic stable Permanent A-fib Take Xarelto; hold for now due to possible surgical intervention Takes metoprolol; hold for hypotension Disposition: PCP Dr. Arroyo CODE STATUS: Full code; confirmed with patient and POA who is patient's daughter Layla VTE prophylaxis: Teds and SCDs for now Admission and Anticipated Discharge Date Admission Date: May 12, 2023 Subjective Follow-up for septic shock, acute cholangitis, etc. Seen sitting up in bed, comfortable, not in distress, to space States he feels fine overall Denies abdominal pain, nausea No dizziness, shortness of breath, chest pain No other new symptoms Review of Systems Review of Systems: all noted and negative except for above Physical Exam Physical Exam: General- oriented x 3, not in distress, speaks in sentences with no effort or accessory muscle use Eyes- anicteric Neck- no JVD Lungs- clear BS BL Heart- normal rate, regular rhythm; no murmurs Abdomen- normal bowel sounds, nondistended, soft, nontender Drain in place: Draining serosanguineous fluid Extremities- no pretibial edema, no calf tenderness Neuro- alert, oriented x 3; no gross focal neurologic deficits Skin- warm & dry Results & Data Results & Data Vital Signs (Past 12 Hours) Vital Signs Temp Pulse Resp BP Pulse Ox O2 Del Method 05/15/23 14:00 80 17 93 05/15/23 14:00 122/72 05/15/23 13:16 83 18 87 L 05/15/23 13:16 99/70 L 05/15/23 13:00 88 20 91 05/15/23 12:01 97/64 L 05/15/23 12:01 97 H 24 94 05/15/23 12:00 85 17 89 L 05/15/23 11:48 92 H 25 H 96 05/15/23 11:48 99/65 L 05/15/23 11:41 98 H 21 95 05/15/23 11:32 88 21 93 05/15/23 11:32 72/47 L 05/15/23 11:30 76 22 90 05/15/23 11:15 96/80 L 05/15/23 11:15 77 17 92 05/15/23 11:01 97/50 L 05/15/23 11:01 92 H 16 94 05/15/23 11:00 88 15 91 05/15/23 10:45 96/73 L 05/15/23 10:45 85 18 94 05/15/23 10:30 91 H 32 H 95 05/15/23 10:26 82 21 95 05/15/23 10:26 99/64 L 05/15/23 10:00 81 21 94 05/15/23 09:45 104/89 05/15/23 09:45 79 19 93 05/15/23 09:35 88/64 L 05/15/23 09:35 79 19 89 L 05/15/23 09:31 87/53 L 05/15/23 09:31 95 H 19 93 05/15/23 09:30 93 H 22 93 05/15/23 09:22 90/53 L 05/15/23 09:22 101 H 22 93 05/15/23 09:18 62/43 L 05/15/23 09:18 98 H 21 92 05/15/23 09:15 78/53 L 05/15/23 09:15 100 H 21 94 05/15/23 09:12 92 H 19 95 05/15/23 09:12 81/57 L 05/15/23 09:11 80 15 95 05/15/23 08:59 112/81 05/15/23 08:59 112 H 20 85 L 05/15/23 08:56 100 H 17 86 L 05/15/23 08:56 128/75 05/15/23 08:30 117/76 05/15/23 08:30 93 H 14 94 05/15/23 08:00 111/81 05/15/23 08:00 81 17 93 05/15/23 07:32 85 05/15/23 07:30 103/73 05/15/23 07:30 90 19 94 05/15/23 07:28 36.4 C L 05/15/23 07:01 104/66 05/15/23 07:01 78 15 93 05/15/23 07:00 93 H 15 94 05/15/23 06:30 83 19 94 Room Air 05/15/23 06:30 96/71 L 05/15/23 06:00 113/82 05/15/23 06:00 88 17 94 05/15/23 05:30 113/78 05/15/23 05:30 88 16 93
[2023-05-16] MEDS: THIAMINE HCL 100 MG in SYRINGE 9 ML IV SCH (08:21)
[2023-05-16] MEDS: MIDODRINE HCL 2.5 MG TAB PO SCH ×3 (08:22→18:08)
[2023-05-16] MEDS: cefTRIAXone SODIUM 2,000 MG in DEXTROSE 5 % MINI-B 50 ML IV SCH (12:20)
[2023-05-16 13:32] LABS: Uric Acid, Random Urine 38 mg/dL
[2023-05-16 14:55] LABS: Hemoglobin 16.1 g/dl (14.0-18.0); Mean Corpuscular Hemoglobin 33.1 pg (25.0-34.0); Mean Corpuscular Volume 94.7 fL (80.0-100.0); Mean Platelet Volume 9.5 fL (9.4-12.4); Platelet Count 204 K/uL (130-400); RDW Coefficient of Variation 12.8 % (11.5-14.5); RDW Standard Deviation 44.2 fL (36.4-46.3); Red Blood Count 4.86 M/uL (4.70-6.10); White Blood Count 6.49 K/ul (4.8-10.8)
[2023-05-16 15:20] LABS: Albumin Level 3.1 gm/dl (3.4-5.0); BUN Creatinine Ratio 23.1 (10-20); Bilirubin Direct 0.1 mg/dl (0-0.2); Bilirubin,Total 0.6 mg/dl (0.2-1.0); Calcium 8.1 mg/dl (8.6-10.3); Creatinine Clr Calc Pharmacy 99.6 ml/min; Est GFR (African American) 103.8 ml/min; Est GFR (Non-African American) 89.6 ml/min; Potassium 4.2 mmol/L (3.5-5.1); Total Protein 6.2 gm/dl (6.0-8.3)
[2023-05-16 15:24] LABS: Basophils # (auto) 0.02 K/uL (0.00-0.20); Basophils % (auto) 0.3 %; Eosinophils # (auto) 0.06 K/uL (0.00-0.50); Eosinophils % (auto) 0.9 %; Immature Granulocytes # (auto) 0.09 K/uL (0.01-0.20); Immature Granulocytes % (auto) 1.4 %; Lymphocytes # (auto) 1.16 K/uL (1.20-3.40); Lymphocytes % (auto) 17.9 %; Monocytes # (auto) 0.69 K/uL (0.11-0.59); Monocytes % (auto) 10.6 %; Neutrophils # (auto) 4.47 K/uL (1.40-6.50); Neutrophils % (auto) 68.9 %
--- NOTE | 2023-05-16 21:52 | Ultrasound Report ---
ULTRASOUND BILATERAL LOWER EXTREMITY VENOUS CLINICAL HISTORY: Lower extremity edema. COMPARISON STUDY: No priors TECHNIQUE: Real-time, grayscale, and color Doppler sonography of the deep veins of the right and left lower extremity was performed from the inguinal crease to the calf. Compression and augmentation wer e utilized. FINDINGS: There is no sonographic evidence of deep venous thrombosis identified in the right or left lower extremity. The common femoral, superficial femoral, and popliteal veins are patent and normally compressible bilaterally. The greater saphenous vein and the profunda femoris vein at the junction w ith the common femoral vein are clear in both legs. The visualized calf veins are patent bilaterally. IMPRESSION: There is no sonographic evidence of deep venous thrombosis identified in the right or lef t lower extremity. ACT 112: Negative or not required by law. Electronically signed by: Charly Myers M.D. 05/16/2023 9:49 PM
[2023-05-16] MEDS: RIVAROXABAN 20 MG TAB PO SCH (22:05)
[2023-05-17] MEDS: THIAMINE HCL 100 MG in SYRINGE 9 ML IV SCH (08:20)
[2023-05-17] MEDS: MIDODRINE HCL 2.5 MG TAB PO SCH ×3 (08:20→19:09)
[2023-05-17] MEDS: cefTRIAXone SODIUM 2,000 MG in DEXTROSE 5 % MINI-B 50 ML IV SCH (11:52)
--- NOTE | 2023-05-17 15:14 | Hospitalist Progress Note ---
Date of Service May 17, 2023 Assessment & Plan (1) Atrial fibrillation, chronic: (2) History of CVA (cerebrovascular accident): (3) HFrEF (heart failure with reduced ejection fraction): (4) Hypotension: (5) Acute cholecystitis: (6) Septic shock: Plan SEPTIC SHOCK ACUTE CHOLECYSTITIS, POSSIBLE ACUTE CHOLANGITIS BACTEREMIA Chest CT: negative for pulmonary congestion MRCP:Cholelithiasis with evidence to suggest acute cholecystitis clinical correlation recommended. Blood cultures: Klebsiella Repeat blood cultures: Negative so far Abdominal fluid culture: Klebsiella Total bilirubin 3.3, now 1.8 AST/ALT 52, 44/28, 26 Patient admitted to ICU for few days Required IV Levophed, patient reports baseline hypotension, started on midodrine 3 times daily GI consulted Status post ERCP:The patient was found to have evidence of a small stone in the distal common bile duct in addition to pus within the common bile duct consistent with cholangitis. This was treated with a very sphincterotomy, gallstone extraction and biliary stent insertion. Will need stent removal in 6 to 8 weeks General surgery consulted Percutaneous cholecystostomy tube placed, patient not a candidate for cholecystectomy due to high risk per Dr. Robertson Cholecystostomy tube to remain for at least 2 to 3 weeks, further decision will be made upon follow-up in the clinic in 2 weeks time For now check with GI for possible Axios stent placement (gallbladder to duodenum) Awaiting further recommendations by GI Clinically improved Transition from IV Zosyn to IV ceftriaxone ID consulted Upon discharge recommend to transition to Levaquin 750 mg daily plus Flagyl 500 mg p.o. 3 times daily for total of 14 days from the day the drain was placed ACUTE KIDNEY INJURY LIKELY SECONDARY TO SEPSIS, HYPOTENSION Acute Serum creatinine 2.5 to; baseline 1.2-1.3 Resolved HFrEF: Chronic stable Most recent EF 12/2021 EF 42% Takes Entresto Hyponatremia: serum Na+ 131; suspect related to dehydration received 2.5 L in ED; continue maint. fluids at 75ml.hour Improved to 135 History of CVA: Chronic stable Stroke in L MCA 6 years ago Xarelto resumed Atrial fibrillation: Chronic stable Permanent A-fib Xarelto resume Takes metoprolol; hold for hypotension Disposition: PCP Dr. Arroyo CODE STATUS: Full code; confirmed with patient and POA who is patient's daughter Layla VTE prophylaxis: Xarelto Disposition Anticipate discharge to home when medically stable, no further procedures by a GI Follow-up with PCP in 1 week Admission and Anticipated Discharge Date Admission Date: May 12, 2023 Subjective Follow-up for acute cholecystitis, etc. Seen resting in bed, comfortable, not in distress Feels fine overall Denies abdominal pain, nausea vomiting, fevers or chills no chest pain, dyspnea, palpitations, dizziness No other symptom Review of Systems Review of Systems: all noted and negative except for above Physical Exam Physical Exam: General- oriented x 3, not in distress, speaks in sentences with no effort or accessory muscle use Eyes- anicteric Neck- no JVD Lungs- clear breath sounds bilaterally, no rales/wheezes Heart- normal rate, regular rhythm; no murmurs Abdomen- normal bowel sounds, nondistended, soft, nontender Percutaneous cholecystostomy tube in place: Draining brownish output Extremities- no pretibial edema, no calf tenderness Neuro- alert, oriented x 3; no new gross focal neurologic deficits Skin- warm & dry Results & Data Results & Data Vital Signs (Past 12 Hours) Vital Signs Temp Pulse Pulse Resp BP Pulse Ox O2 Del Method 05/17/23 11:24 36.7 C 80 17 130/78 97 Room Air 05/17/23 07:37 36.7 C 79 19 120/85 97 Room Air 05/17/23 07:05 73 all noted and reviewed including below
--- NOTE | 2023-05-17 15:17 | Infectious Disease Consult ---
Date of Service May 17, 2023 Telehealth Information I performed this visit using a real-time telehealth connection between my location and the patients location ([facility]). After connecting through interactive tele-video, patient was identified by name and date of and/or wristband check.Patient (or authorized healthcare outside sales account representative) was informed that this was a telemedicine visit and it was being conducted confidentially over secure lines. My office door was closed and no one else was present in the room with me.Patient (or authorized healthcare outside sales account representative) provided consent to proceed with the visit, expressed an understanding of privacy and security of the telemedicine visit, and gave permission to have a hospital outside sales account representative in the room in order to assist with the visit and to conduct portions of the visit, as needed. I informed the patient (or authorized healthcare outside sales account representative) that I reviewed their record and presented the opportunity for them to ask any questions regarding the visit today. The patient agreed to participate. Assessment & Plan (1) Bacteremia due to Klebsiella pneumoniae: (2) Acute cholecystitis: (3) Acute cholangitis: (4) Status post endoscopic retrograde cholangiopancreatography: Plan Please step down IV ceftriaxone to oral levofloxacin 750 mg once daily and add Flagyl 500 mg p.o. 3 times daily. Treat for a total of 14 days with anticipated end date of 05/27/2024. Patient to F/U with surgical team outpatient for management of cholecystostomy tube. Thank you for consulting ID. We will sign off for now. History of Present Illness History of Present Illness Mr. Sullivan is a 72 yo man with medical hx of CVA, HTN, atrial fibrillation, heart failure with reduced ejection fraction, and dyslipidemia who was admitted to [facility] on 05/12 because of acute encephalopathy of 2 days duration. He was noticed by his friend to have slurred speech and unsteady gait for around 2 days prior to presentation which prompted him to take him to the emergency department. On presentation, he was found to be in septic shock and a CT abdomen and pelvis was suggestive of acute cholecystitis. He was then admitted to ICU and was seen by both surgery and GI team and eventually underwent an ERCP on 05/13 which demonstrated a small stone in the distal common bile duct as well as pus within the common bile duct consistent with cholangitis. Sphincterotomy and gallstone extraction as well as biliary stent was deployed. He further underwent cholecystostomy tube placement on the same day. 2 sets of blood cultures from admission and Cx from cholecystostomy tube drainage grew Klebsiella pneumoniae. ID team was consulted for further recommendations and to help with the management of antibiotics. Allergies Allergy/AdvReac Type Severity Reaction Status Date / Time oseltamivir [From Tamiflu] AdvReac Intermediate Rash Unverified 07/23/21 08:58 Home Medications Medication Instructions Recorded Confirmed Type atorvastatin 40 mg tablet 80 mg PO QDD 08/01/19 05/12/23 History gabapentin 300 mg capsule 300 mg PO BID 08/01/19 05/12/23 History multivitamin 1 tab PO QAM 08/01/19 05/12/23 History vit A 300 mcg-C 200 mg-E 27 1 tab PO QAM 08/01/19 05/12/23 History mg-lutein 2 mg and minerals tablet (Ocuvite with Lutein) lutein 6 mg tablet 6 mg PO QAM 05/29/21 05/12/23 History magnesium 250 mg tablet 250 mg PO QAM 05/29/21 05/12/23 History rivaroxaban 20 mg tablet (Xarelto) 20 mg PO QDD 05/29/21 05/12/23 History furosemide 20 mg tablet 20 mg PO QAM #0 tabs 06/01/21 05/12/23 Rx metoprolol succinate 25 mg 25 mg PO QPM #0 tabs 06/01/21 05/12/23 Rx tablet,extended release 24 hr spironolactone 25 mg tablet 12.5 mg (1/2 x 25 mg) PO DAILY #15 06/01/21 05/12/23 Rx tabs sacubitril 97 mg-valsartan 103 mg 1 tab PO BID 05/12/23 05/12/23 History tablet (Entresto) Patient History Medical History Septic shock Acute cholecystitis Hypotension HFrEF (heart failure with reduced ejection fraction) Acute respiratory failure with hypoxia Tricuspid regurgitation Severe mitral regurgitation Acute heart failure with reduced ejection fraction and diastolic dysfunction CHF (congestive heart failure) History of CVA (cerebrovascular accident) Dilated cardiomyopathy Hyperlipidemia Atrial fibrillation, chronic Stroke Atrial fibrillation Family History Other No significant family history Social History Smoking Status: Never smoker Second Hand Exposure: No; Do You Dip or Chew Tobacco: No; Hx Alcohol Use: Yes Alcohol type: beer Hx Substance Use: No Preferred Language: Greenlandic Communication Ability: Effective Communication Ability Comment: Periods of aphasia 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 Mild abdominal pain :No dysuria or hesitancy, no urinary discharge Musculoskeletal/Skin: no muscle pain and no skin rash Neurologic: no headache, dizziness Physical Exam Couldn't be performed as the consult was conducted via telemed. Results & Data Vital Signs (Past 12 Hours) Vital Signs Temp Pulse Pulse Resp BP Pulse Ox O2 Del Method 05/17/23 11:24 36.7 C 80 17 130/78 97 Room Air 05/17/23 07:37 36.7 C 79 19 120/85 97 Room Air 05/17/23 07:05 73 Laboratory Results Microbiology: 05/12: 4 out of 4 bottles of blood cultures growing Klebsiella pneumoniae 05/13: Biliary fluid culture growing Klebsiella pneumoniae 05/14: 2 sets of blood culture negative to date Diagnostic Findings CT abdomen pelvis performed on 05/12: 1. Cholelithiasis with acute cholecystitis. Surgical consultation is advised. 2. Cardiomegaly. 3. Colonic diverticulosis without CT evidence of acute diverticulitis. 4. 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 5. Brachytherapy implants are noted in the prostate. ERCP performed on 05/13: The patient was found to have evidence of a small stone in the distal common bile duct in addition to pus within the common bile duct consistent with cholangitis. This was treated with a very sphincterotomy, gallstone extraction and biliary stent insertion.
[2023-05-17] MEDS: RIVAROXABAN 20 MG TAB PO SCH (19:08)
[2023-05-18 03:44] VITALS: RESP 18
[2023-05-18 08:03] VITALS: O2SAT 93
[2023-05-18] MEDS: MIDODRINE HCL 2.5 MG TAB PO SCH ×2 (08:04→13:43)
[2023-05-18] MEDS ORDERED: THIAMINE HCL 100 MG TAB PO SCH (09:00)
[2023-05-18] MEDS: cefTRIAXone SODIUM 2,000 MG in DEXTROSE 5 % MINI-B 50 ML IV SCH (11:00)
[2023-05-18 11:58] VITALS: BP 124/84; PULSE 77; TEMP 97.9
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
== END 2023-05-18 15:39 | DRG 871 ==
LOC: ED 10:48 → 1E 13:45 → SUATTDRO 13:45 → 1E 16:19 → 2E 05-16 17:19
DX: E87.8 Other disorders of electrolyte and fluid balance, not elsewhere classified; I11.0 Hypertensive heart disease with heart failure; I50.20 Unspecified systolic (congestive) heart failure; E87.20 Acidosis, unspecified; K80.42 Calculus of bile duct with acute cholecystitis without obstruction; K80.32 Calculus of bile duct with acute cholangitis without obstruction; A41.59 Other Gram-negative sepsis; I42.0 Dilated cardiomyopathy; I21.A1 Myocardial infarction type 2; I34.0 Nonrheumatic mitral (valve) insufficiency; N17.9 Acute kidney failure, unspecified; E87.1 Hypo-osmolality and hyponatremia; I48.21 Permanent atrial fibrillation; I69.351 Hemiplegia and hemiparesis following cerebral infarction affecting right dominant side; R65.21 Severe sepsis with septic shock; B96.1 Klebsiella pneumoniae [K. pneumoniae] as the cause of diseases classified elsewhere; I69.319 Unspecified symptoms and signs involving cognitive functions following cerebral infarction